=== PATIENT | female | born 1990 | race Caucasian/White ===

== ENCOUNTER → 2020-01-08 10:19 | Outpatient (CLI) | payer BC, SELFPAY ==
[2020-01-08 12:24] LABS: Free T3 3.3 pg/mL (2.18-3.98); Thyroid Stim Hormone (TSH) 2.21 uIU/mL (0.358-3.74)
[2020-01-10 16:08] LABS: Age Gdln ACOG Testing 30-65 (.)
[2020-01-11 00:24] LABS: HPV APTIMA, High Risk Negative (Negative)
[2020-01-11 00:25] LABS: HPV Reflexed? YES, CHARGE PATIENT
== END ==
PROVIDERS: Visit Provider Obstetrics & Gynecology
DX: Z12.4 Encounter for screening for malignant neoplasm of cervix (principal); Z83.49 Family history of other endocrine, nutritional and metabolic diseases; N92.6 Irregular menstruation, unspecified
CPT/HCPCS: 36415; 84439; 84443; 84481; 87624; 88175; G0145

== ENCOUNTER → 2020-02-20 | Outpatient (CLI) | payer SELFPAY ==
[2020-02-20 08:22] LABS: hCG Titer Quant., Serum 55 mIU/mL (1-3)
== END | disposition home or self-care (01) ==
PROVIDERS: PCP Internal Medicine; Referring Provider Obstetrics & Gynecology; Visit Provider Obstetrics & Gynecology
DX: O20.0 Threatened abortion (principal)
CPT/HCPCS: 36415; 84702

== ENCOUNTER → 2020-02-22 | Outpatient (CLI) | payer SELFPAY ==
[2020-02-22 08:17] LABS: hCG Titer Quant., Serum 6 mIU/mL (1-3)
== END | disposition home or self-care (01) ==
LOC: LAB 07:24
PROVIDERS: PCP Internal Medicine; Referring Provider Obstetrics & Gynecology; Visit Provider Obstetrics & Gynecology
DX: O20.0 Threatened abortion (principal)
CPT/HCPCS: 36415; 84702

== ENCOUNTER → 2020-07-28 | Outpatient (CLI) | payer BC, SELFPAY ==
[2020-07-31 03:07] LABS: Chlamydia By Nucleic Acid AMP Negative (Negative)
[2020-07-31 08:27] LABS: Gonococcus By Nucleic Acid AMP Negative (Negative)
== END | disposition home or self-care (01) ==
PROVIDERS: PCP Internal Medicine; Visit Provider Obstetrics & Gynecology
DX: Z11.3 Encounter for screening for infections with a predominantly sexual mode of transmission (principal)
CPT/HCPCS: 87491; 87591

== ENCOUNTER → 2020-08-11 | Outpatient (CLI) | payer BC, SELFPAY ==
[2020-08-11 16:52] LABS: Absolute Lymphocyte Count 1.79 X10^3/uL (0.83-4.51); Absolute Neutrophil Count 9.2 X10^3/uL (2.0-7.7); Basophil# 0.04 X10^3/uL; Basophil% 0.3 % (0-1); Eosinophil# 0.08 X10^3/uL; Eosinophils% 0.7 % (0-5); Hematocrit 40.8 % (37-47); Hemoglobin 13.4 g/dL (12.0-15.0); Lymphocyte # 1.79 X10^3/ul (4.0); Lymphocyte % 15.1 % (19-41); Mean Corp Hgb Conc 32.8 g/dL (32-36); Mean Corpuscular Hgb 28.4 pg (27.0-32.0); Mean Corpuscular Volume 86.4 fL (81-99); Mean Platelet Vol. 10.4 fl (6.2-12.0); Monocyte# 0.65 X10^3/uL; Monocyte% 5.5 % (0-10); NRBC Flagged by Analyzer 0 % (0-5); Neutrophil # 9.22 X10^3/uL (2.7-7.7); Neutrophil % 77.6 % (47-70); Platelet Count 263 K/mm3 (150-450); RBC Distribution Width CV 12.6 % (11.6-14.6); RBC Distribution Width SD 39.8 fl (35.1-43.9); Red Blood Count 4.72 M/mm3 (4.2-5.4); White Blood Count 11.9 K/mm3 (4.4-11.0)
[2020-08-11 17:02] LABS: Color, Urine Yellow (Yellow); Glucose, Dipstick Normal (Normal); Ketone-Dipstick 50 mg/dl (Negative); Leukocyte Esterase-Dipstick 25 /ul (Negative); Nitrite-Dipstick Negative (Negative); Occult Blood-Urine 25 /ul (Negative); Protein-Dipstick 30 mg/dl (Negative); Urine Bilirubin Dipstick Negative (Negative); Urine Clarity Clear (Clear); Urine Urobilinogen Normal (Normal)
[2020-08-12 10:20] LABS: HIV - WCH Non-Reactive (Nonreactive); Hepatitis B Surface Antigen Non-Reactive (Nonreactive); Hepatitis C Antibody Non-Reactive (Nonreactive)
[2020-08-14 02:04] LABS: Prenatal RPR NONREACTIVE (NONREACTIVE)
== END | disposition home or self-care (01) ==
LOC: WOBLAB 14:37
PROVIDERS: PCP Internal Medicine; Visit Provider Obstetrics & Gynecology
DX: Z34.81 Encounter for supervision of other normal pregnancy, first trimester (principal)
CPT/HCPCS: 36415; 81002; 85025; 86703; 86762; 86803; 87340

== ENCOUNTER → 2020-08-25 | Outpatient (CLI) | payer BC, SELFPAY ==
[2020-08-25 17:14] LABS: Bacteria 0 SEEN /hpf (None Seen); Mucous, Urine 0 SEEN /hpf (<or=2+); Red Blood Cells-Urine 0 SEEN /hpf (0-5)
[2020-08-25 18:18] LABS: Color, Urine Yellow (Yellow); Glucose, Dipstick Normal (Normal); Ketone-Dipstick Negative (Negative); Leukocyte Esterase-Dipstick 25 /ul (Negative); Nitrite-Dipstick Negative (Negative); Occult Blood-Urine 50 /ul (Negative); Protein-Dipstick Negative (Negative); Urine Bilirubin Dipstick Negative (Negative); Urine Clarity Clear (Clear); Urine Urobilinogen Normal (Normal)
[2020-08-25 19:02] LABS: Calcium Oxalate Crystals Ur 1+ /hpf (<or=2+); Squamous Epithelial Cells - UA 0-5 SEEN /hpf (5-10); White Blood Cells 0-5 SEEN /hpf (0-5)
== END | disposition home or self-care (01) ==
LOC: LABSPEC 17:10
PROVIDERS: PCP Internal Medicine; Visit Provider Obstetrics & Gynecology
DX: Z34.81 Encounter for supervision of other normal pregnancy, first trimester (principal)
CPT/HCPCS: 81001; 87086

== ENCOUNTER → 2020-10-17 10:05 | Outpatient (CLI) | payer BC, SELFPAY ==
[2020-10-24 16:08] LABS: AFP MoM Value 1.29 (.); AFP Value-EIA 37.1 ng/mL (.); Comment Report (.); DIA MoM Value 0.88 (.); DIA Value-EIA 109.18 pg/mL (.); DSR (By Age) 436 (.); DSR (Second Trimester) 10000 (.); Gestat. Age Based On As provided (.); Insulin Dep Diabetes No (.); Maternal Age At EDD 33.1 yr (.); hCG MoM 0.46 (.); hCG Value 11254 mIU/mL (.)
[2020-10-25 12:50] LABS: CF, Screen Comment: (.)
== END ==
PROVIDERS: PCP Internal Medicine; Visit Provider Obstetrics & Gynecology
DX: Z34.82 Encounter for supervision of other normal pregnancy, second trimester (principal)
CPT/HCPCS: 36415; 81220; 82105; 82677; 84702

== ENCOUNTER → 2020-12-08 08:58 | Outpatient (CLI) | payer BC, SELFPAY ==
[2020-12-08 11:02] LABS: Hematocrit 37.2 % (37-47); Hemoglobin 12.2 g/dL (12.0-15.0); Mean Corp Hgb Conc 32.8 g/dL (32-36); Mean Corpuscular Hgb 27.1 pg (27.0-32.0); Mean Corpuscular Volume 82.7 fL (81-99); Mean Platelet Vol. 10.1 fl (6.2-12.0); Platelet Count 254 K/mm3 (150-450); RBC Distribution Width CV 13.2 % (11.6-14.6); RBC Distribution Width SD 39.8 fl (35.1-43.9); White Blood Count 11.1 K/mm3 (4.4-11.0)
[2020-12-08 11:08] LABS: Glucose Challenge Gest 1H 50g 139 mg/dL (70-140)
== END ==
PROVIDERS: PCP Internal Medicine; Visit Provider Obstetrics & Gynecology
DX: Z34.82 Encounter for supervision of other normal pregnancy, second trimester (principal)
CPT/HCPCS: 36415; 82950; 85027

== ENCOUNTER → 2021-03-02 | Outpatient (CLI) | payer BC, SELFPAY | END | disposition home or self-care (01) | LOC: LABSPEC 11:08 | PROVIDERS: PCP Internal Medicine; Visit Provider Obstetrics & Gynecology | DX: Z36.85 Encounter for antenatal screening for Streptococcus B (principal) | CPT/HCPCS: 87081 ==

== ENCOUNTER → 2021-03-19 15:03 | Outpatient (CLI) | payer BC, SELFPAY ==
[2021-03-19 15:07] LABS: Mucous, Urine 0 SEEN /hpf (<or=2+); Red Blood Cells-Urine 0 SEEN /hpf (0-5)
[2021-03-19 15:51] LABS: Color, Urine Yellow (Yellow); Glucose, Dipstick Normal (Normal); Ketone-Dipstick Negative (Negative); Leukocyte Esterase-Dipstick 25 /ul (Negative); Nitrite-Dipstick Negative (Negative); Occult Blood-Urine Negative /ul (Negative); Protein-Dipstick Negative (Negative); Urine Bilirubin Dipstick Negative (Negative); Urine Clarity Cloudy (Clear); Urine Urobilinogen Normal (Normal); Urine pH 6.5 (5.0 - 8.0)
[2021-03-19 15:51] LABS: Hematocrit 39.2 % (37-47); Hemoglobin 12.8 g/dL (12.0-15.0); Mean Corp Hgb Conc 32.7 g/dL (32-36); Mean Corpuscular Hgb 26.4 pg (27.0-32.0); Mean Corpuscular Volume 80.8 fL (81-99); Mean Platelet Vol. 9.8 fl (6.2-12.0); Platelet Count 275 K/mm3 (150-450); RBC Distribution Width CV 14.6 % (11.6-14.6); RBC Distribution Width SD 42.5 fl (35.1-43.9); Red Blood Count 4.85 M/mm3 (4.2-5.4); White Blood Count 14.6 K/mm3 (4.4-11.0)
[2021-03-19 16:07] LABS: Bacteria RARE /hpf (None Seen); White Blood Cells 0-5 SEEN /hpf (0-5)
[2021-03-19 16:08] LABS: Squamous Epithelial Cells - UA 5-10 SEEN /hpf (5-10)
[2021-03-19 16:11] LABS: ALB/GLOB Ratio 0.8 RATIO (0.9-2.4); AST(SGOT) 13 U/L (15-37); Alanine Aminotransfer ALT/SGPT 16 U/L (13-56); Alkaline Phosphatase 153 U/L (45-117); Anion Gap 7 (5-15); BUN 5 mg/dL (7-18); BUN/Creat Ratio 8.9 RATIO (10-20); Chloride 105 mmol/L (98-107); Creatinine, Serum 0.56 mg/dL (0.55-1.02); EST Glomerular Filtration Rate 132 mL/min (>60); Est Glom Filt Rate - Afr Amer 160 mL/min (>60); Globulin 3.8 g/dL (2.2-4.2); Glucose 89 mg/dL (74-106); LDH 145 U/L (84-246); Potassium 4.1 mmol/L (3.5-5.1); Protein, Total 6.8 g/dL (6.4-8.2); Sodium Level 137 mmol/L (136-145)
[2021-03-19 16:13] LABS: Protein, Urine (Random) < 6.0 mg/dL (<11.9); Protein:Creat Ratio 157 mg/g CRE (0-200)
== END ==
PROVIDERS: PCP Nurse Practitioner Family; Visit Provider Obstetrics & Gynecology
DX: O13.9 Gestational [pregnancy-induced] hypertension without significant proteinuria, unspecified trimester (principal); Z3A.00 Weeks of gestation of pregnancy not specified
CPT/HCPCS: 36415; 80053; 81001; 82570; 83615; 84156; 85027

== ENCOUNTER 2021-03-19 19:50 | Inpatient (IN) | payer BC, SELFPAY ==
[2021-03-19 20:14] VITALS: TEMP 36.3
[2021-03-19 20:16] VITALS: BP 128/86; PULSE 95
[2021-03-19 20:21] VITALS: BMI 47.6
[2021-03-19] MEDS: Lactated Ringers 1,000 ML 50 ML IV (20:30)
[2021-03-19 21:22] LABS: Absolute Lymphocyte Count 2.51 X10^3/uL (0.83-4.51); Absolute Neutrophil Count 11.5 X10^3/uL (2.0-7.7); Basophil# 0.04 X10^3/uL; Basophil% 0.3 % (0-1); Eosinophil# 0.09 X10^3/uL; Eosinophils% 0.6 % (0-5); Hematocrit 39.2 % (37-47); Hemoglobin 12.9 g/dL (12.0-15.0); Lymphocyte # 2.51 X10^3/ul (0.83-4.51); Lymphocyte % 16.6 % (19-41); Mean Corp Hgb Conc 32.9 g/dL (32-36); Mean Corpuscular Hgb 26.6 pg (27.0-32.0); Mean Corpuscular Volume 80.8 fL (81-99); Mean Platelet Vol. 9.9 fl (6.2-12.0); Monocyte# 0.82 X10^3/uL; Monocyte% 5.4 % (0-10); NRBC Flagged by Analyzer 0 % (0-5); Neutrophil # 11.48 X10^3/uL (2.7-7.7); Neutrophil % 76.2 % (47-70); Platelet Count 264 K/mm3 (150-450); RBC Distribution Width CV 14.6 % (11.6-14.6); RBC Distribution Width SD 42.7 fl (35.1-43.9); Red Blood Count 4.85 M/mm3 (4.2-5.4); White Blood Count 15.1 K/mm3 (4.4-11.0)
[2021-03-19] MEDS: miSOPROStol 25 MCG TABLET VAGINAL (22:02)
[2021-03-19 23:24] VITALS: TEMP 36.1
[2021-03-19 23:25] VITALS: BP 146/87; PULSE 82
[2021-03-20] VITALS (55 sets, daily range): BP systolic 95–189; BP diastolic 53–116; PULSE 78–114; TEMP 36.3–37; O2SAT 95–100
[2021-03-20] MEDS: miSOPROStol 25 MCG TABLET VAGINAL (02:59)
--- NOTE | 2021-03-20 07:17 | PCM.HP.BLA ---
History and Physical Date of Admission: 03/19/21 Chief complaint: Induction of labor for gestational hypertension History of present illness: 31-year-old G2, P0 at 39 weeks 0 days with WILLIAM: 03/26/2020 1 x 7-week ultrasound arrives for induction of labor for gestational hypertension. Denies headache, visual changes, chest pain, shortness of breath, nausea vomiting, right upper quadrant pain. Patient states good movement. Obstetric history: G1: SAB 1 biochemical G2: Current Past medical history: Anxiety, HSV Medications: vitamin, Valtrex, Prozac Past surgical history: [place] teeth extraction, eye, tonsils adenoids, Lasix Allergies: Oxycodone Social history: Denies a history of smoking, alcohol, drug use Family history: Denies history DVT or PE Review of systems: Besides the above pertinent positives a full review of systems was performed and found to be negative. Physical exam: Vitals: BP 146/87 pulse 89 SpO2 100% temperature 97.5 General: Normal-appearing no acute distress HEENT: Normocephalic atraumatic no cervical lymphadenopathy Cardiac: Nonlabored breathing, no use of accessory muscles Abdomen: Soft, nontender, gravid Pelvic: Cervical exam /-3 grossly ruptured Extremities: No peripheral edema normal peripheral pulses Psych: Normal affect normal demeanor nonpressured speech Labs: White blood cell count 15.1, hemoglobin 12.9, hematocrit 39.2, platelets 264. Assessment and plan: 31-year-old G2, P0 at 39 weeks and 0 days for induction of labor for gestational hypertension -Admit labor and delivery -CEFM -GBS negative -Cytotec induction: After single dose, upon initial examination SROM for clear fluid. Will start Pitocin -Gestational hypertension: HELLP labs within normal limits, pt remains asymptomatic. Upon evaluation after SROM patient with severe range blood pressure, after 15-minute repeat blood pressure now nonsevere range. Patient considering epidural. We will continue to monitor and treat blood pressures if needed. Educated the patient on blood pressure medication and magnesium. -HSV: Patient on Valtrex suppression therapy. Sterile speculum exam was performed day of induction with no lesions noted, patient asymptomatic. -Anesthesia see
[2021-03-20] MEDS: Oxytocin 30 units/NS 500 ml 30 UNITS/500 ML IV.SOLN IV (07:19)
[2021-03-20] MEDS: Lactated Ringers 500 ML 999 ML IV ×2 (08:00→11:14)
[2021-03-20] MEDS: fentaNYL-bupivacaine (epidural) 100 ML BAG EPIDURAL ×3 (09:12→21:57)
[2021-03-20] MEDS: Lactated Ringers 1,000 ML 200 ML IV ×4 (09:37→23:40)
[2021-03-20] MEDS: Ondansetron 4 MG/2 ML Vial IV ×2 (15:20→19:30)
--- NOTE | 2021-03-20 17:34 | PN.OBGYN_ITS ---
Subjective Subjective: Patient comfortable with epidural. Objective Data Objective Data Vital Signs: Vital Signs Temp Pulse BP Pulse Ox 98.4 F 105 H 104/62 98 03/20/21 17:33 03/20/21 17:33 03/20/21 17:33 03/20/21 15:26 Weight: 252 lb 4 oz Body Mass Index (BMI) 47.6 Intake & Output: Intake and Output for Last 24 Hours 03/18/21 03/19/21 03/20/21 23:59 23:59 23:59 Intake Total 2576.49 / 2576.49 Balance 2576.49 / 2576.49 Lab / Micro Data Result Diagrams: 03/19/21 20:30 Labs: Laboratory Results - last 24 hr 03/19/21 03/19/21 20:30 20:30 WBC 15.1 H RBC 4.85 Hgb 12.9 Hct 39.2 MCV 80.8 L MCH 26.6 L MCHC 32.9 RDW Std Deviation 42.7 RDW Coeff of Jose Alberto 14.6 Plt Count 264 MPV 9.9 Immature Gran % (Auto) 0.900 Neut % (Auto) 76.2 H Lymph % (Auto) 16.6 L [place] % (Auto) 5.4 Eos % (Auto) 0.6 Baso % (Auto) 0.3 Absolute Neuts (auto) 11.5 H Absolute Lymphs (auto) 2.51 Nucleated RBC % 0 Blood Type A POSITIVE Antibody Screen NEGATIVE Micro: Microbiology 03/19/21 21:35 Mucosa - Nose SARS-CoV-2 Antigen (Rapid) - Final Physical Exam Const alert, oriented x3 and no apparent distress HEENT normocephalic Resp normal respiratory effort, no retractions and no use of accessory muscles Skin no rashes or lesions noted Psych mental status grossly normal, affect normal, speech normal and activity/motor behavior normal Assessment & Plan (1) : PLAN: Patient now comfortable with epidural. Blood pressures well controlled. Patient remains asymptomatic. Per nursing 7 cm, SROM this morning. Progressing well. Overall category 1 heart rate tracing. Continue to titrate Pitocin.
[2021-03-20] MEDS: 0.9% Saline Lock 10 ML Syringe IV (19:30)
[2021-03-20] MEDS: Acetaminophen 325 MG Tablet PO (19:47)
[2021-03-21] VITALS (27 sets, daily range): BP systolic 114–165; BP diastolic 61–85; PULSE 90–155; RESP 18; TEMP 35.8–36.9; O2SAT 96–100
--- NOTE | 2021-03-21 00:53 | PCM.PN.OB ---
Subjective Subjective: Patient comfortable with epidural. Currently pushing. Objective Data Objective Data Vital Signs: Vital Signs Temp Pulse BP Pulse Ox 98.2 F 96 134/76 H 96 03/21/21 00:11 03/21/21 00:11 03/21/21 00:11 03/21/21 00:11 Weight: 252 lb 4 oz Body Mass Index (BMI) 47.6 Intake & Output: Intake and Output for Last 24 Hours 03/19/21 03/20/21 03/21/21 23:59 23:59 23:59 Intake Total 4617.36 / 4617.36 Output Total 650 / 650 Balance 3967.36 / 3967.36 Lab / Micro Data Result Diagrams: 03/19/21 20:30 Micro: Microbiology 03/19/21 21:35 Mucosa - Nose SARS-CoV-2 Antigen (Rapid) - Final Physical Exam Const alert, oriented x3 and no apparent distress HEENT normocephalic Head and Scalp: atraumatic Neck full ROM Resp normal respiratory effort and no retractions Narrative: No HSV lesions noted, normal labia for second stage of labor and pushing. Extremity normal to inspection and full ROM Skin no rashes or lesions noted Psych mental status grossly normal, affect normal, speech normal and activity/motor behavior normal Assessment & Plan (1) : PLAN: Patient seen and examined. Called by nursing for possible HSV lesion. Upon examination no HSV lesions noted. Directed by nursing to show a lesion of concern, what was noted was a superficial tear likely from multiple cervical exams/internal monitoring/patient pushing for 2 hours. Overall exam appears normal for second stage of labor and multiple hours of pushing, with some swelling. Patient has not had a lesion this , has been on suppression therapy in the third trimester, and sterile speculum exam day of induction but prior to induction with no signs of lesion. All reassuring, will continue with labor Examination of labor progress: Cervical exam 10/100/+2. VIC position. Patient making progress with each push. Doing well with tug-of-war. We will continue current management with pushing.
[2021-03-21] MEDS: Oxytocin 30 units/NS 500 ml 30 UNITS/500 ML IV.SOLN 334 UNITS IV (03:11)
[2021-03-21] MEDS: Carboprost Tromethamine 250 MCG/ML Ampul IM (03:15)
[2021-03-21] MEDS: Lactated Ringers 500 ML 999 ML IV (04:07)
--- NOTE | 2021-03-21 04:09 | EX.PCM.OBRPT ---
Vaginal Delivery Operative Information Date of Procedure: 03/21/21 Pre-Operative Diagnosis: Term, gestational hypertension, maternal exhaustion Post-Operative Diagnosis: Term, gestational hypertension, maternal exhaustion Findings Description of Procedure: Procedure: Forceps assisted vaginal delivery Surgeon: Reji Adler MD Anesthesia: Epidural EBL: 400 cc Complications: None Specimen: None Findings: Male infant in vertex position, LOT +2 station. Apgars 7/8. Right sulcus laceration, second-degree midline perineal laceration, right labial laceration. All found to be hemostatic post repair. Hemabate 0.25 mg IM. Consent: Patient at term with gestational hypertension arrived for induction of labor. Found to be 10 cm and pushed for greater than 4 hours. Patient noted to have maternal exhaustion. head was palpated to be in LOT position +2 station. Pelvis was felt to be adequate and appropriate for vaginal delivery. Epidural anesthesia was adequate for pain relief. Patient was educated on vacuum-assisted vaginal delivery versus forceps assisted vaginal delivery versus . All processes were explained to the patient, risk benefits and alternatives. Patient elected for forceps assisted vaginal delivery. Patient stated understanding of the risks that include but are not limited to head injury and maternal tissue injury. The patient desired to proceed. All questions were answered. [place] Encaser was informed and present for delivery. Procedure: [place] catheter was present. [place] forceps were opened and each blade was lubricated. Vaginal exam reconfirmed LOT +2 station. Phantom application forceps with was applied in front of the perineum. The handle of the left branch was held in the left hand and the tip of the blade was gently introduced into the left side of the vagina with the right hand. In a similar fashion, the right blade was placed into the right side of the vagina. Biparietal application was confirmed, and the 2 branches were locked with ease. Gentle traction in the axis of the pelvis was applied in coordination with uterine contractions maternal pushing effort. And was the forceps were gradually elevated when the occiput is delivered under the pubic symphysis. Forceps were then disarticulated and removed. Head and shoulders were delivered with ease. Cord was cut clamped. Baby handed off to nursing. Placenta was delivered via cord traction and fundal massage. IV oxytocin was initiated in order to facilitate uterine contractions. Hemabate IM was given prophylactically. The cervix and vaginal wall were thoroughly examined. Right sulcus was noted and repaired in continuous running locked fashion. Second-degree midline perineal laceration noted and repaired in typical fashion. Right labial laceration repaired with interrupted sutures. Good hemostasis was noted. All counts correct x2. Infant was examined after delivery no visible lacerations were noted.
--- NOTE | 2021-03-21 08:12 | NURSING ---
0740-pt not out of bed for this shift yet, however states when she was up it felt weird d/t the swelling to her feet.
[2021-03-21] MEDS: Ibuprofen 600 MG Tablet PO ×2 (08:23→20:52)
[2021-03-21] MEDS: 0.9% Saline Lock 10 ML Syringe IV (08:25)
--- NOTE | 2021-03-21 09:39 | PCM.PN.OB ---
Subjective Subjective: Patient tearful. Just overwhelmed with taking care of new baby. Has questions about and swaddling. Overall pain well controlled, minimal bleeding. Objective Data Objective Data Vital Signs: Vital Signs Temp Pulse Resp BP Pulse Ox 97.9 F 100 18 118/71 100 03/21/21 07:40 03/21/21 07:40 03/21/21 07:40 03/21/21 07:40 03/21/21 05:54 Weight: 252 lb 4 oz Body Mass Index (BMI) 47.6 Intake & Output: Intake and Output for Last 24 Hours 03/19/21 03/20/21 03/21/21 23:59 23:59 23:59 Intake Total 4617.36 / 4617.36 1820.23 / 1820.23 Output Total 650 / 650 Balance 3967.36 / 3967.36 1820.23 / 1820.23 Lab / Micro Data Result Diagrams: 03/19/21 20:30 Micro: Microbiology 03/19/21 21:35 Mucosa - Nose SARS-CoV-2 Antigen (Rapid) - Final Physical Exam Const alert, oriented x3 and average body habitus HEENT normocephalic Head and Scalp: atraumatic Neck full ROM Resp normal respiratory effort, no retractions and no use of accessory muscles Extremity normal to inspection, full ROM and no clubbing, cyanosis or edema Psych mental status grossly normal, affect normal and speech normal Assessment & Plan (1) : PLAN: Status post forceps assisted vaginal delivery for maternal exhaustion. Pain well controlled. Breast-feeding, to see today. Emotional, overall overwhelmed. But not depressive just needs help. Will see business unit director for instruction for pediatric care. Gestational hypertension well-controlled, asymptomatic.
[2021-03-21] MEDS: FLUoxetine 20 MG Capsule PO (09:54)
[2021-03-21] MEDS: Acyclovir 200 MG Capsule 400 MG PO ×2 (09:54→22:03)
--- NOTE | 2021-03-21 16:40 | CASEMGMT ---
? Social Work Assessment Labor and Delivery Unit ? Date of Referral: 03/21/21 Time of Referral:? 7:28 Referred By: Dr. Reji Adler Date of Intervention: ??03/21/21 Time of Intervention:? 2:30pm ? Reason for Referral:? History of Anxiety and Depression ? History obtained from: Chart review, patient and patient?s /father of baby. Patient gave this documentation writer verbal consent to speak in the room in the presence of her /father of the baby, Dewayne. ? Household composition: Patient and her /father of baby reside in a home in [facility]. Patient reports that they have custody of patient?s /father of baby two older children (Blayne age 8) and (Ricky age 16) who reside in the home. Patient reports that her mother is currently caring for the 16-year-old in their home while patient and her /father of baby are in the hospital. Patient reports that the 8-year-old is on weekend visitation with his mother, which was planned. ? Patient's parent/guardian status:? ?Patient reports that her /father of baby has custody of his 2 older children, and they reside in their home (Children are Blayne, age 8 and Ricky age 16). While patient and patient?s /father of baby are in the hospital Blayne is with his mother and Ricky is at the home with patient?s mother. ? Patient and patient?s /father of the baby have been together for 4 years and for 2 years. ? Medical History: [place] was born on 03/21/21. ?s of 7,8. Weight is 3475grams. Patient received care from [place] [facility] ADMINISTRATOR. Patient is G2 Now P1. Patient is undecided about control. She indicated she wants to? research? different methods of control. Patient is currently breast feeding the . Patient was asked how breast feeding is going and she said ?ok .. so far?. Patient said that newborns last feed, which was 2 hours ago, went ?better?. ? Educational Status Patient has obtained her bachelor?s degree from [employer] in Criminal Justice. No learning issues noted. ? Financial Status: Patient is employed at [employer]. She indicated she is planning to take 12 weeks off work. Patient said that she will only get ?paid for 8 weeks but we have a cushion?. Patient said that she is happy that she gets 12 weeks of time off. Patient has been at her current job for 1 year and 4 months. ? 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 Patient?s /father of baby voiced that he would take a month off work to help with the . Patient?s said ?I will do everything to help her. except ? and indicated that he plans to help to ensure that patient can sleep. ? ? ? Infant Supplies:?? Patient and patient?s /father of the baby indicate that they have all supplies. They indicated that the nursery has the airplane theme as patient?s father, who is , was an photogrammetry airplane pilot. ? ? Childcare/Caregiver(s):? Patient reports that a family friend, who has 4 children in school, will be their childcare provider. Patient said that the family friend used to be a home health aide but now is working on her real estate license, so she is able to care for the . Patient and patient?s /father of baby appear to be comfortable with childcare provider. No concerns were reported. ? Transportation:?? Patient reports that when she her driving privileges are resumption, in regard to her recent delivery, she is able to drive. Patient?s /father of the baby will be home for 1 month and he can provide transportation. ? Programs/Agencies Involved: ???Patient said that she reviewed [facility] information and are over income guidelines for [facility]. Patient asked about [facility] program. Patient appeared open to learning about [facility]. SW offered to make a referral to [facility] but patient declined stating she knew how to make a referral to the program. Patient said that it would be helpful to have [facility] involved if there were any child delays to access services. ? Children Services/Legal Issues:??? No Children?s Services or legal issues reported. ? Behavioral Health Issues: Patient reports that 2018 was a difficult year for her. She reports that in May 2020 she began therapy at [facility] in [place]. She had been seeing her therapist every 2 weeks until ?it got closer to my due date?. Patient said that she plans to contact her therapist about resumption of counseling. Patient reports previous therapy when she lived in [place]. ? Patient also is on Prozac and reports it ?works well?. Patient reports she previously was taking Lexapro but then switched to Prozac due to the . Patient reports that she plans to continue to take the Prozac. ? Patient reports she has concern about Post- depression due to a history of anxiety and depression. SW educated patient on Post- depression and noted that patient is already linked with therapy and on medication which is very proactive. Patient was provided with handouts on Post- Depression for her reference. ? ? Father of the baby reports no mental health, AOD or domestic violence issues. ? Family/Social Stressors:? No stressors were reported. ? Patient and patient?s said that both of patient?s /father of the baby children are asking questions about the and how the is doing. ? Support Systems: Patient reports that her support will be her mom, who lives in [place]. Patient said that they have not yet decided the amount of time her mother will spend with her and the , but her mother is currently at patient?s house and anxious to see the . ? Patient said her /father of the baby, Dewayne, is also a support. As previously patient?s /father of the baby stated he gets 1 month off work for paternity leave at his job, [employer]. ? Depression and Anxiety/Shaken Baby/Safe Sleeping: Patient was provided handouts on Post- Depression, Shaken Baby Syndrome and Safe Sleeping. SW verbally reviewed with patient and patient?s information about Post- Depression, Shaken Baby and Safe Sleeping. ? ASSESSMENT:? ? Patient has been educated on depression due to history of depression and anxiety. She is currently on medication for anxiety and depression, Prozac, which she indicates is helpful. Patient reports that she plans to resume counseling with her therapist at [facility]. Patient was noted to be frequently looking at baby, in the bassinet, and commenting on the and the characteristics. ?Patient?s /father of the baby was noted to be holding the during part of the interview. Patient?s /father of the baby will be home for one month to assist with . Patient?s mother is also a support. ? ? PLAN: Discharge home. Patient declined referral to [facility] indicating she is aware of how to access [facility] Services. ?? No other services requested or indicated. ? Lorena GARZA
[2021-03-22 04:27] VITALS: BP 119/71; PULSE 113; RESP 14; TEMP 36.5
[2021-03-22 08:33] VITALS: BP 133/84; PULSE 108; RESP 16; TEMP 36.6
[2021-03-22] MEDS: Ibuprofen 600 MG Tablet PO (08:49)
[2021-03-22 09:32] LABS: Hematocrit 25.5 % (37-47); Hemoglobin 8.3 g/dL (12.0-15.0); Mean Corp Hgb Conc 32.5 g/dL (32-36); Mean Corpuscular Volume 83.1 fL (81-99); Platelet Count 265 K/mm3 (150-450); RBC Distribution Width CV 15.3 % (11.6-14.6); RBC Distribution Width SD 45.5 fl (35.1-43.9); Red Blood Count 3.07 M/mm3 (4.2-5.4)
[2021-03-22] MEDS: FLUoxetine 20 MG Capsule PO (09:34)
[2021-03-22] MEDS: Acyclovir 200 MG Capsule 400 MG PO (09:34)
--- NOTE | 2021-03-22 10:18 | PCM.PN.OB ---
Subjective Subjective: No overnight complaints. Pain well controlled. Denies headache, chest pain, shortness of breath, nausea vomiting, visual changes, right upper quadrant pain. Objective Data Objective Data Vital Signs: Vital Signs Temp Pulse Resp BP Pulse Ox 97.8 F 108 H 16 133/84 H 100 03/22/21 08:33 03/22/21 08:33 03/22/21 08:33 03/22/21 08:33 03/21/21 05:54 Oxygen Delivery Method Room Air Weight: 252 lb 4 oz Body Mass Index (BMI) 47.6 Intake & Output: Intake and Output for Last 24 Hours 03/20/21 03/21/21 03/22/21 23:59 23:59 23:59 Intake Total 4617.36 / 4617.36 1820.23 / 1820.23 Output Total 650 / 650 500 / 500 Balance 3967.36 / 3967.36 1320.23 / 1320.23 Lab / Micro Data Result Diagrams: 03/22/21 09:25 Labs: Laboratory Results - last 24 hr 03/22/21 09:25 WBC 19.0 H RBC 3.07 L Hgb 8.3 L Hct 25.5 L MCV 83.1 MCH 27.0 MCHC 32.5 RDW Std Deviation 45.5 H RDW Coeff of Jose Alberto 15.3 H Plt Count 265 MPV 10.0 Micro: Microbiology 03/19/21 21:35 Mucosa - Nose SARS-CoV-2 Antigen (Rapid) - Final Physical Exam Const alert, oriented x3 and no apparent distress HEENT normocephalic Head and Scalp: atraumatic Resp normal respiratory effort, no retractions and no use of accessory muscles Narrative: Uterus firm and below umbilicus, nontender Extremity normal to inspection and full ROM Skin no rashes or lesions noted Psych mental status grossly normal, affect normal and speech normal Assessment & Plan (1) : PLAN: day 1 status post forcep assisted vaginal delivery for maternal exhaustion. Pain well controlled. Breast-feeding, status post oracle endeca consultant. Feels much more emotionally improved today. Educated on depression. Gestational hypertension, elevated but not severe range pressures and asymptomatic. To follow-up within a week for blood pressure check, discussed preeclamptic signs and symptoms. Patient with anemia secondary to acute blood loss for iron daily. Pulse tachycardic, but patient asymptomatic white blood cell count elevated secondary to delivery, uterus nontender. All reassuring. Okay to discharge home today
--- NOTE | 2021-03-22 10:22 | PCM.DC ---
Discharge Instructions Diet Discharge Diet: No restrictions Activity Discharge Activity: Return to Normal Activity, May Drive, May Shower and - (no tub baths for two weeks) May resume sexual activity in: 4-6 weeks Weight Bearing Status: Weight bearing as tolerated Dressing / Incision Call your doctor if your incision/area has: Continuous Slow Oozing, Sudden Increased Bleeding and Foul Smelling Discharge Call your doctor if you observe: Fever of 101 or Higher, Shortness of breath and Chest pain Follow Up Care Please Follow Up With: Reji Adler MD When: 1 week blood pressure check, 3 week telehealth, 6 week Test Results: Test results from this visit will be discussed in further detail at your follow-up appointment, if applicable. Discharge Plan Admission Admit Date/Time: 03/19/21 19:50 Attending Provider: Reji Adler Primary Care Provider: Katiuska Ramirez OUTDOOR RECREATION SPECIALIST Discharge Orders/Prescriptions Prescriptions: No Action fluoxetine [Prozac] 20 mg capsule 20 mg PO DAILY RF: 0 valacyclovir [Valtrex] 1 gram tablet 1,000 mg PO DAILY PRN (Reason: HSV 2) RF: 0 400 mcg Tablet,Chewable 1 tab PO DAILY RF: 0 Disposition Discharge Orders: Discharge Patient (Routine); Ordered 03/22/21 Ordered By: Dr. Reji Adler
[2021-03-22 13:40] VITALS: BP 119/70; PULSE 109; RESP 16; TEMP 36.2
== END 2021-03-22 13:53 | disposition home or self-care (01) | DRG 807 ==
PROVIDERS: Admitting Provider Obstetrics & Gynecology; PCP Nurse Practitioner Family; Visit Provider Obstetrics & Gynecology
DX: O13.4 Gestational [pregnancy-induced] hypertension without significant proteinuria, complicating childbirth (principal); Z37.0 Single live birth; O70.1 Second degree perineal laceration during delivery; Z3A.39 39 weeks gestation of pregnancy
CPT/HCPCS: 59025; 59050; 85025; 85027; 86850; 86900; 86901; 87426; 99218; J7120; A4216; G0378; J2405

== ENCOUNTER → 2021-04-01 12:00 | Outpatient (CLI) | payer BC, SELFPAY ==
[2021-03-19 20:21] VITALS: BMI 47.6
== END ==
PROVIDERS: PCP Nurse Practitioner Family; Referring Provider Obstetrics & Gynecology; Visit Provider Obstetrics & Gynecology
DX: Z39.1 Encounter for care and examination of lactating mother (principal)
CPT/HCPCS: 96158; 96159

== ENCOUNTER → 2023-05-27 | Outpatient (CLI) | payer OTHER, SELFPAY ==
[2023-05-27 11:32] LABS: Hematocrit 40.8 % (37-47); Hemoglobin 13.5 g/dL (12.0-15.0); Mean Corp Hgb Conc 33.1 g/dL (32-36); Mean Corpuscular Hgb 27.7 pg (27.0-32.0); Mean Corpuscular Volume 83.6 fL (81-99); Mean Platelet Vol. 10.1 fl (6.2-12.0); Platelet Count 238 K/mm3 (150-450); RBC Distribution Width SD 39.2 fl (35.1-43.9); Red Blood Count 4.88 M/mm3 (4.2-5.4); White Blood Count 7.9 K/mm3 (4.4-11.0)
[2023-05-27 12:12] LABS: Estradiol 33.2 pg/mL; Luteinizing Hormone 4.4 mIU/mL; T4 Free Direct 0.87 ng/dL (0.76-1.46); Thyroid Stim Hormone (TSH) 1.62 uIU/mL (0.358-3.74)
[2023-05-27 12:13] LABS: Hemoglobin A1c 5.2 % (3.8-5.6)
[2023-06-01 21:07] LABS: HPV APTIMA, High Risk Negative (Negative)
[2023-06-03 11:09] LABS: Testosterone, % Free 2.24 % (0.50-2.80); Testosterone, Free 0.74 ng/dL (0.10-0.85); Testosterone, Total 33 ng/dL (8-60)
== END | disposition home or self-care (01) ==
PROVIDERS: PCP Nurse Practitioner Family; Referring Provider Obstetrics & Gynecology; Visit Provider Obstetrics & Gynecology
DX: Z12.4 Encounter for screening for malignant neoplasm of cervix (principal); N93.9 Abnormal uterine and vaginal bleeding, unspecified
CPT/HCPCS: 36415; 82670; 83001; 83002; 83036; 84402; 84403; 84439; 84443; 85027; 87624; 88175; G0145

== ENCOUNTER → 2024-01-13 | Outpatient (CLI) | payer OTHER, SELFPAY ==
[2024-01-16 22:07] LABS: Chlamydia By Nucleic Acid AMP Negative (Negative); Gonococcus By Nucleic Acid AMP Negative (Negative)
== END | disposition home or self-care (01) ==
LOC: LABSPEC 12:14
PROVIDERS: PCP Nurse Practitioner Family; Referring Provider Advanced Practice Midwife; Visit Provider Advanced Practice Midwife
DX: Z34.90 Encounter for supervision of normal pregnancy, unspecified, unspecified trimester (principal); Z3A.00 Weeks of gestation of pregnancy not specified
CPT/HCPCS: 87086; 87491; 87591

== ENCOUNTER → 2024-01-26 | Outpatient (CLI) | payer OTHER, SELFPAY ==
[2024-01-26 10:53] LABS: Absolute Lymphocyte Count 1.64 X10^3/uL (0.83-4.51); Absolute Neutrophil Count 5.2 X10^3/uL (2.0-7.7); Basophil# 0.01 X10^3/uL; Basophil% 0.1 % (0-1); Eosinophil# 0.09 X10^3/uL; Eosinophils% 1.2 % (0-5); Hematocrit 37.9 % (37-47); Hemoglobin 12.8 g/dL (12.0-15.0); Lymphocyte # 1.64 X10^3/ul (0.83-4.51); Mean Corp Hgb Conc 33.8 g/dL (32-36); Mean Corpuscular Hgb 27.9 pg (27.0-32.0); Mean Corpuscular Volume 82.8 fL (81-99); Mean Platelet Vol. 9.6 fl (6.2-12.0); Monocyte# 0.43 X10^3/uL; Monocyte% 5.8 % (0-10); NRBC Flagged by Analyzer 0 % (0-5); Neutrophil # 5.23 X10^3/uL (2.7-7.7); Neutrophil % 70.4 % (47-70); Platelet Count 210 K/mm3 (150-450); RBC Distribution Width CV 12.8 % (11.6-14.6); RBC Distribution Width SD 38.4 fl (35.1-43.9); Red Blood Count 4.58 M/mm3 (4.2-5.4); White Blood Count 7.4 K/mm3 (4.4-11.0)
[2024-01-26 11:44] LABS: HIV - WCH Non-Reactive (Nonreactive); Hepatitis B Surface Antigen Non-Reactive (Nonreactive); Hepatitis C Antibody Non-Reactive (Nonreactive); Rubella IgG Reactive (Nonreactive); Syphilis Antibodies Non-reactive
[2024-01-26 14:12] LABS: Hemoglobin A1c 4.8 % (3.8-5.6)
--- OUTSIDE RECORDS SUMMARY | 2024-01-26 18:25 | XMS RPT_ITS | CCD ---
Author Name Unknown Address [address] [place] [address] Organization [facility] Care Team Providers Care Warp Tension Tester Name Role Phone Katiuska Ramirez Unavailable [phone] Unavailable Unavailable Destini Aguilar Unavailable Katiuska Ramirez Unavailable Hardeep Kilpatrick Unavailable Unavailable Ms. Hardeep Kilpatrick Attending Lupis Ramirez, Ms. Harp Nazanin Primary [facility] Unava ilMs. Hardeep Vegas Attending Lupis Ramirez, Ms. Harp Nazanin Primary [facility] Yarelisva Ms. Katiuska King Nazanin [facility] Yarelisva isiah Kilpatrick, Ms. Hardeep Mcdaniel Attending Lupis mendoza Allergies Allergy Classification Reported Allergen(s) Allergy Type Date of Onset Reaction(s) Facility Acetaminophen / oxyCODONE (1 source) Acetaminophen / oxyCODONE; Translations: [Percocet TABS] Drug Allergy Itching [facility] and Work Phone: Opioid Agonists (2 sources) oxyCODONE; Translations: [oxyCODONE HCl TABS] Drug Allergy Itching [facility] and Work Phone: (5 sources) Acetaminophen / oxyCODONE; Translations: [Percocet TABS] Drug Allergy Itching [facility] and Work Phone: (7 sources) HYDROcodone; Translations: [hydrocodone] Drug Allergy Itching [facility] and Work Phone: (5 sources) oxyCODONE; Translations: [oxyCODONE HCl TABS] Drug Allergy [facility] and Work Phone: Medications Current Medications Medication Drug Class(es) Dates Sig (Normalized) Sig (Original) cephalexin 500 mg oral tablet (1 source) Cephalosporin Antibacterial Start: 09-08-2022 End: 09-17-2022 take 1 tablet by mouth three times daily cephalexin 500 mg oral tablet ; 1 tab(s) orally 3 times a day x 10 days Quantity: 30 Refills: 0 Ordered: 08-Sep-2022 Hardeep Kilpatrick Start: 08-Sep-2022 End: 17-Sep-2022 Generic Substitution Allowed Comments: Finish all this medication unless otherwise directed by prescriber. Completed/Discontinued Medications Medication Drug Class(es) Dates Sig (Normalized) Sig (Original) amoxicillin 875 mg oral tablet (1 source) Penicillin-class Antibacterial Start: 09-26-2020 End: 10-05-2020 take 1 tablet by mouth twice daily amoxicillin 875 mg oral tablet ; 1 tab(s) orally 2 times a day Quantity: 20 Refills: 0 Ordered: 26-Sep-2020 Jamin Almanza Start: 26-Sep-2020 End: 05-Oct-2020 Status: Other Generic Substitution Allowed Comments: Finish all this medication unless otherwise directed by prescriber. Problems Active Problems Problem Classification Problem Date Documented Da te Episodic/Chronic Adjustment disorders (6 sources) Adjustment disorder with anxious mood; Translations: [Adjustment disorder with anxiety] Chronic Allergic reactions (4 sources) Skin irritation 09-08-2022 Episodic Past or Other Problems Problem Classification Problem Date Documented Da te Episodic/Chronic Other skin disorders (1 source) Rash and other nonspecific skin eruption; Translations: [Rash and other nonspecific skin eruption] Onset: 09-08-2022 Episodic Results Test Name Value Interpretation Reference Range Facil ity Vital Signs Date Time Vital Sign Value Performing Clinician Facility 09-08-2022 19:18-0400 Body height 155 cm Destini Aguilar Other Phone: [facility] 09-08-2022 19:18-0400 Body temperature 97.88 [degF] Destini Aguilar Other Phone: [facility] 09-08-2022 19:18-0400 Diastolic blood pressure 98 mm[Hg] Destini Aguilar Other Phone: [facility] 09-08-2022 19:18-0400 Heart rate 71 /min Destini Aguilar Other Phone: [facility] 09-08-2022 19:18-0400 Respiratory rate 14 /min Destini Aguilar Other Phone: [facility] 09-08-2022 19:18-0400 SaO2% (BldA) [Mass fraction] 98 % Destini Aguilar Other Phone: [facility] 09-08-2022 19:18-0400 Systolic blood pressure 149 mm[Hg] Destini Aguilar Other Phone: [facility] 04-20-2021 14:11-0400 Body height 154.94 cm Katiuska Salazar [place] Work Phone: [facility] Work Phone: 04-20-2021 14:11-0400 Body mass index (BMI) [Ratio] 42.68 kg/m2 Katiuska J [place] Work Phone: [facility] Work Phone: 04-20-2021 14:11-0400 Body surface area Derived from formula 1.99 m2 Katiuska Salazar [place] Work Phone: [facility] Work Phone: 04-20-2021 14:11-0400 Body temperature 97.1 [degF] Katiuska Salazar [place] Work Phone: [facility] Work Phone: 04-20-2021 14:11-0400 Body weight 102.47 kg Katiuska Ramirez Work Phone: [facility] Work Phone: 04-20-2021 14:11-0400 Diastolic blood pressure 76 mm[Hg] Katiuska Ramirez Work Phone: [facility] Work Phone: 04-20-2021 14:11-0400 Heart rate 94 /min Katiuska Ramirez Work Phone: [facility] Work Phone: 04-20-2021 14:11-0400 Systolic blood pressure 118 mm[Hg] Katiuska Ramirez Work Phone: [facility] Work Phone: Encounters Encounter Date Encounter Type Care Provider Facility Start: 2023 ambulatory Ms. Katiuska Amador angelito [place] Facility:[id number] Start: 2023 End: 2023 Emergency department patient visit [facility] Start: 09-08-2022 End: 09-08-2022 Emergency department patient visit [facility] Start: 12-30-2021 Office outpatient vi sit 15 minutes Katiuska Martin James Work Phone: [facility] 205 DO Work Phone: Start: 12-09-2021 Patient encounter procedure Katiuska Ramirez Work Phone: [facility] 205 DO Work Phone: Start: 12-08-2021 Office outpatient vi sit 15 minutes [place]iuska Martin [place] Work Phone: [facility] 205 DO Work Phone: Start: 07-30-2021 Chart Update Katiuska J Nicolaschristina connelly Work Phone: [facility] Work Phone: Start: 04-20-2021 Periodic preventive med est patient 18-39 yrs Katiuska J [place] Work Phone: [facility] Work Phone: Start: 06-19-2020 Office outpatient vi sit 15 minutes Katiuska J [place] Work Phone: [facility] Work Phone: Procedures Date Procedure Procedure Detail Performing Clinician Laser assisted in si tu keratomileusis Katiuska J [place] Work Phone: Strabismus surgery Katiuska J [place] Work Phone: Tonsillectomy Katiuska J Nicolaschristina connelly Work Phone: Vaccine refused by patient COVID -19 vaccination declined Katiuska J [place] Work Phone: Plan of Treatment Date Care Activity Detail Author Start: 09-08-2022 End: 09-09-2023 cefTRIAXone Injectable 1000 mg IntraMuscular Once ; (ROCEPHIN)DOSE = 1,000 mg IntraMuscular OnceClinician Notes: Reconstitute with 3.6 mL of Dextrose 5%, NaCL 0.9%, or Sterile Water for Injection Start: 08-Sep-2022 End: 08-Sep-2023 Ordered: 08-Sep-2022 Hardeep Kilpatrick Intent Comments: Reconstitute with 3.6 mL of Dextrose 5%, NaCL 0.9%, or Sterile Water for Injection [facility] Payers Date Payer Category Payer Unknown [id number] 1988 Unknown [id number] 1988 Unknown [id number] Private Health Insurance [id number] Unknown Social History Date Type Detail Facility Occasional alcohol use Occasional alcohol use [facility] Work Phone: Tobacco smoking consumption unknown [facility] History of Present illness Narrative 01-25-2022 Note Date & Type Note Facility 01-25-2022 History of Presen t illness Narrative She is here for follow up of anxiety. She has been feeling a little better with the fluoxetine. Less frequent anxiety attacks. She is having trouble staying asleep. She was taking it in the morning but it made her feel like she had a buzz. She has had a decreased appetite.she went to urgent care for a rash on her finger. It has happened in the past. she gets blisters on her finger and then red streaks up her arm. She started valtrex when it first started and then they put her on augmentin. [facility] Work Phone: History of Present illness Narrative 12-27-2021 Note Date & Type Note Facility 12-27-2021 History of Present illness Narrative Patient presents today via virtual visit with chief complaint of sinus pressure. States that this episode started 2-3 days ago with associated maxillary dental pain, nasal congestion, rhinorrhea, scratchy throat, bl ear fullness. Denies CP, SOB, FANG, LH, dizziness, abd pain, n/v/d, cough, fever, chills. Denies sick contacts. Has tried Nyquil, Dayquil, Sudafed, Mucinex with no improvement in symptoms. Did have covid-19 a few weeks ago and returned to baseline prior to onset of current symptoms. [facility] 205 DO Work Phone: Chief complaint Narrative - Reported 12-08-2021 Note Date & Type Note Facility 12-08-2021 Chief complaint Narrative - Reported An interactive audio and video telecommunication system which permits real time communications between the patient (at the originating site) and provider (at the distant site) was utilized to provide this telehealth service.Verbal consent was requested and obtained from KATIE STOKES on this date, 12/08/2021 01:00 PM , for a telehealth visit.body aches, chills started Tuesday. Fever, dizziness, nausea, throat scratchy throat, fatigued. Step son had covid just out of quarantine. [facility] 205 DO Work Phone: History of Present illness Narrative 12-06-2021 Note Date & Type Note Facility 12-06-2021 History of Present illness Narrative This is a 31yo female without significant pmhx who presents today via virtual visit with chief complaint of myalgias. States that this episodes started 2 days ago with associated chills, tmax (100.8F), dizziness, FANG, nasal congestion, rhinorrhea, nausea, PND, cough (which she attributes to PND), minimal SOB. Denies CP, abd pain, v/d, decreased taste/smell, sinus pressure, ear pain. Tried taking ibuprofen, which helped with her fever. Has been afebrile x24hrs. Is also taking otc vitamin C supplement. Patient's joey (who lives with her) was diagnosed with covid 2 weeks ago. He tried to stay in his room but came out of his room while patient was at work, so she does have possible exposure. Has not been to work yet this week. [facility] DO Work Phone: Chief complaint Narrative - Reported Note Date & Type Note Facility Chief complaint Narrative - Reported An interactive audio and video telecommunication system which permits real time communications between the patient (at the originating site) and provider (at the distant site) was utilized to provide this telehealth service.Virtual visit Possible sinus infection, head congestion, face hurts jaw and teeth hurt scratchy throat, ears plugged Had Covid in [place] [facility] 205 DO Work Phone: History of Present illness Narrative Note Date & Type Note Facility History of Present illness Narrative there are no concerns today. The patient's health since the last visit is described as good. There are no interval changes in the patient's PMH, PSH, and current medications. There are no interval changes in the patient's social and family history. She has regular dental visits. She denies vision problems. She denies hearing loss. Immunizations status: not up to date . TDaP.Lifestyle: She consumes a diverse and healthy diet. She does not have any weight concerns. She exercises regularly. She does not use tobacco. She denies alcohol use. History: 1 . 5/8/21 Vaginal delivery-pumping and formula.Metabolic screening: lipid profile performed within the past five years.Additional History:. Triglycerides were elevated on work labs. Discussed dietary recommendations.She has been having some right-sided nasopharynx discomfort since she delivered. She denies any allergy symptoms or acid reflux. [facility] Work Phone: Summary Purpose Family History No Family History Records FoundUnknown Family Member Name Dates Details Family history of depression : Mother(V17.0, Z81.8) Status:Active Family history of colonic di verticulitis: Mother(V18.59, Z83.79) Status:Active Family history of hyperthyro idism: Mother(V18.19, Z83.49) Status:Active Family history of cardiac di sorder: Father(V17.49, Z82.49) Status:Active Family history of gestationa l diabetes mellitus (GDM): Sister(V18.0, Z83.3) Status:Active Family history of hypertensi on: Sister(V17.49, Z82.49) Status:Active Unknown Family Member Name Dates Details Family history of depression : Mother(V17.0, Z81.8) Status:Active Family history of colonic di verticulitis: Mother(V18.59, Z83.79) Status:Active Family history of hyperthyro idism: Mother(V18.19, Z83.49) Status:Active Family history of cardiac di sorder: Father(V17.49, Z82.49) Status:Active Family history of gestationa l diabetes mellitus (GDM): Sister(V18.0, Z83.3) Status:Active Family history of hypertensi on: Sister(V17.49, Z82.49) Status:Active Unknown Family Member Name Dates Details Family history of depression : Mother(V17.0, Z81.8) Status:Active Family history of colonic di verticulitis: Mother(V18.59, Z83.79) Status:Active Family history of hyperthyro idism: Mother(V18.19, Z83.49) Status:Active Family history of cardiac di sorder: Father(V17.49, Z82.49) Status:Active Family history of gestationa l diabetes mellitus (GDM): Sister(V18.0, Z83.3) Status:Active Family history of hypertensi on: Sister(V17.49, Z82.49) Status:Active Unknown Family Member Name Dates Details Family history of hypertensi on: Sister(V17.49, Z82.49) Status:Active Family history of gestationa l diabetes mellitus (GDM): Sister(V18.0, Z83.3) Status:Active Family history of cardiac di sorder: Father(V17.49, Z82.49) Status:Active Family history of hyperthyro idism: Mother(V18.19, Z83.49) Status:Active Family history of colonic di verticulitis: Mother(V18.59, Z83.79) Status:Active Family history of depression : Mother(V17.0, Z81.8) Status:Active Unknown Family Member Name Dates Details Family history of depression : Mother(V17.0, Z81.8) Status:Active Family history of colonic di verticulitis: Mother(V18.59, Z83.79) Status:Active Family history of hyperthyro idism: Mother(V18.19, Z83.49) Status:Active Family history of cardiac di sorder: Father(V17.49, Z82.49) Status:Active Family history of gestationa l diabetes mellitus (GDM): Sister(V18.0, Z83.3) Status:Active Family history of hypertensi on: Sister(V17.49, Z82.49) Status:Active Unknown Family Member Name Dates Details Family history of depression : Mother(V17.0, Z81.8) Status:Active Family history of colonic di verticulitis: Mother(V18.59, Z83.79) Status:Active Family history of hyperthyro idism: Mother(V18.19, Z83.49) Status:Active Family history of cardiac di sorder: Father(V17.49, Z82.49) Status:Active Family history of gestationa l diabetes mellitus (GDM): Sister(V18.0, Z83.3) Status:Active Family history of hypertensi on: Sister(V17.49, Z82.49) Status:Active Advance Directives No Advanced Directives Records FoundNo Advanced Directives Records FoundNo Advanced Directives Records FoundNo Advanced Directives Records Found 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 Pt presents to this office for physicalPt presents for medication f/u; Fluoxetine; c/o more complicated sleeping issues since starting medication; loss of appetite. Additional Source Comments INFORMATION SOURCE (unrecogn ized section and content) DATE CREATED AUTHOR AUTHOR'S ORGANIZ ATION 12/31/2021 [employer] DATE CREATED AUTHOR AUTHOR'S ORGANIZ ATION 01/28/2023 [facility] DATE CREATED AUTHOR AUTHOR'S ORGANIZ ATION 03/05/2023 [facility] <item><item> Privacy Markings (unrecogniz ed section and content) Section Author: Danitza Bey PROHIBITION ON REDISCLOSURE OF CONFIDENTIAL INFORMATION This notice accompanies a disclosure of information concerning a client made to you with the consent of such client. Section Author: Danitza Bey PROHIBITION ON REDISCLOSURE OF CONFIDENTIAL INFORMATION This notice accompanies a disclosure of information concerning a client made to you with the consent of such client. FOR RECORDS PERTAINING TO PATIENTS WHO ARE OR HAVE BEEN ENROLLED IN A CHEMICAL DEPENDENCY/SUBSTANCEABUSE PROGRAM, SOME INFORMATION MAY BE OMITTED. This clinical summary was aggregated from multiple sources. Caution should be exercised in using it in the provision of clinical care. This summary normalizes information from multiple sources, and as a consequence, information in this document may materially change the coding, format and clinical context of patient data. In addition, data may be omitted in some cases. CLINICAL DECISIONS SHOULD BE BASED ON THE PRIMARY CLINICAL RECORDS. [employer] [facility]. provides no warranty or guarantee of the accuracy or completeness of information in this document.
== END | disposition home or self-care (01) ==
LOC: PAVLAB 10:33
PROVIDERS: PCP Nurse Practitioner Family; Referring Provider Advanced Practice Midwife; Visit Provider Advanced Practice Midwife
DX: Z34.90 Encounter for supervision of normal pregnancy, unspecified, unspecified trimester (principal)
CPT/HCPCS: 36415; 83036; 85025; 86703; 86762; 86780; 86803; 86850; 86900; 86901; 87340

== ENCOUNTER → 2024-05-18 | Outpatient (CLI) | payer OTHER, SELFPAY ==
[2024-05-18 09:36] LABS: Absolute Lymphocyte Count 1.58 X10^3/uL (0.83-4.51); Absolute Neutrophil Count 6.3 X10^3/uL (2.0-7.7); Basophil# 0.02 X10^3/uL; Basophil% 0.2 % (0-1); Eosinophil# 0.08 X10^3/uL; Hematocrit 37.3 % (37-47); Hemoglobin 12.4 g/dL (12.0-15.0); Lymphocyte # 1.58 X10^3/ul (0.83-4.51); Lymphocyte % 18.8 % (19-41); Mean Corp Hgb Conc 33.2 g/dL (32-36); Mean Corpuscular Hgb 27.2 pg (27.0-32.0); Mean Corpuscular Volume 81.8 fL (81-99); Mean Platelet Vol. 9.6 fl (6.2-12.0); Monocyte# 0.32 X10^3/uL; Monocyte% 3.8 % (0-10); NRBC Flagged by Analyzer 0 % (0-5); Neutrophil # 6.34 X10^3/uL (2.7-7.7); Neutrophil % 75.5 % (47-70); Platelet Count 205 K/mm3 (150-450); RBC Distribution Width CV 13.7 % (11.6-14.6); RBC Distribution Width SD 40.9 fl (35.1-43.9); Red Blood Count 4.56 M/mm3 (4.2-5.4); White Blood Count 8.4 K/mm3 (4.4-11.0)
[2024-05-18 09:56] LABS: Glucose Challenge Gest 1H 50g 149 mg/dL (70-140)
[2024-05-18 10:34] LABS: HIV - WCH Non-Reactive (Nonreactive); Syphilis Antibodies Non-reactive
== END | disposition home or self-care (01) ==
LOC: LAB 08:51
PROVIDERS: Referring Provider Nurse Practitioner Women's Health; Visit Provider Nurse Practitioner Women's Health
DX: Z13.1 Encounter for screening for diabetes mellitus (principal); Z3A.25 25 weeks gestation of pregnancy
CPT/HCPCS: 36415; 82950; 85025; 86703; 86780

== ENCOUNTER → 2024-05-23 | Outpatient (CLI) | payer OTHER, SELFPAY ==
[2024-05-23 12:48] LABS: Glucose GTT-Gestational 1 Hr 151 mg/dL (<190)
[2024-05-23 13:34] LABS: Glucose GTT-Gestation. Fasting 90 mg/dL (<105)
[2024-05-23 14:01] LABS: Glucose GTT-Gestational 2 Hr 146 mg/dL (<165)
[2024-05-23 14:08] LABS: Glucose GTT-Gestational 3 Hr 122 L (<145)
== END | disposition home or self-care (01) ==
LOC: LAB 09:53
PROVIDERS: Referring Provider Obstetrics & Gynecology; Visit Provider Obstetrics & Gynecology
DX: O99.810 Abnormal glucose complicating pregnancy (principal); Z3A.00 Weeks of gestation of pregnancy not specified
CPT/HCPCS: 82951; 82952

== ENCOUNTER → 2024-06-07 | Outpatient (CLI) | payer OTHER, SELFPAY ==
--- NOTE | 2024-06-07 12:28 | US_ITS ---
STUDY: SECOND AND THIRD TRIMESTER OBSTETRICAL ULTRASOUND - LIMITED REASON FOR EXAM: Female, 34 years old growth LMP: 11/13/2023 PRIOR ULTRASOUND: None. TECHNIQUE: Transabdominal TECHNICAL QUALITY: Adequate. FINDINGS: There is a single intrauterine fetus. The fetus is in a breech presentation. There is demonstrated cardiac activity with a heart rate of 144 bpm. There is a normal amniotic fluid volume. The largest amniotic fluid pocket measures 5.0 cm. The amniotic fluid index (LAKE) is 17.3 cm. The placenta is anterior in location and is not low lying. There are Grade 1 placental changes. The cervix measures 3.9 cm in length. BIOMETRY: BPD: 7.3 cm: 29 weeks, 2 days HC: 27.0 cm: 29 weeks, 3 days AC: 26.9 cm: 31 weeks, 0 days FL: 5.5 cm: 29 weeks, 1 days Age by LMP: 29 weeks, 4 days. WILLIAM by LMP: 08/19/2024. age by prior US: weeks, days. WILLIAM by prior US: . age by current US: 29 weeks, 4 days. WILLIAM by current US: 08/19/2024. Estimated weight: 1535 grams, +/- 2:30 grams, 60 percentile. Gender: US/OB Limited With Biometrics IMPRESSION: Living intrauterine of 29 weeks 4 days as described above. Electronically Signed: Wally Carrington MD at 13:30 EDT ,
== END | disposition home or self-care (01) ==
PROVIDERS: Referring Provider Obstetrics & Gynecology; Visit Provider Obstetrics & Gynecology
DX: O26.10 Low weight gain in pregnancy, unspecified trimester (principal); Z3A.00 Weeks of gestation of pregnancy not specified
CPT/HCPCS: 76816

== ENCOUNTER → 2024-07-10 | Outpatient (CLI) | payer OTHER, SELFPAY ==
--- NOTE | 2024-07-10 13:24 | US_ITS ---
STUDY: SECOND AND THIRD TRIMESTER OBSTETRICAL ULTRASOUND REASON FOR EXAM: Female, 34 years old obesity affecting LMP: November 13, 2023. TECHNIQUE: Transabdominal TECHNICAL QUALITY: Adequate. PRIOR ULTRASOUND: Comparison is made with prior study dated June 07, 2024. FINDINGS: There is a single intrauterine fetus. The fetus is in a cephalic presentation. There is demonstrated cardiac activity with a heart rate of 140 bpm. There is a normal amniotic fluid volume. The largest amniotic fluid pocket measures 5.4 cm. The amniotic fluid index (LAKE) is 17.1 cm. The placenta is anterior in location and is not low lying. There are Grade 1 placental changes. The adnexal regions are not visualized. BIOMETRY: BPD: 8.17 cm: 32 weeks, 6 days HC: 31.38 cm: 35 weeks, 1 days AC: 32.04 cm: 36 weeks, 0 days FL: 5.93 cm: 30 weeks, 6 days CI: 73% FL/BPD: 73% FL/HC: 19% FL/AC: 19% HC/AC: 0.98 age by current US: 34 weeks, 3 days. WILLIAM by current US: August 18, 2024. Estimated weight: 2364 grams, +/- 355 grams, 41 %. age by prior US: 34 weeks, 2 days. WILLIAM by prior US: August 19, 2024. Age by LMP: 34 weeks, 2 days. WILLIAM by LMP: August 19, 2024. IMPRESSION: Single live uterine gestation with a mean gestational age of 34 weeks and 2 days. Electronically Signed: Raf Hernandes MD at 14:37 EDT , STUDY: OBSTETRICAL ULTRASOUND - BIOPHYSICAL PROFILE REASON FOR EXAM: Female, 34 years old obesity affecting LMP: November 13, 2023. PRIOR ULTRASOUND: None. TECHNIQUE: Transabdominal TECHNICAL QUALITY: Adequate. FINDINGS: There is a single intrauterine fetus. The fetus is in a cephalic presentation. There is demonstrated cardiac activity with a heart rate of 140 bpm. There is a normal amniotic fluid volume. The largest amniotic fluid pocket measures 5.37 cm. The amniotic fluid index (LAKE) is 17.1 cm. The placenta is anterior in location and is not low lying. There are Grade 1 placental changes. Age by LMP: 34 weeks, 2 days. WILLIAM by LMP: August 19, 2024. BIOPHYSICAL PROFILE: Breathing Movements (FBM): 2 Gross Body Movements (GBM): 2 Tone (FT): 2 Amniotic Fluid Volume (AFV): 2 TOTAL SCORE: US/OB Limited With Biometrics IMPRESSION: Normal biophysical profile of 06/21. Electronically Signed: Raf Hernandes MD at 14:38 EDT ,
== END | disposition home or self-care (01) ==
PROVIDERS: Referring Provider Obstetrics & Gynecology; Visit Provider Obstetrics & Gynecology
DX: O99.212 Obesity complicating pregnancy, second trimester (principal); Z3A.00 Weeks of gestation of pregnancy not specified
CPT/HCPCS: 76816; 76819

== ENCOUNTER → 2024-07-17 | Outpatient (CLI) | payer OTHER, SELFPAY ==
--- NOTE | 2024-07-17 08:57 | US_ITS ---
STUDY: OBSTETRICAL ULTRASOUND - BIOPHYSICAL PROFILE REASON FOR EXAM: Female, 34 years old obesity affecting LMP: November 13, 2023. PRIOR ULTRASOUND: Comparison is made with prior study July 10, 2024. TECHNIQUE: Transabdominal TECHNICAL QUALITY: Adequate. FINDINGS: There is a single intrauterine fetus. The fetus is in a cephalic presentation. There is demonstrated cardiac activity with a heart rate of 150 bpm. There is a normal amniotic fluid volume. The largest amniotic fluid pocket measures 4.8 cm x 6.2 cm. The amniotic fluid index (LAKE) is 14.5 cm. The placenta is anterior in location and is not low lying. There are Grade 1 placental changes. Age by LMP: 35 weeks, 2 days. WILLIAM by LMP: August 19, 2024. age by prior US: 35 weeks, 3 days. WILLIAM by prior US: August 18, 2024. BIOPHYSICAL PROFILE: Breathing Movements (FBM): 2 Gross Body Movements (GBM): 2 Tone (FT): 2 Amniotic Fluid Volume (AFV): 2 TOTAL SCORE: 8 / 8 US/Biophysical Prof W/O Non Stres IMPRESSION: Normal biophysical profile of 8/8. Electronically Signed: Raf Hernandes MD at 14:39 EDT ,
[2024-07-17 11:16] LABS: Absolute Lymphocyte Count 1.66 X10^3/uL (0.83-4.51); Absolute Neutrophil Count 8.8 X10^3/uL (2.0-7.7); Basophil# 0.04 X10^3/uL; Basophil% 0.4 % (0-1); Eosinophil# 0.07 X10^3/uL; Eosinophils% 0.6 % (0-5); Hematocrit 37.1 % (37-47); Hemoglobin 12.1 g/dL (12.0-15.0); Lymphocyte # 1.66 X10^3/ul (0.83-4.51); Lymphocyte % 14.6 % (19-41); Mean Corp Hgb Conc 32.6 g/dL (32-36); Mean Corpuscular Hgb 26.5 pg (27.0-32.0); Mean Corpuscular Volume 81.4 fL (81-99); Mean Platelet Vol. 9.4 fl (6.2-12.0); Monocyte% 6.2 % (0-10); NRBC Flagged by Analyzer 0 % (0-5); Neutrophil # 8.75 X10^3/uL (2.7-7.7); Neutrophil % 77.1 % (47-70); Platelet Count 215 K/mm3 (150-450); RBC Distribution Width CV 14.7 % (11.6-14.6); RBC Distribution Width SD 43.3 fl (35.1-43.9); Red Blood Count 4.56 M/mm3 (4.2-5.4); White Blood Count 11.4 K/mm3 (4.4-11.0)
[2024-07-17 11:41] LABS: Protein, Urine (Random) < 6.0 mg/dL (<11.9)
[2024-07-17 11:50] LABS: ALB/GLOB Ratio 0.7 RATIO (0.9-2.4); AST(SGOT) 9 U/L (15-37); Alanine Aminotransfer ALT/SGPT 13 U/L (13-56); Albumin, Serum 2.8 g/dL (3.2-5.0); Alkaline Phosphatase 89 U/L (45-117); Anion Gap 8 (5-15); BUN 6 mg/dL (7-18); BUN/Creat Ratio 10.9 RATIO (10-20); Calcium,Total 8.7 mg/dL (8.5-10.1); Chloride 108 mmol/L (98-107); Creatinine, Serum 0.55 mg/dL (0.55-1.02); EST Glomerular Filtration Rate 133 mL/min (>60); Est Glom Filt Rate - Afr Amer 161 mL/min (>60); Globulin 3.8 g/dL (2.2-4.2); Glucose 106 mg/dL (74-106); Potassium 3.8 mmol/L (3.5-5.1); Protein, Total 6.6 g/dL (6.4-8.2); Sodium Level 137 mmol/L (136-145)
== END | disposition home or self-care (01) ==
PROVIDERS: Obstetrics & Gynecology; Referring Provider Obstetrics & Gynecology; Visit Provider Obstetrics & Gynecology
DX: R10.2 Pelvic and perineal pain (principal)
CPT/HCPCS: 36415; 76819; 80053; 82570; 84156; 85025; 87086; 87088

== ENCOUNTER → 2024-07-26 | Outpatient (CLI) | payer OTHER, SELFPAY ==
--- NOTE | 2024-07-26 08:57 | US_ITS ---
STUDY: OBSTETRICAL ULTRASOUND - BIOPHYSICAL PROFILE REASON FOR EXAM: Female, 34 years old , evaluate well-being. LMP: 11/13/2023 PRIOR ULTRASOUND: Prior biophysical profile examination of 07/17/2024. TECHNIQUE: Transabdominal TECHNICAL QUALITY: Adequate. FINDINGS: There is a single intrauterine fetus. The fetus is in a cephalic presentation. There is demonstrated cardiac activity with a heart rate of 152 bpm. There is a normal amniotic fluid volume. The largest amniotic fluid pocket measures 5 cm. The amniotic fluid index (LAKE) is 11.5 cm. The placenta is anterior in location and is not low lying. There are Grade 2 placental changes. Age by LMP: 36 weeks, 2 days. WILLIAM by LMP: 08/19/2024. BIOPHYSICAL PROFILE: Breathing Movements (FBM): 2 Gross Body Movements (GBM): 2 Tone (FT): 2 Amniotic Fluid Volume (AFV): 2 TOTAL SCORE: / US/Biophysical Prof W/O Non Stres IMPRESSION: Normal biophysical profile of 06/21. Electronically Signed: Joe Avila MD at 11:45 EDT ,
== END | disposition home or self-care (01) ==
PROVIDERS: Referring Provider Obstetrics & Gynecology; Visit Provider Obstetrics & Gynecology
DX: O09.92 Supervision of high risk pregnancy, unspecified, second trimester (principal); Z3A.00 Weeks of gestation of pregnancy not specified
CPT/HCPCS: 76819; 87081

== ENCOUNTER → 2024-08-01 | Outpatient (CLI) | payer OTHER, SELFPAY ==
--- NOTE | 2024-08-01 09:00 | US_ITS ---
INDICATION: obesity affecting EXAMINATION: Ultrasound US Biophysical Profile W/O Nonst TECHNIQUE: Transabdominal pelvic ultrasound was performed. COMPARISON: Prior study dated: 07/26/24 LMP: Unknown. Beta-hCG: Unknown. Provided EGA: 37 weeks 3 days FINDINGS: INTRAUTERINE GESTATION(s): Single. HEART MOTION is 135 bpm. AMNIOTIC FLUID INDEX (LAKE): 17.2 cm BIOPHYSICAL PROFILE (BPP): 06/21 -- Breathin/2. -- Movement: 2/2. -- Tone: 2/2. --LAKE: 2/2. PRESENTATION: Cephalic PLACENTA: Anterior. There is no placenta previa or abruption. CERVIX: The cervix is not visualized. FREE FLUID: None. US/Biophysical Prof W/O Non Stres IMPRESSION: Single live intrauterine with biophysical profile 06/21. No acute abnormality. Electronically Signed: Nik Gama MD at 22:06 EDT ,
== END | disposition home or self-care (01) ==
PROVIDERS: Referring Provider Obstetrics & Gynecology; Visit Provider Obstetrics & Gynecology
DX: O99.212 Obesity complicating pregnancy, second trimester (principal); Z3A.00 Weeks of gestation of pregnancy not specified
CPT/HCPCS: 76819

== ENCOUNTER → 2024-08-09 | Outpatient (CLI) | payer OTHER, SELFPAY ==
--- NOTE | 2024-08-09 12:28 | US_ITS ---
STUDY: OBSTETRICAL ULTRASOUND - BIOPHYSICAL PROFILE REASON FOR EXAM: Female, 34 years old obesity affecting , growth and BPP LMP: November 13, 2025. PRIOR ULTRASOUND: Comparison is made with prior study August 01, 2024. TECHNIQUE: Transabdominal TECHNICAL QUALITY: Adequate. FINDINGS: There is a single intrauterine fetus. The fetus is in a cephalic presentation. There is demonstrated cardiac activity with a heart rate of 137 bpm. There is a normal amniotic fluid volume. The largest amniotic fluid pocket measures 5.3 cm. The amniotic fluid index (LAKE) is 16.1 cm. The placenta is anterior in location and is not low lying. There are Grade 2 placental changes. Age by LMP: 38 weeks, 4 days. WILLIAM by LMP: August 19, 2024. BIOPHYSICAL PROFILE: Breathing Movements (FBM): 2 Gross Body Movements (GBM): 2 Tone (FT): 2 Amniotic Fluid Volume (AFV): 2 TOTAL SCORE: 8 / 8 IMPRESSION: Normal biophysical profile of 8/8. Electronically Signed: Raf Hernandes MD at 14:38 EDT , STUDY: SECOND AND THIRD TRIMESTER OBSTETRICAL ULTRASOUND - LIMITED REASON FOR EXAM: Female, 34 years old obesity affecting , growth and BPP LMP: November 13, 2025. PRIOR ULTRASOUND: Comparison is made with prior study dated August 01, 2024. TECHNIQUE: TECHNICAL QUALITY: Adequate. FINDINGS: There is a single intrauterine fetus. The fetus is in a cephalic presentation. There is demonstrated cardiac activity with a heart rate of 137 bpm. There is a normal amniotic fluid volume. The largest amniotic fluid pocket measures 5.3 cm. The amniotic fluid index (LAKE) is 16.1 cm. The placenta is anterior in location and is not low lying. There are Grade 2 placental changes. BIOMETRY: BPD: 8.81 cm: 35 weeks, 4 days. 8% HC: 34.58 cm: 40 weeks, 0 days. 70% AC: 36.04 cm: 40 weeks, 0 days. 94% FL: 7.2 cm: 36 weeks, 6 days. 16% Age by LMP: 38 weeks, 4 days. WILLIAM by LMP: August 19, 2024. age by current US: 38 weeks, 2 days. WILLIAM by current US: August 21, 2024. Estimated weight: 3523 grams, +/- 528 grams, 65 percentile. US/Biophysical Prof W/O Non Stres IMPRESSION: Single live intrauterine gestation with a mean gestational age of 38 weeks and 2 days. Electronically Signed: Raf Hernandes MD at 14:40 EDT ,
== END | disposition home or self-care (01) ==
PROVIDERS: Referring Provider Obstetrics & Gynecology; Visit Provider Obstetrics & Gynecology
DX: O99.212 Obesity complicating pregnancy, second trimester (principal); Z3A.00 Weeks of gestation of pregnancy not specified
CPT/HCPCS: 76816; 76819

== ENCOUNTER 2024-08-13 07:18 | Inpatient (IN) | payer OTHER, SELFPAY ==
[2024-08-13] VITALS (56 sets, daily range): BP systolic 110–176; BP diastolic 56–99; PULSE 80–141; RESP 15–20; TEMP 36.3–36.7; O2SAT 88–100; BMI 45.1
--- NOTE | 2024-08-13 07:55 | HP.PCM.OB_ITS ---
HPI - General General Date of Admission: 08/13/24 Date of Service: 08/13/24 HPI Narrative KATIE STOKES, is a 34 F 39.1 weeks gestation who presents to unit for induction of labor for BMI, AMA and hx GHTN Maternal Data Information WILLIAM Calculator Estimated Delivery Date Method Current WG Current Estimate 08/19/24 LMP (Certain) 39w 1d Other Estimates 08/15/24 Ultrasound #1 39w 5d Final WILLIAM: 08/19/24 Final WILLIAM Source: US >20 weeks Gestational age: 39.1 weeks PFSH PFSH Medical History HPV (human papilloma virus) infection Depression Anxiety Headache Gestational HTN Home Medications ?Medication ?Instructions ?Recorded ?Last Taken ?Type multivitamin no.47-iron fum 27 cap PO 01/06/24 Unknown History mg-folate no.1 1 mg-dha 300 mg capsule (PNV-DHA) valacyclovir 500 mg tablet 1,000 mg (2 x 500 mg) PO DAILY #30 01/13/24 Unknown Rx (Valtrex) tabs aspirin 81 mg tablet,delayed 81 mg PO DAILY 02/20/24 Unknown History release magnesium oxide 400 mg PO QDAY 08/01/24 Unknown History Allergy/AdvReac Type Severity Reaction Status Date / Time oxycodone (From Roxicodone) Allergy Intermediate Other Verified 08/09/24 10:51 Family History Grandmother Cancer, Onset Age: 60 Paternal- Uterine Father Myocardial infarction Mother Kidney disease Stg IV kidney disease Thyroid disorder hyperthyroid Sister Thyroid disorder hyperthyroid Aunt Thyroid disorder hyperthyroid Surgical History History of colposcopy History of surgery Social History adopted: No household members: spouse and children number of children: 1 current occupational status: unemployed current occupation: [employer] current occupational exposures/hazards: No pets and animals: Yes pets and animals: dog(s) history of recent travel: No sexually active: Yes Smoking Status: Never smoker alcohol intake: current alcohol intake frequency: holidays/special occasions only details: not while substance use type: does not use well-balanced diet: daily or most days caffeine: Yes Type: coffee Number of servings: 1 eating out: 1-3 times/week during the past year weight has: remained stable what type of physical activity do you participate in: walking frequency: 1-2 times per week duration: 15-30 minutes/day stormy/yazidi: None seatbelt use: always do you feel safe at home: Yes additional social history: 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 Date Name GA/Weeks Outcome Route Bth Weight Gen Labor Lgth Anesthesia Del Locatn Provider FOB 03/21/21 Shay 39 live - full term forceps 7#11oz Male 21 HRs epidural WC Reji Buchanan Delivery Date: 03/21/21 Last Updated by: Yanira Baig IOL swelling & BP elevated Visit Details Expected Delivery Route/Plan Labor Preferences- CB/BF classes: no labor support person: Dewayne labor intervention preferences: [] pain management options preferred: epidural cut cord/dad catch: cord : yes PP control planned: discussed discussed possible routes of delivery and associated risks: [] special requests: [] Plans Covid status: [] Flu vaccine: [] Tdap vaccine: decline Rhogam: Na LARC form signed: yes movement and labor precautions reviewed. Problem list reviewed and updated with the most current plan of care details and appropriate orders placed. Relevant counseling for the gestational age provided. Continue routine care and follow up unless otherwise noted in visit notes/problem list details OB Flowsheet Initial Weight: Not Recorded Date -?-?-?-?-?-?-?-?-?-?-?-?- EGA Weight BP Urine Prot -?-?-?-?-?-?-?-?-?-?-?-?- Glucose FHR FuHt Pres Dilation -?-?-?-?-?-?-?-?-?-?-?-?- Effaced St Visit Note 01/13/24 -?-?-?-?-?-?-?-?-?-?-?-?- 8w 5d 241 lb 6 oz 130/85 -?-?-?-?-?-?-?-?-?-?-?-?- 165 -?-?-?-?-?-?-?-?-?-?-?-?- KW- CRL cons wit h dates. requesting NIPT. BMI 45 02/09/24 -?-?-?-?-?-?-?-?-?-?-?-?- 12w 4d 237 lb 4 oz 131/78 Nega tive -?--?-?-?-?-?-?-?-?-?-?-?- Negative 140 -?-?-?-?-?-?-?-?-?-?-?-?- Sm- no vb crampi ng 02/20/24 -?-?-?-?-?-?-?-?-?-?-?-?- 14w 1d 234 lb 2 oz 143/86 Nega tive -?-?-?-?-?-?-?-?-?-?-?-?- Negative 150 -?-?-?-?-?-?-?-?-?-?-?-?- JV- pt is here f or spotting that increased more today from last night. no cramping. there is a small subchorionic hem on us today less than a cm deep and 2 cm wide. there is mucous and old blood in the vagina. recommend pelvic rest until anatomy scan. hold baby asa for 2 weeks .start back up at 16 weeks. 03/05/24 -?-?-?-?-?-?-?-?-?-?-?-?- 16w 1d 240 lb 4 oz 126/82 Nega tive -?-?-?-?-?-?-?-?-?-?-?-?- Negative 140 -?-?-?-?-?-?-?-?-?-?-?-?- LC- no CONSUELO on us . will restart ASA. no vb/cramping. 04/06/24 -?-?-?-?-?-?-?-?-?-?-?-?- 20w 5d 238 lb 132/83 -?-?-?-?-?-?-?--?-?-?-?-?- 140 20 -?-?-?-?-?-?-?-?-?-?-?-?- KW- no vb/crampi ng. good fm. nl anatomy scan KW- no vb/cramping. good fm. nl anatomy scan. going [place] month. 05/07/24 -?-?-?-?-?-?-?-?-?-?-?-?- 25w 1d 240 lb 8 oz 124/76 Nega tive -?-?-?-?-?-?-?-?-?-?-?-?- Negative 158 26 -?-?-?-?-?-?-?--?-?-?-?-?- MH-No VB, LOF. G ood FM. Lar. 05/28/24 -?-?-?-?-?-?-?-?-?-?-?-?- 28w 1d 240 lb 6 oz 137/79 Nega tive -?-?-?-?-?-?-?-?-?-?-?-?- Negative 136 30 -?-?-?-?-?-?-?-?-?-?-?-?- JV- passed 3 hr gtt. has not gained weight this . will order growth scans now and at 36 weeks 06/13/24 -?-?-?-?-?-?-?-?-?-?-?-?- 30w 3d 240 lb 6 oz 126/85 Nega tive -?-?-?-?-?-?-?-?-?-?-?-?- Negative 141 34 -?-?-?-?-?-?-?-?-?-?-?-?- JV- feeling a li ttle dizzy today. no other complaitns. no lof, vaginal bleeding ,or dec fm. 06/28/24 -?-?-?-?-?-?-?-?-?-?-?-?- 32w 4d 240 lb 119/87 -?-?-?-?-?-?-?-?-?-?-?-?- 145 34 -?-?-?-?-?-?-?-?-?-?-?-?- SM- no vb lof go od fm no reuglar ctx 07/11/24 -?-?-?-?-?-?-?-?-?-?-?-?- 34w 3d 241 lb 2 oz 120/79 Nega tive -?-?-?-?-?-?-?-?-?-?-?-?- Negative 150 35 -?-?-?-?-?-?-?-?-?-?-?-?- JV- no lof, vagi nal bleeding, or dec fm. ultrasound reviewed and normal (LAKE 17, growth 41st%) 07/17/24 -?-?-?-?-?-?-?-?-?-?-?-?- 35w 2d 241 lb 8 oz 137/87 Nega tive -?-?-?-?-?-?-?-?-?-?-?-?- Negative 150 35 Cephalic 0 .5 -?-?-?-?-?-?-?-?-?-?-?-?- JV- pt has press ure and thought had uti. dip is negative. has more swelling and higher bp than usual. sending for pih labs . 07/26/24 -?-?-?-?-?--?-?-?-?-?-?-?- 36w 4d 240 lb 134/85 Negative -?-?-?-?-?-?-?-?-?-?-?-?- Negative 165 37 Cephalic 1 -?-?-?-?-?-?-?-?-?-?-?-?- 30 -3 JV- starte d valtrex. bpp was 06/21 today. gbs collected. JV- started valtrex. bpp was 06/21 today. gbs collected. Plan 39 week IOL for ama, elevatd bmi , and h/o hypertension. 08/01/24 -?-?-?-?-?--?-?-?-?-?-?-?- 37w 3d 241 lb 135/87 Negative -?-?-?-?-?-?-?-?-?-?-?-?- Negative 150 39 Cephalic 1 -?-?-?-?-?-?-?-?-?-?-?-?- SM- no vb lof go od fm no regular ctx 08/09/24 -?-?-?-?-?-?-?-?-?-?-?-?- 38w 4d 242 lb 140/91 128/85 Negative -?-?-?-?-?-?-?-?-?-?-?-?- Negative 145 40 Cephalic 3 -?-?-?-?-?-?-?-?-?-?-?-?- 30 -3 KW- no vb/ lof/ctx. good fm. IOL set up KW- no vb/lof/ctx. good fm. IOL set up. has growth scan today NST FHR Rate Baby A Baseline: 135 Variability:: Moderate Accelerations:: 15 x 15 Decelerations:: None NST Reactive:: Yes FHR Category:: Category I Uterine Activity:: irregular ROS Constitutional Constitutional: Denies change in weight, fatigue, fever(s), headache(s), poor appetite or weakness Eyes Eyes: Denies blurry vision, change in vision, floaters, seeing flashes or spots in vision ENT HEENT: Denies dizziness, headache(s), loss taste/smell or sore throat Cardiovascular Cardiovascular: Denies chest pain, dizziness, dyspnea, irregular heart rhythm, lightheadedness, palpitations or rapid heart rate Respiratory/Chest Respiratory/Chest: Denies change in mental status, chest tightness, cough, dyspnea or breast pain Gastrointestinal Gastrointestinal: Denies anorexia, chewing difficulty, constipation, diarrhea or weight changes Genitourinary Genitourinary: Denies difficulty urinating, dysuria, flank pain, genital pain, urinary frequency or urinary urgency Musculoskeletal Musculoskeletal: Denies back pain, difficulty walking, extremity pain, joint pain, muscle cramps or muscle weakness Integumentary Integumentary: Denies lesions or unusual bruising Neurologic Neurologic: Denies abnormal movements, abnormal speech, dizziness, numbness, seizure-like activity, syncope or weakness Psychiatric Psychiatric: Denies behavioral changes, change in appetite, confusion, depression, homicidal ideation, suicidal ideation or suicidal thoughts Endocrine Endocrinology: Denies excessive sweating, polydipsia or polyuria Hematologic/Lymphatic Hematologic/Lymphatic: Denies anemia Allergic/Immunologic Allergic/Immunologic: Denies itchy eyes, lip swelling, throat swelling, tongue swelling or wheezing Vital Signs Vital Signs Vital Signs: 08/13/24 07:39 08/13/24 07:39 08/13/24 07:39 Temperature Temperature Source Pulse Rate 109 H Respiratory Rate Blood Pressure 138/93 H BP Systolic 138 BP Diastolic 93 Pulse Ox 98 08/13/24 07:39 08/13/24 07:39 08/13/24 07:39 Temperature 97.6 F L Temperature Source Temporal Pulse Rate Respiratory Rate 16 Blood Pressure BP Systolic BP Diastolic Pulse Ox 08/13/24 07:40 Temperature 97.5 F L Temperature Source Pulse Rate Respiratory Rate Blood Pressure BP Systolic BP Diastolic Pulse Ox Weight Weight: 239 lb Body Mass Index (BMI) 45.1 Physical Exam Const alert, oriented x3 and no apparent distress General Appearance: cooperative Orientation / Consciousness: awake HEENT normocephalic Neck full ROM Lymph Lymphatic: no lymphadenopathy noted Chest inspection of chest normal Resp normal respiratory effort and normal air movement Effort and Inspection: able to speak in complete sentences and symmetric chest movement GI soft to palpation and non-tender Inspection: gravid Palpation: soft; Negative for tender external exam normal Manual OB Exam: dilated 3, effaced 70 and station -3 Back/Spine normal to inspection Extremity normal to inspection and full ROM Skin no rashes or lesions noted Psych mental status grossly normal Appearance: grossly normal Speech: normal speech Labs Labs Labs: Blood Type A POSITIVE Antibody Screen NEGATIVE Hct 37.1 % (37-47) Hgb 12.1 g/dL (12.0-15.0) Obstetrics Ultrasound Syphilis Total Ab Non-reactive Rubella IgG Antibody Reactive (Nonreactive) Hep Bs Antigen Non-Reactive (Nonreactive) Hepatitis C Antibody Non-Reactive (Nonreactive) Chlamydia DNA (SUJATHA) Negative (Negative) N.gonorrhoeae DNA (SUJATHA) Negative (Negative) HIV 1&2 Antibody Non-Reactive (Nonreactive) Glucose 1 Hr 50 gm 149 mg/dL (70-140) H Gest Glucose Tolerance MG/DL Rhogam given: No Miscellaneous Test Assessment & Plan (1) Encounter for induction of labor: COMMENT: AMA, BMI, ghtn PLAN: Patient presents IOL, plan management for with pitocin/AROM. Pain management: plans epidural. GBS negative. Management of any complications: none I have reviewed the [facility] and made any clinically relevant updates. Dr Medina aware of assessment, plan and agrees with admission (2) AMA (advanced maternal age) multigravida 35+: COMMENT: growth US 36 weeks deliver 39 (3) Obesity affecting : QUALIFIERS: Trimester: second trimester Obesity type affecting : unspecified obesity Qualified Code(s): O99.212 - Obesity complicating , second trimester COMMENT: BMI 45, weekly bpp 34 weeks on, growth US q 4 weeks. 34 wk EFW 40%, AC 91% (4) Abnormal glucose affecting : COMMENT: 3 HR GTT Normal (5) Hx of depression, currently : COMMENT: stable (6) History of gestational hypertension: COMMENT: end of BP elevated. 81 mg aspirin recommended. (7) Supervision of high-risk : QUALIFIERS: Trimester: second trimester Qualified Code(s): O09.92 - Supervision of high risk , unspecified, second trimester COMMENT: PRR, , WILLIAM 08/19/24, girl Maryana Menezes GRETEL Shay, Dewayne (8) : QUALIFIERS: Weeks of gestation: 38 weeks Qualified Code(s): Z3A.38 - 38 weeks gestation of COMMENT: gbs neg, nl anatomy, NIPT low risk & declined carrier testing and afp testing. (9) Herpes genitalis: QUALIFIERS: Herpes simplex infection site: vulvovaginitis Qualified Code(s): A60.04 - Herpesviral vulvovaginitis COMMENT: treat at 36 weeks Charges/Coding Multi Select Codes Urinary/Genital Urinary/Genital CPT Codes: No Charge
[2024-08-13] MEDS: Lactated Ringers 1,000 ML 50 ML IV (08:20)
[2024-08-13] MEDS: Oxytocin 15 Units/NS 250ml 15 UNITS/250 ML IV.SOLN 2 UNITS IV (08:27)
[2024-08-13 08:48] LABS: Absolute Lymphocyte Count 2.03 X10^3/uL (0.83-4.51); Absolute Neutrophil Count 7.9 X10^3/uL (2.0-7.7); Basophil# 0.04 X10^3/uL; Basophil% 0.4 % (0-1); Eosinophil# 0.09 X10^3/uL; Eosinophils% 0.8 % (0-5); Hematocrit 39.6 % (37-47); Hemoglobin 12.9 g/dL (12.0-15.0); Lymphocyte # 2.03 X10^3/ul (0.83-4.51); Lymphocyte % 18.8 % (19-41); Mean Corp Hgb Conc 32.6 g/dL (32-36); Mean Corpuscular Hgb 26.6 pg (27.0-32.0); Mean Corpuscular Volume 81.6 fL (81-99); Mean Platelet Vol. 9.5 fl (6.2-12.0); Monocyte# 0.63 X10^3/uL; Monocyte% 5.8 % (0-10); NRBC Flagged by Analyzer 0 % (0-5); Neutrophil # 7.91 X10^3/uL (2.7-7.7); Neutrophil % 73.2 % (47-70); Platelet Count 208 K/mm3 (150-450); RBC Distribution Width CV 14.7 % (11.6-14.6); RBC Distribution Width SD 43.3 fl (35.1-43.9); Red Blood Count 4.85 M/mm3 (4.2-5.4); White Blood Count 10.8 K/mm3 (4.4-11.0)
[2024-08-13 09:16] LABS: AST(SGOT) 10 U/L (15-37); Alanine Aminotransfer ALT/SGPT 12 U/L (13-56); Creatinine, Serum 0.71 mg/dL (0.55-1.02); EST Glomerular Filtration Rate 99 mL/min (>60); Est Glom Filt Rate - Afr Amer 120 mL/min (>60); Estimated Creatinine Clearance 124.58 ml/min; Uric Acid 6.5 mg/dL (2.6-6.0)
[2024-08-13 09:17] LABS: Protein, Urine (Random) 34.3 mg/dL (<11.9); Protein:Creat Ratio 136 mg/g CRE (0-200)
[2024-08-13 10:00] LABS: Syphilis Antibodies Non-reactive
[2024-08-13] MEDS: Lactated Ringers 1,000 ML 999 ML IV (13:53)
--- NOTE | 2024-08-13 14:17 | PN_ITS ---
Progress Note Coping well with contractions current tracing: FHT: 125 Moderate variability reactive no decelerations category I tracing [place]: 3-4 minutes Contractions 8mu of pitocin Membranes:ruptured clear at 1250 SVE:4/70/-1 A/P: Continue with position changes Titrate pitocin per protocol Epidural per anesthesia GBS neg Anticipate Dr Medina aware of above assessment and agrees with plan of care Assessment & Plan Assessment/Plan (1) Encounter for induction of labor: (2) AMA (advanced maternal age) multigravida 35+: (3) Abnormal glucose affecting : (4) Obesity affecting : QUALIFIERS: Trimester: second trimester Obesity type affecting : unspecified obesity Qualified Code(s): O99.212 - Obesity complicating , second trimester (5) Hx of depression, currently : (6) History of gestational hypertension: (7) Supervision of high-risk : QUALIFIERS: Trimester: second trimester Qualified Code(s): O09.92 - Supervision of high risk , unspecified, second trimester (8) : QUALIFIERS: Weeks of gestation: 38 weeks Qualified Code(s): Z3A.38 - 38 weeks gestation of (9) Herpes genitalis: QUALIFIERS: Herpes simplex infection site: vulvovaginitis Qualified Code(s): A60.04 - Herpesviral vulvovaginitis Multi Select Codes Urinary/Genital Urinary/Genital CPT Codes: No Charge
[2024-08-13] MEDS: fentaNYL-bupivacaine (epidural) 100 ML BAG EPIDURAL ×2 (14:35→19:56)
--- NOTE | 2024-08-13 15:59 | PCM.PN.BLA ---
Progress Note comfortable with epidural current tracing: FHT: 125 Moderate variability reactive no decelerations category I tracing [place]: 2-5 minute Contractions Membranes: ruptured. remains clear. IUPC and FSE inserted SVE:4/80/-2 A/P: Continue with position changes Titrate pitocin per protocol Epidural per anesthesia GBS neg Anticipate Dr Medina aware of above assessment and agrees with plan of care Assessment & Plan Assessment/Plan (1) Encounter for induction of labor: (2) AMA (advanced maternal age) multigravida 35+: (3) Abnormal glucose affecting : (4) Obesity affecting : QUALIFIERS: Trimester: second trimester Obesity type affecting : unspecified obesity Qualified Code(s): O99.212 - Obesity complicating , second trimester (5) Hx of depression, currently : (6) History of gestational hypertension: (7) Supervision of high-risk : QUALIFIERS: Trimester: second trimester Qualified Code(s): O09.92 - Supervision of high risk , unspecified, second trimester (8) : QUALIFIERS: Weeks of gestation: 38 weeks Qualified Code(s): Z3A.38 - 38 weeks gestation of (9) Herpes genitalis: QUALIFIERS: Herpes simplex infection site: vulvovaginitis Qualified Code(s): A60.04 - Herpesviral vulvovaginitis Multi Select Codes Urinary/Genital Urinary/Genital CPT Codes: No Charge
[2024-08-13] MEDS: Amnioinfusion- 0.9% NS 1,000 ML IV.SOLN. 1000 ML INTRA-UTER (18:54)
[2024-08-13] MEDS: Lactated Ringers 1,000 ML 200 ML IV (19:56)
--- NOTE | 2024-08-13 20:20 | PCM.PN.BLA ---
Progress Note comfortable with epidural current tracing: FHT: 130 Moderate variability reactive variable decelerations category II tracing [place]: 2-3 minute Contractions Membranes:ruptured remains clear SVE:10/100/0 reviewed tracing abnormalities since last note: collaboration with Dr Medina for Cat II FHT tracing while she was on unit. Agrees with amnioinfusion and replacing of epidural. will continue to monitor A/P: Continue with position changes Titrate pitocin per protocol Epidural per anesthesia GBS neg Anticipate Dr Medina aware of above assessment and agrees with plan of care Assessment & Plan Assessment/Plan (1) Encounter for induction of labor: (2) AMA (advanced maternal age) multigravida 35+: (3) Abnormal glucose affecting : (4) Obesity affecting : QUALIFIERS: Trimester: second trimester Obesity type affecting : unspecified obesity Qualified Code(s): O99.212 - Obesity complicating , second trimester (5) Hx of depression, currently : (6) History of gestational hypertension: (7) Supervision of high-risk : QUALIFIERS: Trimester: second trimester Qualified Code(s): O09.92 - Supervision of high risk , unspecified, second trimester (8) : QUALIFIERS: Weeks of gestation: 38 weeks Qualified Code(s): Z3A.38 - 38 weeks gestation of (9) Herpes genitalis: QUALIFIERS: Herpes simplex infection site: vulvovaginitis Qualified Code(s): A60.04 - Herpesviral vulvovaginitis Multi Select Codes Urinary/Genital Urinary/Genital CPT Codes: No Charge
--- NOTE | 2024-08-13 21:15 | OP.PCM_ITS ---
Assessment & Plan (1) Vaginal delivery: COMMENT: KW IOL AMA, ghtn, BMI girl (2) Encounter for induction of labor: COMMENT: AMA, BMI, ghtn (3) AMA (advanced maternal age) multigravida 35+: COMMENT: growth US 36 weeks deliver 39 (4) Abnormal glucose affecting : COMMENT: 3 HR GTT Normal (5) Obesity affecting : QUALIFIERS: Trimester: second trimester Obesity type affecting : unspecified obesity Qualified Code(s): O99.212 - Obesity complicating , second trimester COMMENT: BMI 45, weekly bpp 34 weeks on, growth US q 4 weeks. 34 wk EFW 40%, AC 91% (6) Hx of depression, currently : COMMENT: stable (7) History of gestational hypertension: COMMENT: end of BP elevated. 81 mg aspirin recommended. (8) Supervision of high-risk : QUALIFIERS: Trimester: second trimester Qualified Code(s): O09.92 - Supervision of high risk , unspecified, second trimester COMMENT: PRR, , WILLIAM 08/19/24, girl Maryana Riri MAJANO Shay, Dewayne (9) : QUALIFIERS: Weeks of gestation: 38 weeks Qualified Code(s): Z3A.38 - 38 weeks gestation of COMMENT: gbs neg, nl anatomy, NIPT low risk & declined carrier testing and afp testing. (10) Herpes genitalis: QUALIFIERS: Herpes simplex infection site: vulvovaginitis Qualified Code(s): A60.04 - Herpesviral vulvovaginitis COMMENT: treat at 36 weeks Maternal Data Information WILLIAM Calculator Estimated Delivery Date Method Current WG Current Estimate 08/19/24 LMP (Certain) 39w 1d Other Estimates 08/15/24 Ultrasound #1 39w 5d Final WILLIAM: 08/19/24 Final WILLIAM Source: US >20 weeks Gestational age: 39.1 Vaginal Delivery Maternal Presentation Maternal Presentation: Medically Indicated Induction (AMA, BMI, ghtn) Maternal Presentation: Progressed well to 10cm dilated and made steady progress with effective maternal pushing. Delivered the head in SUSANA presentation. The head was delivered atraumatically and a loose nuchal cord was identified and was easily reduced over the 's head. The anterior and posterior shoulders delivered without complication followed by the rest of the infant and the was placed on the maternal abdomen. Delayed cord clamping was employed for approximately 3 minutes. Cord was clamped and cut and gentle traction was applied to the cord and the placenta delivered spontaneously. Immediately following, it was noted to be intact with a 3 vessel cord. IV Pitocin started and vaginal bleeding stable. The perineum and vagina were inspected and noted to have a first degree laceration which was repaired with 3-0 Vicryl in the usual fashion. EBL was 200cc. Apgars 8/9. Patient and infant tolerated delivery well. Bonding skin to skin during recovery. Dr Medina notified of vaginal delivery and orders reviewed. Physician agrees with current plan of care. Type of Induction: Pitocin Medical Reason for Induction: Gestational Hypertension and Maternal Medical Condition: list: (AMA, BMI) Operative Information Date of Procedure: 08/13/24 Pre-Operative Diagnosis: See AP comments Post-Operative Diagnosis: Same Surgery / Procedure Performed: Spontaneous Vaginal Delivery financial reporting consultant #1: Layne Boles Type of Anesthesia: Epidural Time of Delivery: 20:55 Findings Presentation: Vertex Amniotic Membrane Rupture Type: Artificial Amniotic Fluid Description: Clear Placental Delivery Description: Spontaneous Placenta Disposition: [facility] Cord Entanglement: Around neck x 1, loose A Gender: Female (1 minute): 8 (5 minute): 9 Delayed Cord Clamping: Yes Post Vaginal Delivery Medications Given After Delivery: IV Pitocin Episiotomy Description: None Laceration: 1st degree Complication Complications: None Multi Select Codes Urinary/Genital Urinary/Genital CPT Codes: 93818 Vaginal Delivery [facility]
--- NOTE | 2024-08-13 21:19 | DCINST_ITS ---
Discharge Instructions Diet Discharge Diet: No restrictions Activity Discharge Activity: Return to Normal Activity May resume sexual activity in: 6-8 weeks Dressing / Incision Call your doctor if you observe: Fever of 101 or Higher, Coldness, Increased Pain, Numbness or Tingling, Change in Color, Inability to urinate, Inability to have a bowel movement, Using more than 1 pad per hour, Shortness of breath, Dizziness, Fainting spells, Swelling in the ankles, Chest pain, Increased palpitations (irregular heartbeat), Calf discomfort and Uncontrolled pain Follow Up Care Please Follow Up With: Layne Boles CNM When: Please call the office to schedule your follow up appointment in 6 weeks. If you had high blood pressure please call to schedule an appointment in 2 weeks. Test Results: Test results from this visit will be discussed in further detail at your follow- up appointment, if applicable. Discharge Plan Admission Admit Date/Time: 08/13/24 07:18 Attending Provider: Layne Boles Primary Care Provider: Care Physician,Odette Primary Discharge Orders/Prescriptions Prescriptions: No Action PNV-DHA 27 mg iron-1 mg -300 mg capsule PO valacyclovir [Valtrex] 500 mg tablet 1,000 mg PO DAILY Qty: 30 1RF aspirin 81 mg tablet,delayed release (DR/EC) 81 mg PO DAILY magnesium oxide 400 mg magnesium tablet 400 mg PO QDAY Referrals / Follow Up: Care Physician,No Primary [Primary Care Provider] -
[2024-08-13] MEDS: Oxytocin 15 Units/NS 250ml 15 UNITS/250 ML IV.SOLN 83 UNITS IV (21:31)
[2024-08-14] VITALS (17 sets, daily range): BP systolic 132–139; BP diastolic 69–92; PULSE 85–101; RESP 15–18; TEMP 36.2–36.7; O2SAT 94–98
[2024-08-14] MEDS: Acetaminophen 500 MG Tablet 1000 MG PO ×2 (06:13→22:46)
--- NOTE | 2024-08-14 07:58 | PN.OBGYN_ITS ---
Subjective Subjective Patient doing well without complaints. Tolerating PO. Ambulating and voiding without difficulty. Feeding well. Denies chest pain, shortness of breath, calf pain/swelling, fevers, chills, lightheadedness. Objective Data Objective Data Vital Signs: Vital Signs Temp Pulse Resp BP Pulse Ox 98.0 F 101 H 16 132/73 H 97 08/14/24 03:48 08/14/24 03:48 08/14/24 03:48 08/14/24 03:48 08/13/24 19:05 Weight: 239 lb Body Mass Index (BMI) 45.1 Intake & Output: Intake and Output for Last 24 Hours 08/12/24 08/13/24 08/14/24 23:59 23:59 23:59 Intake Total 3565.73 / 3565.73 250 / 250 Output Total 1900 / 1900 500 / 500 Balance 1665.73 / 1665.73 -250 / -250 Lab / Micro Data 08/13/24 08:25 08/13/24 08:25 Labs: Laboratory Results - last 24 hr 08/13/24 08:25: WBC 10.8, RBC 4.85, Hgb 12.9, Hct 39.6, MCV 81.6, MCH 26.6 L, MCHC 32.6, RDW Std Deviation 43.3, RDW Coeff of Jose Alberto 14.7 H, Plt Count 208, MPV 9.5, Immature Gran % (Auto) 1.000 H, Neut % (Auto) 73.2 H, Lymph % (Auto) 18.8 L , [place] % (Auto) 5.8, Eos % (Auto) 0.8, Baso % (Auto) 0.4, Absolute Neuts (auto) 7.9 H, Absolute Lymphs (auto) 2.03, Nucleated RBC % 0, Creatinine 0.71, Estim Creat Clear Calc 124.58, Est GFR (MDRD) Af Amer 120, Est GFR (MDRD) Non-Af 99, U shaggy Acid 6.5 H, AST 10 L, ALT 12 L, U Random Total Protein 34.3 H, Urine Creatinine 253.00, Protein/Creatinin Ratio 136, Syphilis Total Ab Non-reactive, Blood Type A POSITIVE, Antibody Screen NEGATIVE Physical Exam Const alert and oriented x3 HEENT normocephalic Eyes PERRL Neck full ROM Resp normal respiratory effort GI soft to palpation GI Narrative: FF below U Assessment & Plan (1) Vaginal delivery: COMMENT: KW IOL AMA, ghtn, BMI girl Gracelynn PLAN: Plan s/p VAVD PPD # 1 1. routine post delivery care 2. breast feeding- support given 3. rh positive 4. rubella immune
[2024-08-14] MEDS: Ibuprofen 600 MG Tablet PO (17:41)
[2024-08-15 04:05] VITALS: BP 132/76; PULSE 87; PULSE 90; O2SAT 98
[2024-08-15 04:22] VITALS: BP 132/76; PULSE 95; RESP 16; TEMP 36.4; O2SAT 98
--- NOTE | 2024-08-15 04:26 | NURSING ---
Patient given book on formula preparation and usage. Patient denies questions.
--- NOTE | 2024-08-15 08:07 | PCM.PN.OB ---
Subjective Subjective Patient doing well without complaints. Tolerating PO. Ambulating and voiding without difficulty. Feeding well. Denies chest pain, shortness of breath, calf pain/swelling, fevers, chills, lightheadedness. Objective Data Objective Data Vital Signs: Vital Signs Temp Pulse Resp BP Pulse Ox O2 Del Method FiO2 97.5 F L 95 16 132/76 H 98 Room Air 98 08/15/24 04:22 08/15/24 04:22 08/15/24 04:22 08/15/24 04:22 08/15/24 04:22 08/15/24 04:22 08/14/24 07:58 Oxygen Delivery Method Room Air Weight: 239 lb Body Mass Index (BMI) 45.1 Intake & Output: Intake and Output for Last 24 Hours 08/13/24 08/14/24 08/15/24 23:59 23:59 23:59 Intake Total 3565.73 / 3565.73 250 / 250 Output Total 1900 / 1900 500 / 500 Balance 1665.73 / 1665.73 -250 / -250 Lab / Micro Data 08/13/24 08:25 08/13/24 08:25 Physical Exam Const alert and oriented x3 HEENT normocephalic Eyes PERRL Neck full ROM Resp normal respiratory effort GI soft to palpation GI Narrative: FF below U Assessment & Plan (1) Vaginal delivery: COMMENT: KW IOL AMA, ghtn, BMI girl Gracelynn (2) Hx of depression, currently : COMMENT: stable PLAN: Plan s/p PPD # 2 1. routine post delivery care 2. breast feeding- support given 3. rh positive 4. rubella immune 5. home today
[2024-08-15 09:15] VITALS: BP 117/63; PULSE 92; RESP 16; TEMP 36.3
[2024-08-15 09:16] VITALS: BP 117/63; PULSE 92
--- NOTE | 2024-08-16 14:24 | CASEMGMT ---
Social Work Assessment Labor and Delivery Unit Patient Address:[id number] Phone number: Date of Referral: Time of Referral:? Referred By: Date of Intervention: ?? Time of Intervention:? Reason for Referral:? History obtained from: medical records and mother of baby (MOB)??? Household composition: Patient's parent/guardian status:? ? Medical History: ? Educational Status:? Financial Status: Infant Supplies: Childcare/Caregiver(s):? Transportation:?? Programs/Agencies Involved: ??? Children Services/Legal Issues:??? Behavioral Health Issues: ??Mental Health History:??? Substance Use History:?? Family History:? Drug Screens: Family/Social Stressors:? Support Systems: Depression/Shaken Baby/Safe Sleeping: ASSESSMENT:? Safe Plan of Care for related to substance use:? PLAN:?? No other services requested or indicated. MOB and baby to be discharged when medically ready. Parents were provided literature regarding: signs and symptoms of baby blues and mood and anxiety disorders, Help Me Grow, shaken baby prevention, ABCs of safe sleep and a list of county resources that are available for them should any needs present themselves. Bala Pena, WET ROLLER, ANIMAL HANDLER
--- NOTE | 2024-08-16 14:28 | CASEMGMT ---
Social Work Assessment Labor and Delivery Unit Patient Address:[address] [place] [address] [place] [address] Phone number: [phone] Date of Referral: 08/14/24 Time of Referral:? 040 Referred By: Layne Boles Date of Intervention: ??08/15/24 Time of Intervention:?1200 Reason for Referral:? anxiety, depression and post depression Sw completed chart review and acknowledges social work consult. Sw presented to bedside and introduced self to mother of baby (NATALEE- Jaylyn) and father of baby (FOEdel- Dewayne). Sw explained reason for sw involvement and completed psychosocial assessment. History obtained from: medical records, MOB and FOB ? Household composition: Currently residing in the family home is NATALEE, JONO, their 3 year old son- Shay, and JONO's 12 year old son. Parents deny any issues or concerns with their current housing. - NATALEE states that her mother is currently residing with them temporarily. Patient's parent/guardian status:? ?NATALEE states that she and JONO met online dating sight and have been together for 8 years. baby is second baby for parents together. JONO has two older children from a previous relationship. No concerns reported of domestic violence and intimate partner violence. Medical History: NATALEE is 34 year old female who is 2, para 1- now 2 following labor and delivery of . NATALEE received routine care during with [place]. NATALEE presented to hospital for an induction of labor at 39 weeks gestation. Baby was born on 08/13/24 via vaginal delivery. Baby girl, named Ho, was born weighing 7lb 12oz with apgars of 8 and 9 at one and five minutes of life, respectfully. NATALEE is doing a combination of formula and breast feeding. MOB states that baby will be followed by ?Dr. Butler for pediatrics. Educational Status:? Both parents graduated from high school. FOEdel went to a trade school and NATALEE obtained her Bachelors degree in criminal justice. 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 NATALEE is a stay at home mom. Supplies: Parents report they have obtained all necessary baby supplies, including: car seat, safe sleep space, clothes, diapers and wipes. Childcare/Caregiver(s):? MOB will be the primary caregiver to baby along with FOB and maternal grandma. Transportation:?? Both parents have their drivers license and reliable means of transportation. No barriers at this time. Programs/Agencies Involved: ???Parents are not connected to any community resources that help them financially. Children Services/Legal Issues:??? No history of children services involvement. NO issues or concerns warranting referral to be made at this time. Behavioral Health Issues: ??Mental Health History:??FOB denies mental health history. MOB states that she has been diagnosed with anxiety and depression and did experience depression after her son was born. MOB denies medications to help manage her mental health symptoms at this time. ? Substance Use History:?Parents deny substance use prior to and during . ? Family History:??Parents deny family history of addiction and significant mental health diagnoses. ??? Drug Screens: No drug screens observed in chart review. Family/Social Stressors:?Parents deny any issues, concerns or stressors at this time. Both parents were engaging throughout completion of psychosocial assessment. Both parents observed to provide hands on loving and appropriate care to . Support Systems: MOB states that FOB and her mom are her biggest supports at this time. Depression/Shaken Baby/Safe Sleeping: Jim educated parents at length regarding signs and symptoms of baby blues and mood and anxiety disorders to be on the lookout for. FOB states that he hopes that MOB would be able to talk to him about what she may be struggling with, and he is not sure that he knows specifically what MOB will need, but he would do everything he can to help her in those moments. Sw educated parents on shaken baby prevention and ABCs of safe sleep. Parents express understanding. ASSESSMENT:? MOB and baby admitted following labor and delivery of . MOB talkative and understanding of need for sw to complete assessment due to her mental health history. Parents observed to have good relationship and FOB observed to be strong support person to MOB. Parents have obtained all necessary baby supplies and have natural supports in place. MOB receptive to staying connected to a prior counselor she saw to help manage her mental health symptoms during this period. MOB states that she was previously on medication but does not want to get back on it if she does not need to. PLAN:?? No other services requested or indicated. MOB and baby to be discharged when medically ready. Parents were provided literature regarding: signs and symptoms of baby blues and mood and anxiety disorders, Help Me Grow, shaken baby prevention, ABCs of safe sleep and a list of county resources that are available for them should any needs present themselves. Bala Pena, ICING MAKER, EMERGENCY VEHICLE DRIVER
== END 2024-08-15 12:35 | disposition home or self-care (01) | DRG 806 ==
PROVIDERS: Admitting Provider Advanced Practice Midwife; Visit Provider Advanced Practice Midwife
DX: O99.214 Obesity complicating childbirth (principal); Z37.0 Single live birth; O98.32 Other infections with a predominantly sexual mode of transmission complicating childbirth; A60.04 Herpesviral vulvovaginitis; Z79.82 Long term (current) use of aspirin; Z79.899 Other long term (current) drug therapy; Z3A.39 39 weeks gestation of pregnancy; O70.0 First degree perineal laceration during delivery; O69.81X0 Labor and delivery complicated by cord around neck, without compression, not applicable or unspecified; O76 Abnormality in fetal heart rate and rhythm complicating labor and delivery
CPT/HCPCS: 59025; 59050; 76815; 82565; 82570; 84156; 84450; 84460; 84550; 85025; 86780; 86850; 86900; 86901; 99221; J7030; J7120; G0378

== ENCOUNTER 2024-08-21 18:26 | Inpatient (IN) | payer OTHER, SELFPAY ==
[2024-08-21] VITALS (46 sets, daily range): BP systolic 123–171; BP diastolic 69–98; PULSE 71–108; RESP 15–16; TEMP 36.3–36.8; O2SAT 83–100; BMI 42.5
--- NOTE | 2024-08-21 15:34 | NURSING ---
phone call placed to dr. ulloa office. phone answered by nurse, notified of BP 167/91, H/A since Tuesday, visual changed since Tuesday, and upper abdominal pain only when bending over, brisk reflexes and 2 beats of clonus on the left.
--- NOTE | 2024-08-21 15:47 | CT_ITS ---
STUDY: CT BRAIN WITH AND WITHOUT CONTRAST REASON FOR EXAM: Female, 34 years old. pre-eclapsia RADIATION DOSAGE (If Supplied By Facility): CTDIvol = ( 47.06 ) mGy, DLP = ( 1745.36 ) mGycm TECHNIQUE: Transaxial CT imaging of the brain was performed pre and post contrast administration. The examination was performed with intravenous administration of IV 50mL Isovue-370. Individualized dose optimization techniques were used for this CT. COMPARISON: None. FINDINGS: Normal soft tissue structures. Normal calvarium. Normal size ventricles and extra-axial spaces for the patient''s age. Normal white matter tracts of the cerebral hemispheres. Normal basal ganglia and thalami. Normal brainstem. Normal cerebellum. There is very mild prominence of the pituitary and base of the proximal infundibulum without well-defined mass.. MRI of the sella turcica would be helpful for more definitive evaluation if clinically warranted There are no findings of an acute ischemic infarction. Normal visualized paranasal sinuses. CT/Brain/Head W/WO Contrast IMPRESSION: Mild prominence of the pituitary and base of the infundibulum of indeterminate clinical significance. MRI would be useful for more definitive evaluation Electronically Signed: George Jones MD at 17:39 EDT ,
[2024-08-21] MEDS: Acetaminophen 500 MG Tablet 1000 MG PO (16:02)
[2024-08-21] MEDS: NIFEdipine 10 MG Capsule PO (16:02)
[2024-08-21] MEDS: LACTATED RINGERS 500 ML 15 ML IV (16:09)
[2024-08-21] MEDS: Magnesium Sulfate 4gm/100mL 4 GM/100 ML IV.SOLN. IV (16:09)
[2024-08-21 16:22] LABS: Hematocrit 37.8 % (37-47); Hemoglobin 12.4 g/dL (12.0-15.0); Mean Corp Hgb Conc 32.8 g/dL (32-36); Mean Corpuscular Hgb 26.7 pg (27.0-32.0); Mean Corpuscular Volume 81.5 fL (81-99); Platelet Count 311 K/mm3 (150-450); RBC Distribution Width CV 14.2 % (11.6-14.6); RBC Distribution Width SD 41.8 fl (35.1-43.9); Red Blood Count 4.64 M/mm3 (4.2-5.4)
[2024-08-21] MEDS: Magnesium Sulfate 20 GM/500 ML BAG IV (16:31)
[2024-08-21 16:43] LABS: Protein:Creat Ratio 825 mg/g CRE (0-200)
[2024-08-21] MEDS: NIFEdipine 30 MG Tablet PO (16:47)
[2024-08-21 17:06] LABS: ALB/GLOB Ratio 0.9 RATIO (0.9-2.4); AST(SGOT) 15 U/L (15-37); Alanine Aminotransfer ALT/SGPT 27 U/L (13-56); Albumin, Serum 3.2 g/dL (3.2-5.0); Alkaline Phosphatase 89 U/L (45-117); Anion Gap 8 (5-15); BUN 13 mg/dL (7-18); BUN/Creat Ratio 16.5 RATIO (10-20); Calcium,Total 9.1 mg/dL (8.5-10.1); Chloride 110 mmol/L (98-107); Creatinine, Serum 0.79 mg/dL (0.55-1.02); Creatinine, Serum 0.86 mg/dL (0.55-1.02); EST Glomerular Filtration Rate 80 mL/min (>60); EST Glomerular Filtration Rate 88 mL/min (>60); Est Glom Filt Rate - Afr Amer 106 mL/min (>60); Est Glom Filt Rate - Afr Amer 96 mL/min (>60); Estimated Creatinine Clearance 108.02 ml/min; Estimated Creatinine Clearance 99.23 ml/min; Globulin 3.6 g/dL (2.2-4.2); Glucose 83 mg/dL (74-106); Potassium 4.2 mmol/L (3.5-5.1); Protein, Total 6.8 g/dL (6.4-8.2); Sodium Level 142 mmol/L (136-145); Uric Acid 9.2 mg/dL (2.6-6.0)
--- NOTE | 2024-08-21 18:02 | NURSING ---
pt taken to CT at [address] at 1730
--- NOTE | 2024-08-21 18:08 | NURSING ---
dr. Medina in to see pt. Pt states H/A still hurts but is getting better
--- NOTE | 2024-08-21 18:14 | OB.TRI.HP_ITS ---
HPI - General HPI Narrative KATIE STOKES, is a 34 F who presents with headache and elevated blood pressure preeclampsia . She initially had clonus present on 1 side and persistent headache increasing over the last day. She had elevated blood pressures around the end of . She has been unable to take her blood pressures at home. She denies any visual changes right now. Headache did not go away with Tylenol at home earlier. [facility] Medical History (Updated 08/21/24 @ 18:[address] Janette Medina MD) Supervision of high-risk Obesity affecting Abnormal glucose affecting AMA (advanced maternal age) multigravida 35+ Encounter for induction of labor Genital herpes affecting depression Advanced maternal age (AMA) in Obesity HPV (human papilloma virus) infection Depression Anxiety Headache Gestational HTN Home Medications ?Medication ?Instructions ?Recorded ?Last Taken ?Type magnesium oxide 400 mg PO QDAY 08/01/24 08/21/24 08:00 History Allergy/AdvReac Type Severity Reaction Status Date / Time oxycodone (From Roxicodone) Allergy Intermediate Other Verified 08/21/24 15:26 Family History Grandmother Cancer, Onset Age: 60 Paternal- Uterine Father Myocardial infarction Mother Kidney disease Stg IV kidney disease Thyroid disorder hyperthyroid Sister Thyroid disorder hyperthyroid Aunt Thyroid disorder hyperthyroid Surgical History (Updated 08/13/24 @ 08:42 by Paolo Saeed) S/P LASIK surgery of both eyes Hx of eye surgery History of colposcopy History of surgery Social History adopted: No household members: spouse and children number of children: 1 current occupational status: unemployed current occupation: [employer] current occupational exposures/hazards: No pets and animals: Yes pets and animals: dog(s) history of recent travel: No sexually active: Yes Smoking Status: Never smoker alcohol intake: current alcohol intake frequency: holidays/special occasions only details: not while substance use type: does not use well-balanced diet: daily or most days caffeine: Yes Type: coffee Number of servings: 1 eating out: 1-3 times/week during the past year weight has: remained stable what type of physical activity do you participate in: walking frequency: 1-2 times per week duration: 15-30 minutes/day stormy/gnosticism: None seatbelt use: always do you feel safe at home: Yes additional social history: 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 Date Name GA/Weeks Outcome Route Bth Weight Infant Gen Labor Lgth Anesthesia Del Locatn Provider FOB 03/21/21 [place] 39 live - full term forceps 7#11oz Male 21 HRs epidural [facility] Rjei Buchanan 08/13/24 [place] 39 live - full term Female ep idural [facility] TAVON Buchanan Delivery Date: 03/21/21 Last Updated by: Yanira Baig IOL swelling & BP elevated Delivery Date: 08/13/24 Last Updated by: Melissa Prince, RN See problem list for complications, and KW IOL AMA BMI ghtn ROS Constitutional Constitutional: Reports systems reviewed and no addt'l complaints, except as documented; Denies as per HPI, change in weight, fatigue, fever(s), malaise, weakness or other Eyes Eyes: Reports systems reviewed and no addt'l complaints, except as documented; Denies as per HPI, change in vision or other ENT HEENT: Reports systems reviewed and no addt'l complaints, except as documented Respiratory/Chest Respiratory/Chest: Reports systems reviewed and no addt'l complaints, except as documented Gastrointestinal Gastrointestinal: Reports systems reviewed and no addt'l complaints, except as documented and as per HPI Genitourinary Genitourinary: Reports as per HPI Musculoskeletal Musculoskeletal: Reports systems reviewed and no addt'l complaints, except as documented Neurologic Neurologic: Reports systems reviewed and no addt'l complaints, except as documented Psychiatric Psychiatric: Reports systems reviewed and no addt'l complaints, except as documented Endocrine Endocrinology: Reports systems reviewed and no addt'l complaints, except as documented Hematologic/Lymphatic Hematologic/Lymphatic: Reports systems reviewed and no addt'l complaints, except as documented Physical Exam Const alert, oriented x3 and no apparent distress HEENT normocephalic Head and Scalp: atraumatic Eyes EOMs intact bilaterally and conjunctivae normal Neck full ROM, no lymphadenopathy, supple and thyroid normal General: trachea midline Lymph Lymphatic: no lymphadenopathy noted Resp normal respiratory effort Cardio regular rhythm GI soft to palpation, non-distended and no masses Extremity normal to inspection Extremity Narrative: initially 2-3 beats clonus one karen,e now 1 beat after magnesium Skin no rashes or lesions noted Neuro moves all extremities and deep tendon reflexes 2+ bilaterally Psych mental status grossly normal Assessment & Plan (1) Severe pre-eclampsia, : PLAN: Plan readmit , started o nprocardia. labs drawn, head ct done. magnesium started, will turn off in 12 hours if stable. fioricet for FANG. Charges/Coding Multi Select Codes Visit Charges Visit Charges: 68654 Init Hosp L3
[2024-08-21] MEDS: HYDROcodone Bitartrate/Apap 5/325 Tablet PO (20:47)
[2024-08-22] VITALS (15 sets, daily range): BP systolic 116–140; BP diastolic 60–88; PULSE 73–98; RESP 16–17; TEMP 36.3–37.2; O2SAT 97–98
--- NOTE | 2024-08-22 02:26 | NURSING ---
This RN called Dr. Medina to ask if it is okay to d/c Magnesium at 0300 instead of 0400 d/t bag running out at 04
--- NOTE | 2024-08-22 02:27 | NURSING ---
This RN called Dr. Medina to ask for order to d/c magnesium at 0300 instead of 0400 in an effort to conserve fluid (d/t fluid shortage) since her bag will run out at 0300. Dr. Medina states to d/c magnesium at 0300. Provider orders Phenergan 25mg PO for headache. This RN verbalized understanding.
[2024-08-22] MEDS: proMETHazine 25 MG Tablet PO (02:51)
[2024-08-22 06:20] LABS: Hematocrit 40.6 % (37-47); Hemoglobin 13.1 g/dL (12.0-15.0); Mean Corp Hgb Conc 32.3 g/dL (32-36); Mean Corpuscular Hgb 26.3 pg (27.0-32.0); Mean Corpuscular Volume 81.5 fL (81-99); Mean Platelet Vol. 8.7 fl (6.2-12.0); Platelet Count 323 K/mm3 (150-450); RBC Distribution Width SD 41.1 fl (35.1-43.9); Red Blood Count 4.98 M/mm3 (4.2-5.4); White Blood Count 10.7 K/mm3 (4.4-11.0)
[2024-08-22 06:47] LABS: ALB/GLOB Ratio 0.9 RATIO (0.9-2.4); AST(SGOT) 9 U/L (15-37); Alanine Aminotransfer ALT/SGPT 24 U/L (13-56); Albumin, Serum 3.4 g/dL (3.2-5.0); Alkaline Phosphatase 89 U/L (45-117); Anion Gap 7 (5-15); BUN 14 mg/dL (7-18); BUN/Creat Ratio 19.6 RATIO (10-20); Calcium,Total 7.9 mg/dL (8.5-10.1); Chloride 105 mmol/L (98-107); Creatinine, Serum 0.71 mg/dL (0.55-1.02); EST Glomerular Filtration Rate 98 mL/min (>60); Est Glom Filt Rate - Afr Amer 119 mL/min (>60); Estimated Creatinine Clearance 120.19 ml/min; Globulin 3.7 g/dL (2.2-4.2); Glucose 109 mg/dL (74-106); Potassium 3.9 mmol/L (3.5-5.1); Protein, Total 7.1 g/dL (6.4-8.2); Sodium Level 136 mmol/L (136-145)
--- NOTE | 2024-08-22 08:47 | PCM.PN.BLA ---
Progress Note patient is laying on her side and states that medications that usually help her migraines are not helping. Her magnesium is now turned off and bp is normal this am. She sits up and states that when she sits up the headache is much worse. She states that during her labor she was given 2 different epidurals that were difficult to place. She states that 2 different providers helped with this and she has 3 pokes in her back. Physical Exam Const alert, oriented x3 and no apparent distress General Appearance: cooperative and comfortable Resp normal respiratory effort Cardio regular rate GI normal to inspection, nondistended, normoactive bowel sounds GI Narrative: uterus is firm below umbilicus Palpation: soft Back/Spine no CVA tenderness and thoraco-lumbar ROM normal Extremity normal to inspection, no clubbing, cyanosis or edema, no calf tenderness and no pedal edema Psych mental status grossly normal, thought process normal, cooperative, affect normal, speech normal, activity/motor behavior normal, denies homicidal ideation and denies suicidal ideation Assessment & Plan Assessment/Plan (1) Severe pre-eclampsia, : PLAN: Plan plan is to first consult anesthesia and inquire about possible spinal headache/treatment She has failed most of her treatments. will try caffeine now.
[2024-08-22] MEDS: NIFEdipine 30 MG Tablet PO (09:32)
--- NOTE | 2024-08-22 10:57 | MRI_ITS ---
STUDY: MRI BRAIN WITH AND WITHOUT CONTRAST (ATTENTION PITUITARY GLAND) REASON FOR EXAM: Female, 34 years old. see results from Head CT 08/21/2024 PROMINENCE OF PITUITARY AND BASE OF PROX INFUNDIBULUM, PRE-ECLAMPSIA, POST 10 DAYS, FANG''S X3DAYS TECHNIQUE: Standardized multiplanar fat and water weighted pulse sequences were obtained. 20CC CLARISCAN was administered for the contrast portion of the examination. COMPARISON: Head CT dated August 21, 2024. FINDINGS: Normal variant configuration of the pituitary gland with horizontal orientation of the posterior lobe of the pituitary gland. No nodule or cyst or adenoma is present. No enhancing abnormality is present. No demonstrated apoplexy or infarction of the pituitary gland. Normal size of the pituitary gland for the patient?s age and gender. Normal enhancement of the pituitary gland, without a demonstrated intrapituitary lesion. Normal infundibular stalk and suprasellar cistern. Normal optic chiasm and hypothalamus. Normal size of the ventricles and extra-axial spaces for the patient''s age. Normal white matter tracts of the supratentorial brain. There is no evidence for recent intracranial ischemia or other cause of cytotoxic edema on diffusion weighted imaging (DWI). Normal T2* images of the brain without demonstrated susceptibility artifact. There is no demonstrated hemosiderin stain. There are no demyelinating plagues of the supratentorial brain, brainstem or cerebellum. There are no findings suspicious for multiple sclerosis (MS). No hydrocephalus is present. No visualized abnormal signal in the periventricular white matter to indicate pseudotumor cerebri or similar entity. Normal bilateral basal ganglia. Normal thalami. Normal flow voids within the major intracranial circulation suggesting patency by spin echo criteria. Normal venous enhancement. There is no enhancing intra-axial or extra-axial abnormality. There is no extra-axial fluid accumulation. Normal tectal plate and pineal gland. Normal midbrain, polo and medulla. Normal cerebellum. Normal basal cisterns. Normal bilateral temporal bones. Normal bilateral internal auditory canals. No demonstrated orbital abnormality, within the constraints of a routine brain study. Normal visualized paranasal sinuses. Normal calvarium and skull base. Normal visualized upper cervical spine. Normal visualized soft tissue structures. MRI/Brain W/WO Contrast IMPRESSION: 1. Normal variant configuration of the pituitary gland with horizontal orientation of the posterior lobe of the pituitary gland. No nodule or cyst or adenoma is present. No enhancing abnormality is present. No demonstrated apoplexy or infarction of the pituitary gland. Electronically Signed: Conrado Croft MD at 15:50 EDT ,
[2024-08-22] MEDS: Labetalol 200 MG Tablet PO (11:34)
[2024-08-22] MEDS: Ketorolac 30 MG/ML Syringe IM (13:18)
== END 2024-08-22 17:31 | disposition home or self-care (01) | DRG 776 ==
LOC: WPOUT 08-22 01:45 → WP 08-22 08:00
PROVIDERS: Admitting Provider Obstetrics & Gynecology; Referring Provider Obstetrics & Gynecology; Visit Provider Obstetrics & Gynecology
DX: O14.15 Severe pre-eclampsia, complicating the puerperium (principal); O89.4 Spinal and epidural anesthesia-induced headache during the puerperium
CPT/HCPCS: 36415; 70470; 70553; 80053; 82565; 82570; 84156; 84550; 85027; 96372; 99221; A9575; J7120; Q9967; A4216; G0378

== ENCOUNTER → 2024-08-31 | Outpatient (CLI) | payer OTHER, SELFPAY ==
[2024-08-31 11:31] LABS: Absolute Lymphocyte Count 1.99 X10^3/uL (0.83-4.51); Absolute Neutrophil Count 4.5 X10^3/uL (2.0-7.7); Basophil# 0.05 X10^3/uL; Basophil% 0.7 % (0-1); Eosinophil# 0.23 X10^3/uL; Eosinophils% 3.2 % (0-5); Hematocrit 42.6 % (37-47); Hemoglobin 13.8 g/dL (12.0-15.0); Lymphocyte # 1.99 X10^3/ul (0.83-4.51); Lymphocyte % 27.6 % (19-41); Mean Corp Hgb Conc 32.4 g/dL (32-36); Mean Corpuscular Hgb 26.6 pg (27.0-32.0); Mean Corpuscular Volume 82.2 fL (81-99); Mean Platelet Vol. 9.2 fl (6.2-12.0); Monocyte# 0.41 X10^3/uL; Monocyte% 5.7 % (0-10); NRBC Flagged by Analyzer 0 % (0-5); Neutrophil # 4.48 X10^3/uL (2.7-7.7); Neutrophil % 62.1 % (47-70); Platelet Count 275 K/mm3 (150-450); RBC Distribution Width CV 13.4 % (11.6-14.6); RBC Distribution Width SD 40.3 fl (35.1-43.9); Red Blood Count 5.18 M/mm3 (4.2-5.4); White Blood Count 7.2 K/mm3 (4.4-11.0)
[2024-08-31 11:48] LABS: Protein, Urine (Random) 7.3 mg/dL (<11.9); Protein:Creat Ratio 146 mg/g CRE (0-200)
[2024-08-31 11:56] LABS: AST(SGOT) 11 U/L (15-37); Alanine Aminotransfer ALT/SGPT 25 U/L (13-56); Albumin, Serum 3.8 g/dL (3.2-5.0); Alkaline Phosphatase 115 U/L (45-117); Anion Gap 7 (5-15); BUN 14 mg/dL (7-18); BUN/Creat Ratio 16.3 RATIO (10-20); Calcium,Total 9.4 mg/dL (8.5-10.1); Chloride 112 mmol/L (98-107); Creatinine, Serum 0.86 mg/dL (0.55-1.02); EST Glomerular Filtration Rate 79 mL/min (>60); Est Glom Filt Rate - Afr Amer 96 mL/min (>60); Globulin 3.7 g/dL (2.2-4.2); Glucose 74 mg/dL (74-106); Potassium 3.6 mmol/L (3.5-5.1); Protein, Total 7.5 g/dL (6.4-8.2); Sodium Level 144 mmol/L (136-145)
== END | disposition home or self-care (01) ==
LOC: WOBLAB 11:11
PROVIDERS: Referring Provider Obstetrics & Gynecology; Visit Provider Obstetrics & Gynecology
DX: O14.15 Severe pre-eclampsia, complicating the puerperium (principal); Z3A.00 Weeks of gestation of pregnancy not specified
CPT/HCPCS: 36415; 80053; 82570; 84156; 85025

== ENCOUNTER → 2024-09-24 | Outpatient (CLI) | payer OTHER, SELFPAY ==
[2024-09-24 12:19] LABS: Absolute Lymphocyte Count 2.39 X10^3/uL (0.83-4.51); Absolute Neutrophil Count 4.9 X10^3/uL (2.0-7.7); Basophil# 0.03 X10^3/uL; Basophil% 0.4 % (0-1); Eosinophil# 0.16 X10^3/uL; Hematocrit 37.3 % (37-47); Hemoglobin 12.6 g/dL (12.0-15.0); Lymphocyte # 2.39 X10^3/ul (0.83-4.51); Lymphocyte % 29.9 % (19-41); Mean Corp Hgb Conc 33.8 g/dL (32-36); Mean Corpuscular Hgb 27.2 pg (27.0-32.0); Mean Corpuscular Volume 80.4 fL (81-99); Mean Platelet Vol. 9.7 fl (6.2-12.0); Monocyte# 0.47 X10^3/uL; Monocyte% 5.9 % (0-10); NRBC Flagged by Analyzer 0 % (0-5); Neutrophil # 4.89 X10^3/uL (2.7-7.7); Neutrophil % 61.3 % (47-70); Platelet Count 261 K/mm3 (150-450); RBC Distribution Width CV 13.8 % (11.6-14.6); Red Blood Count 4.64 M/mm3 (4.2-5.4)
[2024-09-24 12:48] LABS: ALB/GLOB Ratio 1.3 RATIO (0.9-2.4); AST(SGOT) 12 U/L (15-37); Alanine Aminotransfer ALT/SGPT 29 U/L (13-56); Albumin, Serum 4.1 g/dL (3.2-5.0); Alkaline Phosphatase 88 U/L (45-117); Anion Gap 10 (5-15); BUN 14 mg/dL (7-18); BUN/Creat Ratio 18.6 RATIO (10-20); Calcium,Total 9.2 mg/dL (8.5-10.1); Chloride 109 mmol/L (98-107); Creatinine, Serum 0.75 mg/dL (0.55-1.02); EST Glomerular Filtration Rate 92 mL/min (>60); Est Glom Filt Rate - Afr Amer 111 mL/min (>60); Globulin 3.2 g/dL (2.2-4.2); Glucose 87 mg/dL (74-106); Protein, Total 7.3 g/dL (6.4-8.2); Sodium Level 140 mmol/L (136-145)
== END | disposition home or self-care (01) ==
LOC: BWCLAB 11:40
PROVIDERS: Referring Provider Advanced Practice Midwife; Visit Provider Advanced Practice Midwife
DX: O14.15 Severe pre-eclampsia, complicating the puerperium (principal); Z3A.00 Weeks of gestation of pregnancy not specified
CPT/HCPCS: 36415; 80053; 85025

== ENCOUNTER → 2025-05-02 | Outpatient (CLI) | payer OTHER, SELFPAY | END | disposition home or self-care (01) | PROVIDERS: Referring Provider Nurse Practitioner Family; Visit Provider Nurse Practitioner Family | DX: R30.0 Dysuria (principal) | CPT/HCPCS: 87086; 87088 ==

== ENCOUNTER → 2025-05-07 | Outpatient (CLI) | payer OTHER, SELFPAY ==
--- NOTE | 2025-05-07 16:17 | US_ITS ---
PROCEDURE: PELVIC W/ TRANSVAGINAL 05/07/2025 REASON FOR EXAM: PELVIC PAIN TECHNIQUE: PELVIC W/ TRANSVAGINAL COMPARISON: None. FINDINGS: Measurements: Uterus: 10.6 x 6.0 x 7.3 cm for volume of 241.3 mL Endometrial Thickness: 1.0 cm Right Ovary: 3.5 x 1.8 x 2.4 cm for a volume of 7.8 mL. Left Ovary: 4.7 x 2.7 x 2.8 cm for volume of 18.7 mL . Uterus: Anteverted. There is a heterogeneous hypoechoic lesion in the right anterior aspect of the uterus measuring 1.8 x 1.6 x 1.6 cm.. Nabothian cysts at the cervix. Endometrium: Normal echotexture. Right ovary: Normal size and echotexture. Left ovary: There are least 10 follicles in the left ovary on a single image. Other adnexal findings: None. Cul-de-sac: No free intraperitoneal fluid identified. Color Doppler: Normal color flow doppler signal at both ovaries. US/Pelvic w/ Transvaginal IMPRESSION: 1. Polycystic morphology of the ovaries, correlate for clinical evidence of PC OS. 2. Uterine leiomyoma measuring 1.8 cm. Reading Location: [facility]
== END | disposition home or self-care (01) ==
LOC: US 16:15
PROVIDERS: Referring Provider Nurse Practitioner Family; Visit Provider Nurse Practitioner Family
DX: R10.2 Pelvic and perineal pain (principal)
CPT/HCPCS: 76830; 76856

== ENCOUNTER → 2025-05-27 | Outpatient (CLI) | payer OTHER, SELFPAY ==
[2025-05-27 18:50] LABS: Hematocrit 41.0 % (37-47); Hemoglobin 13.8 g/dL (12.0-15.0); Immature Granulocytes Count 0.050 X10^3/uL (0.0-0.0); Mean Corp Hgb Conc 33.7 g/dL (32-36); Mean Corpuscular Volume 80.7 fL (81-99); Mean Platelet Vol. 10.7 fl (6.2-12.0); NRBC Flagged by Analyzer 0 % (0-5); Platelet Count 284 K/mm3 (150-450); RBC Distribution Width CV 13.1 % (11.6-14.6); RBC Distribution Width SD 37.9 fl (35.1-43.9); Red Blood Count 5.08 M/mm3 (4.2-5.4); White Blood Count 9.4 K/mm3 (4.4-11.0)
[2025-05-27 19:35] LABS: AST(SGOT) 22 U/L (<=31); Alanine Aminotransfer ALT/SGPT 34 U/L (<=34); Albumin, Serum 4.4 g/dL (3.5-5.0); Alkaline Phosphatase 90 U/L (35-104); Anion Gap 16 (5-15); BUN 13 mg/dL (4-19); BUN/Creat Ratio 18.0 RATIO (10-20); Calcium,Total 9.4 mg/dL (7.6-11.0); Carbon Dioxide 18.9 mmol/L (21.0-32.0); Chloride 104 mmol/L (98-108); Globulin 2.9 g/dL (2.2-4.2); Glucose 90 mg/dL (70-99); Hepatitis B Surface Antigen Nonreactive (Nonreactive); Hepatitis C Antibody Nonreactive (Nonreactive); Potassium 4.1 mmol/L (3.3-5.1); Vitamin D,25 Hydroxy 24.8 ng/mL (30-100)
--- OUTSIDE RECORDS SUMMARY | 2025-05-27 22:42 | XMS RPT_ITS | CCD ---
Author Organization [facility] Care Team Providers Care Hall Coordinator Name Role Phone Kimberlyn Ramirez Unavailable [phone] Unavailable Unavailable Destini Aguilar Unavailable Kimberlyn Ramirez Unavailable Hardeep Haddad Unavailable Unavailable Shonna, Viola Mcdaniel Attending Lupis Ramirez, Ms. Harp Nazanin Primary Care Unava ilmadan Haddad, Hardeep Mcdaniel Attending Lupis Ramirez, Ms. Harp Nazanin Primary Care Unava ilmadan Ramirez, Ms. Harp Nazanin Primary Care Unava ilmadan Haddad, Ms. Meier Violeta Attending Lupis Ramirez PROCESS STRIPPER, PROCESS STRIPPER-C Kimberlyn Primary Care Provider James PROCESS STRIPPER, PROCESS STRIPPER-Delon Harp Referring Provider [phone] ORAL Boles Attending Provider [phone] Kimberlyn Huizar Primary Care Provid er RONDA CHANEY Primary Care Unavailable ADE BARRIENTOS Referring Unavailab ADE Mason Attending Unavailab le Unavailable Primary Care Provider Unavailjose e Abril Jansen Primary Care Provider Abril Mosley CNP Primary Care Provider SYSTEM, PROVIDER NOT IN Referring Unavaila ble SYSTEM, PROVIDER NOT IN Attending Unavaila ble Abril Jansen Primary Care Provider ABRIL MOSLEY Attending Unavailable KIMBERLYN RAMIREZ Primary Care Unavailable DIMITRI, ABRIL B Attending Unavailable DIMITRI, ABRIL B Primary Care Unavailable DIMITRI, ABRIL B Attending Unavailable DIMITRI, ABRIL B Primary Care Unavailable SERJIO CARTER Attending Unavailable DIMITRI, ABRIL B Primary Care Unavailable Dimitri [employer] WARDEN-AUTOMOTIVE ACCESSORY INSTALLER, Abril B Primary Care Provider Care Physician, No Primary Primary Care Provider Unavailable Care Physician, No Primary Referring Provider Un available Osbaldo PROCESS STRIPPER-Leslie Jernigan Attending Provider DIMITRI, ABRIL B Referring Unavailable SANTI, ANVITA Attending Unavailable DIMITRI, ABRIL B Primary Care Unavailable SANTI, ANVITA Attending Unavailable SANTI, ANVITA Referring Unavailable DIMITRI, ABRIL B Primary Care Unavailable DORIS BECERRA Attending Unavailable DIMITRI, ABRIL B Primary Care Unavailable DIMITRI, ABRIL B Referring Unavailable SANTI, ANVITA Attending Unavailable DIMITRI, ABRIL B Primary Care Unavailable SANTI, ANVITA Attending Unavailable DIMITRI, ABRIL B Primary Care Unavailable BRIANA PARTIDA Attending Unavailable Dimitri PROCESS STRIPPER-C, Abril Primary Care Provider Osbaldo PROCESS STRIPPERLeslie Jacobs Referring Provider DIMITRI, ABRIL B Primary Care Unavailable DHEERAJ FERRER Attending Unavailable DHEERAJ FERRER Referring Unavailable DIMITRI, ABRIL B Primary Care Unavailable DIMITRI, ABRIL B Referring Unavailable DIMITRI, ABRIL B Primary Care Unavailable DIMITRI, ABRIL B Referring Unavailable DIMITRI, ABRIL B Primary Care Unavailable DIMITRI, ABRIL B Referring Unavailable DIMITRI, ABRIL B Primary Care Unavailable DIMITRI, ABRIL B Referring Unavailable DIMITRI, ABRIL B Primary Care Unavailable DIMITRI, ABRIL B Referring Unavailable KIMBERLYN RAMIREZ Primary Care Unavailable DIMITRI, ABRIL B Referring Unavailable DIMITRI, ABRIL B Primary Care Unavailable SERJIO CARTER Referring Unavailable DIMITRI, ABRIL B Primary Care Unavailable SERJIO CARTER Referring Unavailable DIMITRI, ABRIL B Primary Care Unavailable DIMITRI, ABRIL B Referring Unavailable DIMITRI, ABRIL B Primary Care Unavailable DIMITRI, ABRIL B Referring Unavailable DIMITRI, ABRIL B Primary Care Unavailable DIMITRI, ABRIL B Referring Unavailable DIMITRI, ABRIL B Primary Care Unavailable DIMITRI, ABRIL B Referring Unavailable DIMITRI, ABRIL B Primary Care Unavailable Care Physician, No Primary Primary Care Unava ilable Ade Chairez Attending Unavailabl e Vande Velayaka, Ade Referring Unavailabl e CastorLacie Referring Unavailable Castor, Lacie Attending Unavailable Care Physician, No Primary Primary Care Unava ilable Marcanthony, Janette Attending Unavailable Marcanthony, Janette Referring Unavailable Care Physician, No Primary Primary Care Unava ilable Care Physician, No Primary Referring Unava ilable Leslie Roblero Attending Unavailable Care Physician, No Primary Primary Care Unava ilable Dimitri, Abril Primary Care Unavailable Leslie Roblero Attending Unavailable Leslie Roblero Referring Unavailable Marcanthony, Janette Attending Unavailable Marcanthony, Janette Referring Unavailable Care Physician, No Primary Primary Care Unava ilable Marcanthony, Janette Referring Unavailable Marcanthony, Janette Attending Unavailable Care Physician, No Primary Primary Care Unava ilable Marcanthony, Janette Attending Unavailable Marcanthony, Janette Referring Unavailable Marcanthony, Janette Admitting Unavailable Care Physician, No Primary Primary Care Unava ilable Leslie Roblero Attending Unavailable Osbaldo, Leslie Referring Unavailable Abril Mosley Primary Care Unavailable Layne Boles Attending Unavailable Care Physician, No Primary Referring Unava ilable Care Physician, No Primary Primary Care Unava ilable Marcanthbecky, Janette Attending Unavailable Care Physician, No Primary Referring Unava ilable Care Physician, No Primary Primary Care Unava ilable [place] PROCESS STRIPPER, Kimberlyn Referring Unavailable Vande Velayaka, Ade Attending Unavailabl e Care Physician, No Primary Primary Care Unava ilable Care Physician, No Primary Primary Care Unava ilable [place] PROCESS STRIPPER, Kimberlyn Referring Unavailable Vande Zaida, Ade Attending Unavailabl e Marcanthony, Janette Attending Unavailable Marcanthony, Janette Referring Unavailable Care Physician, No Primary Primary Care Unava ilable Vande Velde, Ade Consulting Unavailabl e Marcanthony, Janette Attending Unavailable Care Physician, No Primary Primary Care Unava ilable Marcanthony, Janette Referring Unavailable Vande Velde, Ade Consulting Unavailabl e Marcanthony, Janette Attending Unavailable Care Physician, No Primary Primary Care Unava ilable Marcanthony, Janette Referring Unavailable Marcanthony, Janette Attending Unavailable Marcanthony, Janette Referring Unavailable Care Physician, No Primary Primary Care Unava ilable Layne Boles Referring Unavailable Layne Boles Attending Unavailable Care Physician, No Primary Primary Care Unava ilable Ade Chairez Attending Unavailabl e Care Physician, No Primary Referring Unava ilable Care Physician, No Primary Primary Care Unava ilable Janette Medina Attending Unavailable James PROCESS STRIPPER, Kimberlyn Referring Unavailable Care Physician, No Primary Primary Care Unava ilable Layne Boles Attending Unavailable Care Physician, No Primary Primary Care Unava ilable Care Physician, No Primary Referring Unava ilable Layne Boles Attending Unavailable Layne Boles Admitting Unavailable Care Physician, No Primary Primary Care Unava ilable Marcanthony, Janette Attending Unavailable Care Physician, No Primary Primary Care Unava ilable Care Physician, No Primary Referring Unava ilable Janette Medina Attending Unavailable Marcanthony, Janette Referring Unavailable Care Physician, No Primary Primary Care Unava ilable Jakee VelAde marley Attending Unavailabl e Care Physician, No Primary Referring Unava ilable Care Physician, No Primary Primary Care Unava ilable Jakee Ade Cerda Attending Unavailabl e Care Physician, No Primary Referring Unava ilable Care Physician, No Primary Primary Care Unava ilable Janette Medina Attending Unavailable MarcanthJanette pena Consulting Unavailable MarcJanette mullen Referring Unavailable Care Physician, No Primary Primary Care Unava ilable Layne Boles Admitting Unavailable Layne Boles Consulting Unavailable Lacie Martinez Attending Unavailable Care Physician, No Primary Primary Care Unava ilable Ade Chairez Attending Unavailabl e Care Physician, No Primary Primary Care Unava ilable Layne Boles Attending Unavailable Layne Boles Consulting Unavailable Layne Boles Admitting Unavailable Care Physician, No Primary Primary Care Unava ilable Ade Chairez Attending Unavailabl e MarcanthonyJanette Consulting Unavailable Marcanthony, Janette Referring Unavailable MarcanthJanette pena Admitting Unavailable Care Physician, No Primary Primary Care Unava ilable Leslie Roblero Attending Unavailable Care Physician, No Primary Referring Unava ilable Care Physician, No Primary Primary Care Unava ilable ABRIL MOSLEY Primary Care Unavailable SANTI, ANVITA Attending Unavailable ABRIL MOSLEY Primary Care Unavailable SANTI, ANVITA Referring Unavailable SANTI, ANVITA Attending Unavailable ABRIL MOSLEY Primary Care Unavailable RUBEN HANCOCK Referring Unavailable RUBEN HANCOCK Attending Unavailable Allergies Allergy Classification Reported Allergen(s) Allergy Type Date of Onset Reaction(s) Facility Acetaminophen / oxyCODONE (1 source) Acetaminophen / oxyCODONE; Translations: [Percocet TABS] Drug Allergy Itching [facility] Work Phone: Opioid Agonists (2 sources) oxyCODONE; Translations: [oxyCODONE HCl TABS] Drug Allergy Itching [facility] Work Phone: (16 sources) Acetaminophen / oxyCODONE; Translations: [Percocet TABS] Drug Allergy 4 [facility] (20 sources) HYDROcodone; Translations: [hydrocodone] [facility] Work Phone: (19 sources) oxyCODONE; Translations: [oxyCODONE HCl TABS] Drug Allergy 6 Other (See Comments) [facility] Comment on above: itching and psycholo gical changes (4 sources) oxyCODONE; Translations: [OXYCODONE] Drug Allergy 6 [facility] Repository (5 sources) Labetalol; Translations: [LABETALOL] Drug Allergy 5 [facility] (2 sources) Acetaminophen / oxyCODONE; Translations: [OXYCODONE-ACETAM INOPHEN] Drug Allergy 4 [facility] 3 Repository Medications Current Medications Medication Drug Class(es) Dates Sig (Normalized) Sig (Original) amitriptyline hydrochloride 50 mg oral tablet (6 sources) Tricyclic Antidepressant Start: 12-24-2024 End: 12-24-2025 take 1 tablet by mouth once daily amitriptyline (ELAVIL) 50 MG tablet Take 1 (one) tablet (50 mg total) by mouth nightly . 30 tablet 11 12/24/2024 12/24/2025 Active Start: 11-23-2024 End: 11-23-2025 take 1 tablet by mouth once daily at bedtime amitriptyline (Elavil) 25 mg tablet Indications: Intractable chronic migraine with aura and without status migrainosus Take 1 tablet (25 mg) by mouth once daily at bedtime. 30 tablet 11 11/23/2024 01/08/2025 Discontinued (Therapy completed) End: 12-24-2024 take 2 tablets by mouth once daily amitriptyline (ELAVIL) 25 MG tablet Take 2 (two) tablets (50 mg total) by mouth nightly . 12/24/2024 Discontinued clindamycin 300 mg oral capsule (1 source) Lincosamide Antibacterial Start: 2023 End: 02-02-2023 take 1 capsule by mouth three times daily Cleocin HCl 300 mg oral capsule ; 1 cap(s) orally 3 times a day Quantity: 30 Refills: 0 Ordered: 24-Jan-2023 Hardeep Haddad Start: 24-Jan-2023 End: 02-Feb-2023 Generic Substitution Allowed Comments: Finish all this medication unless otherwise directed by prescriber.Medication should be taken with plenty of water. Comment on above: Finish all this medi cation unless otherwise directed by prescriber.Medication should be taken with plenty of water. cyclobenzaprine hydrochloride 10 mg oral tablet (5 sources) Muscle Relaxant Start: 04-05-2025 End: 06-04-2025 take 1 tablet by mouth three times daily Cyclobenzaprine 10 mg tablet Active 10 mg PO THREE TIMES A DAY May 02, 2025 12:00am diclofenac sodium 75 mg delayed release oral tablet (7 sources) Nonsteroidal Anti-inflammatory Drug Start: 04-10-2025 End: 05-10-2025 take 1 tablet by mouth twice daily Diclofenac Sodium 75 mg tablet,delayed release (DR/EC) Active 75 mg PO TWICE A DAY May 02, 2025 12:00am dilTIAZem hydrochloride 120 mg oral tablet (12 sources) Calcium Channel Florentin Start: 05-02-2025 take 1 tablet by mouth three times daily Diltiazem Hcl (Cardizem) 120 mg tablet Active 120 mg PO THREE TIMES A DAY May 02, 2025 12:00am Start: 04-02-2025 End: 04-02-2026 take 1 capsule by mouth once daily diltiazem (CARDIZEM CD) 120 MG 24 hr capsule Take 1 (one) capsule (120 mg total) by mouth daily . 04/02/2025 04/02/2026 Active Start: 04-01-2025 End: 04-01-2026 take 1 tablet by mouth four times daily dilTIAZem (Cardizem) 90 mg immediate release tablet Indications: Palpitations Take 1 tablet (90 mg) by mouth 4 times a day. 120 tablet 11 04/01/2025 04/01/2026 Active 1.5 ml fremanezumab-vfrm 150 mg/ml auto-injector (15 sources) Start: 05-02-2025 Fremanezumab-V frm (Ajovy Autoinjector) 225 mg/1.5 mL auto-injector Active 225 mg SC EVERY MONTH May 02, 2025 12:00am Start: 03-27-2025 fremanezumab-v frm (Ajovy Autoinjector) 225 mg/1.5 mL AtIn Inject 1.5 mL (225 mg total) under the skin every 28 days . 4.5 mL 5 03/27/2025 Active Start: 03-27-2025 fremanezumab ( Ajovy Autoinjector) 225 mg/1.5 mL auto-injector Inject 1 Pen (225 mg) under the skin every 28 (twenty-eight) days. 03/27/2025 Active Start: 02-25-2025 inject 1.5 mL by sub cutaneous injection every 30 days fremanezumab-vfrm 225 mg/1.5 mL Syrg Inject 1.5 mL (225 mg total) under the skin every 30 (thirty) days . 1.5 mL 3 02/25/2025 Active gabapentin 300 mg oral capsule (7 sources) Anti-epileptic Agent Start: 05-02-2025 take 1 capsule by mouth twice daily Gabapentin 300 mg capsule Active 300 mg PO TWICE A DAY May 02, 2025 12:00am Start: 04-10-2025 End: 05-10-2025 gabapentin (NEURONTIN) 300 M G capsule Indications: Acute midline low back pain without sciatica Take 1 (one) capsule (300 mg total) by mouth every 8 (eight) hours Start with 1 tab at night x 3 days, then increase to 1 bid x 3 days, then 1 tab tid (if tolerating side effects), x 30 days, 2 refills . 90 capsule 2 04/10/2025 05/10/2025 Active meloxicam (1 source) Nonsteroidal Anti-inflammatory Drug meloxicam Quantity: 0 Refills: 0 Ordered: 12-May-2020 Jaiden Amanda Status: Other Generic Substitution Allowed mupirocin 0.02 mg/mg topical ointment (1 source) RNA Synthetase Inhibitor Antibacterial Start: 2024 End: 2024 mupirocin (Bactroban) 2 % ointment Indications: Rash Apply topically 3 times a day for 10 days. apply to affected area 22 g 01/10/2025 01/20/2025 Active VITAMIN (1 source) VITAMIN ; orally once a day Quantity: 0 Refills: 0 Ordered: 26-Sep-2020 Bowrosie Melanjovi Status: Other Generic Substitution Allowed rimegepant 75 mg disintegrating oral tablet (16 sources) Start: 2024 apply 1 tablet topically once daily as needed Rimegepant (NURTEC) 75 mg ODT Dissolve 1 (one) tablet (75 mg total) on top of tongue daily as needed . 15 tablet 1 12/24/2024 Active sertraline 50 mg oral tablet (20 sources) Serotonin Reuptake Inhibitor Start: 2023 End: 2024 take 1 tablet by mouth once daily Sertraline (Zoloft) 50 mg tablet Active 50 mg PO daily 30 2 May 02, 2025 10:44am Anxiety Anxiety disorder, unspecified sulfamethoxazole 800 mg / trimethoprim 160 mg oral tablet (1 source) Dihydrofolate Reductase Inhibitor Antibacterial, Sulfonamide Antimicrobial Start: 2021 End: 2021 take 1 tablet by mouth twice daily Bactrim DS 800 mg-160 mg oral tablet ; 1 tab(s) orally 2 times a day Quantity: 20 Refills: 0 Ordered: 08-Sep-2022 Hardeep Haddad Start: 08-Sep-2022 End: 17-Sep-2022 Generic Substitution Allowed Comments: Avoid prolonged or excessive exposure to direct and/or artificial sunlight while taking this medication.Finish all this medication unless otherwise directed by prescriber.Medicat ion should be taken with plenty of water. Comment on above: Avoid prolonged or e xcessive exposure to direct and/or artificial sunlight while taking this medication.Finish all this medication unless otherwise directed by prescriber.Medication should be taken with plenty of water. valACYclovir 500 mg oral tablet (20 sources) Herpesvirus Nucleoside Analog DNA Polymerase Inhibitor, Herpes Simplex Virus Nucleoside Analog DNA Polymerase Inhibitor, Herpes Zoster Virus Nucleoside Analog DNA Polymerase Inhibitor Start: 2023 valACYclovir (VALTREX) 500 MG tablet As needed . 01/13/2024 Active Start: 01-13-2024 End: 08-21-2024 take 2 tablets by mouth once daily Valacyclovir (Valtrex) 500 mg tablet Discontinued 1000 mg PO DAILY 13 12January 13, 2024 1:00am August 21, 2024 3:26pm History of herpes genitalis Personal history of other infectious and parasitic diseases HSV Start: 03-19-2021 End: 02-20-2024 take 2 tablets by mouth once daily as needed Valacyclovir (Valtrex) 1 gram tablet Discontinued 1000 mg PO DAILY as needed for HSV 2 March 19, 2021 12:00am February 20, 2024 3:40pm Start: 03-19-2021 Valacyclovir ( Valtrex) 1 gram tablet Active 1000 MG PO DAILY March 19, 2021 12:00am Start: 06-19-2020 End: 12-08-2021 take 1 tablet by mouth once daily valACYclovir HCl - 1 GM Oral Tablet TAKE 1 TABLET EVERY 12 HOURS DAILY. Quantity: 14 Refills: 1 Ordered: 19-Jun-2020 Kimberlyn Huizar Start : 19-Jun-2020 End : 08-Dec-2021 Complete take 1 tablet by nikki twice daily Valtrex 1 g oral tablet ; 1 tab(s) orally 2 times a day Quantity: 0 Refills: 0 Ordered: 08-Sep-2022 Amanda Hwang Generic Substitution Allowed Completed/Discontinued Medications Medication Drug Class(es) Dates Sig [...] this medication unless otherwise directed by prescriber. Comment on above: Finish all this medi cation unless otherwise directed by prescriber. amoxicillin 875 mg / clavulanate 125 mg oral tablet (3 sources) Penicillin-class Antibacterial Start: 12-30-2021 take 1 tablet by mouth once daily Amoxicillin-Pot Clavulanate 875-125 MG Oral Tablet TAKE 1 TABLET EVERY 12 HOURS DAILY. Quantity: 20 Refills: 0 Ordered: 30-Dec-2021 Migdalia Medrano DO Start : 30-Dec-2021 Active Start: 05-12-2020 End: 05-21-2020 take 1 tablet by mouth twice daily at mealtime amoxicillin-clavulanate 875 mg-125 mg oral tablet ; 875 milligram(s) orally 2 times a day Quantity: 20 Refills: 0 Ordered: 12-May-2020 BamRamos lacyn Start: 12-May-2020 End: 21-May-2020 Status: Other Generic Substitution Allowed Comments: Finish all this medication unless otherwise directed by prescriber.Take with food or milk. Comment on above: Finish all this medi cation unless otherwise directed by prescriber.Take with food or milk. aspirin 81 mg delayed release oral tablet (6 sources) Platelet Aggregation Inhibitor, Nonsteroidal Anti-inflammatory Drug Start: 02-20-20 End: 11-23-19 take 1 tablet by mouth once daily Aspirin 81 mg tablet,delayed release (DR/EC) Discontinued 81 mg PO DAILY February 20, 2024 12:00am August 21, 2024 3:26pm cephalexin 500 mg oral capsule (3 sources) Cephalosporin Antibacterial Start: 03-23-20 End: 03-23-20 take 1000 mg by mouth once 1,000 mg, oral, Once, On Tue03/23/24 at 2034, For 1 dose, Suspected Indication (Select all that apply): Cellulitis, Skin and Soft Tissue Start: 03-23-2024 End: 04-02-2024 take 1 capsule by mouth four times daily cephalexin (Keflex) 500 mg capsule Indications: Acute lymphangitis of left upper extremity Take 1 capsule (500 mg) by mouth 4 times a day for 10 days. 40 capsule 03/23/2024 04/02/2024 Active Start: 09-08-2022 End: 09-17-2022 take 1 tablet by mouth three times daily cephalexin 500 mg oral tablet ; 1 tab(s) orally 3 times a day x 10 days Quantity: 30 Refills: 0 Ordered: 08-Sep-2022 Nixoncarri Hardeep Start: 08-Sep-2022 End: 17-Sep-2022 Generic Substitution Allowed Comments: Finish all this medication unless otherwise directed by prescriber. Comment on above: Finish all this medi cation unless otherwise directed by prescriber. diphenhydrAMINE hydrochloride 50 mg oral tablet (1 source) Histamine-1 Receptor Antagonist Start: End: diphenhydrAMINE (Benadryl Allergy) 50 mg tablet Take 1 tablet (50 mg) by mouth early in the morning. for 2 doses. Take 1 tablet the night before the exam (1 hour before you take metoprolol) Take 1 tablet the morning of the exam (`1 hour before you take metoprolol) 2 tablet 04/01/2025 04/01/2025 Discontinued (Entered in Error) docosahexaenoic acid 200 mg oral capsule (3 sources) Start: End: Docosahexaenoic Acid ( Dha) 200 mg capsule Discontinued mg PO August 31, 2024 12:00am November 05, 2024 12:40pm FLUoxetine 20 mg oral capsule (9 sources) Serotonin Reuptake Inhibitor Start: End: take 1 capsule by mouth once daily Fluoxetine (Prozac) 20 mg capsule Discontinued 20 mg PO DAILY March 19, 2021 12:00am January 06, 2024 2:42pm Check with primary doctor FLUoxetine Quant ity: 0 Refills: 0 Ordered: 12-May-2020 Amanda Hwang Status: Other Generic Substitution Allowed take 1 capsule by mouth once sly ly FLUoxetine HCl - 40 MG Oral Capsule take 1 capsule by mouth once daily Quantity: 90 Refills: 1 Ordered: 28-Jul-2021 DO Active PROzac 20 MG Ora l Capsule Quantity: 0 Refills: 0 Ordered: 20-Apr-2021 DO Active fluticasone propionate 0.05 mg/actuat metered dose nasal spray (7 sources) Corticosteroid Start: 12-08-2021 take 1 spray(s) nasal route twice daily Fluticasone Propionate 50 MCG/ACT Nasal Suspension USE 1 SPRAY IN EACH NOSTRIL TWICE DAILY. Quantity: 1 Refills: 1 Ordered: 30-Dec-2021 Migdalia Medrano DO Start : 30-Dec-2021 Active Start: 04-20-2021 take 1 spray(s) nasa l route twice daily Flonase Sensimist 27.5 MCG/SPRAY Nasal Suspension USE 1 SPRAY IN EACH NOSTRIL TWICE DAILY. Quantity: 1 Refills: 1 Ordered: 20-Apr-2021 Kimberlyn Huizar Start : 20-Apr-2021 Active ketorolac tromethamine 10 mg oral tablet (3 sources) Nonsteroidal Anti-inflammatory Drug, Cyclooxygenase Inhibitor Start: 08-22-2024 End: 08-31-2024 take 1 tablet by mouth every eight hours as needed for pain Ketorolac 10 mg tablet Discontinued 10 mg PO Q8H as needed for pain 10 3 0 August 22, 2024 12:00am August 31, 2024 11:03am labetalol hydrochloride 100 mg oral tablet (18 sources) beta-Adrenergic Florentin Start: 10-24-2024 End: 04-01-2025 take 1 tablet by mouth every twelve hours labetalol (Normodyne) 100 mg tablet Indications: History of pre-eclampsia Take 1 tablet (100 mg) by mouth every 12 hours. 30 tablet 3 11/23/2024 04/01/2025 Discontinued (Med List Cleanup) Start: 08-22-2024 End: 12-19-2024 take 1 tablet by mouth twice daily Labetalol 100 mg tablet Discontinued 100 mg PO TWICE A DAY 60 0 October 24, 2024 2:14pm December 19, 2024 2:07pm magnesium oxide 400 mg oral tablet (10 sources) Start: 08-01-2024 End: 11-05-2024 take 1 tablet by mouth once daily Magnesium Oxide 400 mg magnesium tablet Discontinued 400 mg PO daily August 01, 2024 12:00am November 05, 2024 12:40pm metoprolol tartrate 100 mg oral tablet (1 source) beta-Adrenergic Florentin Start: 04-01-2025 End: 04-01-2025 take 1 tablet by mouth once daily metoprolol tartrate (Lopressor) 100 mg tablet Indications: Chest pain, unspecified type Take 1 tablet by mouth once daily for 2 doses. Take 1 tablet the night before the exam Take 1 tablet the morning of the exam 2 tablet 04/01/2025 04/01/2025 Discontinued (Entered in Error) Multivit 95-Nsdw-Ehgbfk 1-Dha (Pnv-Dha) 27 mg iron-1 mg -300 mg capsule (4 sources) Start: 01-06-2024 End: 08-21-2024 Multivit 57-Hwbc-Abqtkj 1-Dha (Pnv-Dha) 27 mg iron-1 mg -300 mg capsule Discontinued NMA PO January 06, 2024 1:00am August 21, 2024 3:26pm Start: 01-06-2024 End: 08-21-2024 Multivit 66-Hygr-Yrvnik 1-Dh a (Pnv-Dha) 27 mg iron-1 mg -300 mg capsule Discontinued NMA PO January 06, 2024 1:00am August 21, 2024 3:26pm Start: 01-06-2024 Multivit 47-Ir on-Folate 1-Dha (Pnv-Dha) 27 mg iron-1 mg -300 mg capsule Active CAP PO January 06, 2024 1:00am 24 hr NIFEdipine 30 mg extended release oral tablet (20 sources) Dihydropyridine Calcium Channel Florentin Start: 11-23-2024 End: 04-01-2025 take 1 tablet by mouth once daily NIFEdipine CC 30 mg 24 hr tablet Indications: History of pre-eclampsia TAKE 1 TABLET BY MOUTH ONCE DAILY. 90 tablet 2 01/15/2025 04/01/2025 Discontinued (Med List Cleanup) Start: 08-22-2024 End: 05-02-2025 take 1 tablet by mouth once daily Nifedipine 30 mg tablet extended release 24hr Discontinued 30 mg PO DAILY 30 30 0 October 24, 2024 2:14pm May 02, 2025 10:09am Norlyda 0.35 MG Oral Tablet (5 sources) Norlyda 0.35 MG Oral Tablet Quantity: 0 Refills: 0 Ordered: 28-Jul-2021 DO Active perflutren lipid microsphere s (Definity) injection 5 mL of dilution (1 source) Start: 04-30-2025 End: 04-30-2025 5 mL of dilution, intravenou s, Once in imaging, Starting on Tue04/30/25 at 0940, For 1 dose, Contrast - for use by imaging provider only. Prior to administration, Definity product must be activated. First, bring vial to room temperature. Then, shake vial for 45 seconds. Do not use if the 45 second activation cycle has not been completed. Following activation, the product will appear as a milky white suspension and may be used immediately. If not used within 5 minutes of activation, re-suspend by inverting and shaking the vial for 10 seconds. Discard unused product. Administration: Dilute 1.3 mL of activated DEFINITY with 8.7 mL of normal saline in a 10 mL syringe. Inject 0.5 mL of diluted DEFINITY when notified the images/film are unclear to enhance view of Left Ventricular borders. Repeat 0.5 mL of DEFINITY until clear images are obtained, not to exceed 10 mLs. Once images are obtained or limit of medication is reached, flush line with 10 mL of Normal Saline. predniSONE 50 mg oral tablet (4 sources) Start: 04-01-2025 End: 04-01-2025 predniSONE (Deltasone) 50 mg tablet Take 1st tab 13 hours before procedure (or CT scan). Take 2nd tab 7 hours before procedure (or CT scan). Take 3rd tab 1 hour before procedure (or CT scan). 3 tablet 04/01/2025 04/01/2025 Discontinued (Entered in Error) Start: 03-27-2025 End: 04-01-2025 take 2 tablets by mouth once daily predniSONE (Deltasone) 20 mg tablet Indications: Chest pain, unspecified type Take 2 tablets (40 mg) by mouth once daily for 5 days. 10 tablet 03/27/2025 04/01/2025 Discontinued (Med List Cleanup) No.144-Folic Acid () 400 mcg Tablet,Chewable (5 sources) Start: 03-19-2021 End: 01-06-2024 No.144-Folic Acid () 400 mcg Tablet,Chewable Discontinued 1 {tbl} PO DAILY March 19, 2021 12:00am January 06, 2024 2:42pm Check with primary doctor Start: 03-19-2021 End: 01-06-2024 No.144-Folic Acid ( ) 400 mcg Tablet,Chewable Discontinued 1 {tbl} PO DAILY March 19, 2021 12:00am January 06, 2024 2:42pm Start: 03-19-2021 End: 01-06-2024 take 1 tablet by mouth once daily No.144-Folic Acid () 400 mcg Tablet,Chewable Discontinued 1 TABLET PO DAILY March 19, 2021 12:00am January 06, 2024 2:42pm Start: 03-19-2021 take 1 tablet by nikki th once daily No.144-Folic Acid () 400 mcg Tablet,Chewable Active 1 TABLET PO DAILY March 19, 2021 12:00am rizatriptan 10 mg oral tablet (12 sources) Serotonin-1b and Serotonin-1d Receptor Agonist Start: 11-23-2024 End: 04-18-2025 take 1 tablet by mouth every twenty-four hours as needed rizatriptan (MAXALT) 10 MG tablet Take 1 (one) tablet (10 mg total) by mouth once as needed . 11/23/2024 04/18/2025 Discontinued SM Vitamins TABS (1 source) SM Vitamins TABS Quantity: 0 Refills: 0 Ordered: 28-Apr-2020 DO Active 1000 ml sodium chloride 9 mg/ml injection (1 source) Start: 03-23-2024 End: 03-23-2024 500 mL, intravenous, at 500 mL/hr, Administer over 1 Hours, Once, On Tue03/23/24 at 1900, For 1 dose topiramate 25 mg oral tablet (10 sources) Start: 01-03-2025 End: 04-18-2025 take 2 tablets by mouth once daily, then take 3 tablets by mouth once daily, then take 4 tablets by mouth once daily topiramate (Topamax) 25 MG tablet Start 1 tab by mouth each day week #1; two tablets daily in second week, three tablets daily in third week, and four tablets daily from fourth week onwards. . 120 tablet 6 01/03/2025 04/18/2025 Discontinued End: 03-27-2025 take 1 tablet by mouth once daily topiramate (Topamax) 25 mg tablet Indications: migraine prevention Take 1 tablet (25 mg) by mouth once daily. 03/27/2025 Discontinued (Entered in Error) Problems Active Problems Problem Classification Problem Date Documented Date Episodic/Chronic Abdominal pain (5 sources) Pain in pelvis; Translations: [Pelvic and perineal pain] Onset: 05-13-2025 05-02-2025 Episodic Adjustment disorders (19 sources) Adjustment disorder with anxious mood; Translations: [Adjustment disorder with anxiety] Onset: 11-23-2024 11-23-2024 Chronic Allergic reactions (6 sources) Skin irritation ; Translations: [Radiographic dye allergy status] Onset: 04-01-2025 09-08-2022 Episodic Comment on above: SKIN IRRITATION Anxiety disorders (6 sources) Anxiety; Translations: [Anxiety disorder, unspecified] Onset: 05-02-2025 09-24-2024 Chronic Cardiac dysrhythmias (11 sources) Palpitations; Translations: [Palpitations] Onset: 04-01-2025 04-01-2025 Episodic Coronary atherosclerosis and other heart disease (2 sources) Other forms of angina pectoris; Translations: [Other forms of angina pectoris] Onset: 04-01-2025 Chronic Disorders of lipid metabolism (16 sources) Hypertriglyceridemia; Translations: [Pure hyperglyceridemia] Onset: 11-23-2024 11-23-2024 Chronic Essential hypertension (7 sources) Hypertensive disorder; Translations: [Essential (primary) hypertension] Onset: 04-01-2025 04-01-2025 Chronic Genitourinary symptoms and ill-defined conditions (5 sources) Dysuria; Translations: [Dysuria] Onset: 05-10-2025 05-02-2025 Episodic Headache; including migraine (4 sources) Transformed migraine; Translations: [Intractable chronic migraine with aura and without status migrainosus] 11-23-2024 Chronic Headache; including migraine (4 sources) Headache; including migraine; Translations: [Headache, unspecified] Onset: 12-24-2024 Hypertension complicating ; childbirth and the puerperium (1 source) Unspecified maternal hypertension, third trimester; Translations: [Unspecified maternal hypertension, third trimester] Onset: 07-17-2024 Chronic Immunizations and screening for infectious disease (2 sources) Suspected disease caused by 2019-nCoV; Translations: [Contact with or exposure to other viral diseases] Episodic Menstrual disorders (16 sources) Amenorrhea; Translations: [Absence of menstruation] Onset: 11-23-2024 11-23-2024 Chronic Mood disorders (10 sources) Acute depression; Translations: [Major depressive affective disorder, single episode, unspecified] 05-02-2025 Chronic Comment on above: PHQ 9 17 Nonspecific chest pain (13 sources) Chest pain; Translations: [Chest pain, unspecified] Onset: 03-27-2025 03-27-2025 Episodic Other circulatory disease (1 source) History of pre-eclampsia; Translations: [Personal history of other diseases of the circulatory system] 11-23-2024 Episodic Other complications of ; puerperium affecting management of mother (11 sources) Complications of anesthesia during labor and delivery ; Translations: [Other complications of spinal and epidural anesthesia during labor and delivery] Onset: 04-03-2025 11-23-2024 Episodic Other complications of ; puerperium affecting management of mother (1 source) Other complications of spinal and epidural anesthesia during labor and delivery; Translations: [Other complications of spinal and epidural anesthesia during labor and delivery ([facility])] Onset: 04-03-2025 Episodic Other complications of (3 sources) Maternal obesity complicating , childbirth and the puerperium, antepartum; Translations: [Obesity complicating , unspecified trimester] 08-14-2024 Chronic Comment on above: BMI 45, weekly bpp 3 4 weeks on, growth US q 4 weeks. 34 wk EFW 40%, AC 91% Other complications of (2 sources) Obesity complicating , second trimester; Translations: [Obesity complicating , second trimester] Onset: 09-06-2024 Chronic Other complications of (4 sources) High risk ; Translations: [Supervision of high risk , unspecified, unspecified trimester] 01-26-2024 Episodic Comment on above: PRR, , WILLIAM 08/19, girl Maryana MAJANO Shay, Sebas Other complications of (4 sources) H/O: depression; Translations: [History of depression, currently ] 01-06-2024 Episodic Comment on above: stable Other complications of (2 sources) headache; Translations: [Other complications of the puerperium, not elsewhere classified] 12-24-2024 Episodic Other complications of (3 sources) Other mental disorders complicating , unspecified trimester; Translations: [Anxiety during ] 09-24-2024 Episodic Other complications of (3 sources) Multigravida of advanced maternal age; Translations: [Supervision of elderly multigravida, unspecified trimester] 08-14-2024 Episodic Comment on above: growth US 36 weeks d eliver 39 Other connective tissue disease (3 sources) Pain in left finger(s); Translations: [Pain in left finger(s)] Onset: 2023 Episodic Other connective tissue disease (1 source) Radicular pain; Translations: [Neuralgia and neuritis, unspecified] 04-18-2025 Episodic Other connective tissue disease (4 sources) Neuralgia and neuritis, unspecified; Translations: [Neuralgia and neuritis, unspecified] Onset: 04-18-2025 Episodic Other endocrine disorders (16 sources) Hypoglycemia; Translations: [Hypoglycemia, unspecified] Onset: 11-23-2024 11-23-2024 Chronic Other lower respiratory disease (6 sources) Dyspnea on exertion; Translations: [Other forms of dyspnea] Onset: 04-01-2025 04-01-2025 Episodic Other lower respiratory disease (4 sources) Other forms of dyspnea; Translations: [Other forms of dyspnea] Onset: 04-01-2025 Episodic Other nervous system disorders (6 sources) Other chronic pain; Translations: [Other chronic pain] Onset: 04-03-2025 Chronic Other nervous system disorders (3 sources) Paresthesia of lower extremity; Translations: [Anesthesia of skin] 12-24-2024 Episodic Other nervous system disorders (2 sources) Paresthesia of left upper limb; Translations: [Paresthesia of skin] 03-27-2025 Episodic Other nervous system disorders (2 sources) Reduced mobility; Translations: [Other abnormalities of gait and mobility] Onset: 04-03-2025 04-03-2025 Episodic Other nervous system disorders (1 source) Paresthesia; Translations: [Paresthesia of skin] 05-07-2025 Episodic Other nervous system disorders (2 sources) Other abnormalities of gait and mobility; Translations: [Other abnormalities of gait and mobility] Onset: 04-03-2025 Episodic Other skin disorders (1 source) Vesicle of skin; Translations: [Other specified disorders of skin] 2023 Episodic Other skin disorders (1 source) Other skin changes; Translations: [Other skin changes] Onset: 2023 Episodic Other skin disorders (1 source) Disorder of the skin and subcutaneous tissue, unspecified; Translations: [Disorder of the skin and subcutaneous tissue, unspecified] Onset: 2023 Episodic Other skin disorders (1 source) Scar conditions and fibrosis of skin; Translations: [Scar conditions and fibrosis of skin] Onset: 2023 Episodic Other skin disorders (2 sources) Eruption; Translations: [Rash and other nonspecific skin eruption] 01-08-2025 Episodic Other upper respiratory infections (13 sources) Acute irritant rhinitis; Translations: [Acute nasopharyngitis [common cold]] Episodic Residual codes; unclassified (6 sources) History of past delivery; Translations: [Personal history of other genital system and obstetric disorders] Episodic Residual codes; unclassified (4 sources) Immunization not carried out because of patient refusal; Translations: [COVID-19 vaccination declined] Episodic Residual codes; unclassified (4 sources) History of gestational hypertension; Translations: [Personal history of other complications of , childbirth and the puerperium] 01-06-2024 Episodic Comment on above: end of BP elevated. 81 mg aspirin recommended. Residual codes; unclassified (1 source) Flushing; Translations: [Flushing] 01-08-2025 Episodic Skin and subcutaneous tissue infections (4 sources) Cellulitis of finger; Translations: [Cellulitis and abscess of finger, unspecified] Onset: 09-08-2022 2023 Episodic Spondylosis; intervertebral disc disorders; other back problems (20 sources) Chronic low back pain; Translations: [Chronic midline low back pain without sciatica] Onset: 04-03-2025 03-26-2025 Episodic Unclassified (1 source) Vesicular lesion 2023 Unclassified (1 source) Cellulitis of finger, unspecified laterality 2023 Unclassified (1 source) Chronic migraine with aura, not intractable, without status migrainosus; Translations: [Chronic migraine with aura, not intractable, without status migrainosus] Onset: 01-08-2025 Unclassified (2 sources) Chronic migraine with aura, intractable, without status migrainosus; Translations: [Chronic migraine with aura, intractable, without status migrainosus] Onset: 11-23-2024 Unclassified (1 source) Low back pain, unspecified; Translations: [Low back pain, unspecified] Onset: 04-03-2025 Unclassified (2 sources) Other specified diseases and conditions complicating ; Translations: [Other specified diseases and conditions complicating ] Onset: 08-09-2024 Varicose veins of lower extremity (4 sources) Varicose veins of lower extremity; Translations: [Asymptomatic varicose veins of unspecified lower extremity] 01-06-2024 Episodic Comment on above: below right knee Viral infection (20 sources) Herpes simplex of female genitalia; Translations: [Genital herpes, unspecified] Onset: 08-09-2024 Resolved: 11-23-2024 01-13-2024 Chronic Comment on above: treat at 36 weeks Viral infection (1 source) Herpesviral infection, unspecified; Translations: [Herpesviral infection, unspecified] Onset: 2023 Episodic Past or Other Problems Problem Classification Problem Date Documented Date Episodic/Chronic Diabetes or abnormal glucose tolerance complicating ; childbirth; or the puerperium (5 sources) Abnormal glucose level; Translations: [Abnormal glucose complicating ] Onset: 08-09-2024 08-14-2024 Episodic Comment on above: 3 HR GTT Normal Hypertension complicating ; childbirth and the puerperium (6 sources) Severe pre-eclampsia; Translations: [Severe pre-eclampsia, complicating the puerperium] Onset: 09-13-2024 08-21-2024 Episodic Mood disorders (4 sources) Mood disorders Onset: 04-18-2025 04-18-2025 Other circulatory disease (2 sources) Personal history of other diseases of the circulatory system; Translations: [Personal history of other diseases of the circulatory system] Onset: 11-23-2024 Episodic Other complications of ; puerperium affecting management of mother (4 sources) Other complications of the puerperium, not elsewhere classified; Translations: [Other complications of the puerperium, not elsewhere classified] Onset: 12-24-2024 Episodic Other complications of (1 source) Supervision of elderly multigravida, third trimester; Translations: [Supervision of elderly multigravida, third trimester] Onset: 09-07-2024 Episodic Other complications of (2 sources) Supervision of elderly multigravida, unspecified trimester; Translations: [Supervision of elderly multigravida, unspecified trimester] Onset: 08-09-2024 Episodic Other complications of (2 sources) Supervision of high risk , unspecified, second trimester; Translations: [Supervision of high risk , unspecified, second trimester] Onset: 08-15-2024 Episodic Other complications of (1 source) Low weight gain in , unspecified trimester; Translations: [Low weight gain in , unspecified trimester] Onset: 06-29-2024 Episodic Other nervous system disorders (4 sources) Anesthesia of skin; Translations: [Anesthesia of skin] Onset: 12-24-2024 Episodic Other nervous system disorders (6 sources) Paresthesia of skin; Translations: [Paresthesia of skin] Onset: 12-24-2024 Episodic Other and delivery including normal (18 sources) ; Translations: [Encounter for supervision of normal , unspecified, unspecified trimester] Onset: 08-24-2024 03-20-2021 Episodic Comment on above: KW IOL AMA, ghtn, BM I girl Maryanan AMA, BMI, ghtn gbs neg, nl anatomy, NIPT low risk & declined carrier testing and afp testing. Other screening for suspected conditions (not mental disorders or infectious disease) (1 source) Encounter for screening for diabetes mellitus; Translations: [Encounter for screening for diabetes mellitus] Onset: 05-29-2024 Episodic Other skin disorders (3 sources) Rash and other nonspecific skin eruption; Translations: [Rash and other nonspecific skin eruption] Onset: 09-08-2022 Episodic Residual codes; unclassified (2 sources) Flushing; Translations: [Flushing] Onset: 01-08-2025 Episodic Residual codes; unclassified (4 sources) Personal history of other complications of , childbirth and the puerperium; Translations: [Personal history of other complications of , childbirth and the puerperium] Onset: 08-09-2024 Episodic Residual codes; unclassified (2 sources) 38 weeks gestation of ; Translations: [38 weeks gestation of ] Onset: 08-09-2024 Episodic Residual codes; unclassified (1 source) 34 weeks gestation of ; Translations: [34 weeks gestation of ] Onset: 07-11-2024 Episodic Residual codes; unclassified (1 source) 32 weeks gestation of ; Translations: [32 weeks gestation of ] Onset: 06-28-2024 Episodic Residual codes; unclassified (1 source) 30 weeks gestation of ; Translations: [30 weeks gestation of ] Onset: 06-13-2024 Episodic Residual codes; unclassified (1 source) 25 weeks gestation of ; Translations: [25 weeks gestation of ] Onset: 05-28-2024 Episodic Screening and history of mental health and substance abuse codes (2 sources) Personal history of other mental and behavioral disorders; Translations: [Personal history of other mental and behavioral disorders] Onset: 08-09-2024 Episodic Unclassified (10 sources) Onset: 11-23-2024 Resolved: 04-03-2025 11-23-2024 Unclassified (1 source) Chronic migraine with aura, not intractable, without status migrainosus; Translations: [Chronic migraine with aura, not intractable, without status migrainosus] Onset: 01-08-2025 Unclassified (2 sources) Chronic migraine with aura, intractable, without status migrainosus; Translations: [Chronic migraine with aura, intractable, without status migrainosus] Onset: 11-23-2024 Unclassified (1 source) Low back pain, unspecified; Translations: [Low back pain, unspecified] Onset: 04-03-2025 NEGATED: Highlighted row has been ruled out!Unclassified (2 sources) No known active problems 03-23-2024 Results Test Name Value Interpretation Reference Range Facility MR CERVICAL SPINE WITHOUT CO NTRASTon 05-15-2025 MR CERVICAL SPINE WITHOUT CONTRAST EXAMINATION: MR CERVICAL SPINE WITHOUT CONTRAST HISTORY: ORDERING SYSTEM PROVIDED HISTORY: Neck pain, chronic; Neck pain and left radicular pain., TECHNOLOGIST PROVIDED HISTORY: Illness/Other Reason for exam: Neck pain with numbness pain into arms x 2.5 months NKI Encounter Type: Initial Additional signs and symptoms: na ORDERING SYSTEM PROVIDED DIAGNOSIS CODES: M54.2 Chronic neck pain G89.29 Chronic neck pain M79.2 Radicular pain in left arm COMPARISON: None TECHNIQUE: Standard noncontrast cervical spine protocol MR performed. CONTRAST: None FINDINGS: Spinal Cord: Normal in caliber and signal. Epidural Hematoma: None. Alignment: Normal craniocervical junction. Straightening of the physiologic cervical lordosis could relate at least in part to patient positioning. Marrow Signal: Normal. Vertebral Body Heights: Normal. Paraspinal Soft Tissues: No acute abnormality. Neck Soft Tissues: No acute abnormality. Spondylotic Changes: Trace osteophytic ridging at a few cervical levels. C2-C3: No disc bulge or herniation. No high-grade spinal canal or foraminal narrowing. C3-C4: No disc bulge or herniation. No high-grade spinal canal or foraminal narrowing. C4-C5: No disc bulge or herniation. No high-grade spinal canal narrowing. Mild bilateral foraminal narrowing is contributed to by slight facet hypertrophy. C5-C6: No disc bulge or herniation. No high-grade spinal canal or foraminal narrowing. C6-C7: No disc bulge or herniation. No high-grade spinal canal or foraminal narrowing. C7-T1: No disc bulge or herniation. No high-grade spinal canal or foraminal narrowing. IMPRESSION: 1. No high-grade spinal canal or foraminal narrowing at any cervical level. No disc bulge or herniation. 2. Mild bilateral foraminal narrowing at C4-C5. Workstation ID: [id number] Dictated by: LIZZETH HUDSON on TueMay 17, 2025 12:18:11 PM EDT Transcribed by: LIZZETH HUDSON on TueMay 17, 2025 12:18:11 PM EDT Finalized by: LIZZETH HUDSON on TueMay 17, 2025 12:18:11 PM EDT [facility] Comment on above: Order Comment: Injur y/Trauma or Illness?:Illness/Other How long have you had these symptoms (acute/chronic)?:Acute Reason for exam?:Neck pain with numbness pain into arms x 2.5 months NKI Type of Exam?:Initial Additional signs and symptoms?:na na Pelvic w/ Transvaginalon Pelvic w/ Transvaginal [facility] Imaging Services [facility] [place], [place] [id number] Pelvic w/ Transvaginal MR#: [id number] Acct: [id number] Name: JAYLYN STOKES Rep #: [id number] : 1990 F 35 From: Arnoldo Rubio MD PCP: EMILEE Garnica Status: REG CLI Study: Pelvic w/ Transvaginal Date of Exam: 05/07/25 Exam# [id number] Ordering Dr: Leslie Roblero PROCEDURE: PELVIC W/ TRANSVAGINAL 05/07/2025 REASON FOR EXAM: PELVIC PAIN TECHNIQUE: PELVIC W/ TRANSVAGINAL COMPARISON: None. FINDINGS: Measurements: Uterus: 10.6 x 6.0 x 7.3 cm for volume of 241.3 mL Endometrial Thickness: 1.0 cm Right Ovary: 3.5 x 1.8 x 2.4 cm for a volume of 7.8 mL. Left Ovary: 4.7 x 2.7 x 2.8 cm for volume of 18.7 mL . Uterus: Anteverted. There is a heterogeneous hypoechoic lesion in the right anterior aspect of the uterus measuring 1.8 x 1.6 x 1.6 cm.. Nabothian cysts at the cervix. Endometrium: Normal echotexture. Right ovary: Normal size and echotexture. Left ovary: There are least 10 follicles in the left ovary on a single image. Other adnexal findings: None. Cul-de-sac: No free intraperitoneal fluid identified. Color Doppler: Normal color flow doppler signal at both ovaries. US/Pelvic w/ Transvaginal IMPRESSION: 1. Polycystic morphology of the ovaries, correlate for clinical evidence of PCOS. 2. Uterine leiomyoma measuring 1.8 cm. Reading Location: [id number] CC: EMILEE Roblero; EMILEE Mosley Lead Military Analyst: Signed Normal [facility] Urine Cultureon 05-04-2025 URC Below infection leve l. Mixed Gram Pos Gram Neg Org Cabins Count 1000-10,000 MIXC Mixed contaminants. Submit a new specimen if indicated. Normal [facility] Comment on above: Performed By: #### L 100.0100, L500.4050 #### [facility] [address] [place], [address] Laboratory - Chemistry and C hemistry - challengeOrdered By: Leslie Roblero on 05-02-2025 Bilirubin Ql (U) Negative [facility] Glucose Ql (U) Negative [facility] Ketones Ql (U) Negative [facility] pH (U) 6 [pH] [facility] Specific gravity (U) [Rel density] 1.015 [facility] Urobilinogen (U) [Mass/Vol] Negative [facility] - Hematology and Cell countsOrdered By: Leslie Roblero on 05-02-2025 Hemoglobin Ql (U) Negative [facility] - Specimen inform ationOrdered By: Leslie Roblero on 05-02-2025 Clarity (U) Clear [facility] Color (U) Yellow [facility] - UrinalysisOrder ed By: Leslie Roblero on 05-02-2025 Nitrite Ql (U) Negative [facility] Protein Ql (U) Negative [facility] No Panel InformationOrdered By: Leslie Roblero on 05-02-2025 Urine Leukocytes Positive [facility] Urine Non-Hemolyzed Blood Non-Hemolyzed [facility] Mold Inspector Office Visit Reporton 05-02-2025 Mold Inspector Office Visit Report [facility] [address], [address] [place] [address] OFFICE VISIT Date of Service: 05/02/25 MR#: [id number] Acct: [id number] Name: JAYLYN STOKES Rep #: [id number] : 1990 Provider: EMILEE Restrepo Age/Sex: 35/F Location[place] [facility] [place] Status: Signed Intake Vital Signs 11/05/24 11:41 05/02/25 10:04 Height 5 ft 1 in 5 ft 1 in Weight: 246 lb BMI 46.5 BP 144/83 H Intake Visit Reasons: 6 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 Is patient in pain?: No Allergies oxycodone (From Roxicodone) Allergy (Intermediate, Verified 05/02/25 10:02) Other Medications ???Medication ???Instructions ???Recorded ???Confirmed ???Type cyclobenzaprine 10 mg tablet 10 mg PO TID 05/02/25 05/02/25 His tory diclofenac sodium 75 mg 75 mg PO BID 05/02/25 05/02/25 His tory tablet,delayed release diltiazem HCl 120 mg tablet 120 mg PO TID 05/02/25 05/02/25 Hi story (Cardizem) fremanezumab-vfrm 225 mg/1.5 mL 225 mg subcut QMONTH 05/02/2504/14 History subcutaneous auto-injector (Ajovy) gabapentin 300 mg capsule 300 mg PO BID 05/02/25 05/02/25 Hi story sertraline 50 mg tablet (Zoloft) 50 mg PO QDAY #30 tabs 05/02/25 Rx Is last menstrual period known: Yes Last Menstrual Period: 04/10/25 Post menopausal: No Patient : No PFSH Medical History (Updated 05/02/25 @ 11:36 by EMILEE Johns) Supervision of high-risk Obesity affecting Abnormal glucose affecting AMA (advanced maternal age) multigravida 35+ Encounter for induction of labor Genital herpes affecting depression Advanced maternal age (AMA) in Obesity HPV (human papilloma virus) infection Depression Anxiety Headache Gestational HTN Surgical History S/P LASIK surgery of both eyes Hx of eye surgery History of colposcopy History of surgery Family History Grandmother Cancer, Onset Age: 60 Paternal- Uterine Father Myocardial infarction Mother Kidney disease Stg IV kidney disease Thyroid disorder hyperthyroid Sister Thyroid disorder hyperthyroid Aunt Thyroid disorder hyperthyroid Social History adopted: No household members: spouse and children number of children: 1 current occupational status: unemployed current occupation: [employer] current occupational exposures/hazards: No pets and animals: Yes pets and animals: dog(s) history of recent travel: No sexually active: Yes Smoking Status: Never smoker alcohol intake: current alcohol intake frequency: holidays/special occasions only details: not while substance use type: does not use well-balanced diet: daily or most days caffeine: Yes Type: coffee Number of servings: 1 eating out: 1-3 times/week during the past year weight has: remained stable what type of physical activity do you participate in: walking frequency: 1-2 times per week duration: 15-30 minutes/day stormy/synagogue: None seatbelt use: always do you feel safe at home: Yes additional social history: [employer] @ [employer] Patient has 2 step children HPI 6 M MED CHECK Details: JAYLYN STOKES is a 35 year old who presents for med check for zoloft. She reports she stopped taking this in January due to have a rash; later found her rash to be related to a BP medication. She reports she was doing okay but then in the middle of February she started with feeling more depressive feelings. She reports feeling down, rage. Denies thoughts are SI or harming self. No plan in place. She also has had issues with pain in her neck, migraines, pain shooting down arms. Has had MRI's that have come back clean (head and lumbar spine). She reports she has a pending cervical spine MRI through neurology. Currently has heart monitor on. She reports she notices a shooting pain in her right pelvis when she urinates. This comes and goes and is only when voiding. Has not had a work up completed on this yet. Has been going on for over a month. Hx PCOS. Does not notice it with intercourse. Denies any other symptoms associated. Female Reproductive History Last Menstrual Period: 04/10/25 Questions: sexually active: Yes History 2 Elective abortions Hx Para 1 Spontaneous abortions Hx # Term Pregnancies Ectopic pregnancies Hx # Pregnancies Multiple births # of living children 2 Past Pregnancies Del. Date Name GA/Weeks Outcome Route Bth Weight Gen Labor Lgth Anesthesia Del Locatn Provider FOB 03/21/21 Shay 39 live - full term forceps 7#11oz Male 21 HRs epidural [facility]ce (more content not included)... Normal [facility] Urine cultureOrdered By: Martínez Roblero on 05-02-2025 Bacteria identified Cx Nom (U) Mixed Gram Pos & Gram Neg Org Abnormal [facility] ECHOCARDIOGRAM STRESS TESTon 04-30-2025 [place]OCARDIO[place] [address] [phone], Exercise Stress Echo Patient Name: JAYLYN STOKES Ordering Provider: [id number] SERJIO CARTER Study Date: 04/30/2025 Reading Physician: [id number] Ricardo Rahman MD MRN/PID: [id number] Supervising Physician: [id number] Jarrett Blake MD Fellow: Date of /Age: 3 1990 / 35 years Fellow: Gender: F Nurse: Jade Sandoval CNP Admit Date: 04/30/2025 Cook Manager: Admission 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 Study Details: Correct procedure and correct patient verified verbally and with ID Band checked. Patient History: Hypertension, hyperlipidemia, dyspnea, chest pain, palpitations, and family history of coronary artery disease. Allergies: Labetalol, oxycodone, hydrocodone. Smoker: Never. Diabetes: No. BMI: Obese >30. Medications: Diltiazem. Patient Performance: The patient exercised to stage III on a Jamin protocol for 6 minutes and 50 seconds, achieving 8.20 METS. The peak heart rate achieved was 190 bpm, which was 104 % of the age predicted target heart rate of 183 bpm. The resting blood pressure was 125/90 mmHg with a heart rate of 86 bpm. The patient's functional capacity was below average. The patient developed shortness of breath and dizziness during the stress exam. The symptoms resolved with rest 6 minutes into recovery. The blood pressure response was normal. The test was terminated due to: dyspnea and achieved age predicted maximum heart rate. Baseline ECG: Resting ECG showed normal sinus rhythm with normal tracing. Stress ECG: No ST changes. Stress Stage Data: + +---+-- ----+-------+ HR Sys BP Quiñonez BP + +---+-- ----+-------+ Baseline Resting 86 125 90 + +---+-- ----+-------+ Stage I 148 144 76 + +---+-- ----+-------+ Stage II 181 160 85 + +---+-- ----+-------+ Stage III 190 + +---+-- ----+-------+ Recovery ECG: The heart rate recovery was normal. + +---+------+ -------+ HR Sys BP Quiñonez BP + +---+------+ -------+ Recovery I 146 + +---+------+ -------+ Recovery II 139 178 62 + +---+------+ -------+ Recovery IV 122 160 64 + +---+------+ -------+ Recovery 116 145 55 + +---+------+ -------+ Baseline Echo: The resting baseline ejection fraction was estimated at 55 to 60%. There are no regional wall motion abnormalities at baseline. Stress Echo: There are no stress induced regional wall motion abnormalities. The ejection fraction is approximately 60 to 65% at peak stress. The left ventricular internal cavity size at peak stress is decreased. At peak stress, the global LV systolic function is hyperdynamic. Summary: 1. The resting ejection fraction was estimated at 55 to 60% with a peak exercise ejection fraction estimated at 60 to 65%. 2. Negative stress EKG for ischemia. 3. Below average functional capacity for age. 4. Exercise associated dizziness was noted. 5. Hypertensive blood pressure response with exercise. 6. Normal resting and post-rest echocardiographic imaging was seen. 7. [place]. [id number] Ricardo Rahman MD Electronically signed on 05/01/2025 at 9:30:22 AM Final Normal [facility] ECG 12 lead (Clinic Performe d)on 04-01-2025 [facility] Work Phone: ECG 12 LeadOrdered By: Moriah Canchola on 03-28-2025 Atrial Rate 84 BPM [facility] Work Phone: P [place] 75 degrees [facility] Work Phone: P Offset 184 ms [facility] Work Phone: P Onset 135 ms [facility] Work Phone: NV Interval 164 ms [facility] Work Phone: Q Onset 217 ms [facility] Work Phone: QRS Count 13 beats [facility] Work Phone: QRS Duration 78 ms [facility] Work Phone: QT Interval 346 ms [facility] Work Phone: QTC Calculation(Bazett) 408 ms [facility] Work Phone: QTC Fredericia 386 ms [facility] Work Phone: R [place] 72 degrees [facility] Work Phone: T [place] 44 degrees [facility] Work Phone: T Offset 390 ms [facility] Work Phone: Ventricular Rate 84 BPM [facility] Work Phone: [facility] Work Phone: ECG 12 Leadon 03-28-2025 Normal sinus rhythm Normal ECG No previous ECGs available See ED provider note for full interpretation and clinical correlation Confirmed by Ronda Canchola ([id number]) on 03/28/2025 12:29:44 PM MUSE Jaki Cacnhola, [employer]-AUTOMOTIVE ACCESSORY INSTALLER - 03/28/2025 Normal sinus rhythm Normal ECG No previous ECGs available See ED provider note for full interpretation and clinical correlation Confirmed by Ronda Canchola ([id number]) on 03/28/2025 12:29:44 PM [facility] Work Phone: CBC W Auto Differential pane l (Bld)on 03-27-2025 Basophils (Bld) [#/Vol] 0.03 10*3/uL [facility] Basophils/100 WBC (Bld) 0.3 % 0.0 - 2.0 % [facility] Eosinophils (Bld) [#/Vol] 0.12 10*3/uL [facility] Eosinophils/100 WBC (Bld) 1.2 % 0.0 - 6.0 % [facility] Erythrocyte distribution width (RBC) [Ratio] 13.3 % 11.5 - 14.5 % [facility] Hematocrit (Bld) [Volume fraction] 41.1 % 36.0 - 46.0 % [facility] Hemoglobin (Bld) [Mass/Vol] 13.5 g/dL 12.0 - 16.0 g/dL [facility] Immature granulocytes (Bld) [#/Vol] 0.06 10*3/uL [facility] Immature granulocytes/100 WBC (Bld) 0.6 % 0.0 - 0.9 % [facility] Comment on above: Immature Granulocyte Count (IG) includes promyelocytes, myelocytes and metamyelocytes but does not include bands. Percent differential counts (%) should be interpreted in the context of the absolute cell counts (cells/UL). Lymphocytes (Bld) [#/Vol] 2.32 10*3/uL [facility] Lymphocytes/100 WBC (Bld) 23 % 13.0 - 44.0 % [facility] MCH (RBC) [Entitic mass] 26.8 pg 26.0 - 34.0 pg [facility] MCHC (RBC) [Mass/Vol] 32.8 g/dL 32.0 - 36.0 g/dL [facility] MCV (RBC) [Entitic vol] 82 fL 80 - 100 fL [facility] Monocytes (Bld) [#/Vol] 0.68 10*3/uL [facility] Monocytes/100 WBC (Bld) 6.7 % 2.0 - 10.0 % [facility] Neutrophils (Bld) [#/Vol] 6.89 10*3/uL [facility] Comment on above: Percent differential counts (%) should be interpreted in the context of the absolute cell counts (cells/uL). Neutrophils/100 WBC (Bld) 68.2 % 40.0 - 80.0 % [facility] Nucleated RBC/100 WBC (Bld) [Ratio] 0 % [facility] Platelets (Bld) [#/Vol] 235 10*3/uL [facility] RBC (Bld) [#/Vol] 5.04 10*6/uL [facility] WBC (Bld) [#/Vol] 10.1 10*3/uL [facility] Basophils (Bld) [#/Vol] 0.03 x10*3/uL Normal 0.00-0.10 [facility] Comment on above: Performed By: #### 5 7021-8 #### RO DAMON ([id number]) [facility] ([facility]) [address] [place] [address] 73718 Basophils/100 WBC (Bld) 0.3 % Normal 0.0-2.0 [facility] Comment on above: Performed By: #### 5 7021-8 #### RO DAMON ([id number]) [facility] ([facility]) [address] [place] [address] 03096 Eosinophils (Bld) [#/Vol] 0.12 x10*3/uL Normal 0.00-0.70 [facility] Comment on above: Performed By: #### 5 7021-8 #### RO DAMON ([id number]) [facility] ([facility]) [address] [place] [address] 23883 Eosinophils/100 WBC (Bld) 1.2 % Normal 0.0-6.0 [facility] Comment on above: Performed By: #### 5 7021-8 #### RO DAMON (05327) [facility] ([facility]) [address] [place] [address] 20264 Erythrocyte distribution width (RBC) [Ratio] 13.3 % Normal 11.5-14.5 [facility] Comment on above: Performed By: #### 5 7021-8 #### RO DAMON ([id number]) [facility] ([facility]) [address] [place] [address] 78681 Hematocrit (Bld) [Volume fraction] 41.1 % Normal 36.0-46.0 [facility] Comment on above: Performed By: #### 5 7021-8 #### RO DAMON (22602) [facility] ([facility]) [address] [place] [address] 75621 Hemoglobin (Bld) [Mass/Vol] 13.5 g/dL Normal 12.0-16.0 [facility] Comment on above: Performed By: #### 5 7021-8 #### RO DAMON ([id number]) [facility] ([facility]) [address] [place] [address] 56630 Immature granulocytes (Bld) [#/Vol] 0.06 x10*3/uL Normal 0.00-0.70 [facility] Comment on above: Performed By: #### 5 7021-8 #### RO DAMON (43084) [facility] ([facility]) [address] [place] [address] 96440 Immature granulocytes/100 WBC (Bld) 0.6 % Normal 0.0-0.9 [facility] Comment on above: Result Comment: Shannen ture Granulocyte Count (IG) includes promyelocytes, myelocytes and metamyelocytes but does not include bands. Percent differential counts (%) should be interpreted in the context of the absolute cell counts (cells/UL). Performed By: #### 5 7021-8 #### RO DAMON ([id number]) [facility] ([facility]) [address] [place] [address] 11131 Lymphocytes (Bld) [#/Vol] 2.32 x10*3/uL Normal 1.20-4.80 [facility] Comment on above: Performed By: #### 5 7021-8 #### RO DAMON ([id number]) [facility] ([facility]) [address] [place] [address] 26573 Lymphocytes/100 WBC (Bld) 23.0 % Normal 13.0-44.0 [facility] Comment on above: Performed By: #### 5 7021-8 #### RO DAMON ([id number]) [facility] ([facility]) [address] [place] [address] 46508 MCH (RBC) [Entitic mass] 26.8 pg Normal 26.0-34.0 [facility] Comment on above: Performed By: #### 5 7021-8 #### RO DAMON ([id number]) [facility] ([facility]) [address] [place] [address] 76623 MCHC (RBC) [Mass/Vol] 32.8 g/dL Normal 32.0-36.0 [facility] Comment on above: Performed By: #### 5 7021-8 #### RO DAMON ([id number]) [facility] ([facility]) [address] [place] [address] 43255 MCV (RBC) [Entitic vol] 82 fL Normal 80-100 [facility] Comment on above: Performed By: #### 5 7021-8 #### RO DAMON ([id number]) [facility] ([facility]) [address] [place] [address] 46645 Monocytes (Bld) [#/Vol] 0.68 x10*3/uL Normal 0.10-1.00 [facility] Comment on above: Performed By: #### 5 7021-8 #### RO DAMON ([id number]) [facility] ([facility]) [address] [place] [address] 94268 Monocytes/100 WBC (Bld) 6.7 % Normal 2.0-10.0 [facility] Comment on above: Performed By: #### 5 7021-8 #### RO DAMON ([id number]) [facility] ([facility]) [address] [place] [address] 06971 Neutrophils (Bld) [#/Vol] 6.89 x10*3/uL Normal 1.20-7.70 [facility] Comment on above: Result Comment: Perc ent differential counts (%) should be interpreted in the context of the absolute cell counts (cells/uL). Performed By: #### 5 7021-8 #### RO DAMON (75305) [facility] ([facility]) [address] [place] [address] 85775 Neutrophils/100 WBC (Bld) 68.2 % Normal 40.0-80.0 [facility] Comment on above: Performed By: #### 5 7021-8 #### RO DAMON (64508) [facility] ([facility]) [address] [place] [address] 64851 Nucleated RBC/100 WBC (Bld) [Ratio] 0.0 /100 WBCs Normal 0.0-0.0 [facility] Comment on above: Performed By: #### 5 7021-8 #### RO DAMON ([id number]) [facility] ([facility]) [address] [place] [address] 68935 Platelets (Bld) [#/Vol] 235 x10*3/uL Normal 150-450 [facility] Comment on above: Performed By: #### 5 7021-8 #### RO DAMON ([id number]) [facility] ([facility]) [address] [place] [address] 36300 RBC (Bld) [#/Vol] 5.04 x10*6/uL Normal 4.00-5.20 [facility] Comment on above: Performed By: #### 5 7021-8 #### RO DAMON ([id number]) [facility] ([facility]) [address] [place] [address] 48580 WBC (Bld) [#/Vol] 10.1 x10*3/uL Normal 4.4-11.3 [facility] Comment on above: Performed By: #### 5 7021-8 #### STARR NELSON ([id number]) [facility] ([facility]) [address] [place] [address] Comprehensive metabolic 2000 panelon 03-27-2025 Albumin BCP dye [Mass/Vol] 4.5 g/dL 3.4 - 5.0 g/dL [facility] ALP [Catalytic activity/Vol] 70 U/L 33 - 110 U/L [facility] ALT With P-5'-P [Catalytic activity/Vol] 22 U/L 7 - 45 U/L [facility] Comment on above: Patients treated wit h Sulfasalazine may generate falsely decreased results for ALT. Anion gap [Moles/Vol] 12 mmol/L 10 - 2 0 mmol/L [facility] AST With P-5'-P [Catalytic activity/Vol] 13 U/L 9 - 39 U/L [facility] Bilirubin [Mass/Vol] 0.3 mg/dL 0.0 - 1 .2 mg/dL [facility] Calcium [Mass/Vol] 9.6 mg/dL 8.6 - 10. 3 mg/dL [facility] Chloride [Moles/Vol] 106 mmol/L 98 - 10 7 mmol/L [facility] CO2 [Moles/Vol] 24 mmol/L 21 - 32 mmol/L [facility] Creatinine [Mass/Vol] 0.58 mg/dL 0.50 - 1.05 mg/dL [facility] eGFR - PINF [facility] Comment on above: Calculations of bruno mated GFR are performed using the 2020 CKD-EPI Study Refit equation without the race variable for the IDMS-Traceable creatinine methods. https://jasn.asnjournals.org/content/early//ASN.40153 65455 Glucose [Mass/Vol] 80 mg/dL 74 - 99 mg/dL [facility] Interpretation and review of laboratory results Normal [facility] Potassium [Moles/Vol] 4.1 mmol/L 3.5 - 5.3 mmol/L [facility] Protein [Mass/Vol] 7.1 g/dL 6.4 - 8.2 g/dL [facility] Sodium [Moles/Vol] 138 mmol/L 136 - 145 mmol/L [facility] Urea nitrogen [Mass/Vol] 11 mg/dL 6 - 23 mg/dL [facility] Albumin BCP dye [Mass/Vol] 4.5 g/dL Normal 3.4-5.0 [facility] Comment on above: Performed By: #### 2 4323-8 #### RO DAMON ([id number]) [facility] ([facility]) [address] [place] [address] 40118 ALP [Catalytic activity/Vol] 70 U/L Normal 33-110 [facility] Comment on above: Performed By: #### 2 4323-8 #### RO DAMON ([id number]) [facility] ([facility]) [address] [place] [address] 02863 ALT With P-5'-P [Catalytic activity/Vol] 22 U/L Normal 7-45 [facility] Comment on above: Result Comment: Juliet ents treated with Sulfasalazine may generate falsely decreased results for ALT. Performed By: #### 2 4323-8 #### RO DAMON ([id number]) [facility] ([facility]) [facility] [place] [address] Anion gap [Moles/Vol] 12 mmol/L Normal 10-20 [facility] Comment on above: Performed By: #### 2 4323-8 #### RO DAMON (39846) [facility] ([facility]) [facility] [place] [address] AST With P-5'-P [Catalytic activity/Vol] 13 U/L Normal 9-39 [facility] Comment on above: Performed By: #### 2 4323-8 #### RO DAMON ([id number]) [facility] ([facility]) [facility] [place] [address] Bilirubin [Mass/Vol] 0.3 mg/dL Normal 0.0-1.2 [facility] Comment on above: Performed By: #### 2 4323-8 #### RO DAMON (06813) [facility] ([facility]) [address] [place] [address] 75735 Calcium [Mass/Vol] 9.6 mg/dL Normal 8.6-10.3 [facility] Comment on above: Performed By: #### 2 4323-8 #### RO DAMON ([id number]) [facility] ([facility]) [address] [place] [address] 84907 Chloride [Moles/Vol] 106 mmol/L Normal 98-107 [facility] Comment on above: Performed By: #### 2 4323-8 #### RO DAMON (09876) [facility] ([facility]) [address] [place] [address] 13053 CO2 [Moles/Vol] 24 mmol/L Normal 21-32 [facility] Comment on above: Performed By: #### 2 4323-8 #### RO DAMON (90935) [facility] ([facility]) [facility] [place] [address] Creatinine [Mass/Vol] 0.58 mg/dL Normal 0.50-1.05 [facility] Comment on above: Performed By: #### 2 4323-8 #### RO DAMON ([id number]) [facility] ([facility]) [address] [place] [address] 55538 GFR/1.73 sq M.predicted MDRD (S/P/Bld) [Vol rate/Area] mL/min/{1.73_m2} Normal >60 [facility] Comment on above: Result Comment: Calc ulations of estimated GFR are performed using the 2020 CKD-EPI Study Refit equation without the race variable for the IDMS-Traceable creatinine methods. https://jasn.asnjournals.org/content//ASN.38902 45173 Performed By: #### 2 4323-8 #### RO DAMON ([id number]) [facility] ([facility]) [address] [place] [address] Glucose [Mass/Vol] 80 mg/dL Normal 74-99 [facility] Comment on above: Performed By: #### 2 4323-8 #### RO DAMON (15164) [facility] ([facility]) [address] [place] [address] 30084 Potassium [Moles/Vol] 4.1 mmol/L Normal 3.5-5.3 [facility] Comment on above: Performed By: #### 2 4323-8 #### RO DAMON (66511) [facility] ([facility]) [address] [place] [address] 44248 Protein [Mass/Vol] 7.1 g/dL Normal 6.4-8.2 [facility] Comment on above: Performed By: #### 2 4323-8 #### RO DAMON (70298) [facility] ([facility]) [address] [place] [address] 38642 Sodium [Moles/Vol] 138 mmol/L Normal 136-145 [facility] Comment on above: Performed By: #### 2 4323-8 #### RO DAMON (94338) [facility] ([facility]) [address] [place] [address] 94348 Urea nitrogen [Mass/Vol] 11 mg/dL Normal 6-23 [facility] Comment on above: Performed By: #### 2 4323-8 #### RO DAMON ([id number]) [facility] ([facility]) [address] [place] [address] 10823 D-Dimer, VTE ExclusionOrdere d By: Mai Salinas on 03-27-2025 Fibrin D-dimer FEU (PPP) [Mass/Vol] [facility] ECG 12-LEADon 03-27-2025 ECG 12-LEAD Ventricular Rate 84 Atrial Rate 84 P-R Interval 164 QRS Duration 78 Q-T Interval 346 QTC Calculation(Bazett) 408 P [place] 75 R [place] 72 T [place] 44 QRS Count 13 Q Onset 217 P Onset 135 P Offset 184 T Offset 390 QTC Fredericia 386 Diagnosis Normal sinus rhythm Normal ECG No previous ECGs available See ED provider note for full interpretation and clinical correlation Confirmed by Ronda Canchola ([id number]) on 03/28/2025 12:29:44 PM Normal [facility] Fibrin D-dimer FEUon 025 Fibrin D-dimer FEU (PPP) [Mass/Vol] <215 Normal <=500 [facility] Comment on above: Order Comment: The V TE Exclusion D-Dimer assay is reported in ng/mL Fibrinogen Equivalent Units (FEU). Per cook pie's instructions for use, a value of less than 500 ng/mL (FEU) may help to exclude DVT or PE in outpatients when the assay is used with a clinical pretest probability assessment.([facility] must utilize and document eCalc 'Wells Score Deep Vein Thrombosis Risk' for DVT exclusion only. Emergency Department should utilize Guidelines for Emergency Department Use of the VTE Exclusion D-Dimer and Clinical Pretest probability assessment model for DVT or PE exclusion.) Performed By: #### 4 8065-7 #### STARR NELSON ([id number]) [facility] ([facility]) [address] [place] [address] Fibrin D-dimer FEU (PPP) [Ma ss/Vol]Ordered By: Mai Salinas on 03-27-2025 Interpretation and review of laboratory results Normal [facility] The VTE Exclusion D-Dimer assay is reported in ng/mL Fibrinogen Equivalent Units (FEU). Per cook pie's instructions for use, a value of less than 500 ng/mL (FEU) may help to exclude DVT or PE in outpatients when the assay is used with a clinical pretest probability assessment.([facility] must utilize and document eCalc 'Wells Score Deep Vein Thrombosis Risk' for DVT exclusion only. Emergency Department should utilize Guidelines for Emergency Department Use of the VTE Exclusion D-Dimer and Clinical Pretest probability assessment model for DVT or PE exclusion.) [facility] Natriuretic peptide B [Mass/ Vol]on 03-27-2025 Interpretation and review of laboratory results Normal [facility] Natriuretic peptide B (Bld) [Mass/Vol] 13 pg/mL 0 - 99 pg/mL [facility] <100 pg/mL - Heart failure unlikely 100-299 pg/mL - Intermediate probability of acute heart failure exacerbation. Correlate with clinical context and patient history. >=300 pg/mL - Heart Failure likely. Correlate with clinical context and patient history. BNP testing is performed using different testing methodology at [facility] than [facility]. Direct result comparisons should only be made within the same method. [facility] Natriuretic peptide B (Bld) [Mass/Vol] 13 pg/mL Normal 0-99 [facility] Comment on above: Order Comment: <100 pg/mL - Heart failure unlikely 100-299 pg/mL - Intermediate probability of acute heart failure exacerbation. Correlate with clinical context and patient history. >=300 pg/mL - Heart Failure likely. Correlate with clinical context and patient history. BNP testing is performed using different testing methodology at [facility] than [facility]. Direct result comparisons should only be made within the same method. Performed By: #### 3 0934-4 #### STARR NELSON ([id number]) [facility] ([facility]) [address] [place] [address] Tropinin I.cardiac panel Hig h sensitivity methodon 03-27-2025 Interpretation and review of laboratory results Normal [facility] Less than 99th percentile of normal range cutoff- Female and children under 18 years old <14 ng/L; Male <21 ng/L: Negative Repeat testing should be performed if clinically indicated. Female and children under 18 years old 14-50 ng/L; Male 21-50 ng/L: Consistent with possible cardiac damage and possible increased clinical risk. Serial measurements may help to assess extent of myocardial damage. >50 ng/L: Consistent with cardiac damage, increased clinical risk and myocardial infarction. Serial measurements may help assess extent of myocardial damage. NOTE: Children less than 1 year old may have higher baseline troponin levels and results should be interpreted in conjunction with the overall clinical context. NOTE: Troponin I testing is performed using a different testing methodology at [facility] than [facility]. Direct result comparisons should only be made within the same method. [facility] Interpretation and review of laboratory results Normal [facility] Less than 99th percentile of normal range cutoff- Female and children under 18 years old <14 ng/L; Male <21 ng/L: Negative Repeat testing should be performed if clinically indicated. Female and children under 18 years old 14-50 ng/L; Male 21-50 ng/L: Consistent with possible cardiac damage and possible increased clinical risk. Serial measurements may help to assess extent of myocardial damage. >50 ng/L: Consistent with cardiac damage, increased clinical risk and myocardial infarction. Serial measurements may help assess extent of myocardial damage. NOTE: Children less than 1 year old may have higher baseline troponin levels and results should be interpreted in conjunction with the overall clinical context. NOTE: Troponin I testing is performed using a different testing methodology at [facility] than at other [facility]. Direct result comparisons should only be made within the same method. [facility] Troponin I, High Sensitivity , Initialon 03-27-2025 Tropinin I.cardiac panel High sensitivity method 3 ng/L 0 - 13 ng/L [facility] Troponin I.cardiac panelon 0 03-27-2025 Tropinin I.cardiac panel High sensitivity method 3 ng/L Normal 0-13 [facility] Comment on above: Order Comment: Less than 99th percentile of normal range cutoff- Female and children under 18 years old <14 ng/L; Male <21 ng/L: Negative Repeat testing should be performed if clinically indicated. Female and children under 18 years old 14-50 ng/L; Male 21-50 ng/L: Consistent with possible cardiac damage and possible increased clinical risk. Serial measurements may help to assess extent of myocardial damage. >50 ng/L: Consistent with cardiac damage, increased clinical risk and myocardial infarction. Serial measurements may help assess extent of myocardial damage. NOTE: Children less than 1 year old may have higher baseline troponin levels and results should be interpreted in conjunction with the overall clinical context. NOTE: Troponin I testing is performed using a different testing methodology at [facility] than at other [facility]. Direct result comparisons should only be made within the same method. Performed By: #### 8 9577-1 #### STARR NELSON ([id number]) [facility] ([facility]) [address] [place] [address] Tropinin I.cardiac panel High sensitivity method 3 ng/L Normal 0-13 [facility] Comment on above: Order Comment: Less than 99th percentile of normal range cutoff- Female and children under 18 years old <14 ng/L; Male <21 ng/L: Negative Repeat testing should be performed if clinically indicated. Female and children under 18 years old 14-50 ng/L; Male 21-50 ng/L: Consistent with possible cardiac damage and possible increased clinical risk. Serial measurements may help to assess extent of myocardial damage. >50 ng/L: Consistent with cardiac damage, increased clinical risk and myocardial infarction. Serial measurements may help assess extent of myocardial damage. NOTE: Children less than 1 year old may have higher baseline troponin levels and results should be interpreted in conjunction with the overall clinical context. NOTE: Troponin I testing is performed using a different testing methodology at [facility] than at other [facility]. Direct result comparisons should only be made within the same method. Performed By: #### 8 9577-1 #### STARR NELSON ([id number]) [facility] ([facility]) [address] [place] [address] Troponin, High Sensitivity, 1 Houron 03-27-2025 Tropinin I.cardiac panel High sensitivity method 3 ng/L 0 - 13 ng/L [facility] XR CHEST 1 VIEWon 03-27-2025 XR CHEST 1 VIEW Interpreted By: Lito Melvin, STUDY: XR CHEST 1 VIEW; 03/27/2025 5:25 pm INDICATION: Signs/Symptoms:Chest Pain. COMPARISON: None. ACCESSION NUMBER(S): [id number] ORDERING CLINICIAN: DHEERAJ FERRER FINDINGS: CARDIOMEDIASTINAL SILHOUETTE: Cardiomediastinal silhouette is normal in size and configuration. LUNGS: Lungs are clear. ABDOMEN: No remarkable upper abdominal findings. BONES: No acute osseous changes. IMPRESSION: 1. No evidence of acute cardiopulmonary process. MACRO: None Signed by: Lito Marie 03/27/2025 5:50 PM Dictation workstation: [id number] [facility] XR Chest Single viewon 03-27 1. No evidence of ac lauren cardiopulmonary process. MACRO: None Signed by: Lito Marie 03/27/2025 5:50 PM Dictation workstation: [id number] [facility] Interpreted By: Ltio Melvin, STUDY: XR CHEST 1 VIEW; 03/27/2025 5:25 pm INDICATION: Signs/Symptoms:Chest Pain. COMPARISON: None. ACCESSION NUMBER(S): [id number] ORDERING CLINICIAN: DHEERAJ FERRER FINDINGS: CARDIOMEDIASTINAL SILHOUETTE: Cardiomediastinal silhouette is normal in size and configuration. LUNGS: Lungs are clear. ABDOMEN: No remarkable upper abdominal findings. BONES: No acute osseous changes. [facility] Lito Marie MD - 03/27/2025 Interpreted By: Lito Marie, STUDY: XR CHEST 1 VIEW; 03/27/2025 5:25 pm INDICATION: Signs/Symptoms:Chest Pain. COMPARISON: None. ACCESSION NUMBER(S): [id number] ORDERING CLINICIAN: DHEERAJ FERRER FINDINGS: CARDIOMEDIASTINAL SILHOUETTE: Cardiomediastinal silhouette is normal in size and configuration. LUNGS: Lungs are clear. ABDOMEN: No remarkable upper abdominal findings. BONES: No acute osseous changes. IMPRESSION: 1. No evidence of acute cardiopulmonary process. MACRO: None Signed by: Lito Marie 03/27/2025 5:50 PM Dictation workstation: [id number] [facility] Work Phone: Radiology Study observation (narrative) [facility] Work Phone: XR Chest Single viewOrdered By: Lito Marie on 03-27-2025 [facility] Work Phone: C-REACTIVE PROTEINon 01-23- 025 CRP [Mass/Vol] 5.1 mg/L Normal <8.0 [facility] Comment on above: Performed By: #### 7 45, 3232, 7299, 7137, 809, 4420 #### [facility] [address] [facility], [address] [place] [address] Storage Wharfage Clerk: Elvin Guzman MD #### [id number] #### [facility]/[place] [address] [place] [address] Storage Wharfage Clerk: Sudarshan Pop M.D.,PhD #### 439 #### [facility], [address] [place] [address] Storage Wharfage Clerk: Arelis Tapia MD,PhD,ERIS CBC (INCLUDES DIFF/PLT)on Basophils (Bld) [#/Vol] 0.029 10*3/uL Normal 0-200 [facility] Comment on above: Performed By: #### 7 45, 4418, 6399, 7137, 809, 4420 #### [facility] [place] [address] Storage Wharfage Clerk: Elvin Guzman MD #### [id number] #### [facility]/[address] [place], [place] Storage Wharfage Clerk: Sudarshan Pop M.D.,PhD #### 439 #### [facility]/[place] [address] Storage Wharfage Clerk: Arelis Tapia MD,PhD,ERIS Basophils/100 WBC (Bld) 0.3 % Normal [facility] Comment on above: Performed By: #### 7 45, 4418, 6399, 7137, 809, 4420 #### [facility] [address] Storage Wharfage Clerk: Elvin Guzman MD #### [id number] #### [facility]/[address] [place], [place] Storage Wharfage Clerk: Sudarshan Pop M.D.,PhD #### 439 #### [facility], [address] [address] Storage Wharfage Clerk: Arelis Tapia MD,PhD,ERIS Eosinophils (Bld) [#/Vol] 0.167 10*3/uL Normal 15-500 [facility] Comment on above: Performed By: #### 7 45, 4418, 6399, 7137, 809, 4420 #### [facility] [address] [place] [address] Storage Wharfage Clerk: Elvin Guzman MD #### [id number] #### [facility]/[address] [place], [place] Storage Wharfage Clerk: Sudarshan Pop M.D.,PhD #### 439 #### [facility], [address] [place] [address] Storage Wharfage Clerk: Arelis Tapia MD,PhD,ERIS Eosinophils/100 WBC (Bld) 1.7 % Normal [facility] Comment on above: Performed By: #### 7 45, 7008, 6399, 7137, 809, 4420 #### [facility] of [place] [address] [place] , [address] [place] [address] Storage Wharfage Clerk: Elvin Guzman MD #### [id number] #### [facility]/[address] [place], [place] Storage Wharfage Clerk: Sudarshan Pop M.D.,PhD #### 439 #### [facility], [address] [place], [place] Storage Wharfage Clerk: Arelis Tapia MD,PhD,ERIS Erythrocyte distribution width (RBC) [Ratio] 13.0 % Normal 11.0-15.0 [facility] Comment on above: Performed By: #### 7 45, 9288, 6399, 7137, 809, 4420 #### [facility] of [place] [address] [place] , [address] [place] [address] Storage Wharfage Clerk: Elvin Guzman MD #### [id number] #### [facility]/[address] [place], [place] Storage Wharfage Clerk: Sudarshan Pop M.D.,PhD #### 439 #### [facility]/[place] [facility], [address] [place] [phone] Storage Wharfage Clerk: Arelis Tapia MD,PhD,ERIS Hematocrit (Bld) [Volume fraction] 44.1 % Normal 35.0-45.0 [facility] Comment on above: Performed By: #### 7 45, 4418, 6399, 7137, 809, 4420 #### [facility] [address], [address] [place] [address] Storage Wharfage Clerk: Elvin Guzman MD #### [id number] #### [facility]/[address] [place], [place] Storage Wharfage Clerk: Sudarshan Pop M.D.,PhD #### 439 #### [facility], [address] [place], [place] [address] Storage Wharfage Clerk: Arelis Tapia MD,PhD,ERIS Hemoglobin (Bld) [Mass/Vol] 14.2 g/dL Normal 11.7-15.5 [facility] Comment on above: Performed By: #### 7 45, 4418, 6399, 7137, 809, 4420 #### [facility] [place] [id number] Storage Wharfage Clerk: Elvin Guzman MD #### [id number] #### [facility]/[address] [place], [place] Storage Wharfage Clerk: Sudarshan Pop M.D.,PhD #### 439 #### [facility], [address] [place] [phone] Storage Wharfage Clerk: Arelis Tapia MD,PhD,ERIS Lymphocytes (Bld) [#/Vol] 2.509 10*3/uL Normal 850-3900 [facility] Comment on above: Performed By: #### 7 45, 4418, 6399, 7137, 809, 4420 #### [facility] of [place] [address], [address] [place] [address] Storage Wharfage Clerk: Elvin Guzman MD #### [id number] #### [facility]/[address] [place], [place] Storage Wharfage Clerk: Sudarshan Pop M.D.,PhD #### 439 #### [facility], [address] [place] [address] Storage Wharfage Clerk: Arelis Tapia MD,PhD,ERIS Lymphocytes/100 WBC (Bld) 25.6 % Normal [facility] Comment on above: Performed By: #### 7 45, 3988, 6399, 7137, 809, 4420 #### [facility] [place] [address] [place] , [address] [place], [place] [address] Storage Wharfage Clerk: Elvin Guzman MD #### [id number] #### [facility]/[address] [place], [place] Storage Wharfage Clerk: Sudarshan Pop M.D.,PhD #### 439 #### [facility], [address] [place] [address] Storage Wharfage Clerk: Arelis Tapia MD,PhD,ERIS MCH (RBC) [Entitic mass] 27.2 pg Normal 27.0-33.0 [facility] Comment on above: Performed By: #### 7 45, 8758, 6399, 7137, 809, 4420 #### [facility] of [place] [address], [address] [place], [place] [address] Storage Wharfage Clerk: Elvin Guzman MD #### [id number] #### [facility]/[address] [place], [place] Storage Wharfage Clerk: Sudarshan Pop M.D.,PhD #### 439 #### [facility], [address] [place] [place], [place] Storage Wharfage Clerk: Arelis Tapia MD,PhD,ERIS MCHC (RBC) [Mass/Vol] 32.2 g/dL Normal 32.0-36.[address] [facility] Comment on above: Result Comment: For adults, a slight decrease in the calculated MCHC value (in the range of 30 to 32 g/dL) is most likely not clinically significant; however, it should be interpreted with caution in correlation with other red cell parameters and the patient's clinical condition. Performed By: #### 7 45, 4418, 6399, 7137, 809, 4420 #### [facility] [place] [phone] Storage Wharfage Clerk: Elvin Guzman MD #### [id number] #### [facility]/[address] [place], [place] Storage Wharfage Clerk: Sudarshan Pop M.D.,PhD #### 439 #### [facility], [address] [place] [address] Storage Wharfage Clerk: Arelis Tapia MD,PhD,ERIS MCV (RBC) [Entitic vol] 84.5 fL Normal 80.0-100.0 [facility] Comment on above: Performed By: #### 7 45, 4418, 6399, 7137, 809, 4420 #### [facility] [address], [address] [place], [place] [address] Storage Wharfage Clerk: Elvin Guzman MD #### 17020 #### [facility]/[place] [place], [place] Storage Wharfage Clerk: Sudarshan Pop M.D.,PhD #### 439 #### [facility] [place] [facility], [address] [place], [place] Storage Wharfage Clerk: Arelis Tapia MD,PhD,ERIS Monocytes (Bld) [#/Vol] 0.588 10*3/uL Normal 200-950 [facility] Comment on above: Performed By: #### 7 45, 4418, 6399, 7137, 809, 4420 #### [facility] of [facility] [address], [address] [place] [address] Storage Wharfage Clerk: Elvin Guzman MD #### [id number] #### [facility]/[address] [place], [place] Storage Wharfage Clerk: Sudarshan Pop M.D.,PhD #### 439 #### [facility], [address] [place] [address] Storage Wharfage Clerk: Arelis Tapia MD,PhD,ERIS Monocytes/100 WBC (Bld) 6.0 % Normal [facility] Comment on above: Performed By: #### 7 45, 4418, 6399, 7137, 809, 4420 #### [facility] of [facility] [address] [place] , [address] [place] [address] Storage Wharfage Clerk: Elvin Guzman MD #### 99260 #### [facility]/[address] [place], [place] Storage Wharfage Clerk: Sudarshan Pop M.D.,PhD #### 439 #### [facility], [address] [place] [address] Storage Wharfage Clerk: Arelis Tapia MD,PhD,ERIS Neutrophils (Bld) [#/Vol] 6.507 10*3/uL Normal 3932-4791 [facility] Comment on above: Performed By: #### 7 45, 4418, 6399, 7137, 809, 4420 #### [facility] of [facility] [address], [address] [place], [place] [address] Storage Wharfage Clerk: Elvin Guzman MD #### 50505 #### [facility]/[address] [place], [place] Storage Wharfage Clerk: Sudarshan Pop M.D.,PhD #### 439 #### [facility]/[place] [facility] [place], [address] [address], [place] Storage Wharfage Clerk: Arelis Tapia MD,PhD,ERIS Neutrophils/100 WBC (Bld) 66.4 % Normal [facility] Comment on above: Performed By: #### 7 45, 4418, 6399, 7137, 809, 4420 #### [facility] [address], [address] [place], [place] [address] Storage Wharfage Clerk: Elvin Guzman MD #### 17007 #### [facility] [address] [place], [place] Storage Wharfage Clerk: Sudarshan Pop M.D.,PhD #### 439 #### [facility], [address] [place], [place] Storage Wharfage Clerk: Arelis Tapia MD,PhD,ERIS Platelet mean volume (Bld) [Entitic vol] 10.1 fL Normal 7.5-12.5 [facility] Comment on above: Performed By: #### 7 45, 4418, 6399, 7137, 809, 4420 #### [facility] [address], [address] [place], [place] [address] Storage Wharfage Clerk: Elvin Guzman MD #### [id number] #### [facility]/[address] [place], [place] Storage Wharfage Clerk: Sudarshan Pop M.D.,PhD #### 439 #### [facility], [address] [place], [place] Storage Wharfage Clerk: Arelis Tapia MD,PhD,ERIS Platelets (Bld) [#/Vol] 274 10*3/uL Normal 140-400 [facility] Comment on above: Performed By: #### 7 45, 4418, 6399, 7137, 809, 4420 #### [facility] of [facility] [address], [address] [place] [address] Storage Wharfage Clerk: Elvin Guzman MD #### 77932 #### [facility]/[address] [place], [place] Storage Wharfage Clerk: Sudarshan Pop M.D.,PhD #### 439 #### [facility], [address] [place] [address] Storage Wharfage Clerk: Arelis Tapia MD,PhD,ERIS RBC (Bld) [#/Vol] 5.22 10*6/uL High 3.80-5.10 [facility] Comment on above: Performed By: #### 7 45, 4418, 6399, 7137, 809, 4420 #### [facility] of [facility] [address], [address] [place] [address] Storage Wharfage Clerk: Elvin Guzman MD #### [id number] #### [facility]/[address] Storage Wharfage Clerk: Sudarshan Pop M.D.,PhD #### 439 #### [facility], [address] [place] [address] Storage Wharfage Clerk: Arelis Tapia MD,PhD,ERIS WBC (Bld) [#/Vol] 9.8 10*3/uL Normal 3.8-10.8 [facility] Comment on above: Performed By: #### 7 45, 4418, 6399, 7137, 809, 4420 #### [facility] of [facility] [address], [address] [place] [address] Storage Wharfage Clerk: Elvin Guzman MD #### 95944 #### [facility]/[address] [place], [place] Storage Wharfage Clerk: Sudarshan Pop M.D.,PhD #### 439 #### [facility], [address] [place] [address] Storage Wharfage Clerk: Arelis Tapia MD,PhD,ERIS ESTROGENS, TOTAL, IAon 01-23 ESTROGENS, TOTAL, IA 211 pg/mL Normal [facility] Comment on above: Result Comment: Reference Ranges for Total Estrogen: Follicular Phase: 51-601 Luteal Phase: 87-1194 Postmenopausal: < or = 214 Performed By: #### 7 45, 4418, 6399, 7137, 809, 4420 #### [facility] [address], [address] [place], [place] [address] Storage Wharfage Clerk: Elvin Guzman MD #### [id number] #### [facility]/[address] [place], [place] Storage Wharfage Clerk: Sudarshan Pop M.D.,PhD #### 439 #### [facility], [address] [place] [phone] Storage Wharfage Clerk: Arelis Tapia MD,PhD,ERIS FSH AND LHon 01-23-2025 FSH 5.7 mIU/mL Normal [facility] Comment on above: Order Comment: FASTI NG:NO FASTING: NO Result Comment: Refe rence Range Follicular Phase 2.5-10.2 Mid-cycle Peak 3.1-17.7 Luteal Phase 1.5- 9.1 Postmenopausal 23.0-116.3 Performed By: #### 7 45, 4418, 6399, 7137, 809, 4420 #### [facility] [place] [address] [facility], [address] [place] [address] Storage Wharfage Clerk: Elvin Guzman MD #### 84640 #### [facility]/[place] [place], [place] Storage Wharfage Clerk: Sudarshan Pop M.D.,PhD #### 439 #### [facility]/[address] [address] Storage Wharfage Clerk: Arelis Tapia MD,PhD,ERIS LH 4.9 mIU/mL Normal [facility] Comment on above: Order Comment: FASTI NG:NO FASTING: NO Result Comment: Refe rence Range Follicular Phase 1.9-12.5 Mid-Cycle Peak 8.7-76.3 Luteal Phase 0.5-16.9 Postmenopausal 10.0-54.7 Performed By: #### 7 45, 4418, 6399, 7137, 809, 4420 #### [facility] [address], [address] [place] [address] Storage Wharfage Clerk: Elvin Guzman MD #### [id number] #### [facility]/[address] [place], [place] Storage Wharfage Clerk: Sudarshan Pop M.D.,PhD #### 439 #### [facility]/[address] [address] Storage Wharfage Clerk: Arelis Tapia MD,PhD,ERIS PROGESTERONEon 01-23-2025 PROGESTERONE 8.6 ng/mL Normal [facility] Comment on above: Result Comment: Refe rence Ranges Female Follicular Phase < 1.0 Luteal Phase 2.6-21.5 Post menopausal < 0.5 1st Trimester 4.1-34.0 2nd Trimester 24.0-76.0 3rd Trimester 52.0-302.0 Performed By: #### 2 49, 496, 1850, 77807 #### [facility] [address], [address] [place] [address] Storage Wharfage Clerk: Elvin Guzman MD RHEUMATOID FACTORon 03-12-20 25 RHEUMATOID FACTOR <10 Normal <14 [facility] Comment on above: Performed By: #### 7 45, 4418, 6399, 7137, 809, 4420 #### [facility] of [facility] [facility] [address], [address] [place] [address] Storage Wharfage Clerk: Elvin Guzman MD #### [id number] #### [facility]/[address] [place], [place] Storage Wharfage Clerk: Sudarshan Pop M.D.,PhD #### [id number] #### [facility], [address] [id number] Storage Wharfage Clerk: Arelis Tapia MD,PhD,ERIS SED RATE BY MODIFIED WESTERG RENon 01-23-2025 SED RATE BY MODIFIED WESTERGREN 9 mm/h Normal < OR = 20 [facility] Comment on above: Performed By: #### 7 45, 4418, 6399, 7137, 809, 4420 #### [facility] of [place] [address], [address] [place] [address] Storage Wharfage Clerk: Elvin Guzman MD #### [id number] #### [facility]/[address] [place], [place] Storage Wharfage Clerk: Sudarshan Pop M.D.,PhD #### [phone] #### [facility], [address] [place], [place] Storage Wharfage Clerk: Arelis Tapia MD,PhD,ERIS TESTOSTERONE, FREE (DIALYSIS ) AND TOTAL,MSon 01-23-2025 TESTOSTERONE, TOTAL, MS Normal [facility] Comment on above: Result Comment: UNAB LE TO REPORT Initial testing necessitated a repeat, but there was insufficient sample to perform. Performed By: #### 2 49, 496, 7065, 92130 #### [facility] of [facility] [address], [address] [place], [place] [id number] Storage Wharfage Clerk: Elvin Guzman MD MR BRAIN WITH AND WITHOUT CO Mary 01-17-2025 MR BRAIN WITH AND WITHOUT CONTRAST EXAMINATION: MR BRAIN WITH AND WITHOUT CONTRAST HISTORY: Headache, new or worsening, neuro deficit (Age 18-49y); Headache post and epidural anesthesia Injury/Trauma or Illness?:Illness/Other How long have you had these symptoms (acute/chronic)?:Acute Reason for exam?:Headache post and epidural anesthesia, headache x August 2024, blurry vision, dizziness, tingling in arms and legs Type of Exam?:Initial Additional signs and symptoms?:. O90.89 headache COMPARISON: None available. TECHNIQUE: MR images of the brain were acquired without and with intravenous contrast. FINDINGS: Ventricles and sulci appear normal. No mass effect or midline shift. A few foci of left frontal lobe white matter T2/FLAIR hyperintensity are nonspecific. No diffusion restriction. No extra-axial fluid collection. Basal cisterns are patent. No intracranial hemorrhage. No abnormal focus of susceptibility. No hemosiderin staining identified. Sellar contents are within normal limits. No cerebellar tonsil inferior ectopia is identified. Normal appearance of the brainstem. Major intracranial flow voids are maintained. No abnormal intracranial enhancement is identified. Intracranial vascular enhancement is within normal limits. Thin T2 weighted sequences through the basal cisterns was performed. This sequence demonstrates normal course and morphology of the bilateral 7th and 8th cranial nerve cisternal and canalicular segments. There is normal CSF signal intensity within the bilateral labyrinthine structures. No cerebellopontine angle mass is identified. Normal imaging appearance of the orbits. Air-fluid levels are noted at the left maxillary and right sphenoid sinuses. No obstructive paranasal sinus mucosal thickening is identified. Mastoid air cells are clear. No destructive calvarial lesion. Visualized soft tissues of the face and scalp are within normal limits. IMPRESSION: 1. No acute intracranial abnormality. 2. Incidental air-fluid levels noted at the left maxillary and right sphenoid sinuses. Findings could reflect underlying acute sinusitis in the appropriate clinical setting. 3. Nonspecific foci of left frontal lobe white matter T2/FLAIR hyperintensity. Differential considerations may include sequelae of migraine headache, early chronic white matter microvascular ischemic changes, and remote inflammation/infection. Workstation ID: [id number] Dictated by: BRIANNA FONTANA on [facility] Jan 17, 2025 5:16:47 PM EST Transcribed by: BRIANNA FONTANA on TueJan 17, 2025 5:16:47 PM EST Finalized by: BRIANNA FONTANA on TueJan 17, 2025 5:16:47 PM EST [facility] Comment on above: Order Comment: Injur y/Trauma or Illness?:Illness/Other How long have you had these symptoms (acute/chronic)?:Acute Reason for exam?:Headache post and epidural anesthesia, headache x August 2024, blurry vision, dizziness, tingling in arms and legs Type of Exam?:Initial Additional signs and symptoms?:. Surgical pathology studyon 0 01-10-2025 Surgical pathology study Pathology report.total SEE COMMENT Surgical Pathology Case: [id number] Authorizing Provider: BEATRIZ Hines Collected: 01/10/2025 101 Ordering Location: [facility] Received: 01/10/2025 1014 Pathologist: Carmen Winston MD Specimen: SKIN PUNCH BIOPSY, RIGHT ARM Path report.final diagnosis SEE COMMENT A. Skin, right arm, punch biopsy: --Sparse perivascular chronic inflammation and focal extravasated erythrocytes, see comment Comment: Sections demonstrate an essentially unremarkable epidermis. Within the dermis, there is sparse superficial perivascular chronic inflammation admixed with extravasated erythrocytes. No vascular injury, neutrophilic margination or eosinophils are seen. A PAS stain with adequate controls is negative for fungal hyphae. An iron stain is negative for hemosiderin. The histologic findings are subtle and not specific. Correlated with the clinical history, considerations could include an early or resolved inflammatory process, such as urticaria or a drug reaction. Clinicopathologic correlation is necessary and should this rash persist or recur, additional sampling may be helpful. Women'S Studies Lecturer: Dr. Consuelo Torres Laboratory comment By the signature on this report, the individual or group listed as making the Final Interpretation/Diagnosis certifies that they have reviewed this case. Path report.relevant Hx Rash Path report.gross observation SEE COMMENT A: Received in formalin, labeled with the patient's name and hospital number, is a portion of skin with subcutaneous tissue measuring 0.5 x 0.4 x 0.4 cm. On the skin surface is unremarkable. The resection margin is inked blue. The specimen is bisected. The specimen is entirely submitted in one cassette. [facility] AP ASR DISCLAIMER One or more of the reagents used to perform assays on this specimen MAY have contained components considered to be analyte specific reagents (ASR's). ASR's have not been cleared or approved by the U.S. Food and Drug Administration. These assays were developed and their performance characteristics determined by the Department of Pathology at [facility]. The FDA does not require this test to go through premarket FDA review. This test is used for clinical purposes. It should not be regarded as investigational or for research. This laboratory is certified under the Clinical Laboratory Improvement Amendments (CLIA) as qualified to perform high complexity clinical laboratory testing. The assays were performed with appropriate positive and negative controls which stained appropriately. Normal [facility] ALISHA SCREEN, IFA, W/REFL TITE R AND PATTERNon 12-28-2024 ALISHA SCREEN, IFA Negative Normal NEGATIVE [facility] Comment on above: Order Comment: FASTI NG:YES FASTING: YES Result Comment: ALISHA IFA is a first line screen for detecting the presence of up to approximately 150 autoantibodies in various autoimmune diseases. A negative ALISHA IFA result suggests an ALISHA-associated autoimmune disease is not present at this time, but is not definitive. If there is high clinical suspicion for Sjogren's syndrome, testing for anti-SS-A/Ro antibody should be considered. Anti-Nicolle-1 antibody should be considered for clinically suspected inflammatory myopathies. AC-0: Negative International Consensus on ALISHA Patterns (https://doi.org/10.1515/haah-6430-0148) For additional information, please refer to http://education.Chartbeat.KidBook/faq/FDX864 (This link is being provided for informational/ educational purposes only.) Performed By: #### 2 54, 459, 5823, 14943 #### [facility] [address], [address] [place] [address] Storage Wharfage Clerk: Elvin Guzman MD HEMOGLOBIN A1con 12-28-2024 HEMOGLOBIN A1c 5.0 % of total Hgb Normal <5.7 [facility] Comment on above: Result Comment: For the purpose of screening for the presence of diabetes: <5.7% Consistent with the absence of diabetes 5.7-6.4% Consistent with increased risk for diabetes (prediabetes) > or =6.5% Consistent with diabetes This assay result is consistent with a decreased risk of diabetes. Currently, no consensus exists regarding use of hemoglobin A1c for diagnosis of diabetes in children. According to [place] Diabetes Association (ADA) guidelines, hemoglobin A1c <7.0% represents optimal control in non- diabetic patients. Different metrics may apply to specific patient populations. Standards of Medical Care in Diabetes(ADA). Performed By: #### 2 49, 496, 7042, 98709 #### [facility] [address], [address] [place] [address] Storage Wharfage Clerk: Elvin Guzman MD TSH W/REFLEX TO FT4on 2024 TSH W/REFLEX TO FT4 1.87 mIU/L Normal [facility] Comment on above: Result Comment: Refe rence Range > or = 20 Years 0.40-4.50 Ranges First trimester 0.26-2.66 Second trimester 0.55-2.73 Third trimester 0.43-2.91 Performed By: #### 2 49, 49, 5825, 03416 #### [facility] [place] [address] Storage Wharfage Clerk: Elvin Guzman MD VITAMIN B12/FOLATE, SERUM [facility] 12-28-2024 Cobalamin (Vitamin B12) [Mass/Vol] 512 pg/mL Normal 200-1100 [facility] Comment on above: Performed By: #### 2 Zeenat, 49, 4262, 22067 #### [facility] [address], [address] [place] [address] Storage Wharfage Clerk: Elvin Guzman MD Folate [Mass/Vol] 11.8 ng/mL Normal [facility] Comment on above: Result Comment: Refe rence Range Low: <3.4 Borderline: 3.4-5.4 Normal: >5.4 Performed By: #### 2 49, 49, 6005, 94363 #### [facility] [address], [address] [place] [address] Storage Wharfage Clerk: Elvin Guzman MD IMMUNOFIXATION, SERUMon 12-15 IMMUNOFIXATION, SERUM Normal Normal Normal [facility] Comment on above: Performed By: #### 4 6015 #### [facility] [address] [place] [address] Reuben Littlejohn M.D. [id number] SIFIX INTERPRETATION No paraproteins detected. A negative serum immunofixation and/or serum protein electrophoresis is insufficient to rule out a monoclonal protein. Recommend serum free light chains if clinically indicated. Reviewed by Pathologist: Jie Littlejohn MD. [facility] Comment on above: Performed By: #### 4 6015 #### [facility] [address] [place] [address] Reuben Littlejohn M.D. [id number] MR LUMBAR SPINE WO IV CONTRA STon 12-03-2024 MR LUMBAR SPINE WO IV CONTRAST Interpreted By: Carmen Darby, STUDY: MRI of the lumbar spine without IV contrast; 12/03/2024 11:34 am INDICATION: Signs/Symptoms:epidural complications with migraines, and numbness. ,G43.E19 Chronic migraine with aura, intractable, without status migrainosus,O74.6 Other complications of spinal and epidural anesthesia during labor and delivery ([facility]) COMPARISON: None. ACCESSION NUMBER(S): [id number] ORDERING CLINICIAN: ABRIL MOSLEY TECHNIQUE: Sagittal and axial STIR and T1-weighted MRI images of the lumbar spine were acquired using a spondylolysis protocol. No contrast was administered. FINDINGS: For counting purposes the last lumbarized vertebral body is labeled L5. There is trace retrolisthesis of L5 on S1. Alignment, vertebral body heights and marrow signal pattern are within normal limits. Intervertebral disc spaces are maintained. The conus terminates at L1-L2 and is unremarkable. Prevertebral soft tissues are not thickened. Evaluation by level: T12-L1: No spinal canal or neural foraminal stenosis L1-L2: No spinal canal or neural foraminal stenosis. L2-L3: Mild disc bulge and facet arthrosis. No spinal canal stenosis. Mild neural foraminal stenosis L3-L4: Disc bulge and facet arthrosis. No spinal canal stenosis. Mild neural foraminal narrowing. L4-L5: Disc bulge and facet arthrosis. No spinal canal stenosis. Mild bilateral neural foraminal stenosis. L5-S1: Facet arthrosis. No spinal canal stenosis. No neural foraminal stenosis. IMPRESSION: Mild degenerative changes of the lumbar spine without spinal canal stenosis. Mild neural foraminal narrowing at L2-L3 through L4-L5. I personally reviewed the images/study and I agree with the findings as stated. This study was interpreted at [place], [place]. MACRO: None Signed by: Carmen Darby 12/03/2024 11:50 AM Dictation workstation: [id number] Normal [facility] MR Lumbar spine WO contrasto n 12-03-2024 Mild degenerative changes of the lumbar spine without spinal canal stenosis. Mild neural foraminal narrowing at L2-L3 through L4-L5. I personally reviewed the images/study and I agree with the findings as stated. This study was interpreted at [place], [place]. MACRO: None Signed by: Carmen Darby 12/03/2024 11:50 AM Dictation workstation: [id number] [facility] Interpreted By: Carmen Jewell, STUDY: MRI of the lumbar spine without IV contrast; 12/03/2024 11:34 am INDICATION: Signs/Symptoms:epidural complications with migraines, and numbness. ,G43.E19 Chronic migraine with aura, intractable, without status migrainosus,O74.6 Other complications of spinal and epidural anesthesia during labor and delivery ([facility]) COMPARISON: None. ACCESSION NUMBER(S): [id number] ORDERING CLINICIAN: ABRIL MOSLEY TECHNIQUE: Sagittal and axial STIR and T1-weighted MRI images of the lumbar spine were acquired using a spondylolysis protocol. No contrast was administered. FINDINGS: For counting purposes the last lumbarized vertebral body is labeled L5. There is trace retrolisthesis of L5 on S1. Alignment, vertebral body heights and marrow signal pattern are within normal limits. Intervertebral disc spaces are maintained. The conus terminates at L1-L2 and is unremarkable. Prevertebral soft tissues are not thickened. Evaluation by level: T12-L1: No spinal canal or neural foraminal stenosis L1-L2: No spinal canal or neural foraminal stenosis. L2-L3: Mild disc bulge and facet arthrosis. No spinal canal stenosis. Mild neural foraminal stenosis L3-L4: Disc bulge and facet arthrosis. No spinal canal stenosis. Mild neural foraminal narrowing. L4-L5: Disc bulge and facet arthrosis. No spinal canal stenosis. Mild bilateral neural foraminal stenosis. L5-S1: Facet arthrosis. No spinal canal stenosis. No neural foraminal stenosis. [facility] Carmen Darby MD - 12/03/2024 Interpreted By: Carmen Darby, STUDY: MRI of the lumbar spine without IV contrast; 12/03/2024 11:34 am INDICATION: Signs/Symptoms:epidural complications with migraines, and numbness. ,G43.E19 Chronic migraine with aura, intractable, without status migrainosus,O74.6 Other complications of spinal and epidural anesthesia during labor and delivery ([facility]) COMPARISON: None. ACCESSION NUMBER(S): [id number] ORDERING CLINICIAN: ABRIL MOSLEY TECHNIQUE: Sagittal and axial STIR and T1-weighted MRI images of the lumbar spine were acquired using a spondylolysis protocol. No contrast was administered. FINDINGS: For counting purposes the last lumbarized vertebral body is labeled L5. There is trace retrolisthesis of L5 on S1. Alignment, vertebral body heights and marrow signal pattern are within normal limits. Intervertebral disc spaces are maintained. The conus terminates at L1-L2 and is unremarkable. Prevertebral soft tissues are not thickened. Evaluation by level: T12-L1: No spinal canal or neural foraminal stenosis L1-L2: No spinal canal or neural foraminal stenosis. L2-L3: Mild disc bulge and facet arthrosis. No spinal canal stenosis. Mild neural foraminal stenosis L3-L4: Disc bulge and facet arthrosis. No spinal canal stenosis. Mild neural foraminal narrowing. L4-L5: Disc bulge and facet arthrosis. No spinal canal stenosis. Mild bilateral neural foraminal stenosis. L5-S1: Facet arthrosis. No spinal canal stenosis. No neural foraminal stenosis. IMPRESSION: Mild degenerative changes of the lumbar spine without spinal canal stenosis. Mild neural foraminal narrowing at L2-L3 through L4-L5. I personally reviewed the images/study and I agree with the findings as stated. This study was interpreted at [place], [place]. MACRO: None Signed by: Carmen Darby 12/03/2024 11:50 AM Dictation workstation: [id number] [facility] Work Phone: Radiology Study observation (narrative) [facility] Work Phone: MR Lumbar spine WO contrastO rdered By: Carmen Darby on 12-03-2024 [facility] Work Phone: XR LUMBAR SPINE 2-3 VIEWSon 11-23-2024 XR LUMBAR SPINE 2-3 VIEWS Interpreted By: Ralf Jeter, STUDY: XR LUMBAR SPINE 2-3 VIEWS INDICATION: Signs/Symptoms:epidural complications with n/t. COMPARISON: November 23, 2024 ACCESSION NUMBER(S): [id number] ORDERING CLINICIAN: ABRIL MOSLEY FINDINGS: Minimal degenerative changes lumbar spine with a mild scoliosis. Alignment otherwise normal without fracture. IMPRESSION: Minimal degenerative changes lumbar spine with a mild scoliosis. Signed by: Ralf Jeter 11/25/2024 10:54 AM Dictation workstation: [id number] [facility] Mold Inspector Office Visit Reporton 11-05-2024 Mold Inspector Office Visit Report [facility]'s [address], [address] [place] [address] OFFICE VISIT Date of Service: 11/05/24 MR#: [id number] Acct: [id number] Name: JAYLYN STOKES Rep #: [id number] : 1990 Provider: EMILEE Restrepo Age/Sex: 34/F Location[place] [facility] Status: Signed Intake Vital Signs 09/24/24 11:14 11/05/24 11:36 11/05/24 11:41 Height 5 ft 1 in 5 ft 1 in 5 ft 1 in Weight: 232 lb BMI 43.8 BP 116/76 Intake Visit Reasons: 6 WK BP CK 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: 6 wk fu 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 Is patient in pain?: No Allergies oxycodone (From Roxicodone) Allergy (Intermediate, Verified 11/05/24 11:35) Other Medications ???Medication ???Instructions ???Recorded ???Confirmed ???Type sertraline 50 mg tablet (Zoloft) 50 mg PO QDAY #60 tabs 09/24/24 11/05/24 Rx labetalol 100 mg tablet 100 mg PO BID #60 tabs 10/24/24 11/05/24 Rx nifedipine 30 mg tablet,extended 30 mg PO DAILY 30 days #30 tabs 10/24/24 11/05/24 Rx release 24 hr Is last menstrual period known: Yes Last Menstrual Period: 10/24/24 Post menopausal: No Patient : No : No Control Method: none PFSH Medical History Supervision of high-risk Obesity affecting Abnormal glucose affecting AMA (advanced maternal age) multigravida 35+ Encounter for induction of labor Genital herpes affecting depression Advanced maternal age (AMA) in Obesity HPV (human papilloma virus) infection Depression Anxiety Headache Gestational HTN Surgical History S/P LASIK surgery of both eyes Hx of eye surgery History of colposcopy History of surgery Family History Grandmother Cancer, Onset Age: 60 Paternal- Uterine Father Myocardial infarction Mother Kidney disease Stg IV kidney disease Thyroid disorder hyperthyroid Sister Thyroid disorder hyperthyroid Aunt Thyroid disorder hyperthyroid Social History adopted: No household members: spouse and children number of children: 1 current occupational status: unemployed current occupation: [employer] current occupational exposures/hazards: No pets and animals: Yes pets and animals: dog(s) history of recent travel: No sexually active: Yes Smoking Status: Never smoker alcohol intake: current alcohol intake frequency: holidays/special occasions only details: not while substance use type: does not use well-balanced diet: daily or most days caffeine: Yes Type: coffee Number of servings: 1 eating out: 1-3 times/week during the past year weight has: remained stable what type of physical activity do you participate in: walking frequency: 1-2 times per week duration: 15-30 minutes/day stormy/synagogue: None seatbelt use: always do you feel safe at home: Yes additional social history: [employer] @ [employer] plant Patient has 2 step children HPI 6 WK BP CK Details: JAYLYN STOKES is a 34 year old who presents for 6 week BP check after being diagnosed with post pre-eclampsia. She is outside of 12 week post period. She is currently taking Labetolol and nifedipine ER. She has been taking her BPs every once in a while and is typically 120's/70's, has had a few where she is in 140's over 80's. Feels her headaches have improved; no swelling in her ankles. No vision changes. She did take her medications this morning. She is taking the zoloft; doing well with this. No side effects noted. Feels this has been helpful and would like to continue. When first starting she noticed lightheadedness; she switched to nighttime dosing and this has since gone away. Female Reproductive History Last Menstrual Period: 10/24/24 History 2 Elective abortions Hx Para 1 Spontaneous abortions Hx # Term Pregnancies Ectopic pregnancies Hx # Pregnancies Multiple births # of living children 2 Past Pregnancies Del. Date Name GA/Weeks Outcome Route Bth Weight Infant Gen Labor Lgth Anesthesia Del Locatn Provider FOB 03/21/21 Shay 39 live - full term forceps 7#11oz Male 21 HRs epidural [facility] Reji Mullen 08/13/24 Maryana 39 live - full term Female epidural [facility] Carri W Sebas Delivery Date: 03/21/21 Last Updated by: Yanira Baig IOL swelling BP elevated Delivery Date: 08/13/24 Last Updated by: Melissa Prince, RN See problem list for complications, and KW IOL AMA BMI ghtn ROS Const Constitutional: Reports fatigue; Denies chills, difficulty sleeping (improving), fever(s) or malaise (more content not included)... Normal [facility] CBC W/Diff, Automatedon 09-14 Absolute Lymph 2.39 X10 3/uL Normal 0.83-4.51 [facility] Comment on above: Performed By: #### L 100.0100, L500.4050 ####[facility] [address] [place], [address] Absolute Neut 4.9 X10 3/uL Normal 2.0-7.7 [facility] Comment on above: Performed By: #### L 100.0100, L500.4050 ####[facility] [address] [place], [address] Basophils/100 WBC (Bld) 0.4 % Normal 0-1 [facility] Comment on above: Performed By: #### L 100.0100, L500.4050 ####[facility] [address] [place], [address] Eosinophils/100 WBC (Bld) 2.0 % Normal 0-5 [facility] Comment on above: Performed By: #### L 100.0100, L500.4050 ####[facility] [address] [place], [address] Erythrocyte distribution width (RBC) [Ratio] 13.8 % Normal 11.6-14.6 [facility] Comment on above: Performed By: #### L 100.0100, L500.4050 ####[facility] [address] [place], [address] Hematocrit (Bld) [Volume fraction] 37.3 % Normal 37-47 [facility] Comment on above: Performed By: #### L 100.0100, L500.4050 ####[facility] [address] [place], [address] Hemoglobin (Bld) [Mass/Vol] 12.6 g/dL Normal 12.0-15.0 [facility] Comment on above: Performed By: #### L 100.0100, L500.4050 ####[facility] [address] [place], [address] IG% 0.500 Normal 0.0-0.9 [facility] Comment on above: Result Comment: IG% - Immature Granulocytes (promyelocytes, myelocytes and metamyelocytes) > 1% indicates that a LEFT SHIFT is Present. Performed By: #### L 100.0100, L500.4050 ####[facility] [address] [place], [address] Lymphocytes/100 WBC (Bld) 29.9 % Normal 19-41 [facility] Comment on above: Performed By: #### L 100.0100, L500.4050 ####[facility] [address] [place], [address] MCH (RBC) [Entitic mass] 27.2 pg Normal 27.0-32.0 [facility] Comment on above: Performed By: #### L 100.0100, L500.4050 ####[facility] [facility] [address] [place], [address] MCHC (RBC) [Mass/Vol] 33.8 g/dL Normal 32-36 [facility] Comment on above: Performed By: #### L 100.0100, L500.4050 ####[facility] [address] [place], [address] MCV (RBC) [Entitic vol] 80.4 fL Low 81-99 [facility] Comment on above: Performed By: #### L 100.0100, L500.4050 ####[facility] [address] [place], [address] Monocytes/100 WBC (Bld) 5.9 % Normal 0-10 [facility] Comment on above: Performed By: #### L 100.0100, L500.4050 ####[facility] [address] [place], [address] Neutrophils/100 WBC (Bld) 61.3 % Normal 47-70 [facility] Comment on above: Performed By: #### L 100.0100, L500.4050 ####[facility] [address] [place], [address] Nucleated RBC (Bld) [#/Vol] 0 10*3/uL Normal 0-5 [facility] Comment on above: Performed By: #### L 100.0100, L500.4050 ####[facility] [address] [place], [address] Platelet mean volume (Bld) [Entitic vol] 9.7 fL Normal 6.2-12.0 [facility] Comment on above: Performed By: #### L 100.0100, L500.4050 ####[facility] [address] [place], [address] Platelets (Bld) [#/Vol] 261 10*3/uL Normal 150-450 [facility] Comment on above: Performed By: #### L 100.0100, L500.4050 ####[facility] [address] [place], [address] RBC (Bld) [#/Vol] 4.64 10*6/uL Normal 4.2-5.[address] [facility] Comment on above: Performed By: #### L 100.0100, L500.4050 ####[facility] [address] [place], [address] RDW SD 40.0 fl Normal 35.1-43.9 [facility] Comment on above: Performed By: #### L 100.0100, L500.4050 ####[facility] [address] [place], [address] WBC (Bld) [#/Vol] 8.0 10*3/uL Normal 4.4-11.0 [facility] Comment on above: Performed By: #### L 100.0100, L500.4050 ####[facility] [address] [place], [address] Comprehensive Metabolic Prof aldaniel 09-24-2024 Albumin [Mass/Vol] 4.1 g/dL Normal 3.2-5.0 [facility] Comment on above: Performed By: #### L 100.0100, L500.4050 ####[facility] [address] [place], [address] Albumin/Globulin [Mass ratio] 1.3 {ratio} Normal 0.9-2.4 [facility] Comment on above: Performed By: #### L 100.0100, L500.4050 ####[facility] [address] [place], [address] ALK P 88 U/L Normal 45-117 [facility] Comment on above: Performed By: #### L 100.0100, L500.4050 ####[facility] [address] [place], [address] ALT [Catalytic activity/Vol] 29 U/L Normal 13-56 [facility] Comment on above: Performed By: #### L 100.0100, L500.4050 ####[facility] [address] [place], [address] AST [Catalytic activity/Vol] 12 U/L Low 15-37 [facility] Comment on above: Performed By: #### L 100.0100, L500.4050 ####[facility] [address] [place], [address] Bilirubin [Mass/Vol] 0.40 mg/dL Normal 0.20-1.00 [facility] Comment on above: Result Comment: For patients on eltrombopag therapy, use of Dimension [place] TBIL is not recommended. Performed By: #### L 100.0100, L500.4050 ####[facility] [address] [place], [address] BUN/CRE 18.6 RATIO Normal 10-20 [facility] Comment on above: Performed By: #### L 100.0100, L500.4050 ####[facility] [address] [place], [address] CA,Total 9.2 mg/dL Normal 8.5-10.1 [facility] Comment on above: Performed By: #### L 100.0100, L500.4050 ####[facility] [address] [place], [address] Chloride [Moles/Vol] 109 mmol/L High 98-107 [facility] Comment on above: Performed By: #### L 100.0100, L500.4050 ####[facility] [address] [place], [address] CO2 [Moles/Vol] 21.0 mmol/L Normal 21.0-32.0 [facility] Comment on above: Performed By: #### L 100.0100, L500.4050 ####[facility] [address] [place], [address] Creatinine [Mass/Vol] 0.75 mg/dL Normal 0.55-1.02 [facility] Comment on above: Result Comment: The validity of the calculated GFR GFRAA in patients over 70 years has not been determined. Clinical correlation is essential. Performed By: #### L 100.0100, L500.4050 ####[facility] [address] [place], [address] EST GFR - AA 111 mL/min Normal >60 [facility] Comment on above: Result Comment: Afri can Georgian GFR Calc Performed By: #### L 100.0100, L500.4050 ####[facility] [address] [place], [address] GAP 10 Normal 5-15 [facility] Comment on above: Performed By: #### L 100.0100, L500.4050 ####[facility] [address] [place], [address] GFR/1.73 sq M.predicted among non-blacks MDRD (S/P/Bld) [Vol rate/Area] 92 mL/min/{1.73_m2} Normal >60 [facility] Comment on above: Result Comment: Non- GFR Calc Performed By: #### L 100.0100, L500.4050 ####[facility] [address] [place], [address] Globulin (S) [Mass/Vol] 3.2 g/dL Normal 2.2-4.2 [facility] Comment on above: Performed By: #### L 100.0100, L500.4050 ####[facility] [address] [place], [address] Glucose [Mass/Vol] 87 mg/dL Normal 74-106 [facility] Comment on above: Performed By: #### L 100.0100, L500.4050 ####[facility] [address] [place], [address] Potassium [Moles/Vol] 4.0 mmol/L Normal 3.5-5.1 [facility] Comment on above: Performed By: #### L 100.0100, L500.4050 ####[facility] [address] [place], [address] Sodium [Moles/Vol] 140 mmol/L Normal 136-145 [facility] Comment on above: Performed By: #### L 100.0100, L500.4050 ####[facility] [address] [place], [address] T PROT 7.3 g/dL Normal 6.4-8.2 [facility] Comment on above: Performed By: #### L 100.0100, L500.4050 ####[facility] [address] [place], [address] Urea nitrogen [Mass/Vol] 14 mg/dL Normal 7-18 [facility] Comment on above: Performed By: #### L 100.0100, L500.4050 ####[facility] [address] [place], [address] Mold Inspector Office Visit Reporton 09-24-2024 Mold Inspector Office Visit Report [facility] [address], [address] [place] [address] OFFICE VISIT Date of Service: 09/24/24 MR#: [id number] Acct: [id number] Name: JAYLYN STOKES Rep #: [id number] : 1990 Provider: ORAL Daniels ams Age/Sex: 34/F [place] [facility] [place] Status: Signed Intake Vital Signs 08/13/24 07:17 08/31/24 11:03 09/24/24 11:06 09/24/24 11:14 Height 5 ft 1 in 5 ft 1 in 5 ft 1 in 5 ft 1 in Weight: 230 lb BMI 43.4 BP 143/87 H Intake Visit Reasons: visit (obstetrics) 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: ran out of BP medications 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 Is patient in pain?: No Allergies oxycodone (From Roxicodone) Allergy (Intermediate, Verified 09/24/24 11:08) Other Medications ???Medication ???Instructions ???Recorded ???Confirmed ???Type magnesium oxide 400 mg PO QDAY 08/01/24 09/24/24 History docosahexaenoic acid 200 mg mg PO 08/31/24 09/24/24 History capsule ( DHA) labetalol 100 mg tablet 100 mg PO BID #60 tabs 09/24/24 09/24/24 Rx nifedipine 30 mg tablet,extended 30 mg PO DAILY 30 days #30 tabs 09/24/24 09/24/24 Rx release 24 hr sertraline 50 mg tablet (Zoloft) 50 mg PO QDAY #60 tabs 09/24/24 09/24/24 Rx : No PFSH Medical History (Updated 09/24/24 @ 11:30 by Layne Boles CNM) Supervision of high-risk Obesity affecting Abnormal glucose affecting AMA (advanced maternal age) multigravida 35+ Encounter for induction of labor Genital herpes affecting depression Advanced maternal age (AMA) in Obesity HPV (human papilloma virus) infection Depression Anxiety Headache Gestational HTN Surgical History (Updated 08/13/24 @ 08:42 by Paolo Saeed) S/P LASIK surgery of both eyes Hx of eye surgery History of colposcopy History of surgery Family History Grandmother Cancer, Onset Age: 60 Paternal- Uterine Father Myocardial infarction Mother Kidney disease Stg IV kidney disease Thyroid disorder hyperthyroid Sister Thyroid disorder hyperthyroid Aunt Thyroid disorder hyperthyroid Social History adopted: No household members: spouse and children number of children: 1 current occupational status: unemployed 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 current occupational exposures/hazards: No pets and animals: Yes pets and animals: dog(s) history of recent travel: No sexually active: Yes Smoking Status: Never smoker alcohol intake: current alcohol intake frequency: holidays/special occasions only details: not while substance use type: does not use well-balanced diet: daily or most days caffeine: Yes Type: coffee Number of servings: 1 eating out: 1-3 times/week during the past year weight has: remained stable what type of physical activity do you participate in: walking frequency: 1-2 times per week duration: 15-30 minutes/day stormy/synagogue: None seatbelt use: always do you feel safe at home: Yes additional social history: [employer] @ [employer] plant Patient has 2 step children History 2 Elective abortions Hx Para 1 Spontaneous abortions Hx # Term Pregnancies Ectopic pregnancies Hx # Pregnancies Multiple births # of living children 2 Past Pregnancies Del. Date Name GA/Weeks Outcome Route Bth Weight Infant Gen Labor Lgth Anesthesia Del Locatn Provider FOB 03/21/21 Shay 39 live - full term forceps 7#11oz Male 21 HRs epidural [facility] Reji Mullen 08/13/24 Maryana 39 live - full term Female epidural [facility] Carri Mullen Delivery Date: 03/21/21 Last Updated by: Yanira Baig IOL swelling BP elevated Delivery Date: 08/13/24 Last Updated by: Melissa Niki, RN See problem list for complications, and KW IOL AMA BMI ghtn Depression Screen PHQ-2/9 PHQ-2 Over the last 2 weeks, how often have you been bothered by any of the following problems? 1. Little interest or pleasure in doing things: several days 2. Feeling down, depressed, or hopeless: several days Total score: 2 If score is 2 or greater, continue 3. Trouble falling or staying asleep, or sleeping too much: several days 4. Feeling tired or having little energy: nearly every day 5. Poor appetite or overeating: more than half the days 6. Feeling bad about yourself - or that you are a failure or have let yourself and your family down: several days 7. Trouble concentrating on things, such as reading the newspaper or watching television: nearly every day 8. Moving or speaking so slowly that other people could have noticed? - Or the opposite - being so fidgety or restless that you (more content not included)... Normal [facility] CBC W/Diff, Automatedon 08-14 Absolute Lymph 1.99 X10 3/uL Normal 0.83-4.51 [facility] Comment on above: Performed By: #### L 100.0100, L500.4050 #### [facility] [address] [place], [address] Absolute Neut 4.5 X10 3/uL Normal 2.0-7.7 [facility] Comment on above: Performed By: #### L 100.0100, L500.4050 #### [facility] [address] [place], [address] Basophils/100 WBC (Bld) 0.7 % Normal 0-1 [facility] Comment on above: Performed By: #### L 100.0100, L500.4050 #### [facility] [address] [place], [address] Eosinophils/100 WBC (Bld) 3.2 % Normal 0-5 [facility] Comment on above: Performed By: #### L 100.0100, L500.4050 #### [facility] [address] [place], [address] Erythrocyte distribution width (RBC) [Ratio] 13.4 % Normal 11.6-14.6 [facility] Comment on above: Performed By: #### L 100.0100, L500.4050 #### [facility] [address] [place], [address] Hematocrit (Bld) [Volume fraction] 42.6 % Normal 37-47 [facility] Comment on above: Performed By: #### L 100.0100, L500.4050 #### [facility] [address] [place], [address] Hemoglobin (Bld) [Mass/Vol] 13.8 g/dL Normal 12.0-15.0 [facility] Comment on above: Performed By: #### L 100.0100, L500.4050 #### [facility] [address] [place], [address] IG% 0.700 Normal 0.0-0.9 [facility] Comment on above: Result Comment: IG% - Immature Granulocytes (promyelocytes, myelocytes and metamyelocytes) > 1% indicates that a LEFT SHIFT is Present. Performed By: #### L 100.0100, L500.4050 #### [facility] [address] [place], [address] Lymphocytes/100 WBC (Bld) 27.6 % Normal 19-41 [facility] Comment on above: Performed By: #### L 100.0100, L500.4050 #### [facility] [address] [place], [address] MCH (RBC) [Entitic mass] 26.6 pg Low 27.0-32.0 [facility] Comment on above: Performed By: #### L 100.0100, L500.4050 #### [facility] [address] [place], [address] MCHC (RBC) [Mass/Vol] 32.4 g/dL Normal 32-36 [facility] Comment on above: Performed By: #### L 100.0100, L500.4050 #### [facility] [address] [place], [address] MCV (RBC) [Entitic vol] 82.2 fL Normal 81-99 [facility] Comment on above: Performed By: #### L 100.0100, L500.4050 #### [facility] [address] [place], [address] Monocytes/100 WBC (Bld) 5.7 % Normal 0-10 [facility] Comment on above: Performed By: #### L 100.0100, L500.4050 #### [facility] [address] [place], [address] Neutrophils/100 WBC (Bld) 62.1 % Normal 47-70 [facility] Comment on above: Performed By: #### L 100.0100, L500.4050 #### [facility] [address] [place], [address] Nucleated RBC (Bld) [#/Vol] 0 10*3/uL Normal 0-5 [facility] Comment on above: Performed By: #### L 100.0100, L500.4050 #### [facility] [address] [place], [address] Platelet mean volume (Bld) [Entitic vol] 9.2 fL Normal 6.2-12.0 [facility] Comment on above: Performed By: #### L 100.0100, L500.4050 #### [facility] [address] [place], [address] Platelets (Bld) [#/Vol] 275 10*3/uL Normal 150-450 [facility] Comment on above: Performed By: #### L 100.0100, L500.4050 #### [facility] [address] [place], [address] RBC (Bld) [#/Vol] 5.18 10*6/uL Normal 4.2-5.[address] [facility] Comment on above: Performed By: #### L 100.0100, L500.4050 #### [facility] [address] [place], [address] RDW SD 40.3 fl Normal 35.1-43.9 [facility] Comment on above: Performed By: #### L 100.0100, L500.4050 #### [facility] [address] [place], [address] WBC (Bld) [#/Vol] 7.2 10*3/uL Normal 4.4-11.0 [facility] Comment on above: Performed By: #### L 100.0100, L500.4050 #### [facility] [address] [place], [address] Comprehensive Metabolic Prof [facility] 08-31-2024 Albumin [Mass/Vol] 3.8 g/dL Normal 3.2-5.0 [facility] Comment on above: Performed By: #### L 100.0100, L500.4050 #### [facility] [address] [place], [address] Albumin/Globulin [Mass ratio] 1.0 {ratio} Normal 0.9-2.4 [facility] Comment on above: Performed By: #### L 100.0100, L500.4050 #### [facility] [address] [place], [address] ALK P 115 U/L Normal 45-117 [facility] Comment on above: Performed By: #### L 100.0100, L500.4050 #### [facility] [address] [place], [address] ALT [Catalytic activity/Vol] 25 U/L Normal 13-56 [facility] Comment on above: Performed By: #### L 100.0100, L500.4050 #### [facility] [address] [place], [address] AST [Catalytic activity/Vol] 11 U/L Low 15-37 [facility] Comment on above: Performed By: #### L 100.0100, L500.4050 #### [facility] [address] [place], [address] Bilirubin [Mass/Vol] 0.30 mg/dL Normal 0.20-1.00 [facility] Comment on above: Result Comment: For patients on eltrombopag therapy, use of Dimension [place] TBIL is not recommended. Performed By: #### L 100.0100, L500.4050 #### [facility] [address] [place], [address] BUN/CRE 16.3 RATIO Normal 10-20 [facility] Comment on above: Performed By: #### L 100.0100, L500.4050 #### [facility] [address] [place], [address] CA,Total 9.4 mg/dL Normal 8.5-10.1 [facility] Comment on above: Performed By: #### L 100.0100, L500.4050 #### [facility] [address] [place], [address] Chloride [Moles/Vol] 112 mmol/L High 98-107 [facility] Comment on above: Performed By: #### L 100.0100, L500.4050 #### [facility] [address] [place], [address] CO2 [Moles/Vol] 25.0 mmol/L Normal 21.0-32.0 [facility] Comment on above: Performed By: #### L 100.0100, L500.4050 #### [facility] [address] [place], [address] Creatinine [Mass/Vol] 0.86 mg/dL Normal 0.55-1.02 [facility] Comment on above: Result Comment: The validity of the calculated GFR GFRAA in patients over 70 years has not been determined. Clinical correlation is essential. Performed By: #### L 100.0100, L500.4050 #### [facility] [address] [place], [address] EST GFR - AA 96 mL/min Normal >60 [facility] Comment on above: Result Comment: Afri can Georgian GFR Calc Performed By: #### L 100.0100, L500.4050 #### [facility] [address] [place], [address] GAP 7 Normal 5-15 [facility] Comment on above: Performed By: #### L 100.0100, L500.4050 #### [facility] [address] [place], [address] GFR/1.73 sq M.predicted among non-blacks MDRD (S/P/Bld) [Vol rate/Area] 79 mL/min/{1.73_m2} Normal >60 [facility] Comment on above: Result Comment: Non- GFR Calc Performed By: #### L 100.0100, L500.4050 #### [facility] [address] [place], [address] Globulin (S) [Mass/Vol] 3.7 g/dL Normal 2.2-4.2 [facility] Comment on above: Performed By: #### L 100.0100, L500.4050 #### [facility] [address] [place], [address] Glucose [Mass/Vol] 74 mg/dL Normal 74-106 [facility] Comment on above: Performed By: #### L 100.0100, L500.4050 #### [facility] [address] [place], [address] Potassium [Moles/Vol] 3.6 mmol/L Normal 3.5-5.1 [facility] Comment on above: Performed By: #### L 100.0100, L500.4050 #### [facility] [address] [place], [address] Sodium [Moles/Vol] 144 mmol/L Normal 136-145 [facility] Comment on above: Performed By: #### L 100.0100, L500.4050 #### [facility] [address] [place], [address] T PROT 7.5 g/dL Normal 6.4-8.2 [facility] Comment on above: Performed By: #### L 100.0100, L500.4050 #### [facility] [address] [place], [address] Urea nitrogen [Mass/Vol] 14 mg/dL Normal 7-18 [facility] Comment on above: Performed By: #### L 100.0100, L500.4050 #### [facility] [address] [place], [address] Office Visit Reporton 2023 Office Visit Report [facility] [address] [place] [address] OFFICE VISIT Date of Service: 08/31/24 MR#: [id number] Acct: [id number] Patient: JAYLYN STOKES Rep #: [id number] : 1990 Provider: Dr. 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 She is about 2 weeks . She developed severe pre-e . She is currently taking Labetalol 100mg BID and Procardia 30mg daily. She does check her blood pressure at home and she states her blood pressure is all over the place but she has a wrist cuff. She does complain of daily headaches which she will typically take Ibuprofen. Spoke with Dr. Medina regarding above and she recommends pre-e labs including protein/creatinine urine. I advised patient to continue with medications and checking her blood pressures at home. Patient understood. Assessment and Plan Assessment and Plan (1) Severe pre-eclampsia, : Status: Acute Orders: Orders CBC W/Diff, Automated 08/31/24 O14.15 - Severe pre-eclampsia, complicating the puerperium Comprehensive Metabolic Profil 08/31/24 O14.15 - Severe pre-eclampsia, complicating the puerperium Protein+Creatinine Ratio,Urine 08/31/24 O14.15 - Severe pre-eclampsia, complicating the puerperium 09/04/24 0623 Date Janette Medina MD Cosigner Signature: Date (if applicable) CC: Normal [facility] Protein+Creatinine Ratio,Uri neon 08-31-2024 PROT:CRE RATIO 146 mg/g CRE Normal 0-200 [facility] Comment on above: Performed By: #### L 501.0900 ####[facility] [address] [place], [address] Protein (U) [Mass/Vol] 7.3 mg/dL Normal <11.9 [facility] Comment on above: Performed By: #### L 501.0900 ####[facility] [address] [place], [address] UR CREAT 50.10 mg/dL Normal NO RANGE EST. [facility] Comment on above: Performed By: #### L 501.0900 ####[facility] [address] [place], [address] Brain W/WO Contraston 2023 Brain W/WO Contrast [facility] [address] [place] [address] Brain W/WO Contrast MR#: [id number] Acct: [id number] Name: JAYLYN STOKES Rep #: [id number] : 1990 F 34 From: Conrado joy MD PCP: Care Physician,No Primary Status: ADM IN Study: Brain W/WO Contrast Date of Exam: 08/22/24 Exam# [id number] Ordering Dr: Ade Chairez DO [id number] STUDY: MRI BRAIN WITH AND WITHOUT CONTRAST (ATTENTION PITUITARY GLAND) REASON FOR EXAM: Female, 34 years old. see results from Head CT 08/21/2024 PROMINENCE OF PITUITARY AND BASE OF PROX INFUNDIBULUM, PRE-ECLAMPSIA, POST 10 DAYS, TUCKER''S X3DAYS TECHNIQUE: Standardized multiplanar fat and water weighted pulse sequences were obtained. 20CC CLARISCAN was administered for the contrast portion of the examination. COMPARISON: Head CT dated August 21, 2024. FINDINGS: Normal variant configuration of the pituitary gland with horizontal orientation of the posterior lobe of the pituitary gland. No nodule or cyst or adenoma is present. No enhancing abnormality is present. No demonstrated apoplexy or infarction of the pituitary gland. Normal size of the pituitary gland for the patient?s age and gender. Normal enhancement of the pituitary gland, without a demonstrated intrapituitary lesion. Normal infundibular stalk and suprasellar cistern. Normal optic chiasm and hypothalamus. Normal size of the ventricles and extra-axial spaces for the patient''s age. Normal white matter tracts of the supratentorial brain. There is no evidence for recent intracranial ischemia or other cause of cytotoxic edema on diffusion weighted imaging (DWI). Normal T2* images of the brain without demonstrated susceptibility artifact. There is no demonstrated hemosiderin stain. There are no demyelinating plagues of the supratentorial brain, brainstem or cerebellum. There are no findings suspicious for multiple sclerosis (MS). No hydrocephalus is present. No visualized abnormal signal in the periventricular white matter to indicate pseudotumor cerebri or similar entity. Normal bilateral basal ganglia. Normal thalami. Normal flow voids within the major intracranial circulation suggesting patency by spin echo criteria. Normal venous enhancement. There is no enhancing intra-axial or extra-axial abnormality. There is no extra-axial fluid accumulation. Normal tectal plate and pineal gland. Normal midbrain, polo and medulla. Normal cerebellum. Normal basal cisterns. Normal bilateral temporal bones. Normal bilateral internal auditory canals. No demonstrated orbital abnormality, within the constraints of a routine brain study. Normal visualized paranasal sinuses. Normal calvarium and skull base. Normal visualized upper cervical spine. Normal visualized soft tissue structures. MRI/Brain W/WO Contrast IMPRESSION: 1. Normal variant configuration of the pituitary gland with horizontal orientation of the posterior lobe of the pituitary gland. No nodule or cyst or adenoma is present. No enhancing abnormality is present. No demonstrated apoplexy or infarction of the pituitary gland. Electronically Signed: Conrado Croft MD at 15:50 EDT , CC: Dr. Ade Chairez, DO; No Primary Care Physician Lead Military Analyst: Signed Normal [facility] CBC-Complete Blood Cnt No Di ffon 08-22-2024 Erythrocyte distribution width (RBC) [Ratio] 14.0 % Normal 11.6-14.6 [facility] Comment on above: Performed By: #### L 100.0500, L500.4050 ####[facility] [address] [place], [address] Hematocrit (Bld) [Volume fraction] 40.6 % Normal 37-47 [facility] Comment on above: Performed By: #### L 100.0500, L500.4050 ####[facility] [address] [place], [address] Hemoglobin (Bld) [Mass/Vol] 13.1 g/dL Normal 12.0-15.0 [facility] Comment on above: Performed By: #### L 100.0500, L500.4050 ####[facility] [address] [place], [address] MCH (RBC) [Entitic mass] 26.3 pg Low 27.0-32.0 [facility] Comment on above: Performed By: #### L 100.0500, L500.4050 ####[facility] [address] [place], [address] MCHC (RBC) [Mass/Vol] 32.3 g/dL Normal 32-36 [facility] Comment on above: Performed By: #### L 100.0500, L500.4050 ####[facility] [address] [place], [address] MCV (RBC) [Entitic vol] 81.5 fL Normal 81-99 [facility] Comment on above: Performed By: #### L 100.0500, L500.4050 ####[facility] [address] [place], [address] Platelet mean volume (Bld) [Entitic vol] 8.7 fL Normal 6.2-12.0 [facility] Comment on above: Performed By: #### L 100.0500, L500.4050 ####[facility] [address] [place], [address] Platelets (Bld) [#/Vol] 323 10*3/uL Normal 150-450 [facility] Comment on above: Performed By: #### L 100.0500, L500.4050 ####[facility] [address] [place], [address] RBC (Bld) [#/Vol] 4.98 10*6/uL Normal 4.2-5.[address] [facility] Comment on above: Performed By: #### L 100.0500, L500.4050 ####[facility] [address] [place], [address] RDW SD 41.1 fl Normal 35.1-43.9 [facility] Comment on above: Performed By: #### L 100.0500, L500.4050 ####[facility] [address] [place], [address] WBC (Bld) [#/Vol] 10.7 10*3/uL Normal 4.4-11.[address] [facility] Comment on above: Performed By: #### L 100.0500, L500.4050 ####[facility] [address] [place], [address] Comprehensive Metabolic Prof [facility] 08-22-2024 Albumin [Mass/Vol] 3.4 g/dL Normal 3.2-5.0 [facility] Comment on above: Performed By: #### L 100.0500, L500.4050 ####[facility] [address] [place], [address] Albumin/Globulin [Mass ratio] 0.9 {ratio} Normal 0.9-2.4 [facility] Comment on above: Performed By: #### L 100.0500, L500.4050 ####[facility] [address] [place], [address] ALK P 89 U/L Normal 45-117 [facility] Comment on above: Performed By: #### L 100.0500, L500.4050 ####[facility] [address] [place], [address] ALT [Catalytic activity/Vol] 24 U/L Normal 13-56 [facility] Comment on above: Performed By: #### L 100.0500, L500.4050 ####[facility] [address] [place], [address] AST [Catalytic activity/Vol] 9 U/L Low 15-37 [facility] Comment on above: Performed By: #### L 100.0500, L500.4050 ####[facility] [address] [place], [address] Bilirubin [Mass/Vol] 0.30 mg/dL Normal 0.20-1.00 [facility] Comment on above: Result Comment: For patients on eltrombopag therapy, use of Dimension [place] TBIL is not recommended. Performed By: #### L 100.0500, L500.4050 ####[facility] [address] [place], [address] BUN/CRE 19.6 RATIO Normal 10-20 [facility] Comment on above: Performed By: #### L 100.0500, L500.4050 ####[facility] [address] [place], [address] CA,Total 7.9 mg/dL Low 8.5-10.1 [facility] Comment on above: Performed By: #### L 100.0500, L500.4050 ####[facility] [address] [place], [address] Chloride [Moles/Vol] 105 mmol/L Normal 98-107 [facility] Comment on above: Performed By: #### L 100.0500, L500.4050 ####[facility] [address] [place], [address] CO2 [Moles/Vol] 25.0 mmol/L Normal 21.0-32.0 [facility] Comment on above: Performed By: #### L 100.0500, L500.4050 ####[facility] [address] [place], [address] Creatinine [Mass/Vol] 0.71 mg/dL Normal 0.55-1.02 [facility] Comment on above: Result Comment: The validity of the calculated GFR GFRAA in patients over 70 years has not been determined. Clinical correlation is essential. Performed By: #### L 100.0500, L500.4050 ####[facility] [address] [place], [address] ECRCL 120.19 ml/min Normal [facility] Comment on above: Performed By: #### L 100.0500, L500.4050 ####[facility] [address] [place], [address] EST GFR - AA 119 mL/min Normal >60 [facility] Comment on above: Result Comment: Afri can Georgian GFR Calc Performed By: #### L 100.0500, L500.4050 ####[facility] [address] [place], [address] GAP 7 Normal 5-15 [facility] Comment on above: Performed By: #### L 100.0500, L500.4050 ####[facility] [address] [place], [address] GFR/1.73 sq M.predicted among non-blacks MDRD (S/P/Bld) [Vol rate/Area] 98 mL/min/{1.73_m2} Normal >60 [facility] Comment on above: Result Comment: Non- GFR Calc Performed By: #### L 100.0500, L500.4050 ####[facility] [address] [place], [address] Globulin (S) [Mass/Vol] 3.7 g/dL Normal 2.2-4.2 [facility] Comment on above: Performed By: #### L 100.0500, L500.4050 ####[facility] [address] [place], [address] Glucose [Mass/Vol] 109 mg/dL High 74-106 [facility] Comment on above: Result Comment: Fast ing Glucose result from 100 to 125 mg/dL suggests IMPAIRED HOMEOSTASIS per A.D.A. criteria. Performed By: #### L 100.0500, L500.4050 ####[facility] [address] [place], [address] Potassium [Moles/Vol] 3.9 mmol/L Normal 3.5-5.1 [facility] Comment on above: Performed By: #### L 100.0500, L500.4050 ####[facility] [address] [place], [address] Sodium [Moles/Vol] 136 mmol/L Normal 136-145 [facility] Comment on above: Performed By: #### L 100.0500, L500.4050 ####[facility] [address] [place], [address] T PROT 7.1 g/dL Normal 6.4-8.2 [facility] Comment on above: Performed By: #### L 100.0500, L500.4050 ####[facility] [address] [place], [address] Urea nitrogen [Mass/Vol] 14 mg/dL Normal 7-18 [facility] Comment on above: Performed By: #### L 100.0500, L500.4050 ####[facility] [address] [place], [address] Brain/Head W/WO Contraston 1 Brain/Head W/WO Contrast [facility] Imaging Services [address] [place] [address] Brain/Head W/WO Contrast MR#: [id number] Acct: [id number] Name: JAYLYN STOKES Rep #: [id number] : 1990 F 34 From: George Jones MD PCP: Care Physician,No Primary Status: REG CLI Study: Brain/Head W/WO Contrast Date of Exam: 4 Exam# [id number] Ordering Dr: Janette Medina [id number] STUDY: CT BRAIN WITH AND WITHOUT CONTRAST REASON FOR EXAM: Female, 34 years old. pre-eclapsia RADIATION DOSAGE (If Supplied By Facility): CTDIvol = ( 47.06 ) mGy, DLP = ( 1745.36 ) mGycm TECHNIQUE: Transaxial CT imaging of the brain was performed pre and post contrast administration. The examination was performed with intravenous administration of IV 50mL Isovue-370. Individualized dose optimization techniques were used for this CT. COMPARISON: None. FINDINGS: Normal soft tissue structures. Normal calvarium. Normal size ventricles and extra-axial spaces for the patient''s age. Normal white matter tracts of the cerebral hemispheres. Normal basal ganglia and thalami. Normal brainstem. Normal cerebellum. There is very mild prominence of the pituitary and base of the proximal infundibulum without well-defined mass.. MRI of the sella turcica would be helpful for more definitive evaluation if clinically warranted There are no findings of an acute ischemic infarction. Normal visualized paranasal sinuses. CT/Brain/Head W/WO Contrast IMPRESSION: Mild prominence of the pituitary and base of the infundibulum of indeterminate clinical significance. MRI would be useful for more definitive evaluation Electronically Signed: George Jones MD at 17:39 EDT Reading Location ID and State: [facility] / [place] Tel , Service support , CC: Dr. Janette Medina MD; No Primary Care Physician Lead Military Analyst: Signed Normal [facility] CBC-Complete Blood Cnt No Di ffon 08-21-2024 Erythrocyte distribution width (RBC) [Ratio] 14.2 % Normal 11.6-14.6 [facility] Comment on above: Performed By: #### L 501.0900, L501.1105, L501.1400, L100.0500 ####[facility] [address] [place], [address] Hematocrit (Bld) [Volume fraction] 37.8 % Normal 37-47 [facility] Comment on above: Performed By: #### L 501.0900, L501.1105, L501.1400, L100.0500 ####[facility] [address] [place], [address] Hemoglobin (Bld) [Mass/Vol] 12.4 g/dL Normal 12.0-15.0 [facility] Comment on above: Performed By: #### L 501.0900, L501.1105, L501.1400, L100.0500 ####[facility] [address] [place], [address] MCH (RBC) [Entitic mass] 26.7 pg Low 27.0-32.0 [facility] Comment on above: Performed By: #### L 501.0900, L501.1105, L501.1400, L100.0500 ####[facility] [address] [place], [address] MCHC (RBC) [Mass/Vol] 32.8 g/dL Normal 32-36 [facility] Comment on above: Performed By: #### L 501.0900, L501.1105, L501.1400, L100.0500 ####[facility] [address] [place], [address] MCV (RBC) [Entitic vol] 81.5 fL Normal 81-99 [facility] Comment on above: Performed By: #### L 501.0900, L501.1105, L501.1400, L100.0500 ####[facility] [address] [place], [address] Platelet mean volume (Bld) [Entitic vol] 9.0 fL Normal 6.2-12.0 [facility] Comment on above: Performed By: #### L 501.0900, L501.1105, L501.1400, L100.0500 ####[facility] [address] [place], [address] Platelets (Bld) [#/Vol] 311 10*3/uL Normal 150-450 [facility] Comment on above: Performed By: #### L 501.0900, L501.1105, L501.1400, L100.0500 ####[facility] [address] [place], [address] RBC (Bld) [#/Vol] 4.64 10*6/uL Normal 4.2-5.[address] [facility] Comment on above: Performed By: #### L 501.0900, L501.1105, L501.1400, L100.0500 ####[facility] [address] [place], [address] RDW SD 41.8 fl Normal 35.1-43.9 [facility] Comment on above: Performed By: #### L 501.0900, L501.1105, L501.1400, L100.0500 ####[facility] [address] [place], [address] WBC (Bld) [#/Vol] 9.0 10*3/uL Normal 4.4-11.0 [facility] Comment on above: Performed By: #### L 501.0900, L501.1105, L501.1400, L100.0500 ####[facility] [address] [place], [address] Comprehensive Metabolic Prof [facility] 08-21-2024 Albumin [Mass/Vol] 3.2 g/dL Normal 3.2-5.0 [facility] Comment on above: Performed By: #### L 100.0100, L500.4050 #### [facility] [address] [place], [address] Albumin/Globulin [Mass ratio] 0.9 {ratio} Normal 0.9-2.4 [facility] Comment on above: Performed By: #### L 100.0100, L500.4050 #### [facility] [address] [place], [address] ALK P 89 U/L Normal 45-117 [facility] Comment on above: Performed By: #### L 100.0100, L500.4050 #### [facility] [address] [place], [address] ALT [Catalytic activity/Vol] 27 U/L Normal 13-56 [facility] Comment on above: Performed By: #### L 100.0100, L500.4050 #### [facility] [address] [place], [address] AST [Catalytic activity/Vol] 15 U/L Normal 15-37 [facility] Comment on above: Performed By: #### L 100.0100, L500.4050 #### [facility] [address] [place], [address] Bilirubin [Mass/Vol] 0.20 mg/dL Normal 0.20-1.00 [facility] Comment on above: Result Comment: For patients on eltrombopag therapy, use of Dimension [place] TBIL is not recommended. Performed By: #### L 100.0100, L500.4050 #### [facility] [address] [place], [address] BUN/CRE 16.5 RATIO Normal 10-20 [facility] Comment on above: Performed By: #### L 100.0100, L500.4050 #### [facility] [address] [place], [address] CA,Total 9.1 mg/dL Normal 8.5-10.1 [facility] Comment on above: Performed By: #### L 100.0100, L500.4050 #### [facility] [address] [place], [address] Chloride [Moles/Vol] 110 mmol/L High 98-107 [facility] Comment on above: Performed By: #### L 100.0100, L500.4050 #### [facility] [address] [place], [address] CO2 [Moles/Vol] 24.0 mmol/L Normal 21.0-32.0 [facility] Comment on above: Performed By: #### L 100.0100, L500.4050 #### [facility] [address] [place], [address] Creatinine [Mass/Vol] 0.79 mg/dL Normal 0.55-1.02 [facility] Comment on above: Result Comment: The validity of the calculated GFR GFRAA in patients over 70 years has not been determined. Clinical correlation is essential. Performed By: #### L 100.0100, L500.4050 #### [facility] [address] [place], [address] ECRCL 108.02 ml/min Normal [facility] Comment on above: Performed By: #### L 100.0100, L500.4050 #### [facility] [address] [place], [address] EST GFR - AA 106 mL/min Normal >60 [facility] Comment on above: Result Comment: Afri can Georgian GFR Calc Performed By: #### L 100.0100, L500.4050 #### [facility] [address] [place], [address] GAP 8 Normal 5-15 [facility] Comment on above: Performed By: #### L 100.0100, L500.4050 #### [facility] [address] [place], [address] GFR/1.73 sq M.predicted among non-blacks MDRD (S/P/Bld) [Vol rate/Area] 88 mL/min/{1.73_m2} Normal >60 [facility] Comment on above: Result Comment: Non- GFR Calc Performed By: #### L 100.0100, L500.4050 #### [facility] [address] [place], [address] Globulin (S) [Mass/Vol] 3.6 g/dL Normal 2.2-4.2 [facility] Comment on above: Performed By: #### L 100.0100, L500.4050 #### [facility] [address] [place], [address] Glucose [Mass/Vol] 83 mg/dL Normal 74-106 [facility] Comment on above: Performed By: #### L 100.0100, L500.4050 #### [facility] [address] [place], [address] Potassium [Moles/Vol] 4.2 mmol/L Normal 3.5-5.1 [facility] Comment on above: Performed By: #### L 100.0100, L500.4050 #### [facility] [address] [place], [address] Sodium [Moles/Vol] 142 mmol/L Normal 136-145 [facility] Comment on above: Performed By: #### L 100.0100, L500.4050 #### [facility] [address] [place], [address] T PROT 6.8 g/dL Normal 6.4-8.2 [facility] Comment on above: Performed By: #### L 100.0100, L500.4050 #### [facility] [address] [place], [address] Urea nitrogen [Mass/Vol] 13 mg/dL Normal 7-18 [facility] Comment on above: Performed By: #### L 100.0100, L500.4050 #### [facility] [address] [place], [address] OB Triage Physician Noteon 1 OB Triage Physician Note [facility] Medical Records Department [address] [place] [address] OB Triage Physician Note 08/21/24 1814 MR#: [id number] Acct: [id number] Name: JAYLYN STOKES Rep #: [id number] : 1990 34 From: Janette Medina MD PCP: Care Physician,No Primary Status:REG CLI Y Location: [id number] HPI - General HPI Narrative JAYLYN STOKES, is a 34 F who presents with headache and elevated blood pressure preeclampsia . She initially had clonus present on 1 side and persistent headache increasing over the last day. She had elevated blood pressures around the end of . She has been unable to take her blood pressures at home. She denies any visual changes right now. Headache did not go away with Tylenol at home earlier. PFSH [facility] Medical History (Updated 08/21/24 @ 18:[address] Janette Medina MD) Supervision of high-risk Obesity affecting Abnormal glucose affecting AMA (advanced maternal age) multigravida 35+ Encounter for induction of labor Genital herpes affecting depression Advanced maternal age (AMA) in Obesity HPV (human papilloma virus) infection Depression Anxiety Headache Gestational HTN Home Medications ???Medication ???Instructions ???Recorded ???Last Taken ???Type magnesium oxide 400 mg PO QDAY 08/01/24 08/21/24 08:00 History Allergy/AdvReac Type Severity Reaction Status Date / Time oxycodone (From Roxicodone) Allergy Intermediate Other Verified 08/21/24 15:26 Family History Grandmother Cancer, Onset Age: 60 Paternal- Uterine Father Myocardial infarction Mother Kidney disease Stg IV kidney disease Thyroid disorder hyperthyroid Sister Thyroid disorder hyperthyroid Aunt Thyroid disorder hyperthyroid Surgical History (Updated 08/13/24 @ 08:42 by Paolo Saeed) S/P LASIK surgery of both eyes Hx of eye surgery History of colposcopy History of surgery Social History adopted: No household members: spouse and children number of children: 1 current occupational status: unemployed current occupation: [employer] current occupational exposures/hazards: No pets and animals: Yes pets and animals: dog(s) history of recent travel: No sexually active: Yes Smoking Status: Never smoker alcohol intake: current alcohol intake frequency: holidays/special occasions only details: not while substance use type: does not use well-balanced diet: daily or most days caffeine: Yes Type: coffee Number of servings: 1 eating out: 1-3 times/week during the past year weight has: remained stable what type of physical activity do you participate in: walking frequency: 1-2 times per week duration: 15-30 minutes/day stormy/synagogue: None seatbelt use: always do you feel safe at home: Yes additional social history: [employer] @ [employer] Patient has 2 step children History 2 Elective abortions Hx Para 1 Spontaneous abortions Hx # Term Pregnancies Ectopic pregnancies Hx # Pregnancies Multiple births # of living children 2 Past Pregnancies Del. Date Name GA/Weeks Outcome Route Bth Weight Gen Labor Lgth Anesthesia Del Locatn Provider FOB 03/21/21 Shay 39 live - full term forceps 7#11oz Male 21 HRs epidural [facility] Reji Mullen 08/13/24 Maryana 39 live - full term Female epidural [facility] Carri Mullen Delivery Date: 03/21/21 Last Updated by: Yanira Baig IOL swelling BP elevated Delivery Date: 08/13/24 Last Updated by: Melissa Prince RN See problem list for complications, and KW IOL AMA BMI ghtn ROS Constitutional Constitutional: Reports systems reviewed and no addt'l complaints, except as documented; Denies as per HPI, change in weight, fatigue, fever(s), malaise, weakness or other Eyes Eyes: Reports systems reviewed and no addt'l complaints, except as documented; Denies as per HPI, change in vision or other ENT HEENT: Reports systems reviewed and no addt'l complaints, except as documented Respiratory/Chest Respiratory/Chest: Reports systems reviewed and no addt'l complaints, except as documented Gastrointestinal Gastrointestinal: Reports systems reviewed and no addt'l complaints, except as documented and as per HPI Genitourinary Genitourinary: Reports as per HPI Musculoskeletal Musculoskeletal: Reports systems reviewed and no addt'l complaints, except as documented Neurologic Neurologic: Reports systems reviewed and no addt'l complaints, except as documented Psychiatric Psychiatric: Reports systems reviewed and no addt'l complaints, except as documented Endocrine Endocrinology: (more content not included)... Normal [facility] Protein+Creatinine Ratio,Uri neon 08-21-2024 PROT:CRE RATIO 825 mg/g CRE High 0-200 [facility] Comment on above: Performed By: #### L 501.0900, L501.1105, L501.1400, L100.0500 ####[facility] [address] [place], [address] Protein (U) [Mass/Vol] 52.0 mg/dL High <11.9 [facility] Comment on above: Performed By: #### L 501.0900, L501.1105, L501.1400, L100.0500 ####[facility] [address] [place], [address] UR CREAT 63.00 mg/dL Normal NO RANGE EST. [facility] Comment on above: Performed By: #### L 501.0900, L501.1105, L501.1400, L100.0500 ####[facility] [address] [place], [address] Serum Creatinine AND GFRon 1 0 Creatinine [Mass/Vol] 0.86 mg/dL Normal 0.55-1.02 [facility] Comment on above: Result Comment: The validity of the calculated GFR GFRAA in patients over 70 years has not been determined. Clinical correlation is essential. Performed By: #### L 501.0900, L501.1105, L501.1400, L100.0500 ####[facility] [address] [place], [address] ECRCL 99.23 ml/min Normal [facility] Comment on above: Performed By: #### L 501.0900, L501.1105, L501.1400, L100.0500 ####[facility] [address] [place], [address] EST GFR - AA 96 mL/min Normal >60 [facility] Comment on above: Result Comment: Afri can Georgian GFR Calc Performed By: #### L 501.0900, L501.1105, L501.1400, L100.0500 ####[facility] [address] [place], [address] GFR/1.73 sq M.predicted among non-blacks MDRD (S/P/Bld) [Vol rate/Area] 80 mL/min/{1.73_m2} Normal >60 [facility] Comment on above: Result Comment: Non- GFR Calc Performed By: #### L 501.0900, L501.1105, L501.1400, L100.0500 ####[facility] [address] [place], [address] Uric Acidon 08-21-2024 URIC 9.2 mg/dL High 2.6-6.0 [facility] Comment on above: Result Comment: The drugs N-Acetylcysteine and Metamizole may falsely depress this assay. Performed By: #### L 501.0900, L501.1105, L501.1400, L100.0500 ####[facility] [address] [place], [address] AST(SGOT)on 08-13-2024 AST [Catalytic activity/Vol] 10 U/L Low 15-37 [facility] Comment on above: Performed By: #### L 100.0100, L500.4050 #### [facility] [address] [place], [address] Alanine Aminotransferas (SGP T)on 08-13-2024 ALT [Catalytic activity/Vol] 12 U/L Low 13-56 [facility] Comment on above: Performed By: #### L 100.0100, BTS #### [facility] [address] [place], [address] CBC W/Diff, Automatedon 07-17 Absolute Lymph 2.03 X10 3/uL Normal 0.83-4.51 [facility] Comment on above: Performed By: #### L 100.0100, BTS #### [facility] [address] [place], [address] Absolute Neut 7.9 X10 3/uL High 2.0-7.7 [facility] Comment on above: Performed By: #### L 100.0100, BTS #### [facility] [address] [place], [address] Basophils/100 WBC (Bld) 0.4 % Normal 0-1 [facility] Comment on above: Performed By: #### L 100.0100, BTS #### [facility] [address] [place], [address] Eosinophils/100 WBC (Bld) 0.8 % Normal 0-5 [facility] Comment on above: Performed By: #### L 100.0100, BTS #### [facility] [address] [place], [address] Erythrocyte distribution width (RBC) [Ratio] 14.7 % High 11.6-14.6 [facility] Comment on above: Performed By: #### L 100.0100, BTS #### [facility] [address] [place], [address] Hematocrit (Bld) [Volume fraction] 39.6 % Normal 37-47 [facility] Comment on above: Performed By: #### L 100.0100, BTS #### [facility] [address] [place], [address] Hemoglobin (Bld) [Mass/Vol] 12.9 g/dL Normal 12.0-15.0 [facility] Comment on above: Performed By: #### L 100.0100, BTS #### [facility] [address] [place], [address] IG% 1.000 High 0.0-0.9 [facility] Comment on above: Result Comment: IG% - Immature Granulocytes (promyelocytes, myelocytes and metamyelocytes) > 1% indicates that a LEFT SHIFT is Present. Performed By: #### L 100.0100, BTS #### [facility] [address] [place], [address] Lymphocytes/100 WBC (Bld) 18.8 % Low 19-41 [facility] Comment on above: Performed By: #### L 100.0100, BTS #### [facility] [address] [place], [address] MCH (RBC) [Entitic mass] 26.6 pg Low 27.0-32.0 [facility] Comment on above: Performed By: #### L 100.0100, BTS #### [facility] [address] [place], [address] MCHC (RBC) [Mass/Vol] 32.6 g/dL Normal 32-36 [facility] Comment on above: Performed By: #### L 100.0100, BTS #### [facility] [address] [place], [address] MCV (RBC) [Entitic vol] 81.6 fL Normal 81-99 [facility] Comment on above: Performed By: #### L 100.0100, BTS #### [facility] [address] [place], [address] Monocytes/100 WBC (Bld) 5.8 % Normal 0-10 [facility] Comment on above: Performed By: #### L 100.0100, BTS #### [facility] [address] [place], [address] Neutrophils/100 WBC (Bld) 73.2 % High 47-70 [facility] Comment on above: Performed By: #### L 100.0100, BTS #### [facility] [address] [place], [address] Nucleated RBC (Bld) [#/Vol] 0 10*3/uL Normal 0-5 [facility] Comment on above: Performed By: #### L 100.0100, BTS #### [facility] [address] [place], [address] Platelet mean volume (Bld) [Entitic vol] 9.5 fL Normal 6.2-12.0 [facility] Comment on above: Performed By: #### L 100.0100, BTS #### [facility] [address] [place], [address] Platelets (Bld) [#/Vol] 208 10*3/uL Normal 150-450 [facility] Comment on above: Performed By: #### L 100.0100, BTS #### [facility] [address] [place], [address] RBC (Bld) [#/Vol] 4.85 10*6/uL Normal 4.2-5.[address] [facility] Comment on above: Performed By: #### L 100.0100, BTS #### [facility] [address] [place], [address] RDW SD 43.3 fl Normal 35.1-43.9 [facility] Comment on above: Performed By: #### L 100.0100, BTS #### [facility] [address] [place], [address] WBC (Bld) [#/Vol] 10.8 10*3/uL Normal 4.4-11.[address] [facility] Comment on above: Performed By: #### L 100.0100, BTS #### [facility] [address] [place], [address] Discharge Instructionon 07-17 Discharge Instruction [facility] Medical Records Department [address] [place] [address] Instructions for Home/Discharge Instructions 08/13/242118 MR#: [id number] Acct: [id number] Name: JAYLYN STOKES Rep #: [id number] : 1990 34 From: Layne Boles CNM PCP: Care Physician,No Primary Status:ADM IN Discharge Instructions Diet Discharge Diet: No restrictions Activity Discharge Activity: Return to Normal Activity May resume sexual activity in: 6-8 weeks Dressing / Incision Call your doctor if you observe: Fever of 101 or Higher, Coldness, Increased Pain, Numbness or Tingling, Change in Color, Inability to urinate, Inability to have a bowel movement, Using more than 1 pad per hour, Shortness of breath, Dizziness, Fainting spells, Swelling in the ankles, Chest pain, Increased palpitations (irregular heartbeat), Calf discomfort and Uncontrolled pain Follow Up Care Please Follow Up With: Layne Boles CNM When: Please call the office to schedule your follow up appointment in 6 weeks. If you had high blood pressure please call to schedule an appointment in 2 weeks. Test Results: Test results from this visit will be discussed in further detail at your follow-up appointment, if applicable. Discharge Plan Admission Admit Date/Time: 08/13/24 07:18 Attending Provider: Layne Boles Primary Care Provider: Amy Physician,No Primary Discharge Orders/Prescriptions Prescriptions: No Action PNV-DHA 27 mg iron-1 mg -300 mg capsule PO valacyclovir [Valtrex] 500 mg tablet 1,000 mg PO DAILY Qty: 30 1RF aspirin 81 mg tablet,delayed release (DR/EC) 81 mg PO DAILY magnesium oxide 400 mg magnesium tablet 400 mg PO QDAY Referrals / Follow Up: Care Physician,No Primary [Primary Care Provider] - 08/13/242118 Layne Boles CNM CC: No Primary Care Physician Signed Normal [facility] H AND P Exam - OB/GYNon 07-17 H&P Exam - 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 WORKER [facility] Medical Records Department [address] [place] [address] H P Exam - GATHERING WORKER 08/13/24 0755 MR#: [id number] Acct: [id number] Name: JAYLYN STOKES Rep #: [id number] : 1990 34 From: Layne Boles CNM PCP: Amy Physician,No Primary Status:ADM IN Location: [id number] HPI - General General Date of Admission: 08/13/24 Date of Service: 08/13/24 HPI Narrative JAYLYN STOKES, is a 34 F 39.1 weeks gestation who presents to unit for induction of labor for BMI, AMA and hx GHTN Maternal Data Information WILLIAM Calculator Estimated Delivery Date Method Current WG Current Estimate 08/19/24 LMP (Certain) 39w 1d Other Estimates 08/15/24 Ultrasound #1 39w 5d Final WILLIAM: 08/19/24 Final WILLIAM Source: US >20 weeks Gestational age: 39.1 weeks PFSH PFSH Medical History HPV (human papilloma virus) infection Depression Anxiety Headache Gestational HTN Home Medications ???Medication ???Instructions ???Recorded ???Last Taken ???Type multivitamin no.47-iron fum 27 cap PO 01/06/24 Unknown History mg-folate no.1 1 mg-dha 300 mg capsule (PNV-DHA) valacyclovir 500 mg tablet 1,000 mg (2 x 500 mg) PO DAILY #30 01/13/24 Unknown Rx (Valtrex) tabs aspirin 81 mg tablet,delayed 81 mg PO DAILY 02/20/24 Unknown History release magnesium oxide 400 mg PO QDAY 08/01/24 Unknown History Allergy/AdvReac Type Severity Reaction Status Date / Time oxycodone (From Roxicodone) Allergy Intermediate Other Verified 08/09/24 10:51 Family History Grandmother Cancer, Onset Age: 60 Paternal- Uterine Father Myocardial infarction Mother Kidney disease Stg IV kidney disease Thyroid disorder hyperthyroid Sister Thyroid disorder hyperthyroid Aunt Thyroid disorder hyperthyroid Surgical History History of colposcopy History of surgery Social History adopted: No household members: spouse and children number of children: 1 current occupational status: unemployed current occupation: [employer] current occupational exposures/hazards: No pets and animals: Yes pets and animals: dog(s) history of recent travel: No sexually active: Yes Smoking Status: Never smoker alcohol intake: current alcohol intake frequency: holidays/special occasions only details: not while substance use type: does not use well-balanced diet: daily or most days caffeine: Yes Type: coffee Number of servings: 1 eating out: 1-3 times/week during the past year weight has: remained stable what type of physical activity do you participate in: walking frequency: 1-2 times per week duration: 15-30 minutes/day stormy/synagogue: None seatbelt use: always do you feel safe at home: Yes 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 Date Name GA/Weeks Outcome Route Bth Weight Infant Gen Labor Lgth Anesthesia Del Locatn Provider FOB 03/21/21 Shay 39 live - full term forceps 7#11oz Male 21 HRs epidural [facility] Reji Adler Sebas Delivery Date: 03/21/21 Last Updated by: Yanira Baig IOL swelling BP elevated Visit Details Expected Delivery Route/Plan Labor Preferences- CB/BF classes: no labor support person: Sebas labor intervention preferences: [] pain management options preferred: epidural cut cord/dad catch: cord : yes PP control planned: discussed discussed possible routes of delivery and associated risks: [] special requests: [] Plans Covid status: [] Flu vaccine: [] Tdap vaccine: decline Rhogam: Na LARC form signed: yes movement and labor precautions reviewed. Problem list reviewed and updated with the most current plan of care details and appropriate orders placed. Relevant counseling for the gestational age provided. Continue routine care and follow up unless otherwise noted in visit notes/problem list details OB Flowsheet Initial Weight: Not Recorded Date -???-???-???-???-???-??? -???-???-???-???-???-??? - EGA Weight BP Urine Prot -???-???-???-???-???-??? -???-???-???-???-???-??? - Glucose FHR FuHt Pres Dilation -???-???-???-???-???-??? -???-???-???-???-???-??? - Effaced St Visit Note 01/13/24 -???-???-???-???-???-??? -???-???-???-???-???-??? - 8w 5d 241 lb 6 oz 130/85 -???-???-???-???-???-??? -???-???-???-???-???-??? - 165 -???-???-???-???-??? (more content not included)... Normal [facility] L509.8000on 08-13-2024 Syphilis Abs Non-Reactive Normal [facility] Comment on above: Performed By: #### L 100.0100, L500.4050 #### [facility] [address], [address] Operative Reporton Operative Report [facility] Medical Records Department [address] [place] [address] Operative Report 08/13/24 2115 MR#: [id number] Acct: [id number] Name: JAYLYN STOKES Rep #: [id number] : 1990 34 From: Layne Boles CNM PCP: Care Physician,No Primary Status:ADM IN Location: [id number] Assessment Plan (1) Vaginal delivery: COMMENT: KW IOL AMA, ghtn, BMI girl (2) Encounter for induction of labor: COMMENT: AMA, BMI, ghtn (3) AMA (advanced maternal age) multigravida 35+: COMMENT: growth US 36 weeks deliver 39 (4) Abnormal glucose affecting : COMMENT: 3 HR GTT Normal (5) Obesity affecting : QUALIFIERS: Trimester: second trimester Obesity type affecting : unspecified obesity Qualified Code(s): O99.212 - Obesity complicating , second trimester COMMENT: BMI 45, weekly bpp 34 weeks on, growth US q 4 weeks. 34 wk EFW 40%, AC 91% (6) Hx of depression, currently : COMMENT: stable (7) History of gestational hypertension: COMMENT: end of BP elevated. 81 mg aspirin recommended. (8) Supervision of high-risk : QUALIFIERS: Trimester: second trimester Qualified Code(s): O09.92 - Supervision of high risk , unspecified, second trimester COMMENT: PRR, , WILLIAM 08/19/24, girl Maryana Menezes GRETEL Shay, Sebas (9) : QUALIFIERS: Weeks of gestation: 38 weeks Qualified Code(s): Z3A.38 - 38 weeks gestation of COMMENT: gbs neg, nl anatomy, NIPT low risk declined carrier testing and afp testing. (10) Herpes genitalis: QUALIFIERS: Herpes simplex infection site: vulvovaginitis Qualified Code(s): A60.04 - Herpesviral vulvovaginitis COMMENT: treat at 36 weeks Maternal Data Information WILLIAM Calculator Estimated Delivery Date Method Current WG Current Estimate 08/19/24 LMP (Certain) 39w 1d Other Estimates 08/15/24 Ultrasound #1 39w 5d Final WILLIAM: 08/19/24 Final WILLIAM Source: US >20 weeks Gestational age: 39.1 Vaginal Delivery Maternal Presentation Maternal Presentation: Medically Indicated Induction (AMA, BMI, ghtn) Maternal Presentation: Progressed well to 10cm dilated and made steady progress with effective maternal pushing. Delivered the head in SUSANA presentation. The head was delivered atraumatically and a loose nuchal cord was identified and was easily reduced over the infant's head. The anterior and posterior shoulders delivered without complication followed by the rest of the and the was placed on the maternal abdomen. Delayed cord clamping was employed for approximately 3 minutes. Cord was clamped and cut and gentle traction was applied to the cord and the placenta delivered spontaneously. Immediately following, it was noted to be intact with a 3 vessel cord. IV Pitocin started and vaginal bleeding stable. The perineum and vagina were inspected and noted to have a first degree laceration which was repaired with 3-0 Vicryl in the usual fashion. EBL was 200cc. Apgars 8/9. Patient and tolerated delivery well. Bonding skin to skin during recovery. Dr Medina notified of vaginal delivery and orders reviewed. Physician agrees with current plan of care. Type of Induction: Pitocin Medical Reason for Induction: Gestational Hypertension and Maternal Medical Condition: list: (AMA, BMI) Operative Information Date of Procedure: 08/13/24 Pre-Operative Diagnosis: See AP comments Post-Operative Diagnosis: Same Surgery / Procedure Performed: Spontaneous Vaginal Delivery body stylist #1: Layne Boles Type of Anesthesia: Epidural Time of Delivery: 20:55 Findings Presentation: Vertex Amniotic Membrane Rupture Type: Artificial Amniotic Fluid Description: Clear Placental Delivery Description: Spontaneous Placenta Disposition: [facility] Cord Entanglement: Around neck x 1, loose Infant A Gender: Female (1 minute): 8 (5 minute): 9 Delayed Cord Clamping: Yes Post Vaginal Delivery Medications Given After Delivery: IV Pitocin Episiotomy Description: None Laceration: 1st degree Complication Complications: None Multi Select Codes Urinary/Genital Urinary/Genital CPT Codes: 03375 Vaginal Delivery [facility] 08/13/242118 Cosigner Signature (if applicable): CC: ORAL Boles; No Primary Care Physician Signed ADDENDUM by ORAL Boles on 08/13/24 at 2121 Addendum 08/13/242121 Cosigner Signature (if applicable): cc: ORAL Boles; No Primary Care Physician * Signed Normal [facility] Protein+Creatinine Ratio,Uri neon 08-13-2024 PROT:CRE RATIO 136 mg/g CRE Normal 0-200 [facility] Comment on above: Performed By: #### L 100.0100, L500.4050 #### [facility] [address] [place], [address] Protein (U) [Mass/Vol] 34.3 mg/dL High <11.9 [facility] Comment on above: Performed By: #### L 100.0100, L500.4050 #### [facility] [address] [place], [address] UR CREAT 253.00 mg/dL Normal NO RANGE EST. [facility] Comment on above: Performed By: #### L 100.0100, L500.4050 #### [facility] [address] [place], [address] Serum Creatinine AND GFRon 0 08-13-2024 Creatinine [Mass/Vol] 0.71 mg/dL Normal 0.55-1.02 [facility] Comment on above: Result Comment: The validity of the calculated GFR GFRAA in patients over 70 years has not been determined. Clinical correlation is essential. Performed By: #### L 100.0100, L500.4050 #### [facility] [address] [place], [address] ECRCL 124.58 ml/min Normal [facility] Comment on above: Performed By: #### L 100.0100, L500.4050 #### [facility] [address] [place], [address] EST GFR - AA 120 mL/min Normal >60 [facility] Comment on above: Result Comment: Afri can Georgian GFR Calc Performed By: #### L 100.0100, L500.4050 #### [facility] [address] [place], [address] GFR/1.73 sq M.predicted among non-blacks MDRD (S/P/Bld) [Vol rate/Area] 99 mL/min/{1.73_m2} Normal >60 [facility] Comment on above: Result Comment: Non- GFR Calc Performed By: #### L 100.0100, L500.4050 #### [facility] [address] [place], [address] Type AND Screenon 08-13-2024 ABO and Rh group Nom (Bld) Blood group A Rh(D) positive Normal [facility] Comment on above: Order Comment: Labor Performed By: #### L 100.0100, BTS #### [facility] [address] [place], [address] Uric Acidon 08-13-2024 URIC 6.5 mg/dL High 2.6-6.0 [facility] Comment on above: Result Comment: The drugs N-Acetylcysteine and Metamizole may falsely depress this assay. Performed By: #### L 100.0100, L500.4050 #### [facility] [address] [place], [place], [address] Biophysical Prof W/O Non Str eson 08-09-2024 Biophysical Prof W/O Non Stres [facility] Imaging Services [address] [place] [address] Biophysical Prof W/O Non Stres MR#: [id number] Acct: [id number] Name: JAYLYN STOKES Rep #: [id number] : 1990 F 34 From: Raf sol MD PCP: Care Physician,No Primary Status: REG CLI Study: Biophysical Prof W/O Non Stres Date of Exam: 0 08/09/24 Exam# [id number] Ordering Dr: Janette Medina [id number] STUDY: OBSTETRICAL ULTRASOUND - BIOPHYSICAL PROFILE REASON FOR EXAM: Female, 34 years old obesity affecting , growth and BPP LMP: November 13, 2025. PRIOR ULTRASOUND: Comparison is made with prior study August 01, 2024. TECHNIQUE: Transabdominal TECHNICAL QUALITY: Adequate. FINDINGS: There is a single intrauterine fetus. The fetus is in a cephalic presentation. There is demonstrated cardiac activity with a heart rate of 137 bpm. There is a normal amniotic fluid volume. The largest amniotic fluid pocket measures 5.3 cm. The amniotic fluid index (LAKE) is 16.1 cm. The placenta is anterior in location and is not low lying. There are Grade 2 placental changes. Age by LMP: 38 weeks, 4 days. WILLIAM by LMP: August 19, 2024. BIOPHYSICAL PROFILE: Breathing Movements (FBM): 2 Gross Body Movements (GBM): 2 Tone (FT): 2 Amniotic Fluid Volume (AFV): 2 TOTAL SCORE: 8 / 8 IMPRESSION: Normal biophysical profile of 06/21. Electronically Signed: Raf Hernandes MD at 14:38 EDT , [id number] STUDY: SECOND AND THIRD TRIMESTER OBSTETRICAL ULTRASOUND - LIMITED REASON FOR EXAM: Female, 34 years old obesity affecting , growth and BPP LMP: November 13, 2025. PRIOR ULTRASOUND: Comparison is made with prior study dated August 01, 2024. TECHNIQUE: TECHNICAL QUALITY: Adequate. FINDINGS: There is a single intrauterine fetus. The fetus is in a cephalic presentation. There is demonstrated cardiac activity with a heart rate of 137 bpm. There is a normal amniotic fluid volume. The largest amniotic fluid pocket measures 5.3 cm. The amniotic fluid index (LAKE) is 16.1 cm. The placenta is anterior in location and is not low lying. There are Grade 2 placental changes. BIOMETRY: BPD: 8.81 cm: 35 weeks, 4 days. 8% HC: 34.58 cm: 40 weeks, 0 days. 70% AC: 36.04 cm: 40 weeks, 0 days. 94% FL: 7.2 cm: 36 weeks, 6 days. 16% Age by LMP: 38 weeks, 4 days. WILLIAM by LMP: August 19, 2024. age by current US: 38 weeks, 2 days. WILLIAM by current US: August 21, 2024. Estimated weight: 3523 grams, +/- 528 grams, 65 percentile. US/Biophysical Prof W/O Non Stres IMPRESSION: Single live intrauterine gestation with a mean gestational age of 38 weeks and 2 days. Electronically Signed: Raf [place]andes MD at 14:40 EDT , CC: Dr. Janette Medina MD; No Primary Care Physician Lead Military Analyst: Signed Normal [facility] Mold Inspector Office Visit Reporton 08-09-2024 Mold Inspector Office Visit Report [facility] [address], [address] [place] [address] OFFICE VISIT Date of Service: 08/09/24 MR#: [id number] Acct: [id number] Name: JAYLYN STOKES Rep #: [id number] : 1990 Provider: ORAL Daniels ams Age/Sex: 34/F Location[place] [facility] Status: Signed Intake Vital Signs 05/28/24 13:19 08/01/24 10:36 08/09/24 10:42 08/09/24 10:49 Height 5 ft 1 in 5 ft 1 in 5 ft 1 in 5 ft 1 in Weight: 242 lb BMI 45.7 BP 140/91 H 128/85 H Intake Visit 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: 38 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 Is patient in pain?: No Allergies oxycodone (From Roxicodone) Allergy (Intermediate, Verified 08/09/24 10:51) Other Medications ???Medication ???Instructions ???Recorded ???Confirmed ???Type multivitamin no.47-iron fum 27 cap PO 01/06/24 08/09/24 History mg-folate no.1 1 mg-dha 300 mg capsule (PNV-DHA) valacyclovir 500 mg tablet 1,000 mg (2 x 500 mg) PO DAILY #30 01/13/24 08/09/24 Rx (Valtrex) tabs aspirin 81 mg tablet,delayed 81 mg PO DAILY 02/20/24 08/09/24 History release magnesium oxide 400 mg PO QDAY 08/01/24 08/09/24 History Last Menstrual Period: 11/13/23 Zika: Zika virus screening: Negative : No Have you fallen in the past year?: No PFSH PFSH Medical History HPV (human papilloma virus) infection Depression Anxiety Headache Gestational HTN Surgical History History of colposcopy History of surgery Family History Grandmother Cancer, Onset Age: 60 Paternal- Uterine Father Myocardial infarction Mother Kidney disease Stg IV kidney disease Thyroid disorder hyperthyroid Sister Thyroid disorder hyperthyroid Aunt Thyroid disorder hyperthyroid Social History adopted: No household members: spouse and children number of children: 1 current occupational status: unemployed current occupation: [employer] current occupational exposures/hazards: No pets and animals: Yes pets and animals: dog(s) history of recent travel: No sexually active: Yes Smoking Status: Never smoker alcohol intake: current alcohol intake frequency: holidays/special occasions only details: not while substance use type: does not use well-balanced diet: daily or most days caffeine: Yes Type: coffee Number of servings: 1 eating out: 1-3 times/week during the past year weight has: remained stable what type of physical activity do you participate in: walking frequency: 1-2 times per week duration: 15-30 minutes/day stormy/synagogue: None seatbelt use: always do you feel safe at home: Yes 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 Date Name GA/Weeks Outcome Route Bth Weight Gen Labor Lgth Anesthesia Del Locatn Provider FOB 03/21/21 Shay 39 live - full term forceps 7#11oz Male 21 HRs epidural [facility] Reji Adler Sebas Delivery Date: 03/21/21 Last Updated by: Yanira Baig IOL swelling BP elevated HPI 38 wk ob Details: JAYLYN STOKES is a 34 year old who presents for routine OB visit. OB Visit WILLIAM Calculator Estimated Delivery Date Method Current WG Current Estimate 08/19/24 LMP (Certain) 38w 4d Other Estimates 08/15/24 Ultrasound #1 39w 1d Expected Delivery Route/Plan Labor Preferences- CB/BF classes: no labor support person: Sebas labor intervention preferences: [] pain management options preferred: epidural cut cord/dad catch: cord : yes PP control planned: discussed discussed possible routes of delivery and associated risks: [] special requests: [] Specific Issue/Plans Covid status: [] Flu vaccine: [] Tdap vaccine: decline Rhogam: Na LARC form signed: yes movement and labor precautions reviewed. Problem list reviewed and updated with the most current plan of care details and appropriate orders placed. Relevant counseling for the gestational age provided. Continue routine care and follow up unless otherwise noted in visit notes/problem list details Initial Weight: Not Recorded Date -???-???-???-???-???-??? -???-???-???-???-???-??? - EGA Weight BP Urine Prot -???-???-???-???-???-??? -???-???-???-???-???-??? - Glucose FHR FuHt Pres Dilation -???-???-???-???-???-??? -???-???-???-???-???-??? - Effaced St Visit Note 01/13/24 -???-???- (more content not included)... Normal [facility] Biophysical Prof W/O Non Str eson 08-01-2024 Biophysical Prof W/O Non Stres [facility] Imaging Services [address] [place] [address] Biophysical Prof W/O Non Stres MR#: [id number] Acct: [id number] Name: JAYLYN STOKES Rep #: [id number] : 1990 F 34 From: Nik lopez MD PCP: Care Physician,No Primary Status: REG CLI Study: Biophysical Prof W/O Non Stres Date of Exam: 0 08/01/24 Exam# [id number] Ordering Dr: Janette Medina [id number] INDICATION: obesity affecting EXAMINATION: Ultrasound US Biophysical Profile W/O Nonst TECHNIQUE: Transabdominal pelvic ultrasound was performed. COMPARISON: Prior study dated: 07/26/24 LMP: Unknown. Beta-hCG: Unknown. Provided EGA: 37 weeks 3 days FINDINGS: INTRAUTERINE GESTATION(s): Single. HEART MOTION is 135 bpm. AMNIOTIC FLUID INDEX (LAKE): 17.2 cm BIOPHYSICAL PROFILE (BPP): 06/21 -- Breathin/2. -- Movement: 2/2. -- Tone: 2/2. --LAKE: 2/2. PRESENTATION: Cephalic PLACENTA: Anterior. There is no placenta previa or abruption. CERVIX: The cervix is not visualized. FREE FLUID: None. US/Biophysical Prof W/O Non Stres IMPRESSION: Single live intrauterine with biophysical profile 06/21. No acute abnormality. Electronically Signed: Nik Gama MD at 22:06 EDT Reading Location ID and State: [id number] [facility] Tel , Service support , CC: Dr. Janette Medina MD; No Primary Care Physician Lead Military Analyst: Signed Normal [facility] Mold Inspector Office Visit Reporton 08-01-2024 Mold Inspector Office Visit Report [facility]'s [address], [address] [place] [address] OFFICE VISIT Date of Service: 08/01/24 MR#: [id number] Acct: [id number] Name: JAYLYN STOKES Rep #: [id number] : 1990 Provider: Dr. 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 Allergies oxycodone (From Roxicodone) Allergy (Intermediate, Verified 08/01/24 10:27) Other Medications ???Medication ???Instructions ???Recorded ???Confirmed ???Type multivitamin no.47-iron fum 27 cap PO 01/06/24 08/01/24 History mg-folate no.1 1 mg-dha 300 mg capsule (PNV-DHA) valacyclovir 500 mg tablet 1,000 mg (2 x 500 mg) PO DAILY #30 01/13/24 08/01/24 Rx (Valtrex) tabs aspirin 81 mg tablet,delayed 81 mg PO DAILY 02/20/24 08/01/24 History release magnesium oxide 400 mg PO QDAY 08/01/24 08/01/24 History Last Menstrual Period: 11/13/23 PFSH PFS Medical History HPV (human papilloma virus) infection Depression Anxiety Headache Gestational HTN Surgical History History of colposcopy History of surgery Family History Grandmother Cancer, Onset Age: 60 Paternal- Uterine Father Myocardial infarction Mother Kidney disease Stg IV kidney disease Thyroid disorder hyperthyroid Sister Thyroid disorder hyperthyroid Aunt Thyroid disorder hyperthyroid Social History adopted: No household members: spouse and children number of children: 1 current occupational status: unemployed current occupation: [employer] current occupational exposures/hazards: No pets and animals: Yes pets and animals: dog(s) history of recent travel: No sexually active: Yes Smoking Status: Never smoker alcohol intake: current alcohol intake frequency: holidays/special occasions only details: not while substance use type: does not use well-balanced diet: daily or most days caffeine: Yes Type: coffee Number of servings: 1 eating out: 1-3 times/week during the past year weight has: remained stable what type of physical activity do you participate in: walking frequency: 1-2 times per week duration: 15-30 minutes/day stormy/synagogue: None seatbelt use: always do you feel safe at home: Yes 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 Date Name GA/Weeks Outcome Route Bth Weight Infant Gen Labor Lgth Anesthesia Del Locatn Provider FOB 03/21/21 Shay 39 live - full term forceps 7#11oz Male 21 HRs epidural [facility] Reji Vitor Mullen Delivery Date: 03/21/21 Last Updated by: Yanira Baig IOL swelling BP elevated HPI 37 wk ob Details: JAYLYN STOKES is a 34 year old who presents for routine OB visit. OB Visit WILLIAM Calculator Estimated Delivery Date Method Current WG Current Estimate 08/19/24 LMP (Certain) 37w 3d Other Estimates 08/15/24 Ultrasound #1 38w 0d Expected Delivery Route/Plan Labor Preferences- CB/BF classes: no labor support person: Sebas labor intervention preferences: [] pain management options preferred: epidural cut cord/dad catch: cord : yes PP control planned: discussed discussed possible routes of delivery and associated risks: [] special requests: [] Specific Issue/Plans Covid status: [] Flu vaccine: [] Tdap vaccine: decline Rhogam: Na LARC form signed: yes movement and labor precautions reviewed. Problem list reviewed and updated with the most current plan of care details and appropriate orders placed. Relevant counseling for the gestational age provided. Continue routine care and follow up unless otherwise noted in visit notes/problem list details Initial Weight: Not Recorded Date -???-???-???-???-???-??? -???-???-???-???-???-??? - EGA Weight BP Urine Prot -???-???-???-???-???-??? -???-???-???-???-???-??? - Glucose FHR FuHt Pres Dilation -???-???-???-???-???-??? -???-???-???-???-???-??? - Effaced St Visit Note 01/13/24 -???-???-???-???-???-??? -???-???-???-???-???-??? - 8w 5d 241 lb 6 oz 130/85 -???-???-???-???-???-??? -???-???-???-???-???-??? - 165 -???-???-???-???-???- (more content not included)... Normal [facility] Rule out Beta Strep (Grp. B) on 07-28-2024 JORDAN Group B Beta Streptococcus is not isolated. Normal [facility] Comment on above: Performed By: #### L 100.0100, L500.4050 #### [facility] [address] [facility]. [place], [place], [address] Biophysical Prof W/O Non Str eson 07-26-2024 Biophysical Prof W/O Non Stres [facility] Imaging Services [address] [place] [place], [place] [address] Biophysical Prof W/O Non Stres MR#: [id number] Acct: [id number] Name: JAYLYN STOKES Rep #: [id number] : 1990 F 34 From: Joe Nunes PCP: Care Physician,No Primary Status: [facility] Study: Biophysical Prof W/O Non Stres Date of Exam: 0 07/26/24 Exam# [id number] Ordering Dr: Janette Medina [id number] STUDY: OBSTETRICAL ULTRASOUND - BIOPHYSICAL PROFILE REASON FOR EXAM: Female, 34 years old , evaluate well-being. LMP: 11/13/2023 PRIOR ULTRASOUND: Prior biophysical profile examination of 07/17/2024. TECHNIQUE: Transabdominal TECHNICAL QUALITY: Adequate. FINDINGS: There is a single intrauterine fetus. The fetus is in a cephalic presentation. There is demonstrated cardiac activity with a heart rate of 152 bpm. There is a normal amniotic fluid volume. The largest amniotic fluid pocket measures 5 cm. The amniotic fluid index (LAKE) is 11.5 cm. The placenta is anterior in location and is not low lying. There are Grade 2 placental changes. Age by LMP: 36 weeks, 2 days. WILLIAM by LMP: 08/19/2024. BIOPHYSICAL PROFILE: Breathing Movements (FBM): 2 Gross Body Movements (GBM): 2 Tone (FT): 2 Amniotic Fluid Volume (AFV): 2 TOTAL SCORE: / US/Biophysical Prof W/O Non Stres IMPRESSION: Normal biophysical profile of 06/21. Electronically Signed: Joe Avila MD at 11:45 EDT , CC: Dr. Janette Medina MD; No Primary Care Physician Lead Military Analyst: Signed Normal [facility] Mold Inspector Office Visit Reporton 07-26-2024 Mold Inspector Office Visit Report [facility]'s [address], [address] [place] [address] OFFICE VISIT Date of Service: 07/26/24 MR#: [id number] Acct: [id number] Name: JAYLYN STOKES Rep #: [id number] : 1990 Provider: Dr. 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 Is patient in pain?: No Allergies oxycodone (From Roxicodone) Allergy (Intermediate, Verified 07/26/24 10:21) Other Medications ???Medication ???Instructions ???Recorded ???Confirmed ???Type multivitamin no.47-iron fum 27 cap PO 01/06/24 07/26/24 History mg-folate no.1 1 mg-dha 300 mg capsule (PNV-DHA) valacyclovir 500 mg tablet 1,000 mg (2 x 500 mg) PO DAILY #30 01/13/24 07/26/24 Rx (Valtrex) tabs aspirin 81 mg tablet,delayed 81 mg PO DAILY 02/20/24 07/26/24 History release Last Menstrual Period: 11/13/23 Zika: Zika virus screening: Negative : No PFSH PFSH Medical History HPV (human papilloma virus) infection Depression Anxiety Headache Gestational HTN Surgical History History of colposcopy History of surgery Family History Grandmother Cancer, Onset Age: 60 Paternal- Uterine Father Myocardial infarction Mother Kidney disease Stg IV kidney disease Thyroid disorder hyperthyroid Sister Thyroid disorder hyperthyroid Aunt Thyroid disorder hyperthyroid Social History adopted: No household members: spouse and children number of children: 1 current occupational status: unemployed current occupation: [employer] current occupational exposures/hazards: No pets and animals: Yes pets and animals: dog(s) history of recent travel: No sexually active: Yes Smoking Status: Never smoker alcohol intake: current alcohol intake frequency: holidays/special occasions only details: not while substance use type: does not use well-balanced diet: daily or most days caffeine: Yes Type: coffee Number of servings: 1 eating out: 1-3 times/week during the past year weight has: remained stable what type of physical activity do you participate in: walking frequency: 1-2 times per week duration: 15-30 minutes/day stormy/synagogue: None seatbelt use: always do you feel safe at home: Yes 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 Date Name GA/Weeks Outcome Route Bth Weight Gen Labor Lgth Anesthesia Del Locatn Provider FOB 03/21/21 Shay 39 live - full term forceps 7#11oz Male 21 HRs epidural [facility] Reji Mullen Delivery Date: 03/21/21 Last Updated by: Yanira Baig IOL swelling BP elevated HPI 36 wk ob Details: JAYLYN STOKES is a 34 year old who presents for routine OB visit. OB Visit WILLIAM Calculator Estimated Delivery Date Method Current WG Current Estimate 08/19/24 LMP (Certain) 36w 4d Other Estimates 08/15/24 Ultrasound #1 37w 1d Expected Delivery Route/Plan Labor Preferences- CB/BF classes: no labor support person: Sebas labor intervention preferences: [] pain management options preferred: epidural cut cord/dad catch: cord : yes PP control planned: discussed discussed possible routes of delivery and associated risks: [] special requests: [] Specific Issue/Plans Covid status: [] Flu vaccine: [] Tdap vaccine: decline Rhogam: Na LARC form signed: yes movement and labor precautions reviewed. Problem list reviewed and updated with the most current plan of care details and appropriate orders placed. Relevant counseling for the gestational age provided. Continue routine care and follow up unless otherwise noted in visit notes/problem list details Initial Weight: Not Recorded Date -???-???-???-???-???-??? -???-???-???-???-???-??? - EGA Weight BP Urine Prot -???-???-???-???-???-??? -???-???-???-???-???-??? - Glucose FHR FuHt Pres Dilation -???-???-???-???-???-??? -???-???-???-???-???-??? - Effaced St Visit Note 01/13/24 -???-???-???-???-???-??? -???-???-???-???-???-??? - 8w 5d 241 lb 6 oz 130/85 -???-???-?? (more content not included)... Normal [facility] Urine Cultureon 07-18-2024 URC Culture exhibits no growth. Normal [facility] Comment on above: Performed By: #### L 100.0100, L500.4050 #### [facility] [address] [place], [place], [address] URC Below infection leve l. Mixed Gram Positive Organisms Cabins Count 1000-10,000 MIXC Mixed contaminants. Submit a new specimen if indicated. Normal [facility] Comment on above: Performed By: #### M 100.2200 ####[facility] [address] [facility] [place], [address] Biophysical Prof W/O Non Str eson 07-17-2024 Biophysical Prof W/O Non Stres [facility] Imaging Services [address] [place], [place] [address] Biophysical Prof W/O Non Stres MR#: [id number] Acct: [id number] Name: JAYLYN STOKES Rep #: [id number] : 1990 F 34 From: Raf sol MD PCP: Care Physician,No Primary Status: REG CLI Study: Biophysical Prof W/O Non Stres Date of Exam: 0 07/17/24 Exam# [id number] Ordering Dr: Janette Medina [id number] STUDY: OBSTETRICAL ULTRASOUND - BIOPHYSICAL PROFILE REASON FOR EXAM: Female, 34 years old obesity affecting LMP: November 13, 2023. PRIOR ULTRASOUND: Comparison is made with prior study July 10, 2024. TECHNIQUE: Transabdominal TECHNICAL QUALITY: Adequate. FINDINGS: There is a single intrauterine fetus. The fetus is in a cephalic presentation. There is demonstrated cardiac activity with a heart rate of 150 bpm. There is a normal amniotic fluid volume. The largest amniotic fluid pocket measures 4.8 cm x 6.2 cm. The amniotic fluid index (LAKE) is 14.5 cm. The placenta is anterior in location and is not low lying. There are Grade 1 placental changes. Age by LMP: 35 weeks, 2 days. WILLIAM by LMP: August 19, 2024. age by prior US: 35 weeks, 3 days. WILLIAM by prior US: August 18, 2024. BIOPHYSICAL PROFILE: Breathing Movements (FBM): 2 Gross Body Movements (GBM): 2 Tone (FT): 2 Amniotic Fluid Volume (AFV): 2 TOTAL SCORE: 8 / 8 US/Biophysical Prof W/O Non Stres IMPRESSION: Normal biophysical profile of 8/8. Electronically Signed: Raf Hernandes MD at 14:39 EDT , CC: Dr. Janette Medina MD; No Primary Care Physician Lead Military Analyst: Signed Normal [facility] CBC W/Diff, Automatedon 09-0 -2023 Absolute Lymph 1.66 X10 3/uL Normal 0.83-4.51 [facility] Comment on above: Performed By: #### L 500.4050, L100.0100, L501.0900 #### [facility] [address] [place], [address] Absolute Neut 8.8 X10 3/uL High 2.0-7.7 [facility] Comment on above: Performed By: #### L 500.4050, L100.0100, L501.0900 #### [facility] [address] [place], [address] Basophils/100 WBC (Bld) 0.4 % Normal 0-1 [facility] Comment on above: Performed By: #### L 500.4050, L100.0100, L501.0900 #### [facility] [address] [place], [address] Eosinophils/100 WBC (Bld) 0.6 % Normal 0-5 [facility] Comment on above: Performed By: #### L 500.4050, L100.0100, L501.0900 #### [facility] [address] [place], [address] Erythrocyte distribution width (RBC) [Ratio] 14.7 % High 11.6-14.6 [facility] Comment on above: Performed By: #### L 500.4050, L100.0100, L501.0900 #### [facility] [address] [place], [address] Hematocrit (Bld) [Volume fraction] 37.1 % Normal 37-47 [facility] Comment on above: Performed By: #### L 500.4050, L100.0100, L501.0900 #### [facility] [address] [place], [address] Hemoglobin (Bld) [Mass/Vol] 12.1 g/dL Normal 12.0-15.0 [facility] Comment on above: Performed By: #### L 500.4050, L100.0100, L501.0900 #### [facility] [address] [place], [address] IG% 1.100 High 0.0-0.9 [facility] Comment on above: Result Comment: IG% - Immature Granulocytes (promyelocytes, myelocytes and metamyelocytes) > 1% indicates that a LEFT SHIFT is Present. Performed By: #### L 500.4050, L100.0100, L501.0900 #### [facility] [address] [place], [address] Lymphocytes/100 WBC (Bld) 14.6 % Low 19-41 [facility] Comment on above: Performed By: #### L 500.4050, L100.0100, L501.0900 #### [facility] [address] [place], [address] MCH (RBC) [Entitic mass] 26.5 pg Low 27.0-32.0 [facility] Comment on above: Performed By: #### L 500.4050, L100.0100, L501.0900 #### [facility] [address] [place], [address] MCHC (RBC) [Mass/Vol] 32.6 g/dL Normal 32-36 [facility] Comment on above: Performed By: #### L 500.4050, L100.0100, L501.0900 #### [facility] [address] [place], [address] MCV (RBC) [Entitic vol] 81.4 fL Normal 81-99 [facility] Comment on above: Performed By: #### L 500.4050, L100.0100, L501.0900 #### [facility] [address] [place], [address] Monocytes/100 WBC (Bld) 6.2 % Normal 0-10 [facility] Comment on above: Performed By: #### L 500.4050, L100.0100, L501.0900 #### [facility] [address] [place], [address] Neutrophils/100 WBC (Bld) 77.1 % High 47-70 [facility] Comment on above: Performed By: #### L 500.4050, L100.0100, L501.0900 #### [facility] [address] [place], [address] Nucleated RBC (Bld) [#/Vol] 0 10*3/uL Normal 0-5 [facility] Comment on above: Performed By: #### L 500.4050, L100.0100, L501.0900 #### [facility] [address] [place], [address] Platelet mean volume (Bld) [Entitic vol] 9.4 fL Normal 6.2-12.0 [facility] Comment on above: Performed By: #### L 500.4050, L100.0100, L501.0900 #### [facility] [address] [place], [address] Platelets (Bld) [#/Vol] 215 10*3/uL Normal 150-450 [facility] Comment on above: Performed By: #### L 500.4050, L100.0100, L501.0900 #### [facility] [address] [place], [address] RBC (Bld) [#/Vol] 4.56 10*6/uL Normal 4.2-5.[address] [facility] Comment on above: Performed By: #### L 500.4050, L100.0100, L501.0900 #### [facility] [address] [place], [address] RDW SD 43.3 fl Normal 35.1-43.9 [facility] Comment on above: Performed By: #### L 500.4050, L100.0100, L501.0900 #### [facility] [address] [place], [address] WBC (Bld) [#/Vol] 11.4 10*3/uL High 4.4-11.[address] [facility] Comment on above: Performed By: #### L 500.4050, L100.0100, L501.0900 #### [facility] [address] [place], [address] Comprehensive Metabolic Prof ilon 07-17-2024 Albumin [Mass/Vol] 2.8 g/dL Low 3.2-5.0 [facility] Comment on above: Performed By: #### L 500.4050, L100.0100, L501.0900 #### [facility] [address] [place], [address] Albumin/Globulin [Mass ratio] 0.7 {ratio} Low 0.9-2.4 [facility] Comment on above: Performed By: #### L 500.4050, L100.0100, L501.0900 #### [facility] [address] [place], [address] ALK P 89 U/L Normal 45-117 [facility] Comment on above: Performed By: #### L 500.4050, L100.0100, L501.0900 #### [facility] [address] [place], [address] ALT [Catalytic activity/Vol] 13 U/L Normal 13-56 [facility] Comment on above: Performed By: #### L 500.4050, L100.0100, L501.0900 #### [facility] [address] [place], [address] AST [Catalytic activity/Vol] 9 U/L Low 15-37 [facility] Comment on above: Performed By: #### L 500.4050, L100.0100, L501.0900 #### [facility] [address] [place], [address] Bilirubin [Mass/Vol] 0.20 mg/dL Normal 0.20-1.00 [facility] Comment on above: Result Comment: For patients on eltrombopag therapy, use of Dimension [place] TBIL is not recommended. Performed By: #### L 500.4050, L100.0100, L501.0900 #### [facility] [address] [place], [address] BUN/CRE 10.9 RATIO Normal 10-20 [facility] Comment on above: Performed By: #### L 500.4050, L100.0100, L501.0900 #### [facility] [address] [place], [address] CA,Total 8.7 mg/dL Normal 8.5-10.1 [facility] Comment on above: Performed By: #### L 500.4050, L100.0100, L501.0900 #### [facility] [address] [place], [address] Chloride [Moles/Vol] 108 mmol/L High 98-107 [facility] Comment on above: Performed By: #### L 500.4050, L100.0100, L501.0900 #### [facility] [address] [place], [address] CO2 [Moles/Vol] 21.0 mmol/L Normal 21.0-32.0 [facility] Comment on above: Performed By: #### L 500.4050, L100.0100, L501.0900 #### [facility] [address] [place], [address] Creatinine [Mass/Vol] 0.55 mg/dL Normal 0.55-1.02 [facility] Comment on above: Result Comment: The validity of the calculated GFR GFRAA in patients over 70 years has not been determined. Clinical correlation is essential. Performed By: #### L 500.4050, L100.0100, L501.0900 #### [facility] [address] [place], [address] EST GFR - AA 161 mL/min Normal >60 [facility] Comment on above: Result Comment: Afri can Georgian GFR Calc Performed By: #### L 500.4050, L100.0100, L501.0900 #### [facility] [address] [place], [address] GAP 8 Normal 5-15 [facility] Comment on above: Performed By: #### L 500.4050, L100.0100, L501.0900 #### [facility] [address] [place], [address] GFR/1.73 sq M.predicted among non-blacks MDRD (S/P/Bld) [Vol rate/Area] 133 mL/min/{1.73_m2} Normal >60 [facility] Comment on above: Result Comment: Non- GFR Calc Performed By: #### L 500.4050, L100.0100, L501.0900 #### [facility] [address] [place], [address] Globulin (S) [Mass/Vol] 3.8 g/dL Normal 2.2-4.2 [facility] Comment on above: Performed By: #### L 500.4050, L100.0100, L501.0900 #### [facility] [address] [place], [address] Glucose [Mass/Vol] 106 mg/dL Normal 74-106 [facility] Comment on above: Result Comment: Fast ing Glucose result from 100 to 125 mg/dL suggests IMPAIRED HOMEOSTASIS per A.D.A. criteria. Performed By: #### L 500.4050, L100.0100, L501.0900 #### [facility] [address] [place], [address] Potassium [Moles/Vol] 3.8 mmol/L Normal 3.5-5.1 [facility] Comment on above: Performed By: #### L 500.4050, L100.0100, L501.0900 #### [facility] [address] [place], [address] Sodium [Moles/Vol] 137 mmol/L Normal 136-145 [facility] Comment on above: Performed By: #### L 500.4050, L100.0100, L501.0900 #### [facility] [address] [place], [address] T PROT 6.6 g/dL Normal 6.4-8.2 [facility] Comment on above: Performed By: #### L 500.4050, L100.0100, L501.0900 #### [facility] [address] [place], [address] Urea nitrogen [Mass/Vol] 6 mg/dL Low 7-18 [facility] Comment on above: Performed By: #### L 500.4050, L100.0100, L501.0900 #### [facility] [address] [place], [address] Mold Inspector Office Visit Reporton 07-17-2024 Mold Inspector Office Visit Report [facility]'s [address], [address] [place] [address] OFFICE VISIT Date of Service: 07/17/24 MR#: [id number] Acct: [id number] Name: JAYLYN STOKES Rep #: [id number] : 1990 Provider: Dr. 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 Is patient in pain?: No Allergies oxycodone (From Roxicodone) Allergy (Intermediate, Verified 07/17/24 10:29) Other Medications ???Medication ???Instructions ???Recorded ???Confirmed ???Type multivitamin no.47-iron fum 27 cap PO 01/06/24 07/17/24 History mg-folate no.1 1 mg-dha 300 mg capsule (PNV-DHA) valacyclovir 500 mg tablet 1,000 mg (2 x 500 mg) PO DAILY #30 01/13/24 07/17/24 Rx (Valtrex) tabs aspirin 81 mg tablet,delayed 81 mg PO DAILY 02/20/24 07/17/24 History release Last Menstrual Period: 11/13/23 Zika: Zika virus screening: Negative : No PFSH PFSH Medical History HPV (human papilloma virus) infection Depression Anxiety Headache Gestational HTN Surgical History History of colposcopy History of surgery Family History Grandmother Cancer, Onset Age: 60 Paternal- Uterine Father Myocardial infarction Mother Kidney disease Stg IV kidney disease Thyroid disorder hyperthyroid Sister Thyroid disorder hyperthyroid Aunt Thyroid disorder hyperthyroid Social History adopted: No household members: spouse and children number of children: 1 current occupational status: unemployed current occupation: [employer] current occupational exposures/hazards: No pets and animals: Yes pets and animals: dog(s) history of recent travel: No sexually active: Yes Smoking Status: Never smoker alcohol intake: current alcohol intake frequency: holidays/special occasions only details: not while substance use type: does not use well-balanced diet: daily or most days caffeine: Yes Type: coffee Number of servings: 1 eating out: 1-3 times/week during the past year weight has: remained stable what type of physical activity do you participate in: walking frequency: 1-2 times per week duration: 15-30 minutes/day stormy/synagogue: None seatbelt use: always do you feel safe at home: Yes 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 Date Name GA/Weeks Outcome Route Bth Weight Infant Gen Labor Lgth Anesthesia Del Locatn Provider FOB 03/21/21 Shay 39 live - full term forceps 7#11oz Male 21 HRs epidural WC Reji Mullen Delivery Date: 03/21/21 Last Updated by: Yanira Baig IOL swelling BP elevated HPI 35w, possible UTI Details: JAYLYN STOKES is a 34 year old who presents for routine OB visit. OB Visit WILLIAM Calculator Estimated Delivery Date Method Current WG Current Estimate 08/19/24 LMP (Certain) 35w 2d Other Estimates 08/15/24 Ultrasound #1 35w 6d Expected Delivery Route/Plan Labor Preferences- CB/BF classes: no labor support person: Sebas labor intervention preferences: [] pain management options preferred: epidural cut cord/dad catch: cord : yes PP control planned: discussed discussed possible routes of delivery and associated risks: [] special requests: [] Specific Issue/Plans Covid status: [] Flu vaccine: [] Tdap vaccine: decline Rhogam: Na LARC form signed: yes movement and labor precautions reviewed. Problem list reviewed and updated with the most current plan of care details and appropriate orders placed. Relevant counseling for the gestational age provided. Continue routine care and follow up unless otherwise noted in visit notes/problem list details Initial Weight: Not Recorded Date -???-???-???-???-???-??? -???-???-???-???-???-??? - EGA Weight BP Urine Prot -???-???-???-???-???-??? -???-???-???-???-???-??? - Glucose FHR FuHt Pres Dilation -???-???-???-???-???-??? -???-???-???-???-???-??? - Effaced St Visit Note 01/13/24 -???-???-???-???-???-??? -???-???-???-???-???-??? - 8w 5d 241 lb 6 oz 130/85 -???-???-???-???-???-??? -? (more content not included)... Normal [facility] Protein+Creatinine Ratio,Uri neon 07-17-2024 PROT:CRE RATIO TNP Normal 0-200 [facility] Comment on above: Performed By: #### L 500.4050, L100.0100, L501.0900 #### [facility] [address] [place], [address] PROTEIN,UR.RAN. < 6.0 Normal <11.9 [facility] Comment on above: Performed By: #### L 500.4050, L100.0100, L501.0900 #### [facility] [address] [place], [address] UR CREAT 21.60 mg/dL Normal NO RANGE EST. [facility] Comment on above: Performed By: #### L 500.4050, L100.0100, L501.0900 #### [facility] [address] [place], [address] Mold Inspector Office Visit Reporton 07-11-2024 Mold Inspector Office Visit Report [facility] [address], [address] [place] [address] OFFICE VISIT Date of Service: 07/11/24 MR#: [id number] Acct: [id number] Name: JAYLYN STOKES Rep #: [id number] : 1990 Provider: Dr. 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 Is patient in pain?: No Allergies oxycodone (From Roxicodone) Allergy (Intermediate, Verified 07/11/24 13:36) Other Medications ???Medication ???Instructions ???Recorded ???Confirmed ???Type multivitamin no.47-iron fum 27 cap PO 01/06/24 07/11/24 History mg-folate no.1 1 mg-dha 300 mg capsule (PNV-DHA) valacyclovir 500 mg tablet 1,000 mg (2 x 500 mg) PO DAILY #30 01/13/24 07/11/24 Rx (Valtrex) tabs aspirin 81 mg tablet,delayed 81 mg PO DAILY 02/20/24 07/11/24 History release Last Menstrual Period: 11/13/23 Zika: Zika virus screening: Negative : No PFSH PFSH Medical History HPV (human papilloma virus) infection Depression Anxiety Headache Gestational HTN Surgical History History of colposcopy History of surgery Family History Grandmother Cancer, Onset Age: 60 Paternal- Uterine Father Myocardial infarction Mother Kidney disease Stg IV kidney disease Thyroid disorder hyperthyroid Sister Thyroid disorder hyperthyroid Aunt Thyroid disorder hyperthyroid Social History adopted: No household members: spouse and children number of children: 1 current occupational status: unemployed current occupation: [employer] current occupational exposures/hazards: No pets and animals: Yes pets and animals: dog(s) history of recent travel: No sexually active: Yes Smoking Status: Never smoker alcohol intake: current alcohol intake frequency: holidays/special occasions only details: not while substance use type: does not use well-balanced diet: daily or most days caffeine: Yes Type: coffee Number of servings: 1 eating out: 1-3 times/week during the past year weight has: remained stable what type of physical activity do you participate in: walking frequency: 1-2 times per week duration: 15-30 minutes/day stormy/synagogue: None seatbelt use: always do you feel safe at home: Yes 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 Date Name GA/Weeks Outcome Route Bth Weight Infant Gen Labor Lgth Anesthesia Del Locatn Provider FOB 03/21/21 Shay 39 live - full term forceps 7#11oz Male 21 HRs epidural [facility] Reji Adler Sebas Delivery Date: 03/21/21 Last Updated by: Yanira Baig IOL swelling BP elevated HPI 34 wk ob Details: JAYLYN STOKES is a 34 year old who presents for routine OB visit. OB Visit WILLIAM Calculator Estimated Delivery Date Method Current WG Current Estimate 08/19/24 LMP (Certain) 34w 3d Other Estimates 08/15/24 Ultrasound #1 35w 0d Expected Delivery Route/Plan Labor Preferences- CB/BF classes: no labor support person: Sebas labor intervention preferences: [] pain management options preferred: epidural cut cord/dad catch: cord : yes PP control planned: discussed discussed possible routes of delivery and associated risks: [] special requests: [] Specific Issue/Plans Covid status: [] Flu vaccine: [] Tdap vaccine: decline Rhogam: Na LARC form signed: yes movement and labor precautions reviewed. Problem list reviewed and updated with the most current plan of care details and appropriate orders placed. Relevant counseling for the gestational age provided. Continue routine care and follow up unless otherwise noted in visit notes/problem list details Initial Weight: Not Recorded Date -???-???-???-???-???-??? -???-???-???-???-???-??? - EGA Weight BP Urine Prot -???-???-???-???-???-??? -???-???-???-???-???-??? - Glucose FHR FuHt Pres Dilation -???-???-???-???-???-??? -???-???-???-???-???-??? - Effaced St Visit Note 01/13/24 -???-???-???-???-???-??? -???-???-???-???-???-??? - 8w 5d 241 lb 6 oz 130/85 -???-???-???-???-?? (more content not included)... Normal [facility] OB Limited With [facility] 07-10-2024 OB Limited With Biometrics [facility] Services [address] [place], [place] [id number] OB Limited With Biometrics MR#: [id number] Acct: [id number] Name: JAYLYN STOKES Rep #: [id number] : 1990 F 34 From: Raf sol MD PCP: Care Physician,No Primary Status: REG CLI Study: OB Limited With Biometrics Date of Exam: 07/10 Exam# [id number] Ordering Dr: Janette Medina [id number] STUDY: SECOND AND THIRD TRIMESTER OBSTETRICAL ULTRASOUND REASON FOR EXAM: Female, 34 years old obesity affecting LMP: November 13, 2023. TECHNIQUE: Transabdominal TECHNICAL QUALITY: Adequate. PRIOR ULTRASOUND: Comparison is made with prior study dated June 07, 2024. FINDINGS: There is a single intrauterine fetus. The fetus is in a cephalic presentation. There is demonstrated cardiac activity with a heart rate of 140 bpm. There is a normal amniotic fluid volume. The largest amniotic fluid pocket measures 5.4 cm. The amniotic fluid index (LAKE) is 17.1 cm. The placenta is anterior in location and is not low lying. There are Grade 1 placental changes. The adnexal regions are not visualized. BIOMETRY: BPD: 8.17 cm: 32 weeks, 6 days HC: 31.38 cm: 35 weeks, 1 days AC: 32.04 cm: 36 weeks, 0 days FL: 5.93 cm: 30 weeks, 6 days CI: 73% FL/BPD: 73% FL/HC: 19% FL/AC: 19% HC/AC: 0.98 age by current US: 34 weeks, 3 days. WILLIAM by current US: August 18, 2024. Estimated weight: 2364 grams, +/- 355 grams, 41 %. age by prior US: 34 weeks, 2 days. WILLIAM by prior US: August 19, 2024. Age by LMP: 34 weeks, 2 days. WILLIAM by LMP: August 19, 2024. IMPRESSION: Single live uterine gestation with a mean gestational age of 34 weeks and 2 days. Electronically Signed: Raf Hernandes MD at 14:37 EDT , [id number] STUDY: OBSTETRICAL ULTRASOUND - BIOPHYSICAL PROFILE REASON FOR EXAM: Female, 34 years old obesity affecting LMP: November 13, 2023. PRIOR ULTRASOUND: None. TECHNIQUE: Transabdominal TECHNICAL QUALITY: Adequate. FINDINGS: There is a single intrauterine fetus. The fetus is in a cephalic presentation. There is demonstrated cardiac activity with a heart rate of 140 bpm. There is a normal amniotic fluid volume. The largest amniotic fluid pocket measures 5.37 cm. The amniotic fluid index (LAKE) is 17.1 cm. The placenta is anterior in location and is not low lying. There are Grade 1 placental changes. Age by LMP: 34 weeks, 2 days. WILLIAM by LMP: August 19, 2024. BIOPHYSICAL PROFILE: Breathing Movements (FBM): 2 Gross Body Movements (GBM): 2 Tone (FT): 2 Amniotic Fluid Volume (AFV): 2 TOTAL SCORE: US/OB Limited With Biometrics IMPRESSION: Normal biophysical profile of 06/21. Electronically Signed: Raf Hernandes MD at 14:38 EDT , CC: Dr. Janette Medina MD; No Primary Care Physician Lead Military Analyst: Signed Normal [facility] Mold Inspector Office Visit Reporton 06-28-2024 Mold Inspector Office Visit Report [facility]'s [address], [address] [place] [address] OFFICE VISIT Date of Service: 06/28/24 MR#: [id number] Acct: [id number] Name: JAYLYN STOKES Rep #: [id number] : 1990 Provider: Dr. 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 Is patient in pain?: No Allergies oxycodone (From Roxicodone) Allergy (Intermediate, Verified 06/28/24 11:19) Other Medications ???Medication ???Instructions ???Recorded ???Confirmed ???Type multivitamin no.47-iron fum 27 cap PO 01/06/24 06/28/24 History mg-folate no.1 1 mg-dha 300 mg capsule (PNV-DHA) valacyclovir 500 mg tablet 1,000 mg (2 x 500 mg) PO DAILY #30 01/13/24 06/28/24 Rx (Valtrex) tabs aspirin 81 mg tablet,delayed 81 mg PO DAILY 02/20/24 06/28/24 History release Last Menstrual Period: 11/13/23 Zika: Zika virus screening: Negative : No Have you fallen in the past year?: No PFSH PFSH Medical History HPV (human papilloma virus) infection Depression Anxiety Headache Gestational HTN Surgical History History of colposcopy History of surgery Family History Grandmother Cancer, Onset Age: 60 Paternal- Uterine Father Myocardial infarction Mother Kidney disease Stg IV kidney disease Thyroid disorder hyperthyroid Sister Thyroid disorder hyperthyroid Aunt Thyroid disorder hyperthyroid Social History adopted: No household members: spouse and children number of children: 1 current occupational status: unemployed current occupation: [employer] current occupational exposures/hazards: No pets and animals: Yes pets and animals: dog(s) history of recent travel: No sexually active: Yes Smoking Status: Never smoker alcohol intake: current alcohol intake frequency: holidays/special occasions only details: not while substance use type: does not use well-balanced diet: daily or most days caffeine: Yes Type: coffee Number of servings: 1 eating out: 1-3 times/week during the past year weight has: remained stable what type of physical activity do you participate in: walking frequency: 1-2 times per week duration: 15-30 minutes/day stormy/synagogue: None seatbelt use: always do you feel safe at home: Yes 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 Date Name GA/Weeks Outcome Route Bth Weight Infant Gen Labor Lgth Anesthesia Del Locatn Provider FOB 03/21/21 Shay 39 live - full term forceps 7#11oz Male 21 HRs epidural [facility] Reji Vitor Mullen Delivery Date: 03/21/21 Last Updated by: Yanira Baig IOL swelling BP elevated HPI 32WK OB Details: JAYLYN STOKES is a 34 year old who presents for routine OB visit. OB Visit WILLIAM Calculator Estimated Delivery Date Method Current WG Current Estimate 08/19/24 LMP (Certain) 32w 4d Other Estimates 08/15/24 Ultrasound #1 33w 1d Expected Delivery Route/Plan Labor Preferences- CB/BF classes: no labor support person: Sebas labor intervention preferences: [] pain management options preferred: epidural cut cord/dad catch: cord : yes PP control planned: discussed discussed possible routes of delivery and associated risks: [] special requests: [] Specific Issue/Plans Covid status: [] Flu vaccine: [] Tdap vaccine: decline Rhogam: Na LARC form signed: yes movement and labor precautions reviewed. Problem list reviewed and updated with the most current plan of care details and appropriate orders placed. Relevant counseling for the gestational age provided. Continue routine care and follow up unless otherwise noted in visit notes/problem list details Initial Weight: Not Recorded Date -???-???-???-???-???-??? -???-???-???-???-???-??? - EGA Weight BP Urine Prot -???-???-???-???-???-??? -???-???-???-???-???-??? - Glucose FHR FuHt Pres Dilation -???-???-???-???-???-??? -???-???-???-???-???-??? - Effaced St Visit Note 01/13/24 -???-???-???-???-???-??? -???-???-???-???-???-??? - 8w 5d 241 lb 6 oz 130/85 -? (more content not included)... Normal [facility] Mold Inspector Office Visit Reporton 06-13-2024 Mold Inspector Office Visit Report [facility] [address] [place] [address] OFFICE VISIT Date of Service: 06/13/24 MR#: [id number] Acct: [id number] Name: JAYLYN STOKES Rep #: [id number] : 1990 Provider: Dr. 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 Is patient in pain?: No Allergies oxycodone (From Roxicodone) Allergy (Intermediate, Verified 06/13/24 13:48) Other Medications ???Medication ???Instructions ???Recorded ???Confirmed ???Type multivitamin no.47-iron fum 27 cap PO 01/06/24 06/13/24 History mg-folate no.1 1 mg-dha 300 mg capsule (PNV-DHA) valacyclovir 500 mg tablet 1,000 mg (2 x 500 mg) PO DAILY #30 01/13/24 06/13/24 Rx (Valtrex) tabs aspirin 81 mg tablet,delayed 81 mg PO DAILY 02/20/24 06/13/24 History release Last Menstrual Period: 11/13/23 Zika: Zika virus screening: Negative : No PFSH PFSH Medical History HPV (human papilloma virus) infection Depression Anxiety Headache Gestational HTN Surgical History History of colposcopy History of surgery Family History Grandmother Cancer, Onset Age: 60 Paternal- Uterine Father Myocardial infarction Mother Kidney disease Stg IV kidney disease Thyroid disorder hyperthyroid Sister Thyroid disorder hyperthyroid Aunt Thyroid disorder hyperthyroid Social History adopted: No household members: spouse and children number of children: 1 current occupational status: unemployed current occupation: [employer] current occupational exposures/hazards: No pets and animals: Yes pets and animals: dog(s) history of recent travel: No sexually active: Yes Smoking Status: Never smoker alcohol intake: current alcohol intake frequency: holidays/special occasions only details: not while substance use type: does not use well-balanced diet: daily or most days caffeine: Yes Type: coffee Number of servings: 1 eating out: 1-3 times/week during the past year weight has: remained stable what type of physical activity do you participate in: walking frequency: 1-2 times per week duration: 15-30 minutes/day stormy/synagogue: None seatbelt use: always do you feel safe at home: Yes additional social history: [employer]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 Date Name GA/Weeks Outcome Route Bth Weight Infant Gen Labor Lgth Anesthesia Del Locatn Provider FOB 03/21/21 Shay 39 live - full term forceps 7#11oz Male 21 HRs epidural [facility] Reji Mullen Delivery Date: 03/21/21 Last Updated by: Yanira Baig IOL swelling BP elevated HPI 30WK OB Details: JAYLYN STOKES is a 34 year old who presents for routine OB visit. OB Visit WILLIAM Calculator Estimated Delivery Date Method Current WG Current Estimate 08/19/24 LMP (Certain) 30w 3d Other Estimates 08/15/24 Ultrasound #1 31w 0d Expected Delivery Route/Plan Labor Preferences- CB/BF classes: no labor support person: Sebas labor intervention preferences: [] pain management options preferred: epidural cut cord/dad catch: cord : yes PP control planned: discussed discussed possible routes of delivery and associated risks: [] special requests: [] Specific Issue/Plans Covid status: [] Flu vaccine: [] Tdap vaccine: [] Rhogam: NA LARC form signed: yes Problem list reviewed and updated with the most current plan of care details and appropriate orders placed. Relevant counseling for the gestational age provided. Continue routine care and follow up unless otherwise noted in visit notes/problem list details Initial Weight: Not Recorded Date -???-???-???-???-???-??? -???-???-???-???-???-??? - EGA Weight BP Urine Prot -???-???-???-???-???-??? -???-???-???-???-???-??? - Glucose FHR FuHt Pres Dilation -???-???-???-???-???-??? -???-???-???-???-???-??? - Effaced St Visit Note 01/13/24 -???-???-???-???-???-??? -???-???-???-???-???-??? - 8w 5d 241 lb 6 oz 130/85 -???-???-???-???-???-??? -???-???-???-???-???-??? - 165 -???-???- (more content not included)... Normal [facility] OB Limited With [employer] 06-07-2024 OB Limited With Biometrics [facility] Imaging Services [address] [place] [address] OB Limited With Biometrics MR#: [id number] Acct: [id number] Name: JAYLYN STOKES Rep #: [id number] : 1990 F 34 From: Wally Carrington MD PCP: Care Physician,No Primary Status: [facility] CL Study: OB Limited With Biometrics Date of Exam: 06/07 Exam# [id number] Ordering Dr: Ade Chairez DO [id number] STUDY: SECOND AND THIRD TRIMESTER OBSTETRICAL ULTRASOUND - LIMITED REASON FOR EXAM: Female, 34 years old growth LMP: 11/13/2023 PRIOR ULTRASOUND: None. TECHNIQUE: Transabdominal TECHNICAL QUALITY: Adequate. FINDINGS: There is a single intrauterine fetus. The fetus is in a breech presentation. There is demonstrated cardiac activity with a heart rate of 144 bpm. There is a normal amniotic fluid volume. The largest amniotic fluid pocket measures 5.0 cm. The amniotic fluid index (LAKE) is 17.3 cm. The placenta is anterior in location and is not low lying. There are Grade 1 placental changes. The cervix measures 3.9 cm in length. BIOMETRY: BPD: 7.3 cm: 29 weeks, 2 days HC: 27.0 cm: 29 weeks, 3 days AC: 26.9 cm: 31 weeks, 0 days FL: 5.5 cm: 29 weeks, 1 days Age by LMP: 29 weeks, 4 days. WILLIAM by LMP: 08/19/2024. age by prior US: weeks, days. WILLIAM by prior US: . age by current US: 29 weeks, 4 days. WILLIAM by current US: 08/19/2024. Estimated weight: 1535 grams, +/- 2:30 grams, 60 percentile. Gender: US/OB Limited With Biometrics IMPRESSION: Living intrauterine of 29 weeks 4 days as described above. Electronically Signed: Wally Carrington MD at 13:30 EDT , CC: Dr. Ade Chairez DO; No Primary Care Physician Lead Military Analyst: Signed Normal [facility] Mold Inspector Office Visit Reporton 05-28-2024 Mold Inspector Office Visit Report [facility] [address] [place] [address] OFFICE VISIT Date of Service: 05/28/24 MR#: [id number] Acct: [id number] Name: JAYLYN STOKES Rep #: [id number] : 1990 Provider: Dr. 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 Is patient in pain?: No Allergies oxycodone (From Roxicodone) Allergy (Intermediate, Verified 05/28/24 13:18) Other Medications ???Medication ???Instructions ???Recorded ???Confirmed ???Type multivitamin no.47-iron fum 27 cap PO 01/06/24 05/28/24 History mg-folate no.1 1 mg-dha 300 mg capsule (PNV-DHA) valacyclovir 500 mg tablet 1,000 mg (2 x 500 mg) PO DAILY #30 01/13/24 05/28/24 Rx (Valtrex) tabs aspirin 81 mg tablet,delayed 81 mg PO DAILY 02/20/24 05/28/24 History release Last Menstrual Period: 11/13/23 Zika: Zika virus screening: Negative : No PFSH PFSH Medical History HPV (human papilloma virus) infection Depression Anxiety Headache Gestational HTN Surgical History History of colposcopy History of surgery Family History Grandmother Cancer, Onset Age: 60 Paternal- Uterine Father Myocardial infarction Mother Kidney disease Stg IV kidney disease Thyroid disorder hyperthyroid Sister Thyroid disorder hyperthyroid Aunt Thyroid disorder hyperthyroid Social History adopted: No household members: spouse and children number of children: 1 current occupational status: unemployed current occupation: [employer] current occupational exposures/hazards: No pets and animals: Yes pets and animals: dog(s) history of recent travel: No sexually active: Yes Smoking Status: Never smoker alcohol intake: current alcohol intake frequency: holidays/special occasions only details: not while substance use type: does not use well-balanced diet: daily or most days caffeine: Yes Type: coffee Number of servings: 1 eating out: 1-3 times/week during the past year weight has: remained stable what type of physical activity do you participate in: walking frequency: 1-2 times per week duration: 15-30 minutes/day stormy/synagogue: None seatbelt use: always do you feel safe at home: Yes 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 Date Name GA/Weeks Outcome Route Bth Weight Infant Gen Labor Lgth Anesthesia Del Locatn Provider FOB 03/21/21 Shay 39 live - full term forceps 7#11oz Male 21 HRs epidural [facility] Reji Adler Se[place] Delivery Date: 03/21/21 Last Updated by: Yanira Baig IOL swelling BP elevated HPI 28 OB Details: JAYLYN STOKES is a 34 year old who presents for routine OB visit. OB Visit WILLIAM Calculator Estimated Delivery Date Method Current WG Current Estimate 08/19/24 LMP (Certain) 28w 1d Other Estimates 08/15/24 Ultrasound #1 28w 5d Expected Delivery Route/Plan Labor Preferences- CB/BF classes: no labor support person: Sebas labor intervention preferences: [] pain management options preferred: epidural cut cord/dad catch: cord : yes PP control planned: discussed discussed possible routes of delivery and associated risks: [] special requests: [] Specific Issue/Plans Covid status: [] Flu vaccine: [] Tdap vaccine: [] Rhogam: NA LARC form signed: yes Problem list reviewed and updated with the most current plan of care details and appropriate orders placed. Relevant counseling for the gestational age provided. Continue routine care and follow up unless otherwise noted in visit notes/problem list details Initial Weight: Not Recorded Date -???-???-???-???-???-??? -???-???-???-???-???-??? - EGA Weight BP Urine Prot -???-???-???-???-???-??? -???-???-???-???-???-??? - Glucose FHR FuHt Pres Dilation -???-???-???-???-???-??? -???-???-???-???-???-??? - Effaced St Visit Note 01/13/24 -???-???-???-???-???-??? -???-???-???-???-???-??? - 8w 5d 241 lb 6 oz 130/85 -???-???-???-???-???-??? -???-???-???-???-???-??? - 165 -???-???-???-???-???-??? -???-???-???-??? (more content not included)... Normal [facility] Gestational GTT 3HR 100gon 0 05-23-2024 3HR GTT- GEST. Normal [facility] Comment on above: Order Comment: Y Result Comment: FAST ING 90 Col: 05/23/24 1121 FASTING GLUCOSE RESULT PERFORMED WITH GLUCOSE METER BY Karan HERNANDES 05/23/2024 GLUCOSE TOLERANCE TEST FOR Reference Interval GESTATIONAL DIABETES Fasting <105 mg/dL 1 hour <190 mg/dl 2 hour <165 mg/dl 3 hour <145 mg/dl 1 HR GLU 151 Col: 05/23/24 1121 2 HR GLU 146 Col: 05/23/24 1221 3 HR GLU 122 Col: 05/23/24 1321 Performed By: #### L 500.4710 ####[facility] [address] [place], [address] CBC W/Diff, Automatedon 07-0 5-2023 Absolute Lymph 1.58 X10 3/uL Normal 0.83-4.51 [facility] Comment on above: Performed By: #### L 100.0100, BTS #### [facility] [address] [place], [address] Absolute Neut 6.3 X10 3/uL Normal 2.0-7.7 [facility] Comment on above: Performed By: #### L 100.0100, BTS #### [facility] [address] [place], [address] Basophils/100 WBC (Bld) 0.2 % Normal 0-1 [facility] Comment on above: Performed By: #### L 100.0100, BTS #### [facility] [address] [place], [address] Eosinophils/100 WBC (Bld) 1.0 % Normal 0-5 [facility] Comment on above: Performed By: #### L 100.0100, BTS #### [facility] [address] [place], [address] Erythrocyte distribution width (RBC) [Ratio] 13.7 % Normal 11.6-14.6 [facility] Comment on above: Performed By: #### L 100.0100, BTS #### [facility] [address] [place], [address] Hematocrit (Bld) [Volume fraction] 37.3 % Normal 37-47 [facility] Comment on above: Performed By: #### L 100.0100, BTS #### [facility] [address] [place], [address] Hemoglobin (Bld) [Mass/Vol] 12.4 g/dL Normal 12.0-15.0 [facility] Comment on above: Performed By: #### L 100.0100, BTS #### [facility] [address] [place], [address] IG% 0.700 Normal 0.0-0.9 [facility] Comment on above: Result Comment: IG% - Immature Granulocytes (promyelocytes, myelocytes and metamyelocytes) > 1% indicates that a LEFT SHIFT is Present. Performed By: #### L 100.0100, BTS #### [facility] [address] [place], [address] Lymphocytes/100 WBC (Bld) 18.8 % Low 19-41 [facility] Comment on above: Performed By: #### L 100.0100, BTS #### [facility] [address] [place], [address] MCH (RBC) [Entitic mass] 27.2 pg Normal 27.0-32.0 [facility] Comment on above: Performed By: #### L 100.0100, BTS #### [facility] [address] [place], [address] MCHC (RBC) [Mass/Vol] 33.2 g/dL Normal 32-36 [facility] Comment on above: Performed By: #### L 100.0100, BTS #### [facility] [address] [place], [address] MCV (RBC) [Entitic vol] 81.8 fL Normal 81-99 [facility] Comment on above: Performed By: #### L 100.0100, BTS #### [facility] [address] [place], [address] Monocytes/100 WBC (Bld) 3.8 % Normal 0-10 [facility] Comment on above: Performed By: #### L 100.0100, BTS #### [facility] [address] [place], [address] Neutrophils/100 WBC (Bld) 75.5 % High 47-70 [facility] Comment on above: Performed By: #### L 100.0100, BTS #### [facility] [address] [place], [address] Nucleated RBC (Bld) [#/Vol] 0 10*3/uL Normal 0-5 [facility] Comment on above: Performed By: #### L 100.0100, BTS #### [facility] [address] [place], [address] Platelet mean volume (Bld) [Entitic vol] 9.6 fL Normal 6.2-12.0 [facility] Comment on above: Performed By: #### L 100.0100, BTS #### [facility] [address] [place], [address] Platelets (Bld) [#/Vol] 205 10*3/uL Normal 150-450 [facility] Comment on above: Performed By: #### L 100.0100, BTS #### [facility] [address] [place], [address] RBC (Bld) [#/Vol] 4.56 10*6/uL Normal 4.2-5.[address] [facility] Comment on above: Performed By: #### L 100.0100, BTS #### [facility] [address] [place], [address] RDW SD 40.9 fl Normal 35.1-43.9 [facility] Comment on above: Performed By: #### L 100.0100, BTS #### [facility] [address] [place], [address] WBC (Bld) [#/Vol] 8.4 10*3/uL Normal 4.4-11.0 [facility] Comment on above: Performed By: #### L 100.0100, BTS #### [facility] [address] [place], [address] Glucose Challenge Gest 1H 50 alejo 05-18-2024 GLU GEST 50g 1H 149 mg/dL High 70-140 [facility] Comment on above: Performed By: #### L 100.0100, BTS #### [facility] [address] [place], [address] HIV - WCHon 05-18-2024 HIV Non-Reactive Normal Nonreactive [facility] Comment on above: Performed By: #### L 100.0100, BTS #### [facility] [address] [place], [address] L509.8000on 05-18-2024 Syphilis Abs Non-Reactive Normal [facility] Comment on above: Performed By: #### L 100.0100, BTS #### [facility] [address] [place], [address] CBC W Auto Differential pane l (Bld)on 03-23-2024 Basophils (Bld) [#/Vol] 0.02 10*3/uL [facility] Basophils/100 WBC (Bld) 0.2 % 0.0 - 2.0 % [facility] Eosinophils (Bld) [#/Vol] 0.08 10*3/uL [facility] Eosinophils/100 WBC (Bld) 0.8 % 0.0 - 6.0 % [facility] Erythrocyte distribution width (RBC) [Ratio] 13.2 % 11.5 - 14.5 % [facility] Hematocrit (Bld) [Volume fraction] 36.9 % 36.0 - 46.0 % [facility] Hemoglobin (Bld) [Mass/Vol] 12.1 g/dL 12.0 - 16.0 g/dL [facility] Immature granulocytes (Bld) [#/Vol] 0.05 10*3/uL [facility] Immature granulocytes/100 WBC (Bld) 0.5 % 0.0 - 0.9 % [facility] Comment on above: Immature Granulocyte Count (IG) includes promyelocytes, myelocytes and metamyelocytes but does not include bands. Percent differential counts (%) should be interpreted in the context of the absolute cell counts (cells/UL). Lymphocytes (Bld) [#/Vol] 2.07 10*3/uL [facility] Lymphocytes/100 WBC (Bld) 22.0 % 13.0 - 44.0 % [facility] MCH (RBC) [Entitic mass] 27.6 pg 26.0 - 34.0 pg [facility] MCHC (RBC) [Mass/Vol] 32.8 g/dL 32.0 - 36.0 g/dL [facility] MCV (RBC) [Entitic vol] 84 fL 80 - 100 fL [facility] Monocytes (Bld) [#/Vol] 0.54 10*3/uL [facility] Monocytes/100 WBC (Bld) 5.7 % 2.0 - 10.0 % [facility] Neutrophils (Bld) [#/Vol] 6.66 10*3/uL [facility] Comment on above: Percent differential counts (%) should be interpreted in the context of the absolute cell counts (cells/uL). Neutrophils/100 WBC (Bld) 70.8 % 40.0 - 80.0 % [facility] Nucleated RBC/100 WBC (Bld) [Ratio] 0.0 % [facility] Platelets (Bld) [#/Vol] 203 10*3/uL [facility] RBC (Bld) [#/Vol] 4.39 10*6/uL [facility] WBC (Bld) [#/Vol] 9.4 10*3/uL [facility] Comprehensive metabolic 2000 panelon 03-23-2024 Albumin BCP dye [Mass/Vol] 3.9 g/dL 3.4 - 5.0 g/dL [facility] ALP [Catalytic activity/Vol] 52 U/L 33 - 110 U/L [facility] ALT With P-5'-P [Catalytic activity/Vol] 9 U/L 7 - 45 U/L [facility] Comment on above: Patients treated wit h Sulfasalazine may generate falsely decreased results for ALT. Anion gap [Moles/Vol] 13 mmol/L 10 - 2 0 mmol/L [facility] AST With P-5'-P [Catalytic activity/Vol] 9 U/L 9 - 39 U/L [facility] Bilirubin [Mass/Vol] 0.2 mg/dL 0.0 - 1 .2 mg/dL [facility] Calcium [Mass/Vol] 9.0 mg/dL 8.6 - 10. 3 mg/dL [facility] Chloride [Moles/Vol] 107 mmol/L 98 - 10 7 mmol/L [facility] CO2 [Moles/Vol] 21 mmol/L 21 - 32 mmol/L [facility] Creatinine [Mass/Vol] 0.48 mg/dL Low 0.50 - 1.05 mg/dL [facility] eGFR - PINF [facility] Comment on above: Calculations of bruno mated GFR are performed using the 2020 CKD-EPI Study Refit equation without the race variable for the IDMS-Traceable creatinine methods. https://jasn.asnjournals.org/content/early//ASN.51840 48726 Glucose [Mass/Vol] 118 mg/dL High 74 - 99 mg/dL [facility] Interpretation and review of laboratory results Abnormal [facility] Potassium [Moles/Vol] 3.6 mmol/L 3.5 - 5.3 mmol/L [facility] Protein [Mass/Vol] 6.5 g/dL 6.4 - 8.2 g/dL [facility] Sodium [Moles/Vol] 137 mmol/L 136 - 145 mmol/L [facility] Urea nitrogen [Mass/Vol] 8 mg/dL 6 - 23 mg/dL [facility] Lactateon 03-23-2024 Lactate [Moles/Vol] 1.5 mmol/L 0.4 - 2. 0 mmol/L [facility] Lactate [Moles/Vol]on 2023 Interpretation and review of laboratory results Normal [facility] Venipuncture immedia tely after or during the administration of Metamizole may lead to falsely low results. Testing should be performed immediately prior to Metamizole dosing. [facility] Absolute lymphocyte countOrd ered By: Layne Boles on 01-26-2024 Lymphocytes Auto (Unsp spec) [#/Vol] 1.64 10*3/uL 0.83-4.51 [facility] Automated lymphocyte count a s percentage of total leukocytesOrdered By: Layne Boles on 01-26-2024 Lymphocytes/100 WBC Auto (Unsp spec) 22.0 % 19-41 [facility] Basophil percentageOrdered B y: Layne Boles on 01-26-2024 Basophils/100 WBC (Bld) 0.1 % 0-1 [facility] Eosinophils/100 WBC (Bld) 1.2 % 0-5 [facility] Hemoglobin (Bld) [Mass/Vol] 12.8 g/dL 12.0-15.0 [facility] Monocytes/100 WBC (Bld) 5.8 % 0-10 [facility] Neutrophils (Bld) [#/Vol] 5.2 10*3/uL 2.0-7.7 [facility] Neutrophils/100 WBC (Bld) 70.4 % 47-70 [facility] WBC (Bld) [#/Vol] 7.4 10*3/uL 4.4-11.0 [facility] Determination of erythrocyte mean corpuscular volume (MCV)Ordered By: Layne Boles on 01-26-2024 MCV (RBC) [Entitic vol] 82.8 fL 81-99 [facility] Erythrocyte distribution wid th ratioOrdered By: Layne Boles on 01-26-2024 Erythrocyte distribution width (RBC) [Ratio] 12.8 % 11.6-14.6 [facility] Erythrocyte distribution wid th standard deviationOrdered By: Layne Boles on 01-26-2024 Erythrocyte distribution width (RBC) [Entitic vol] 38.4 fL 35.1-43.9 [facility] HIV 1 and HIV-2 antibody ass ay with HIV-1 p24 antigen detectionOrdered By: Layne Boles on 01-26-2024 HIV 1+2 Ab+HIV1 p24 Ag IA Ql Non-Reactive Nonreactive [facility] Hematocrit Auto (Bld) [Volum e fraction]Ordered By: Layne Boles on 01-26-2024 Hematocrit (Bld) [Volume fraction] 37.9 % 37-47 [facility] Immature granulocytes/100 WB C Auto (Bld)Ordered By: Layne Boles on 01-26-2024 Immature granulocytes/100 WBC (Bld) 0.500 % 0.0-0.9 [facility] Comment on above: IG% - Immature Granu locytes (promyelocytes, myelocytes and metamyelocytes) > 1% indicates that a LEFT SHIFT is Present. Laboratory - Hematology and Cell countsOrdered By: Layne Boles on 01-26-2024 MCH (RBC) [Entitic mass] 27.9 pg 27.0-32.0 [facility] MCHC (RBC) [Mass/Vol] 33.8 g/dL 32-36 [facility] Nucleated RBC/100 WBC (Bld) [Ratio] 0 % 0-5 [facility] Platelet mean volume (Bld) [Entitic vol] 9.6 fL 6.2-12.0 [facility] Platelets (Bld) [#/Vol] 210 10*3/uL 150-450 [facility] No Panel InformationOrdered By: Layne Boles on 01-26-2024 Hepatitis B Surface Antigen Non-Reactive Nonreactive [facility] Hepatitis C Antibody Non-Reactive Nonreactive [facility] Comment on above: Non Reactive: < 0.8 Equivocal: >/= 0.8 to < 1.0 Reactive: >/= 1.0The CDC requires that a reactive/equivocal HCV antibody result be sent out for confirmation. HCV Quant by PCR testing. Miscellaneous Test Comment SEE SCANNED REPORT [facility] Rubella IgG Antibody Reactive Nonreactive [facility] Comment on above: Antibody Results Int erpretation of Immune Status Non Reactive Presumed Non-Immune Equivocal Equivocal Reactive Presumed Immune RBC Auto (Bld) [#/Vol]Ordere d By: Layne Boles on 01-26-2024 RBC (Bld) [#/Vol] 4.58 10*6/uL 4.2-5.[address] [facility] Serum Treponema species anti body detectionOrdered By: Layne Boles on 01-26-2024 Treponema sp Ab Ql (S) Non-Reactive [facility] Whole blood hemoglobin A1c/t otal hemoglobin ratio (mass fraction)Ordered By: Layne Boles on 01-26-2024 HbA1c (Bld) [Mass fraction] 4.8 % 3.8-5.6 [facility] Comment on above: Normal < 5.7 % Predi abetic 5.7 - 6.4 % Diabetic >or= 6.5 % Please note range changes. Chlamydia trachomatis rRNA d etection by probe and target amplification methodOrdered By: Layne Boles on 01-13-2024 C. trachomatis rRNA SUJATHA+probe Ql (Unsp spec) Negative Negative [facility] Culture, urineOrdered By: Jovanny Boles on 01-13-2024 Bacteria identified Cx Nom (U) Culture exhibits no growth. [facility] - Microbiology an d Antimicrobial susceptibilityOrdered By: Layne Boles on 01-13-2024 N. gonorrhoeae DNA SUJATHA+probe Ql (Unsp spec) Negative Negative [facility] Comment on above: Performed at: =[address] [id number] Director: Kimberly Goff MD, Phone: [phone] Basophil percentageOrdered B y: Reji Adler on 05-27-2023 WBC (Bld) [#/Vol] 7.9 10*3/uL 4.4-11.0 [facility] Blood erythrocytes count (nu mber/volume)Ordered By: Reji Adler on 05-27-2023 RBC (Bld) [#/Vol] 4.88 10*6/uL 4.2-5.[address] [facility] Blood hemoglobin measurement (mass/volume)Ordered By: Reji Adler on 05-27-2023 Hemoglobin (Bld) [Mass/Vol] 13.5 g/dL 12.0-15.0 [facility] Blood platelet mean volumeOr dered By: Reji Adler on 05-27-2023 Platelet mean volume (Bld) [Entitic vol] 10.1 fL 6.2-12.0 [facility] Determination of erythrocyte mean corpuscular volume (MCV)Ordered By: Reji Adler on 05-27-2023 MCV (RBC) [Entitic vol] 83.6 fL 81-99 [facility] Hematocrit Auto (Bld) [Volum e fraction]Ordered By: Reji Adler on 05-27-2023 Hematocrit (Bld) [Volume fraction] 40.8 % 37-47 [facility] - Chemistry and C hemistry - challengeOrdered By: Reji Adler on 05-27-2023 Free T4 [Mass/Vol] 0.87 ng/dL 0.76-1.46 [facility] - Hematology and Cell countsOrdered By: Reji Adler on 05-27-2023 Erythrocyte distribution width (RBC) [Entitic vol] 39.2 fL 35.1-43.9 [facility] Erythrocyte distribution width (RBC) [Ratio] 13.0 % 11.6-14.6 [facility] MCH (RBC) [Entitic mass] 27.7 pg 27.0-32.0 [facility] MCHC Auto (RBC) [Mass/Vol]Or dered By: Reji Adler on 05-27-2023 MCHC (RBC) [Mass/Vol] 33.1 g/dL 32-36 [facility] No Panel InformationOrdered By: Reji Adler on 05-27-2023 Follicle Stimulating Hormone 6.0 mIU/mL [facility] Comment on above: NORMAL REFERENCE [facility] FEMALE FOLLICULAR 2.3 - 12.6 mIU/mL MID-CYCLE PEAK 5.2 - 17.5 mIU/mL LUTEAL 1.7 - 12.9 mIU/mL POST-MENOPAUSAL ON MHT 5.9 - 72.8 mIU/mL NOT ON MHT 12.7 - 132.2 mlU/mL MALE 0.7 - 10.8 mIU/mL Luteinizing Hormone 4.4 mIU/mL [facility] Comment on above: NORMAL REFERENCE [facility] FEMALE FOLLICULAR 1.9 - 26.2 mIU/mL MID-CYCLE PEAK 22.8 - 76.1 mIU/mL LUTEAL 0.6 - 16.6 mIU/mL POST-MENOPAUSAL ON MHT 1.1 - 52.4 mIU/mL NOT ON MHT 8.6 - 61.8 mIU/mL MALE 1.2 - 10.6 mIU/mL Thyroid Stimulating Hormone (TSH) 1.62 uIU/mL 0.358-3.74 [facility] Platelets bldOrdered By: Piyush Adler on 05-27-2023 Platelets (Bld) [#/Vol] 238 10*3/uL 150-450 [facility] Serum or plasma estradiol (E 2) measurement (mass/volume)Ordered By: Reji Adler on 05-27-2023 E2 [Mass/Vol] 33.2 pg/mL [facility] Comment on above: NORMAL REFERENCE RAN GES FEMALE FOLLICULAR 21.4 - 164.8 pg/mL MID-CYCLE PEAK 49.9 - 367.2 pg/mL LUTEAL 40.2 - 259.0 pg/mL POST-MENOPAUSAL ON MHT <11.0 - 462.1 pg/mL NOT ON MHT <11.0 - 58.3 pg/mL MALE <11.0 - 52.5 pg/mL NOTE:[employer] HAS CONFIRMED THE DRUG FULVETRANT (FASLODEX) MAY CAUSE FALSELY ELEVATED ESTRADIOL RESULTS WHEN USING THIS TEST METHOD. IF PATIENT IS TAKING FULVESTRANT AN ALTERNATIVE METHOD SHOULD BE USED TO DETERMINE ESTRADIOL CONCENTRATION. Whole blood hemoglobin A1c/t otal hemoglobin ratio (mass fraction)Ordered By: Reji Adler on 05-27-2023 HbA1c (Bld) [Mass fraction] 5.2 % 3.8-5.6 [facility] Comment on above: Normal < 5.7 % Predi abetic 5.7 - 6.4 % Diabetic >or= 6.5 % Please note range changes. HAND MIN 3 VIEWSon HAND MIN 3 VIEWS Patient Name: JAYLYN STOKES STUDY: HAND MIN 3 VIEWS; 2023 6:00 pm INDICATION: middle finger PIP and MCP joint swelling, puncture wound x few days . COMPARISON: None. ACCESSION NUMBER(S): [id number] ORDERING CLINICIAN: HARDEEP HADADD FINDINGS: No acute fracture is identified. No dislocation is seen. There are no lytic or blastic lesions. No radiopaque foreign bodies are noted. IMPRESSION: No radiographic evidence of an acute fracture. Electronically signed by: AZAM TAYLOR MD [facility] Provider Note - ED v3on 01-12 Provider Note - ED v3 Provider Note: Chart Review: ED NOTES ED NOTES: Patient presents for evaluation of vesicular lesion to dorsal aspect of PIP joint of middle finger of left hand that has been ongoing for the past few days. Pt has a hx of HSV 2. States she has had this lesion in the past and was treated with valtrex and it resolved. Pt states she has noticed a red streak extending up forearm. She states this has also happened in the past. She denies fever, n/v/d, fatigue, body aches, or any other associated symptoms or complaints. Did start taking old rx of valtrex but did not improve red streak. HISTORY OF PRESENTING ILLNESS JAYLYN is a 33 year old Female and was seen by me at 24-Jan-2023 17:35. Triage Information: Most recent Vital Sign Value Date PAST MEDICAL HISTORY ALLERGIES/INTOLERANCES: Allergy Allergen: hydrocodone Type: Drug Reaction: Itching HEALTH HISTORY: No documented data. 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 NEUROLOGICAL: Alert and oriented, no focal deficits, no motor or sensory deficits. SKIN: Skin normal color for race, warm, dry and intact except for vesicular slightly erythematous lesion to dorsal aspect of PIP joint of left middle finger. There is a red streak that extends from lesion up around ventral aspect of hand up forearm stopping mid forearm. No drainage from lesion. PSYCHIATRIC: Alert and oriented to person, place, time/situation. normal mood and affect. No apparent risk to self or others. CRITICAL CARE RESULTS: Recent Lab Results: I have reviewed these laboratory results: Culture, Miscellaneous, includes Gram Stain 24-Jan-2023 18:00:00 ResultValue Culture, Miscellaneous, includes Gram Stain NO GROWTH, CULTURE IN PROGRESS. HSV by PCR Qualitative Skin/Mucosa Lesion 24-Jan-2023 17:44:00 ResultValue Lab Comment: +HSV2 CALLED RB TO HARDEEP HADDAD , 01/25/2023 13:04+HSV2 CALLED RB TO HARDEEP HADDAD , 01/25/2023 13:04 HSV-1 Skin/Mucosa NOT DETECTED Reference Range: Not Detected HSV-2 Skin/Mucosa DETECTED Reference Range: Not Detected The HSV 1+2 Assay is an FDA approved in vitro diagnostic nucleic acid amplification test for the direct, qualitative detection and differentiation of Herpes Simplex Virus 1 (HSV-1) and Herpes Simplex Vi AA Fluid Source Skin VZV DNA by PCR, Qual Skin/Mucosa Lesion 24-Jan-2023 17:44:00 ResultValue VZV DNA PCR Skin/Mucosa NOT DETECTED Reference Range: Not Detected The VZV Assay is an FDA approved in vitro diagnostic nucleic acid amplification test for the direct, qualitative detection of Varicella Zoster Virus DNA in cutaneous or mucocutaneous lesion specimens Fluid Source Skin VITAL SIGNS: T PRBP SpO2O2(LPM) %FiO2 Method 24-Jan-2023 17:12:[id number] 97 MDM MDM/ED COURSE: Discussed Findings with: patient Data Reviewed: vital signs Treatment Plan: Rx Valtrex and clindamycin. Will follow culture. Advised patient to monitor for worsening symptoms and go to ER if they occur. Patient's clinical presentation is otherwise unremarkable at this time. Patient is discharged with instructions to follow-up with primary care or seek emergency medical attention for worsening symptoms or any new concerns. DISPOSITION Diagnosis/Annotation: ED Dx Name:Vesicular lesion Code:R23.8 Name:Cellulitis of finger, unspecified laterality Code:L03.019 Disposition: discharged Type: home CONSULT CRITICAL CARE TIME Is this a critically ill patient: no Electronic Signatures: Hardeep Haddad ([employer]IVE ACCESSORY INSTALLER) (Signed 25-Jan-2023 13:45) Authored: ED Notes, HPI, PMH, ROS, PE, Results/Vital Signs, MDM/ED Course, Clinical Impression, Attestation, Chart Review, Scores Last Updated: 25-Jan-2023 13:45 by Hardeep Haddad ([employer]-AUTOMOTIVE ACCESSORY INSTALLER) [facility] Provider Note - ED v3on 10-2 Provider Note - ED v3 Provider Note: Chart Review: ED NOTES ED NOTES: Patient presents for evaluation of left hand rash with surrounding erythema and edema traveling up left forearm. 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 Takes valtrex. Denies fever, n/v/d, fatigue, body aches, chest pains, abdominal pains, headache, dizziness or any other associated symptom or complaint. No otc meds used for symptoms. HISTORY OF PRESENTING ILLNESS JAYLYN is a 32 year old Female and was seen by me at 08-Sep-2022 17:39. Triage Information: Most recent Vital Sign Value Date PAST MEDICAL HISTORY ALLERGIES/INTOLERANCES: Allergy Allergen: hydrocodone Type: Drug Reaction: Itching HEALTH HISTORY: No documented data. 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 NEUROLOGICAL: Alert and oriented, no focal deficits, no motor or sensory deficits. SKIN: Skin normal color for race, warm, dry and intact except for vesicular lesion to left hand with erythema, edema extending up forearm. PSYCHIATRIC: Alert and oriented to person, place, time/situation. normal mood and affect. No apparent risk to self or others. CRITICAL CARE VITAL SIGNS: Initial Vital Signs: Temperature C: 36.6 degrees C. Temperature F: 98 degrees F. Temperature site: temporal. Blood Pressure: 149 mm/Hg / 98 mm/Hg Blood Pressure Position: Heart Rate: 71 beats per minute Respiratory Rate: 14 breath per minute Pulse Oximetry: 98 %. Patient on: room air. MDM MDM/ED COURSE: Discussed Findings with: patient Data Reviewed: vital signs Treatment Plan: 1g IM Rocephin given in office, pt tolerated well. Rx Bactrim DS and Keflex. Patient's clinical presentation is otherwise unremarkable at this time. Patient is discharged with instructions to follow-up with primary care or seek emergency medical attention for worsening symptoms or any new concerns. DISPOSITION Diagnosis/Annotation: ED Dx Name:Cellulitis of left upper extremity Code:L03.114 Disposition: discharged Type: home CONSULT CRITICAL CARE TIME Is this a critically ill patient: no Electronic Signatures: Hardeep Haddad ([employer]-AUTOMOTIVE ACCESSORY INSTALLER) (Signed 18-Sep-2022 10:19) Authored: ED Notes, HPI, PMH, ROS, PE, Results/Vital Signs, MDM/ED Course, Clinical Impression, Attestation, Chart Review, Scores Last Updated: 18-Sep-2022 10:19 by Hardeep Haddad ([employer]-AUTOMOTIVE ACCESSORY INSTALLER) [facility] Office Visit (Primary Care F orms)on 12-30-2021 Follow-up visit Diagnosis/Problems Assessed Acute sinusitis (461.9) (J01.90) History and limited PE consistent with acute sinusitis. Will tx as such with antibiotics and nasal steroid as below. COVID testing not indicated due to recent positive within the past few weeks. Patient instructed to follow up in 3-4 days if no better, sooner if worse. Return precautions reviewed. This visit was completed virtually due to the restrictions of the COVID-19 pandemic. All issues as below were discussed and addressed, but no physical exam was performed. If it was felt that the patient should be evaluated in clinic, then they were directed there. The patient verbally consented to visit. Spent 11 minutes with patient [id number] via virtual visit. Orders Acute sinusitis Start: Amoxicillin-Pot Clavulanate 875-125 MG Oral Tablet; TAKE 1 TABLET EVERY 12 HOURS DAILY Rx By: Migdalia Medrano; Dispense: 10 Days ; #:20 Tablet; Refill: 0;For: Acute sinusitis; JOESPH = N; Verified Transmission to [id number]; Last Updated By: [employer]; 12/30/2021 11:47:40 AM Start: Fluticasone Propionate 50 MCG/ACT Nasal Suspension; USE 1 SPRAY IN EACH NOSTRIL TWICE DAILY Rx By: Migdalia Medrano; Dispense: 0 Days ; #:1 X 16 GM Bottle; Refill: 1;For: Acute sinusitis; JOESPH = N; Verified Transmission to [id number]; Last Updated By: [employer]; 12/30/2021 11:47:40 AM 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s Visit For: Other An interactive audio and video telecommunication system which permits real time communications between the patient (at the originating site) and provider (at the distant site) was utilized to provide this telehealth service. Virtual visit Possible sinus infection, head congestion, face hurts jaw and teeth hurt scratchy throat, ears plugged Had Covid in [facility] History of Present IllnessPatient presents today via virtual visit with chief complaint of sinus pressure. States that this episode started 2-3 days ago with associated maxillary dental pain, nasal congestion, rhinorrhea, scratchy throat, bl ear fullness. Denies CP, SOB, TUCKER, LH, dizziness, abd pain, n/v/d, cough, fever, chills. Denies sick contacts. Has tried Nyquil, Dayquil, Sudafed, Mucinex with no improvement in symptoms. Did have covid-19 a few weeks ago and returned to baseline prior to onset of current symptoms. Review of Systems Constitutional: no fever. Cardiovascular: no chest pain. Respiratory: no cough. All other systems have been reviewed and are negative for complaint. ENT: sore throat, nose drainage, nose congestion, ear fullness, post nasal drip and sinus pressure, but as noted in HPI. Active Problems Problems Acute irritant rhinitis (460) (J00) Amenorrhea (626.0) (N91.2) Genital herpes in women (054.10) (A60.09) Hypertriglyceridemia (272.1) (E78.1) Hypoglycemia (251.2) (E16.2) Persistent adjustment disorder with anxiety (309.24) (F43.22) Viral URI with cough (465.9) (J06.9) Past Medical History Problems History of Acute depression (296.20) (F32.A) History of COVID-19 vaccination declined (V64.06) (Z28.21) History of vaginal delivery (V13.29) Surgical History Problems History of Corneal lasik History of Strabismus surgery History of Tonsillectomy Family History Mother Family history of colonic diverticulitis (V18.59) (Z83.79) Family history of depression (V17.0) (Z81.8) Family history of hyperthyroidism (V18.19) (Z83.49) Father Family history of cardiac disorder (V17.49) (Z82.49) Sister Family history of gestational diabetes mellitus (GDM) (V18.0) (Z83.3) Family history of hypertension (V17.49) (Z82.49) Social History Problems Carbonated beverages Coffee Never smoker No advance directives (V49.89) (Z78.9) No illicit drug use Occasional alcohol use Current Meds Medication NameInstruction Norlyda 0.35 MG Oral Tablet Allergies Medication hydrocodone Itching; Recorded By: Ro Solorzano; 06/19/2020 1:02:55 PM Percocet TABS Itching; Recorded By: Ro Solorzano; 04/28/2020 1:53:47 PM oxyCODONE HCl TABS Recorded By: Ro Solorzano; 04/28/2020 1:53:47 PM Physical Exam Constitutional - Well developed, well nourished, well hydrated and no acute distress. Head and Face - Normocephalic, atraumatic. Ears, Nose, Mouth, and Throat - Hearing: Normal. Pulmonary - normal respiratory effort. Psychiatric - Mood and affect: Normal. Signatures Electronically signed by : Migdalia Medrano DO; Dec 30 2021 11:54AM EST (Author) Normal [facility] INFLUENZA A/B, COVID 2018 PC R,SYMPTOMATICon 12-08-2021 Date and time of symptom onset [id number] [address] [address] DO Work Phone: INFLUENZA A/B, COVID 2018 PCR,SYMPTOMATIC Detected Abnormal See Below [facility] 205 DO Work Phone: Comment on above: Reference Range: Not Detected.This assay is designed to detect the N, ORF1ab and/or S genes of SARS-CoV-2 via nucleic acid amplification. A Negative (NOT DETECTED) result does not preclude 2019-nCoV infection since the adequacy of sample collection and/or low viral burden may result in presence of viral nucleic acids below the clinical sensitivity of this test method. Negative (NOT DETECTED) result should not be used as the sole basis for treatment or other patient management decisions. Rather negative results should be combined with clinical observations, patient history, and epidemiological information to make patient management decisions.Fact sheet for providers: https://www.fda.gov/media/729509/downloadFact sheet for patients: https://www.fda.gov/media/247177/downloadThis test has received FDA Emergency Use Authorization (EUA) and has been verified by [facility] ([facility]). This test is only authorized for the duration of time that circumstances exist to justify the authorization of the emergency use of in vitro diagnostic tests for the detection of SARS-CoV-2 virus and/or diagnosis of COVID-19 infection under section 564(b)(1) of the Act, 21 U.S.C. 360bbb-3(b)(1), unless the authorization is terminated or revoked sooner. [facility] is certified under CLIA-88 as qualified to perform high complexity testing. Testing is performed in the [facility] laboratories located at [address] [place] [address]. INFLUENZA A/B, COVID 2019 PCR,SYMPTOMATIC Not detected See Below [facility] 205 DO Work Phone: Comment on above: Reference Range: Not Detected Respiratory virus testing is performed routinely by PCR for Influenza A/B and RSV. If Influenza and RSV PCR are negative, testing for parainfluenza 1,2,3 viruses and adenovirus is routinely performed for oncology inpatients and intensive care unit patients at [facility] and is available on request on other patients by calling Laboratory Client Services at [phone] Not Detected results do not preclude Influenza A/B or RSV infections since the adequacy of sample collection or low viral burden may impact the clinical sensitivity of this test method..The TaqManTM SARS-CoV-2, Flu A, Flu B Multiplex Assay is a multiplex, real-time RT-PCR assay for the detection of RNA from the SARS-CoV-2, Influenza A, and Influenza B viruses. A negative result does not preclude the possibility of SARS-CoV-2, Influenza A, or Influenza B infections, and should not be used as the sole basis for patient management decision as a negative result may be caused by very low levels of infection, collection errors, or testing errors. .This test was developed and its performance characteristics were determined by the Microbiology Laboratory, Department of Pathology, [facility], [place], [place]. It has not been cleared or approved by the US Food and Drug Administration; however, FDA clearance or approval is not currently required for clinical use. This test should not be regarded as investigational or for research purposes. SOURCE: Nasal, Nasop haryngealReference Range: Not Detected Respiratory virus testing is performed routinely by PCR for Influenza A/B and RSV. If Influenza and RSV PCR are negative, testing for parainfluenza 1,2,3 viruses and adenovirus is routinely performed for oncology inpatients and intensive care unit patients at [facility] and is available on request on other patients by calling Laboratory Client Services at [phone]. Not Detected results do not preclude Influenza A/B or RSV infections since the adequacy of sample collection or low viral burden may impact the clinical sensitivity of this test method. Office Visit (Primary Care F orms)on 12-08-2021 Follow-up visit Diagnosis/Problems Assessed Suspected COVID-19 virus infection (V01.79) (Z20.822) 3 days of covid symptoms with possible exposure. We will obtain COVID-19/influenza swab and follow up with results. Recommend nasal steroid and Tylenol/ibuprofen for pain/fever. Medication dosing and side effects reviewed. Discussed hand hygiene, oral hydration, and quarantine. Return precautions and symptoms that should prompt urgent/emergent evaluation discussed. This visit was completed virtually due to the restrictions of the COVID-19 pandemic. All issues as below were discussed and addressed, but no physical exam was performed. If it was felt that the patient should be evaluated in clinic, then they were directed there. The patient verbally consented to visit. Spent 11 minutes with patient [id number] via virtual visit. Orders Suspected COVID-19 virus infection Start: Fluticasone Propionate 50 MCG/ACT Nasal Suspension; USE 1 SPRAY IN EACH NOSTRIL TWICE DAILY Rx By: Migdalia Medrano; Dispense: 0 Days ; #:1 X 16 GM Bottle; Refill: 0;For: Suspected COVID-19 virus infection; JOESPH = N; Sent To: [id number] INFLUENZA A/B, COVID 2018 PCR,SYMPTOMATIC; Status:Active; Requested for:08Dec2021; Perform:Lab Services - Lab To Draw (Non-Blood Test); Due:08Mar2022;Ordered; For:Suspected COVID-19 virus infection; Ordered By:Medrano, Migdalia; ? : No RESIDENT IN CONGREGATE CARE SETTING? : No ICU? : No HOSPITALIZED (OR PLANNED TO BE ADMITTED)? : No EMPLOYED IN HEALTHCARE? : No FIRST COVID NASAL SWAB TEST? : Yes Symptom 2 : Runny nose/Congestion Symptom 1 : Nausea/Vomiting DATE OF SYMPTOM ONSET? : 06Dec2021 IS THE PATIENT SYMPTOMATIC DEFINED BY THE CDC (FEVER>100, NEW WORSENING COUGH OR SHORTNESS OF BREATH, NEW LOSS OF TASTE OR SMELL, SORE THROAT, DIARRHEA, BODY ACHES/MALAISE, HEADACHE, NAUSEA/VOMITING, OR RUNNY NOSE/CONGESTION)? : Yes 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 An interactive audio and video telecommunication system which permits real time communications between the patient (at the originating site) and provider (at the distant site) was utilized to provide this telehealth service. Verbal consent was requested and obtained from JAYLYN JACEROSALBA on this date, 12/08/2021 01:00 PM , for a telehealth visit. body aches, chills started Tuesday. Fever, dizziness, nausea, throat scratchy throat, fatigued. Step son had covid just out of quarantine. History of Present IllnessThis is a 31yo female without significant pmhx who presents today via virtual visit with chief complaint of myalgias. States that this episodes started 2 days ago with associated chills, tmax (100.8F), dizziness, TUCKER, nasal congestion, rhinorrhea, nausea, PND, cough (which she attributes to PND), minimal SOB. Denies CP, abd pain, v/d, decreased taste/smell, sinus pressure, ear pain. Tried taking ibuprofen, which helped with her fever. Has been afebrile x24hrs. Is also taking otc vitamin C supplement. Patient's reeseon (who lives with her) was diagnosed with covid 2 weeks ago. He tried to stay in his room but came out of his room while patient was at work, so she does have possible exposure. Has not been to work yet this week. Review of Systems Constitutional: no fever. Cardiovascular: shortness of breath, but no chest pain. Respiratory: cough. All other systems have been reviewed and are negative for complaint. ENT: nose drainage, nose congestion and post nasal drip, but no ear pain and no sinus pressure The patient presents with complaints of sore throat (scratchy). Musculoskeletal: muscle pain. Neurological: headache and dizziness. Active Problems Problems Acute irritant rhinitis (460) (J00) Amenorrhea (626.0) (N91.2) Genital herpes in women (054.10) (A60.09) Hypertriglyceridemia (272.1) (E78.1) Hypoglycemia (251.2) (E16.2) Persistent adjustment disorder with anxiety (309.24) (F43.22) Viral URI with cough (465.9) (J06.9) Past Medical History Problems History of Acute depression (296.20) (F32.A) History of COVID-19 vaccination declined (V64.06) (Z28.21) History of vaginal delivery (V13.29) Surgical History Problems History of Corneal lasik History of Strabismus surgery History of Tonsillectomy Family History Mother Family history of colonic diverticulitis (V18.59) (Z83.79) Family history of depression (V17.0) (Z81.8) Family history of hyperthyroidism (V18.19) (Z83.49) Father Family history of cardiac disorder (V17.49) (Z82.49) Sister Family history of gestational diabetes mellitus (GDM) (V18.0) (Z83.3) Family history of hypertension (V17.49) (Z82.49) Social History Problems Carbonated beverages Coffee Never smoker No advance directives (V49.89) (Z78.9) No illicit drug use Occasional alcohol use Current Meds Medication NameInstruction Norlyda 0.35 MG Oral Tablet Allergies Medication hydrocodone Itching; Recorded By: Ro Solorzano; 06/19/2020 1:02:55 PM Percocet TABS Itching; Recorded By: Alejo (more content not included)... Normal [facility] Coronavirus 2019 RNA by PCR, Symptomaticon 07-29-2021 Date and time of symptom onset [id number] [facility] Phone: Coronavirus 2019 RNA by PCR, Symptomatic Not detected Normal See Below [facility] Phone: Comment on above: SOURCE: Nasal, Nasop haryngealReference Range: Not Detected.This assay is designed to detect the N, ORF1ab and/or S genes of SARS-CoV-2 via nucleic acid amplification. A Negative (NOT DETECTED) result does not preclude 2019-nCoV infection since the adequacy of sample collection and/or low viral burden may result in presence of viral nucleic acids below the clinical sensitivity of this test method. Negative (NOT DETECTED) result should not be used as the sole basis for treatment or other patient management decisions. Rather negative results should be combined with clinical observations, patient history, and epidemiological information to make patient management decisions.Fact sheet for providers: https://www.fda.gov/media/372616/downloadFact sheet for patients: https://www.fda.gov/media/815421/downloadThis test has received FDA Emergency Use Authorization (EUA) and has been verified by [facility] ([facility]). This test is only authorized for the duration of time that circumstances exist to justify the authorization of the emergency use of in vitro diagnostic tests for the detection of SARS-CoV-2 virus and/or diagnosis of COVID-19 infection under section 564(b)(1) of the Act, 21 U.S.C. 360bbb-3(b)(1), unless the authorization is terminated or revoked sooner. [facility] is certified under CLIA-88 as qualified to perform high complexity testing. Testing is performed in the [facility] laboratories located at [address] [place] [address]. Office Visiton 07-28-2021 Follow-up visit Diagnoses/Problems Viral URI with cough (465.9) (J06.9) Orders Viral URI with cough Coronavirus 2019 RNA by PCR, Symptomatic; Status:Active; Requested for:28Jul2021; ? : No RESIDENT IN CONGREGATE CARE SETTING? : No ICU? : No HOSPITALIZED (OR PLANNED TO BE ADMITTED)? : No EMPLOYED IN HEALTHCARE? : No FIRST COVID NASAL SWAB TEST? : Yes Symptom 2 : Headache Symptom 1 : Sore throat DATE OF SYMPTOM ONSET? : 23Jul2021 IS THE PATIENT SYMPTOMATIC DEFINED BY THE CDC (FEVER>100, NEW WORSENING COUGH OR SHORTNESS OF BREATH, NEW LOSS OF TASTE OR SMELL, SORE THROAT, DIARRHEA, BODY ACHES/MALAISE, HEADACHE, NAUSEA/VOMITING, OR RUNNY NOSE/CONGESTION)? : Yes Patient Discussion/Summary COVID test ordered. Symptomatic treatment. Follow up if any new or worsening symptoms. Quarantine for now, will give further direction after results. Recommendations for ER Evaluation reviewed with patient. 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 Pt presents with c/o scratchy throat, productive cough, nasal drainage and laryngitis starting on 07/23/21 History of Present IllnessHortensia presents today for evaluation of URI. It started 07/23/21 with sore throat and cough. Progressed over the next few days with congestion runny nose and losing her voice. She has been coughing and having a lot of phlegm. Today she has a headache. Her stepson was sick on 07/20 with some congestion but it resolved quickly. Her 4-month-old son had a fever on Tuesday without any other symptoms and he had his vaccines a day before. Review of Systems General: Negative except HPI Cardiovascular: Negative except HPI Respiratory: Negative except HPI Gastrointestinal: Negative except HPI : Negative except HPI Neurological: Negative except HPI Active Problems Acute irritant rhinitis (460) (J00) Amenorrhea (626.0) (N91.2) Genital herpes in women (054.10) (A60.09) Hypertriglyceridemia (272.1) (E78.1) Hypoglycemia (251.2) (E16.2) Persistent adjustment disorder with anxiety (309.24) (F43.22) Past Medical History History of Acute depression (296.20) (F32.9) History of COVID-19 vaccination declined (V64.06) (Z28.21) History of vaginal delivery (V13.29) Surgical History History of Corneal lasik History of Strabismus surgery History of Tonsillectomy Family History Family history of colonic diverticulitis (V18.59) (Z83.79) Family history of depression (V17.0) (Z81.8) Family history of hyperthyroidism (V18.19) (Z83.49) Family history of cardiac disorder (V17.49) (Z82.49) Family history of gestational diabetes mellitus (GDM) (V18.0) (Z83.3) Family history of hypertension (V17.49) (Z82.49) Social History Carbonated beverages Coffee Never smoker No advance directives (V49.89) (Z78.9) No illicit drug use Occasional alcohol use Allergies hydrocodone Itching; Recorded By: Ro Solorzano; 06/19/2020 1:02:55 PM Percocet TABS Itching; Recorded By: Ro Solorzano; 04/28/2020 1:53:47 PM oxyCODONE HCl TABS Recorded By: Ro Solorzano; 04/28/2020 1:53:47 PM Current Meds Medication NameInstruction Flonase Sensimist 27.5 MCG/SPRAY Nasal SuspensionUSE 1 SPRAY IN EACH NOSTRIL TWICE DAILY. FLUoxetine HCl - 40 MG Oral Capsuletake 1 capsule by mouth once daily Norlyda 0.35 MG Oral Tablet valACYclovir HCl - 1 GM Oral TabletTAKE 1 TABLET EVERY 12 HOURS DAILY. Physical Exam General: Well appearing, in no distress Respiratory: Able to speak in full sentences, nonlabored breathing, no cough Neuro: Alert and oriented x 3 Psych: Appropriate affect and mood Signatures Electronically signed by : BEATRIZ Lemon; Jul 28 2021 3:56PM EST (Author) Normal [facility] 19-49 Year[facility] 04-20-2021 19-49 Years Diagnoses/Problems Health Maintenance/Risks Encounter for preventive health examination (V70.0) (Z00.00) Assessed Hypertriglyceridemia (272.1) (E78.1) Acute irritant rhinitis (460) (J00) Orders Acute irritant rhinitis Start: Flonase Sensimist 27.5 MCG/SPRAY Nasal Suspension; USE 1 SPRAY IN EACH NOSTRIL TWICE DAILY Rx By: Kimberlyn Ramirez; Dispense: 0 Days ; #:1 X 5.9 ML Bottle; Refill: 1;For: Acute irritant rhinitis; JOESPH = N; Verified Transmission to [id number]; Last Updated By: SystemTeedot; 04/20/2021 2:49:35 PM Hypertriglyceridemia Lipid Panel; Status:Active; Requested for:[id number]; Perform:Lab Services - Lab To Draw (Blood Test); Due:18Jan2022;Ordered; For:Hypertriglyceridemia ; Ordered By:Kimberlyn Ramirez; Patient Discussion/Summary Continue current medications and treatments. Add flonase for 2 weeks. Labs ordered repeat lipids in 6 mos. Follow up in 6 mos or as needed. 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 Pt presents to this office for physical History of Present Illnessthere are no concerns today. The patient's health since the last visit is described as good. There are no interval changes in the patient's PMH, PSH, and current medications. There are no interval changes in the patient's social and family history. She has regular dental visits. She denies vision problems. She denies hearing loss. Immunizations status: not up to date . TDaP. Lifestyle: She consumes a diverse and healthy diet. She does not have any weight concerns. She exercises regularly. She does not use tobacco. She denies alcohol use. History: 1 . 5/07/04 Vaginal delivery-pumping and formula. Metabolic screening: lipid profile performed within the past five years. Additional History:. Triglycerides were elevated on work labs. Discussed dietary recommendations. She has been having some right-sided nasopharynx discomfort since she delivered. She denies any allergy symptoms or acid reflux. Review of Systems General: Negative except HPI Cardiovascular: Negative except HPI Respiratory: Negative except HPI Gastrointestinal: Negative except HPI : Negative except HPI Neurological: Negative except HPI Active Problems Problems Amenorrhea (626.0) (N91.2) Genital herpes in women (054.10) (A60.09) Hypoglycemia (251.2) (E16.2) Persistent adjustment disorder with anxiety (309.24) (F43.22) Past Medical History Problems History of Acute depression (296.20) (F32.9) History of COVID-19 vaccination declined (V64.06) (Z28.21) History of vaginal delivery (V13.29) Surgical History Problems History of Corneal lasik History of Strabismus surgery History of Tonsillectomy Family History Mother Family history of colonic diverticulitis (V18.59) (Z83.79) Family history of depression (V17.0) (Z81.8) Family history of hyperthyroidism (V18.19) (Z83.49) Father Family history of cardiac disorder (V17.49) (Z82.49) Sister Family history of gestational diabetes mellitus (GDM) (V18.0) (Z83.3) Family history of hypertension (V17.49) (Z82.49) Social History Problems Carbonated beverages Coffee Never smoker No advance directives (V49.89) (Z78.9) No illicit drug use Occasional alcohol use Allergies Medication hydrocodone Itching; Recorded By: Ro Solorzano; 06/19/2020 1:02:55 PM Percocet TABS Itching; Recorded By: Ro Solorzano; 04/28/2020 1:53:47 PM oxyCODONE HCl TABS Recorded By: Ro Solorzano; 04/28/2020 1:53:47 PM Current Meds Medication NameInstruction PROzac 20 MG Oral Capsule SM Vitamins TABS valACYclovir HCl - 1 GM Oral TabletTAKE 1 TABLET EVERY 12 HOURS DAILY. Vitals Vital Signs Recorded: 20Apr2021 02:11PM Zyjxrffkihw57.1 F Heart Rate94 Ehditdmb941 Ytathaxqx48 Height5 ft 1 in Likafb798 lb 14.4 oz BMI Nniwpdlswo68.68 kg/m2 BSA Calculated1.99 Tobacco Useb) No Fall Screeninga) No falls within the last year Physical Exam General: well nourished, in no distress Neck: No lymphadenopathy, thyromegaly or carotid bruit. Supple and normal ROM ENT: posterior pharynx without redness or edema. nasal turbinates nonedematous. Cardiovascular: RRR, no Murmur, No edema Respiratory: Clear lungs throughout, no cough Abdomen: No tenderness or masses. Normal bowel sounds Neuro: Alert and oriented x 3 Musculoskeletal: Normal gait 'Scores and Scales' Signatures Electronically signed by : BEATRIZ Lemon; Apr 20 2021 5:35PM EST (Author) Normal [facility] Tobacco Screening.on Fall risk assessment a) No falls within the last year [facility] Work Phone: Tobacco use status [facility] b) No [facility] [place] Phone: Auto Diffon 11-15-2018 Basophils (Bld) [#/Vol] 0.0 E3/mcL Normal 0.0-0.2 [facility] Comment on above: Order Comment: Order Added by Discern Expert. Performed By: #### 2 [id number] #### JANENE RemHemo [address] [place] [address] Basophils/100 WBC (Bld) 0.5 % Normal 0.0-2.0 [facility] Comment on above: Order Comment: Order Added by Discern Expert. Performed By: #### 2 [id number] #### JANENE RemHemo [address] [place] [address] Eos Absolute 0.3 E3/mcL Normal 0.0-0.7 [facility] Comment on above: Order Comment: Order Added by Discern Expert. Performed By: #### 2 [id number] #### JANENE RemHemo [address] [place] [address] Eosinophils/100 WBC (Bld) 3.7 % Normal 0.0-11.0 [facility] Comment on above: Order Comment: Order Added by Discern Expert. Performed By: #### 2 [id number] #### JANENE RemHemo [address] [place] [address] Lymphocytes (Bld) [#/Vol] 2.3 E3/mcL Normal 1.2-3.4 [facility] Comment on above: Order Comment: Order Added by Discern Expert. Performed By: #### 2 [id number] #### JANENE RemHemo [address] [place] [address] Lymphocytes/100 WBC (Bld) 30.7 % Normal 20.0-55.0 [facility] Comment on above: Order Comment: Order Added by Discern Expert. Performed By: #### 2 [id number] #### JANENE RemHemo [address] [place] [address] [place] Absolute 0.5 E3/mcL Normal 0.0-0.7 [facility] Comment on above: Order Comment: Order Added by Discern Expert. Performed By: #### 2 [id number] #### JANENE RemHemo [address] [place] [address] Monocytes/100 WBC (Bld) 7.3 % Normal 0.0-10.0 [facility] Comment on above: Order Comment: Order Added by Discern Expert. Performed By: #### 2 [id number] #### JANENE RemHemo [address] [place] [address] Neutro Absolute 4.3 E3/mcL Normal 1.4-6.5 [facility] Comment on above: Order Comment: Order Added by Discern Expert. Performed By: #### 2 [id number] #### JANENE RemHemo [address] [place] [address] Neutro Auto 57.8 % Normal 37.0-75.0 [facility] Comment on above: Order Comment: Order Added by Discern Expert. Performed By: #### 2 [id number] #### JANENE RemHemo [address] [place] [address] CBC w/ Auto Diffon Erythrocyte distribution width (RBC) [Ratio] 12.8 % Normal 11.5-14.5 [facility] Comment on above: Performed By: #### 2 [id number] #### JANENE RemHemo [address] [place] [address] Hematocrit (Bld) [Volume fraction] 41.1 % Normal 36.0-48.0 [facility] Comment on above: Performed By: #### 2 [id number] #### JANENE RemHemo [address] [place] [address] Hemoglobin (Bld) [Mass/Vol] 13.7 g/dL Normal 12.0-16.0 [facility] Comment on above: Performed By: #### 2 [id number] #### JANENE RemHemo [address] [place] [address] MCH (RBC) [Entitic mass] 28.0 pg Normal 27.0-31.0 [facility] Comment on above: Performed By: #### 2 [id number] #### JANENE RemHemo [address] [place] [address] MCHC (RBC) [Mass/Vol] 33.4 g/dL Normal 33.0-37.0 [facility] Comment on above: Performed By: #### 2 [id number] #### JANENE RemHemo [address] [place] [address] MCV (RBC) [Entitic vol] 84.0 fL Normal 78.0-100.0 [facility] Comment on above: Performed By: #### 2 [id number] #### JANENE RemHemo [address] [place] [address] Platelet mean volume (Bld) [Entitic vol] 8.1 fL Normal 7.4-11.0 [facility] Comment on above: Performed By: #### 2 [id number] #### JANENE RemHemo [address] [place] [address] Platelets (Bld) [#/Vol] 207 E3/mcL Normal 130-400 [facility] Comment on above: Performed By: #### 2 [id number] #### JANENE RemHemo [facility] [place] [address] RBC (Bld) [#/Vol] 4.89 E6/mcL Normal 3.90-5.40 [facility] Comment on above: Performed By: #### 2 [id number] #### JANENE RemHemo [facility] [place] [address] WBC (Bld) [#/Vol] 7.5 E3/mcL Normal 3.6-11.0 [facility] Comment on above: Performed By: #### 2 [id number] #### JANENE RemHemo [address] [place] [address] CMPon 11-15-2018 Albumin [Mass/Vol] 4.2 g/dL Normal 3.4-5.0 [facility] Comment on above: Performed By: #### 2 [id number] #### JANENE [employer] [address] [place] [address] Albumin/Globulin [Mass ratio] 1.5 {ratio} Normal 1.1-1.9 [facility] Comment on above: Performed By: #### 2 [id number] #### JANENE [employer] [address] [place] [address] Alk Phos 65 Int._Unit/L Normal 33-110 [facility] Comment on above: Performed By: #### 2 [id number] #### JANENE [employer] [facility] [place] [address] ALT [Catalytic activity/Vol] 23 Int._Unit/L Normal 7-45 [facility] Comment on above: Performed By: #### 2 [id number] #### JANENE [employer] [address] [place] [address] Anion gap [Moles/Vol] 10 mmol/L Normal 10-20 [facility] Comment on above: Performed By: #### 2 [id number] #### JANENE [employer] [address] [place] [address] AST [Catalytic activity/Vol] 18 Int._Unit/L Normal 9-39 [facility] Comment on above: Performed By: #### 2 [id number] #### [facility] [employer] [address] [place] [address] Bili Total 0.42 mg/dL Normal 0.00-1.20 [facility] Comment on above: Performed By: #### 2 [id number] #### [facility] [employer] [address] [place] [address] Calcium [Mass/Vol] 9.5 mg/dL Normal 8.6-10.3 [facility] Comment on above: Performed By: #### 2 [id number] #### [facility] [employer] [address] [place], [place] [id number] Chloride [Moles/Vol] 106 mmol/L Normal 98-107 [facility] Comment on above: Performed By: #### 2 [id number] #### [facility] [employer] [address] [place] [address] CO2 [Moles/Vol] 26.0 mmol/L Normal 21.0-32.0 [facility] Comment on above: Performed By: #### 2 [id number] #### [facility] [employer] [address] [place] [address] Creatinine [Mass/Vol] 0.7 mg/dL Normal 0.5-1.1 [facility] Comment on above: Performed By: #### 2 [id number] #### [facility] [employer] [address] [place] [address] Globulin (S) [Mass/Vol] 3.0 g/dL Normal 2.0-4.0 [facility] Comment on above: Performed By: #### 2 [id number] #### [facility] [employer] [address] [place] [address] Glucose [Mass/Vol] 94 mg/dL Normal 70-99 [facility] Comment on above: Performed By: #### 2 [id number] #### [facility] [employer] [address] [place] [address] Potassium [Moles/Vol] 3.9 mmol/L Normal 3.5-5.3 [facility] Comment on above: Performed By: #### 2 [id number] #### JANENE [employer] [address] [place] [address] Protein [Mass/Vol] 7.0 g/dL Normal 6.4-8.2 [facility] Comment on above: Performed By: #### 2 [id number] #### JANENE [employer] [address] [place] [address] Sodium [Moles/Vol] 138 mmol/L Normal 136-145 [facility] Comment on above: Performed By: #### 2 [id number] #### JANENE [employer] [address] [place] [address] Urea nitrogen [Mass/Vol] 17 mg/dL Normal 6-23 [facility] Comment on above: Performed By: #### 2 [id number] #### JANENE [employer] [address] [place] [address] Urea nitrogen/Creatinine [Mass ratio] 24.3 ratio Normal 5.4-30.0 [facility] Comment on above: Performed By: #### 2 [id number] #### JANENE [employer] [address] [place] [address] TSHon 11-15-2018 TSH Qn 3.65 mcIU/mL Normal 0.30-5.60 [facility] Comment on above: Performed By: #### 2 [id number] #### JANENE [employer] [address] [place] [address] eGFRon 11-15-2018 GFR/1.73 sq M predicted among non-blacks MDRD (S/P/Bld) [Vol rate/Area] mL/min/{1.73_m2} Normal [facility] Comment on above: Order Comment: Order added by Discern Expert. Performed By: #### 1 [id number] #### JANENE [employer] [address] [place] [address] Vital Signs Date Time Vital Sign Value Performing Clinician Facility 05-02-2025 10:04040 Body height 154.94 cm No Primary Care Physician [facility] 05-02-2025 10:040400 Body mass index (BMI) [Ratio] 46.5 kg/m2 No Primary Care Physician [facility] 05-02-2025 10:04-0400 Body weight 111.58 kg No Primary Care Physician [facility] 05-02-2025 10:04-0400 Diastolic blood pressure 83 mm[Hg] No Primary Care Physician [facility] 05-02-2025 10:04-0400 Systolic blood pressure 144 mm[Hg] No Primary Care Physician [facility] 04-18-2025 10:59-0400 Heart rate 88 /min Ruben Hancock MD Work Phone: [facility] 04-18-2025 10:59-0400 Respiratory rate 16 /min Ruben Hancock MD Work Phone: [facility] 04-18-2025 10:59-0400 SaO2% (BldA) [Mass fraction] 95 % Ruben Hancock MD Work Phone: [facility] 04-10-2025 13:05-0400 Body height 154.9 cm Doris Mariam DO Work Phone: [facility] 04-10-2025 13:05-0400 Body mass index (BMI) [Ratio] 44.4 kg/m2 Doris Gaudin DO Work Phone: [facility] 04-10-2025 13:05-0400 Body weight 106.59 kg Doris Mariam DO Work Phone: [facility] 04-10-2025 13:05-0400 Respiratory rate 16 /min Doris Moisésudin DO Work Phone: [facility] 04-01-2025 13:04-0400 Body height 154.9 cm Serjio HENDERSON DNP Work Phone: [facility] 04-01-2025 13:04-0400 Body mass index (BMI) [Ratio] 44.78 kg/m2 Serjio HENDERSON DNP Work Phone: [facility] 04-01-2025 13:04-0400 Body weight 107.5 kg Serjio HENDERSON DNP Work Phone: [facility] 04-01-2025 13:04-0400 Diastolic blood pressure 84 mm[Hg] Serjioadama Carter APRN-AUTOMOTIVE ACCESSORY INSTALLER, DNP Work Phone: [facility] 04-01-2025 13:04-0400 Heart rate 94 /min Serjio Rudolph LYNNN-AUTOMOTIVE ACCESSORY INSTALLER, DNP Work Phone: [facility] 04-01-2025 13:04-0400 SaO2% (BldA) [Mass fraction] 99 % Serjioadama Carter APRN-AUTOMOTIVE ACCESSORY INSTALLER, DNP Work Phone: [facility] 04-01-2025 13:04-0400 Systolic blood pressure 124 mm[Hg] Serjioadama Carter APRN-AUTOMOTIVE ACCESSORY INSTALLER, DNP Work Phone: [facility] 03-27-2025 19:31-0400 Diastolic blood pressure 92 mm[Hg] Dheeraj Ferrer DO Work Phone: [facility] 03-27-2025 19:31-0400 Heart rate 83 /min Dheeraj Ferrer DO Work Phone: [facility] 03-27-2025 19:31-0400 Respiratory rate 16 /min Dheeraj Ferrer DO Work Phone: [facility] 03-27-2025 19:31-0400 SaO2% (BldA) [Mass fraction] 98 % Dheeraj Ferrer DO Work Phone: [facility] 03-27-2025 19:31-0400 Systolic blood pressure 147 mm[Hg] Dheeraj Ferrer DO Work Phone: [facility] 03-27-2025 17:33-0400 Body temperature 96.49 [degF] Dheeraj Ferrer DO Work Phone: [facility] 03-27-2025 17:01-0400 Body height 154.9 cm Dheeraj Ferrer DO Work Phone: [facility] 03-27-2025 17:01-0400 Body mass index (BMI) [Ratio] 44.4 kg/m2 Dheeraj Ferrer DO Work Phone: [facility] 03-27-2025 17:01-0400 Body weight 106.59 kg Dheeraj Ferrer DO Work Phone: [facility] 01-08-2025 11:27-0500 Body height 154.9 cm Abril Shawman [employer]-AUTOMOTIVE ACCESSORY INSTALLER Work Phone: [facility] 01-08-2025 11:27-0500 Body mass index (BMI) [Ratio] 43.8 kg/m2 Abril Shawman [employer]ARDEN-AUTOMOTIVE ACCESSORY INSTALLER Work Phone: [facility] 01-08-2025 11:27-0500 Body weight 105.14 kg Abril Shawman [employer] WARDEN-AUTOMOTIVE ACCESSORY INSTALLER Work Phone: [facility] 01-08-2025 11:27-0500 Diastolic blood pressure 88 mm[Hg] Abril Shawman [employer]ARDEN-AUTOMOTIVE ACCESSORY INSTALLER Work Phone: [facility] 01-08-2025 11:27-0500 Heart rate 105 /min Abril Mosley [employer]ARDEN-AUTOMOTIVE ACCESSORY INSTALLER Work Phone: [facility] 01-08-2025 11:27-0500 Systolic blood pressure 124 mm[Hg] Abril Shawman [employer]ARDEN-AUTOMOTIVE ACCESSORY INSTALLER Work Phone: [facility] 12-24-2024 14:42-0500 Body weight 106.59 kg Ruben Hancock MD Work Phone: [facility] 12-24-2024 14:42-0500 Diastolic blood pressure 89 mm[Hg] Ruben Hancock MD Work Phone: [facility] 12-24-2024 14:42-0500 Heart rate 102 /min Ruben Hancock MD Work Phone: [facility] 12-24-2024 14:42-0500 Respiratory rate 18 /min Ruben Hancock MD Work Phone: [facility] 12-24-2024 14:42-0500 SaO2% (BldA) [Mass fraction] 97 % Ruben Hancock MD Work Phone: [facility] 12-24-2024 14:42-0500 Systolic blood pressure 135 mm[Hg] Ruben Hancock MD Work Phone: [facility] 11-23-2024 09:37-0500 Body height 154.9 cm Abrilmark Mosley [employer]EN-AUTOMOTIVE ACCESSORY INSTALLER Work Phone: [facility] 11-23-2024 09:37-0500 Body mass index (BMI) [Ratio] 43.85 kg/m2 Abril Mosley [employer]-AUTOMOTIVE ACCESSORY INSTALLER Work Phone: [facility] 11-23-2024 09:37-0500 Body weight 105.28 kg Abril Mosley [employer] WARDEN-AUTOMOTIVE ACCESSORY INSTALLER Work Phone: [facility] 11-23-2024 09:37-0500 Diastolic blood pressure 78 mm[Hg] Abrilmark Mosley [employer]ARDEN-AUTOMOTIVE ACCESSORY INSTALLER Work Phone: [facility] 11-23-2024 09:37-0500 Heart rate 68 /min Abril Mosley [employer]EN-AUTOMOTIVE ACCESSORY INSTALLER Work Phone: [facility] 11-23-2024 09:37-0500 Systolic blood pressure 115 mm[Hg] Abril Mosley [employer] WARDEN-AUTOMOTIVE ACCESSORY INSTALLER Work Phone: [facility] 03-23-2024 20:31-0400 Diastolic blood pressure 70 mm[Hg] Kimberlyn [place] [employer]EN-AUTOMOTIVE ACCESSORY INSTALLER Work Phone: [facility] 03-23-2024 20:31-0400 Heart rate 89 /min Kimberlyn Ramirez [employer]EN-AUTOMOTIVE ACCESSORY INSTALLER Work Phone: [facility] 03-23-2024 20:31-0400 Respiratory rate 18 /min Kimberlyn Ramirez [employer]-AUTOMOTIVE ACCESSORY INSTALLER Work Phone: [facility] 03-23-2024 20:31-0400 SaO2% (BldA) [Mass fraction] 98 % Kimberlyn Ramirez [employer]-AUTOMOTIVE ACCESSORY INSTALLER Work Phone: [facility] 03-23-2024 20:31-0400 Systolic blood pressure 122 mm[Hg] Kimberlyn Ramirez [employer]EN-AUTOMOTIVE ACCESSORY INSTALLER Work Phone: [facility] 03-23-2024 18:38-0400 Body height 154.9 cm Kimberlyn Ramirez [employer] WARDEN-AUTOMOTIVE ACCESSORY INSTALLER Work Phone: [facility] 03-23-2024 18:38-0400 Body mass index (BMI) [Ratio] 44.97 kg/m2 Kimberlyn Ramirez [employer]-AUTOMOTIVE ACCESSORY INSTALLER Work Phone: [facility] 03-23-2024 18:38-0400 Body weight 107.96 kg Kimberlyn Ramirez [employer] WARDEN-AUTOMOTIVE ACCESSORY INSTALLER Work Phone: [facility] 03-23-2024 18:28-0400 Body temperature 98.29 [degF] Kimberlyn Solerter [employer]-AUTOMOTIVE ACCESSORY INSTALLER Work Phone: [facility] 03-23-2024 17:07-0400 Body temperature 98.01 [degF] Samira Santanata [employer]-AUTOMOTIVE ACCESSORY INSTALLER Work Phone: [facility] 03-23-2024 17:07-0400 Diastolic blood pressure 81 mm[Hg] Samira Reginaldo [employer]EN-AUTOMOTIVE ACCESSORY INSTALLER Work Phone: [facility] 03-23-2024 17:07-0400 Heart rate 94 /min Samira Reginaldo [employer]EN-AUTOMOTIVE ACCESSORY INSTALLER Work Phone: [facility] 03-23-2024 17:07-0400 Respiratory rate 12 /min Samira Reginaldo [employer]-AUTOMOTIVE ACCESSORY INSTALLER Work Phone: [facility] 03-23-2024 17:07-0400 SaO2% (BldA) [Mass fraction] 98 % Samira Reginaldo [employer]-AUTOMOTIVE ACCESSORY INSTALLER Work Phone: [facility] 03-23-2024 17:07-0400 Systolic blood pressure 125 mm[Hg] Samira Reginaldo [employer]-AUTOMOTIVE ACCESSORY INSTALLER Work Phone: [facility] 01-13-2024 08:49-0500 Body height 154.94 cm PROCESS STRIPPER-C Kimberlyn [place] PROCESS STRIPPER Work Phone: [facility] 01-13-2024 08:49-0500 Body mass index (BMI) [Ratio] 45.6 kg/m2 PROCESS STRIPPER-C Kimberlyn [place] PROCESS STRIPPER Work Phone: [facility] 01-13-2024 08:49-0500 Body weight 109.48 kg PROCESS STRIPPER-C Kimberlyn [place] PROCESS STRIPPER Work Phone: [facility] 01-13-2024 08:49-0500 Diastolic blood pressure 85 mm[Hg] PROCESS STRIPPER-C Kimberlyn [place] PROCESS STRIPPER Work Phone: [facility] 01-13-2024 08:49-0500 Systolic blood pressure 130 mm[Hg] PROCESS STRIPPER-C Kimberlyn [place] PROCESS STRIPPER Work Phone: [facility] 09-08-2022 19:18-0400 Body height 155 cm Destini Zarrabi Other Phone: [facility] 09-08-2022 19:18-0400 Body temperature 97.88 [degF] Destini Zarrabi Other Phone: [facility] 09-08-2022 19:18-0400 Diastolic blood pressure 98 mm[Hg] Destini Zarrabi Other Phone: [facility] 09-08-2022 19:18-0400 Heart rate 71 /min Destini Zarrabi Other Phone: [facility] 09-08-2022 19:18-0400 Respiratory rate 14 /min Destini Zarrabi Other Phone: [facility] 09-08-2022 19:18-0400 SaO2% (BldA) [Mass fraction] 98 % Destini Zarrabi Other Phone: [facility] 09-08-2022 19:18-0400 Systolic blood pressure 149 mm[Hg] Destini Aguilar Other Phone: [facility] 04-20-2021 14:11-0400 Body height 154.94 cm Kimberlyn Ramirez Work Phone: [facility] [employer] [facility] Work Phone: 04-20-2021 14:11-0400 Body mass index (BMI) [Ratio] 42.68 kg/m2 Kimberlyn Ramirez Work Phone: [facility] Work Phone: 04-20-2021 14:11-0400 Body surface area Derived from formula 1.99 m2 Kimberlyn Ramirez Work Phone: [facility] Work Phone: 04-20-2021 14:11-0400 Body temperature 97.1 [degF] Kimberlyn Ramirez Work Phone: [facility] [facility] Work Phone: 04-20-2021 14:11-0400 Body weight 102.47 kg Kimberlyn Ramirez Work Phone: [facility] Work Phone: 04-20-2021 14:11-0400 Diastolic blood pressure 76 mm[Hg] Kimberlyn Ramirez Work Phone: [facility] Work Phone: 04-20-2021 14:11-0400 Heart rate 94 /min Kimberlyn Ramirez Work Phone: [facility] [facility] Work Phone: 04-20-2021 14:11-0400 Systolic blood pressure 118 mm[Hg] Kimberlyn Solerter Work Phone: [facility] [facility] Work Phone: Encounters Encounter Date Encounter Type Care Provider Facility Start: 05-15-2025 End: 05-15-2025 ambulatory [facility] Start: 05-09-2025 End: 05-09-2025 ambulatory [facility] [place] Start: 05-07-2025 End: 05-07-2025 ambulatory No Primary Care Physician -Ultrasound [facility] Start: 05-07-2025 End: 05-07-2025 Patient encounter procedure Ruben Hancock MD Work Phone: [facility] Comment on above: Paresthesias (Primar y Dx) Start: 05-07-2025 End: 05-07-2025 ambulatory RUBEN HANCOCK [facility] Start: 05-06-2025 End: 05-07-2025 ambulatory [facility] [place] Start: 05-03-2025 End: 05-03-2025 ambulatory [facility] [place] Start: 05-02-2025 End: 05-02-2025 ambulatory No Primary Care Physician -Laboratory Specimen Start: 05-02-2025 End: 05-02-2025 Patient encounter procedure Leslie Roblero PROCESS STRIPPER-C -Laboratory Specimen Work Phone: Start: 05-02-2025 End: 05-02-2025 Patient encounter procedure Leslie Roblero PROCESS STRIPPER-C -[facility] Work Phone: Start: 05-02-2025 End: 05-02-2025 ambulatory No Primary Care Physician [facility] Work Phone: Start: 05-01-2025 End: 05-02-2025 ambulatory [facility] [place] Start: 04-30-2025 End: 04-30-2025 Subsequent hospital visit by physician Miguel Da Silva [address] [place] [address] Comment on above: Dyspnea on exertion; Atypical chest pain Palpitations Start: 04-30-2025 End: 04-30-2025 ambulatory SERJIO CARTER [facility] Start: 04-25-2025 End: 04-25-2025 ambulatory [facility] [place] Start: 04-22-2025 End: 04-22-2025 ambulatory [facility] [place] Start: 04-18-2025 End: 04-18-2025 Office outpatient visit 40 minutes Ruben Hancock MD Work Phone: [facility] Comment on above: Chronic neck pain (P rimary Dx); Radicular pain in left arm Start: 04-18-2025 End: 04-18-2025 ambulatory RUBEN HANCOCK [facility] Start: 04-15-2025 End: 04-15-2025 ambulatory ABRIL Edel [facility] Start: 04-10-2025 End: 04-10-2025 Office outpatient new 45 minutes Doris Becerra DO Work Phone: [facility] Comment on above: Acute midline low ba ck pain without sciatica (Primary Dx) Start: 04-10-2025 End: 04-10-2025 Transcribe Orders Lizzeth Camp RN [facility] Comment on above: Acute midline low ba ck pain without sciatica (Primary Dx) Start: 04-03-2025 End: 04-03-2025 ambulatory [facility] [place] Start: 04-01-2025 End: 04-01-2025 Office outpatient new 60 minutes Serjio Carter [employer]-AUTOMOTIVE ACCESSORY INSTALLER, DNP Work Phone: [facility] Comment on above: Hypertension, unspec ified type (Primary Dx); Chest pain, unspecified type; Palpitations; Dyspnea on exertion Start: 04-01-2025 End: 04-01-2025 ambulatory SERJIO CARTER [facility] Amb[facility] Start: 03-27-2025 End: 03-28-2025 Emergency department patient visit DHEERAJ FERRER [facility] Start: 03-27-2025 End: 03-27-2025 Subsequent hospital visit by physician Miguel Dengv1 [facility] Start: 03-27-2025 End: 03-27-2025 Emergency department patient visit Dheeraj Ferrer DO Work Phone: [facility] Comment on above: Chest pain, unspecif ied type (Primary Dx); Paresthesia of left arm Start: 03-26-2025 End: 03-26-2025 Transcribe Orders Abril Mosley AUTOMOTIVE ACCESSORY INSTALLER Work Phone: [facility] Comment on above: Other complications of spinal and epidural anesthesia during labor and delivery (Primary Dx); Chronic midline low back pain without sciatica Start: 02-04-2025 End: 02-04-2025 Patient encounter procedure Ruben Hancock MD Work Phone: [facility] Comment on above: Numbness and tinglin g of both legs Start: 02-04-2025 End: 02-04-2025 ambulatory RUBEN HANCOCK [facility] Start: 01-17-2025 End: 01-17-2025 ambulatory [facility] Start: 01-10-2025 End: 01-10-2025 Patient encounter procedure Abril Mosley [employer]-AUTOMOTIVE ACCESSORY INSTALLER Work Phone: [facility] Comment on above: Rash Start: 01-10-2025 End: 01-10-2025 ambulatory [facility] Start: 01-08-2025 End: 01-08-2025 Office outpatient visit 15 minutes Abril Mosley [employer]-AUTOMOTIVE ACCESSORY INSTALLER Work Phone: [facility] Comment on above: Hot flashes (Primary Dx); Chronic migraine with aura without status migrainosus, not intractable; Rash Start: 01-08-2025 End: 01-08-2025 ambulatory [facility] Start: 12-27-2024 End: 12-28-2024 ambulatory [facility] Start: 12-24-2024 End: 12-24-2024 Office outpatient new 60 minutes Ruben Hancock MD Work Phone: [facility] Comment on above: headache (Primary Dx); Numbness and tingling of both legs Start: 12-24-2024 End: 12-24-2024 ambulatory [facility] Start: 12-20-2024 End: 12-20-2024 ambulatory PROVIDER NOT IN SYSTEM [facility] Start: 12-12-2024 ambulatory BRIANA PARTIDA [facility] Start: 12-03-2024 End: 12-03-2024 Subsequent hospital visit by physician Miguel Mri [facility] Comment on above: Intractable chronic migraine with aura and without status migrainosus; Other complications of spinal and epidural anesthesia during labor and delivery ([facility]) Start: 12-03-2024 End: 12-03-2024 ambulatory ABRIL Hollingsworth [facility] Start: 11-29-2024 End: 11-29-2024 Transcribe Orders Abril Mosley AUTOMOTIVE ACCESSORY INSTALLER Work Phone: [facility] Comment on above: Other complications of spinal and epidural anesthesia during labor and delivery (Primary Dx) Start: 11-23-2024 End: 11-23-2024 Subsequent hospital visit by physician Miguel Gray 1 [facility] Comment on above: Other complications of spinal and epidural anesthesia during labor and delivery ([facility]) Start: 11-23-2024 End: 11-23-2024 [facility] Start: 11-23-2024 End: 11-23-2024 Office outpatient visit 15 minutes Abril Mosley [employer]-AUTOMOTIVE ACCESSORY INSTALLER Work Phone: [facility] Comment on above: History of postpartu m pre-eclampsia (Primary Dx); Persistent adjustment disorder with anxiety; Intractable chronic migraine with aura and without status migrainosus Start: 11-23-2024 End: 11-23-2024 [facility] Start: 11-05-2024 End: 11-05-2024 ambulatory Leslie Roblero Facility:[facility] Start: 09-24-2024 End: 09-24-2024 ambulatory Layne Boles Facility:[facility] Start: 09-24-2024 End: 09-24-2024 ambulatory Layne Boles Facility:[facility] Start: 08-31-2024 End: 08-31-2024 ambulatory Janette Medina Facility:[facility] Start: 08-31-2024 End: 08-31-2024 ambulatory Janette Marcanthony Facility:[facility] Start: 08-21-2024 End: 08-22-2024 Evaluation and management of inpatient Janettedaniel Dixonbelleony Facility:[facility] Start: 08-21-2024 ambulatory Janettedaniel Dixonbellebecky Hartmandany lity:[facility] Start: 08-21-2024 ambulatory Ade Johny Cerda Fa cility:[facility] Start: 08-17-2024 ambulatory Ade Chairez Fa cility:[facility] Start: 08-13-2024 End: 08-15-2024 Evaluation and management of inpatient Layne Boles Facility:[facility] Start: 08-13-2024 ambulatory Layne Boles Facility :[facility] Start: 08-09-2024 End: 08-09-2024 ambulatory Layne Ramana Facility:[facility] Start: 08-09-2024 End: 08-09-2024 ambulatory Janette Dixonbelleony Facility:[facility] Start: 08-01-2024 End: 08-01-2024 ambulatory Janette Adam Facility:[facility] Start: 08-01-2024 End: 08-01-2024 ambulatory Janettedaniel Dixonsebas Facility:[facility] Start: 07-26-2024 End: 07-26-2024 ambulatory Ade Chairez Facility:[facility] Start: 07-26-2024 End: 07-26-2024 ambulatory Ade Chairez Facility:[facility] Start: 07-17-2024 End: 07-17-2024 ambulatory Ade Chairez Facility:[facility] Start: 07-17-2024 End: 07-17-2024 ambulatory Ade Chairez Facility:[facility] Start: 07-11-2024 End: 07-11-2024 ambulatory Ade Chairez Facility:[facility] Start: 07-10-2024 End: 07-10-2024 ambulatory Janette Medina Facility:[facility] Start: 06-28-2024 End: 06-28-2024 ambulatory Janette Coelhoony Facility:[facility] Start: 06-13-2024 End: 06-13-2024 ambulatory Kimberlyn Ramirez NP Facility:[facility] Start: 06-07-2024 End: 06-07-2024 ambulatory No Primary Care Physician Facility:[facility] Start: 05-28-2024 End: 05-28-2024 ambulatory No Primary Care Physician Facility[facility] Start: 05-23-2024 End: 05-23-2024 ambulatory Janette Medina Facility:[facility] Start: 05-18-2024 End: 05-18-2024 ambulatory Lacie Martinez Facility:[facility] Start: 04-05-2024 End: 04-05-2024 ambulatory RONDA CHANEY [facility] Start: 03-23-2024 End: 03-23-2024 Emergency department patient visit Kimberlyn Ramirez [employer]-AUTOMOTIVE ACCESSORY INSTALLER Work Phone: [facility] Comment on above: Acute lymphangitis o f left upper extremity (Primary Dx) Start: 03-23-2024 End: 03-23-2024 Erroneous Encounter Samira Eleonora Reginaldo [employer]-AUTOMOTIVE ACCESSORY INSTALLER Work Phone: [facility] Comment on above: Arrived Start: 01-26-2024 End: 01-26-2024 ambulatory PROCESS STRIPPER-C Kimberlyn Ramirez PROCESS STRIPPER Work Phone: [facility] Work Phone: Start: 01-26-2024 End: 01-26-2024 Patient encounter procedure PROCESS STRIPPER-C Kimberlyn Ramirez PROCESS STRIPPER Work Phone: [facility] Start: 01-13-2024 End: 01-13-2024 Patient encounter procedure PROCESS STRIPPER-C Kimberlyn Ramirez PROCESS STRIPPER Work Phone: [facility], Specimen Work Phone: Start: 01-13-2024 End: 01-13-2024 Patient encounter procedure PROCESS STRIPPER-C Kimberlyn Ramirez PROCESS STRIPPER Work Phone: [facility] Work Phone: Start: 05-27-2023 End: 05-27-2023 ambulatory [facility] Work Phone: Start: 05-27-2023 End: 05-27-2023 Patient encounter procedure [facility] Spec[facility] Work Phone: Start: 2023 ambulatory Ms. Kimberlyn Valenzuelapster Facility:[id number] Start: 2023 End: 2023 Emergency department patient visit [facility] Start: 09-08-2022 End: 09-08-2022 Emergency department patient visit [facility] Start: 12-30-2021 Office outpatient vi sit 15 minutes Kimberlyn Ramirez Work Phone: [facility] 205 DO Work Phone: Start: 12-09-2021 Patient encounter procedure Kimberlyn Ramirez Work Phone: [facility] 205 DO Work Phone: Start: 12-08-2021 Office outpatient vi sit 15 minutes Kimberlyn Ramirez Work Phone: [facility] 205 DO Work Phone: Start: 07-30-2021 Chart Update Kimberlyn Mayberry maricel Work Phone: [facility] Work Phone: Start: 04-20-2021 Periodic preventive med est patient 18-39 yrs Kimberlyn Valenzuelapster Work Phone: [facility] Work Phone: Start: 06-19-2020 Office outpatient vi sit 15 minutes Kimberlyn Ramirez Work Phone: [facility] Work Phone: Procedures Date Procedure Procedure Detail Performing Clinician Start: 05-07-2025 Pelvic echography No Primary Care Physician Start: 05-02-2025 Urine culture No Primary Care Physician Start: 04-01-2025 Ecg routine ecg w/least 12 lds w/i&r Serjio Carter [employer]-AUTOMOTIVE ACCESSORY INSTALLER, DNP Work Phone: Start: 03-27-2025 Radiologic exam chest single view Dheeraj Ferrer DO Work Phone: Start: 03-27-2025 End: 03-27-2025 Comprehensive metabolic panel Dheeraj Ferrer DO Work Phone: Start: 03-27-2025 Troponin I.cardiac panel - Serum or Plasma by High sensitivity method Dheeraj Ferrer DO Work Phone: Start: 03-27-2025 Ecg routine ecg w/least 12 lds trcg only w/o i&r Dheeraj Ferrer DO Work Phone: Start: 12-03-2024 MRI Ruben Hancock MD Work Phone: Start: 12-03-2024 Mri spinal canal lumbar w/o contrast material Abril Mosley [employer]-AUTOMOTIVE ACCESSORY INSTALLER Work Phone: Start: 03-23-2024 End: 03-23-2024 Comprehensive metabolic panel Ronda Canchola [employer]EN-AUTOMOTIVE ACCESSORY INSTALLER Work Phone: Start: 01-13-2024 Urine culture PROCESS STRIPPER-C Kimberlyn joy PROCESS STRIPPER Work Phone: Start: 01-08-2020 Microscopic observation [Identifier] in Cervix by Cyto stain Abril Mosley [employer]-AUTOMOTIVE ACCESSORY INSTALLER Work Phone: Start: 06-16-2012 Microscopic observation [Identifier] in Cervix by Cyto stain Ruben Hancock MD Work Phone: Laser assisted in si tu keratomileusis Kimberlyn Ramirez Work Phone: Strabismus surgery Kimberlyn Ramirez Work Phone: Tonsillectomy Kimberlyn connelly Work Phone: Vaccine refused by patient COVID -19 vaccination declined Kimberlyn Ramirez Work Phone: Plan of Treatment Date Care Activity Detail Author Start: 01-23-2063 RSV High Risk: (Elde rly (60+) or Population) (1 - 1-dose 75+ series) RSV High Risk: (Elderly (60+) or Population) (1 - 1-dose 75+ series) [facility] Start: 01-23-2038 Zoster Vaccines (1 of 2) Zoste r Vaccines (1 of 2) [facility] Start: 02-16-2026 Depression Remission Assessment (PHQ9) Depression Remission Assessment (PHQ9) [facility] Start: 12-27-2025 Diabetes mellitus screening Diabetes Screening [facility] Start: 12-24-2025 Depression screening using PHQ-9 (Patient Health Questionnaire 9) score Depression Screening/Follow-Up (PHQ-2/9) [facility] Start: 07-15-2025 Influenza vaccination Influenz a Vaccine (Season Ended) [facility] Start: 05-29-2025 End: 05-29-2025 Patient encounter procedure 05/29/2025 9:00 AM EDT Office Visit [facility] Physician [facility] [address] [place] [address] Doris Becerra DO [address] [place] [address] Sreekanth Cruz DO [address] [place] [address] [facility] Physician [facility] Start: 05-15-2025 End: 05-15-2025 Patient encounter procedure 05/15/2025 7:15 PM EDT Appointment [facility] [address] [place] [id number] Ruben Hancock MD [address] [address] [facility] Start: 05-10-2025 End: 05-10-2025 Patient encounter procedure 05/10/2025 1:00 PM EDT Office Visit [facility] [address] [place] [address] 2nd [place] [address] Carter, Serjio R, [employer]EN-AUTOMOTIVE ACCESSORY INSTALLER, DNP [address], [address] [place] [address] [facility] Start: 05-09-2025 End: 05-09-2025 ambulatory 05/09/2025 9:15 AM EDT Treatment [facility] [address] [place] [phone] Bradley Nash, PT [address] [facility] [place] [address] [facility] Start: 05-07-2025 End: 05-07-2025 Patient encounter procedure 05/07/2025 10:00 AM EDT Procedure visit [facility] [address] [facility], 2nd [place] [address] Ruben Hancock MD [address] [place] [address] 2[address] [place] [address] [facility] Start: 05-06-2025 End: 05-06-2025 ambulatory 05/06/2025 2:00 PM EDT Treatment [address] [phone] Arielle Hernandes PTA [address] [facility] [place] [address] [facility] Start: 05-03-2025 End: 05-03-2025 ambulatory 05/03/2025 9:15 AM EDT Treatment [address] [phone] Johanna Fisher, MEDIA SALES REPRESENTATIVE [address] [facility] [place] [address] [facility] Start: 05-01-2025 End: 05-01-2025 ambulatory 05/01/2025 9:15 AM EDT Treatment [facility] [address] [place] [phone] Johanna iFsher M, MEDIA SALES REPRESENTATIVE [address] [facility] [place] [address] [facility] Start: 04-03-2025 End: 04-03-2025 ambulatory 04/03/2025 10:45 AM EDT Evaluation [facility] [address] [place] [phone] Bradley Nash, PT [address] [facility] [place] [address] [facility] Start: 04-01-2025 End: 04-01-2026 Holter monitor study Holter Or Event [facility] Routine Palpitations Expected: 04/01/2025 (Approximate), Expires: 04/01/2026 [facility] Service Area Work Phone: Comment on above: Expected: 04/01/2025 (Approximate), Expires: 04/01/2026 Start: 04-01-2025 End: 04-01-2025 Patient encounter procedure 04/01/2025 1:00 PM EDT Office Visit [facility] [address] [place] [address] Serjio Carter, [employer]-AUTOMOTIVE ACCESSORY INSTALLER, DNP [address], [facility] [address] [place] [address] [facility] Start: 02-21-2025 End: 02-21-2025 Patient encounter procedure [facility] Start: 02-04-2025 End: 02-04-2025 Patient encounter procedure 02/04/2025 3:15 PM EDT Procedure visit [facility] [address] [facility] Medical Office Building, 2nd [place] [phone] Ruben Hancock MD [address] [place] [id number] [facility] Start: 01-08-2025 End: 01-08-2026 C reactive protein [Mass/volume] in Serum or Plasma C-Reactive Protein Lab Routine Hot flashes Expected: 01/08/2025 (Approximate), Expires: 01/08/2026 [facility] Service Area Work Phone: Comment on above: Expected: 01/08/2025 (Approximate), Expires: 01/08/2026 Start: 01-08-2025 End: 01-08-2026 CBC W Auto Differential panel - Blood CBC and Auto Differential Lab Routine Rash Expected: 01/08/2025 (Approximate), Expires: 01/08/2026 [facility] Work Phone: Comment on above: Expected: 01/08/2025 (Approximate), Expires: 01/08/2026 Start: 01-08-2025 End: 01-08-2026 Erythrocyte sedimentation rate Sedimentation Rate Lab Routine Hot flashes Expected: 01/08/2025 (Approximate), Expires: 01/08/2026 [facility] Work Phone: Comment on above: Expected: 01/08/2025 (Approximate), Expires: 01/08/2026 Start: 01-08-2025 End: 01-08-2026 Estrogen [Mass/volume] in Serum or Plasma Estrogens, Total Lab Routine Hot flashes Expected: 01/08/2025 (Approximate), Expires: 01/08/2026 [facility] Work Phone: Comment on above: Expected: 01/08/2025 (Approximate), Expires: 01/08/2026 Start: 01-08-2025 End: 01-08-2026 Follitropin and Lutropin panel [Units/volume] - Serum or Plasma FSH & LH Lab Routine Hot flashes Expected: 01/08/2025 (Approximate), Expires: 01/08/2026 [facility] Work Phone: Comment on above: Expected: 01/08/2025 (Approximate), Expires: 01/08/2026 Start: 01-08-2025 End: 01-08-2026 Progesterone [Mass/volume] in Serum or Plasma Progesterone Lab Routine Hot flashes Expected: 01/08/2025 (Approximate), Expires: 01/08/2026 [facility] Work Phone: Comment on above: Expected: 01/08/2025 (Approximate), Expires: 01/08/2026 Start: 01-08-2025 End: 01-08-2026 Rheumatoid factor [Units/volume] in Serum by Nephelometry Rheumatoid factor Lab Routine Hot flashes Chronic migraine with aura without status migrainosus, not intractable Rash Expected: 01/08/2025 (Approximate), Expires: 01/08/2026 [facility] Work Phone: Comment on above: Expected: 01/08/2025 (Approximate), Expires: 01/08/2026 Start: 01-08-2025 End: 01-08-2026 Testosterone, total and free Testosterone, total and free Lab Routine Hot flashes Expected: 01/08/2025 (Approximate), Expires: 01/08/2026 [facility] Work Phone: Comment on above: Expected: 01/08/2025 (Approximate), Expires: 01/08/2026 Start: 07-15-2024 COVID-19 Vaccine ( season) COVID-19 Vaccine () [facility] Start: 07-15-2024 Influenza vaccination [facility] Start: 07-15-2023 COVID-19 Vaccine ( season) COVID-19 Vaccine () [facility] Start: 01-08-2023 Screening for malign ant neoplasm of cervix [facility] Start: 09-08-2022 End: 09-09-2023 cefTRIAXone Injectable 1000 mg IntraMuscular Once ; (ROCEPHIN)DOSE = 1,000 mg IntraMuscular OnceClinician Notes: Reconstitute with 3.6 mL of Dextrose 5%, NaCL 0.9%, or Sterile Water for Injection Start: 08-Sep-2022 End: 08-Sep-2023 Ordered: 08-Sep-2022 Hardeep Haddad Intent Comments: Reconstitute with 3.6 mL of Dextrose 5%, NaCL 0.9%, or Sterile Water for Injection [facility] Comment on above: Reconstitute with 3. 6 mL of Dextrose 5%, NaCL 0.9%, or Sterile Water for Injection Start: 04-20-2022 History and physical examination, annual for health maintenance Wellness Visit [facility] Start: 04-28-2021 Diabetes mellitus screening Diabetes Screening [facility] Start: 01-23-2018 Screening for malign ant neoplasm of cervix [facility] Start: 06-16-2015 Screening for malign ant neoplasm of cervix Pap Smear [facility] Start: 01-23-2010 DTaP/Tdap/Td Vaccine s (1 - Tdap) DTaP/Tdap/Td Vaccines (1 - Tdap) [facility] Start: 01-23-2009 Screening for malign ant neoplasm of cervix [facility] Start: 01-23-2007 Hepatitis B Vaccines (1 of 3 - 19+ 3-dose series) Hepatitis B Vaccines (1 of 3 - 19+ 3-dose series) [facility] Start: 01-23-2006 Hepatitis C screening Hepatitis C Sc reening [facility] Start: 01-23-2001 Varicella vaccination Varicell a Vaccines (1 of 2 - 13+ 2-dose series) [facility] Start: 2000 Depression screening using PHQ-9 (Patient Health Questionnaire 9) score Depression Screening/Follow-Up (PHQ-2/9) [facility] Start: 01-23-1991 History and physical examination, annual for health maintenance Wellness Visit [facility] Start: 01-23-1989 MMR Vaccines (1 of 1 - Standard series) MMR Vaccines (1 of 1 - Standard series) [facility] Start: 1988 HIV screening HIV Screening [facility] Start: 1988 Lipid panel Lipid Panel [facility] Start: 1988 Tetanus vaccination Tetanus: Every 1 0yrs [facility] Start: 1988 Yearly Adult Physical Yearly Adult P hysical [facility] End: 12-24-2025 ALISHA measurement ALISHA Lab Routine Numbness and tingling of both legs 1 Occurrences starting 12/24/2024 until 12/24/2025 [facility] Comment on above: 1 Occurrences starti ng 12/24/2024 until 12/24/2025 End: 04-10-2026 Anti-cyclic citrullinated peptide antibody level CCP Antibody Lab Routine Acute midline low back pain without sciatica 1 Occurrences starting 04/10/2025 until 04/10/2026 [facility] Comment on above: 1 Occurrences starti ng 04/10/2025 until 04/10/2026 End: 12-24-2025 B12/Folate B12/Folate Lab Routine Numbness and tingling of both legs 1 Occurrences starting 12/24/2024 until 12/24/2025 [facility] Comment on above: 1 Occurrences starti ng 12/24/2024 until 12/24/2025 End: 03-23-2024 Bacteria identified in Blood by Culture [facility] Work Phone: Comment on above: Once (Lab) for 1 Occ urrences starting 03/23/2024 until 03/23/2024 STAT (Lab) for 1 Occ urrences starting 03/23/2024 until 03/23/2024 End: 04-10-2026 C reactive protein [Mass/volume] in Serum or Plasma CRP, Inflammation Lab Routine Acute midline low back pain without sciatica 1 Occurrences starting 04/10/2025 until 04/10/2026 [facility] Comment on above: 1 Occurrences starti ng 04/10/2025 until 04/10/2026 End: 03-27-2025 ECG 12 Lead ECG 12 Lead ECG STAT Once for 1 Occurrences starting 03/27/2025 until 03/27/2025 [facility] Work Phone: Comment on above: Once for 1 Occurrenc es starting 03/27/2025 until 03/27/2025 End: 12-25-2025 Electromyography EMG: Neurology Routine Numbness and tingling of both legs 1 Occurrences starting 12/24/2024 until 12/25/2025 [facility] Work Phone: Comment on above: 1 Occurrences starti ng 12/24/2024 until 12/25/2025 End: 04-18-2026 Electromyography EMG: Neurology Routine Chronic neck pain Radicular pain in left arm 1 Occurrences starting 04/18/2025 until 04/18/2026 [facility] Work Phone: Comment on above: 1 Occurrences starti ng 04/18/2025 until 04/18/2026 End: 04-10-2026 Erythrocyte sedimentation rate Sedimentation Rate Lab Routine Acute midline low back pain without sciatica 1 Occurrences starting 04/10/2025 until 04/10/2026 [facility] Work Phone: Comment on above: 1 Occurrences starti ng 04/10/2025 until 04/10/2026 End: 03-23-2024 Extra Urine Man Tube Extra Urine Man Tube Lab Timed Once for 1 Occurrences starting 03/23/2024 until 03/23/2024 [facility] Work Phone: Comment on above: Once for 1 Occurrenc es starting 03/23/2024 until 03/23/2024 End: 12-24-2025 Hemoglobin A1c/Hemoglobin.total in Blood Hemoglobin A1c Lab Routine Numbness and tingling of both legs 1 Occurrences starting 12/24/2024 until 12/24/2025 [facility] Comment on above: 1 Occurrences starti ng 12/24/2024 until 12/24/2025 End: 04-30-2025 Holter monitor study [facility] Work Phone: Comment on above: Once for 1 Occurrenc es starting 04/30/2025 until 04/30/2025 End: 12-25-2025 MR Brain WO and W contrast IV MR Brain With And Without Contrast Imaging Routine headache 1 Occurrences starting 12/24/2024 until 12/25/2025 [facility] Comment on above: 1 Occurrences starti ng 12/24/2024 until 12/25/2025 End: 04-18-2026 MR Cervical spine WO contrast MR Cervical Spine Without Contrast Imaging Routine Chronic neck pain Radicular pain in left arm 1 Occurrences starting 04/18/2025 until 04/18/2026 [facility] Comment on above: 1 Occurrences starti ng 04/18/2025 until 04/18/2026 Path report.final Dx Spec Wo [facility] End: 03-23-2024 Pulse oximetry, continuous Pulse oximetry, continuous Respiratory Care STAT Continuous until discontinued starting 03/23/2024 [facility] Work Phone: Comment on above: Continuous until dis continued starting 03/23/2024 End: 04-10-2026 Rheumatoid factor, quantitative Rheumatoid factor Lab Routine Acute midline low back pain without sciatica 1 Occurrences starting 04/10/2025 until 04/10/2026 [facility] Comment on above: 1 Occurrences starti ng 04/10/2025 until 04/10/2026 End: 12-24-2025 Serum immunofixation Immunofixation, Serum Lab Routine Numbness and tingling of both legs 1 Occurrences starting 12/24/2024 until 12/24/2025 [facility] Comment on above: 1 Occurrences starti ng 12/24/2024 until 12/24/2025 End: 04-30-2025 Stress cardiac echo study report [facility] Work Phone: Comment on above: Once for 1 Occurrenc es starting 04/30/2025 until 04/30/2025 Surgical pathology study Surgica l Pathology Exam Pathology and Cytology Routine Rash Ordered: 01/10/2025 [facility] Work Phone: Comment on above: Ordered: 01/10/2025 Testosterone Free [Mass/volume] in Serum or Plasma [facility] Testosterone measurement [facility] End: 12-24-2025 Thyrotropin [Units/volume] in Serum or Plasma TSH with Reflex Free T4 Lab Routine Numbness and tingling of both legs 1 Occurrences starting 12/24/2024 until 12/24/2025 [facility] Comment on above: 1 Occurrences starti ng 12/24/2024 until 12/24/2025 End: 03-23-2024 Urinalysis complete W Reflex Culture panel - Urine [facility] Work Phone: Comment on above: Once (Lab) for 1 Occ urrences starting 03/23/2024 until 03/23/2024 Once for 1 Occurrenc es starting 03/23/2024 until 03/23/2024 US Pelvis [facility] End: 11-23-2024 XR Lumbar spine 2 or 3 Views [facility] Work Phone: Comment on above: Once for 1 Occurrenc es starting 11/23/2024 until 11/23/2024 [facility] Payers Date Payer Category Payer Managed Care POS (unspecified) [id number] 2024 Self-pay [id number] 2022 Managed Care (Private) [facility] [id number] 2022 Private Health Insurance [facility] [id number] 2022-Present [address] [place] [address] [id number] 2022 Private Health Insurance [id number] 1990 Unknown [id number] 2.16.840.1.482758.3.57 9.2.1068 1988 Unknown [id number] 2.16.840.1.750390.3.57 9.2.1068 1988 Unknown [id number] 2.16840.1.596120.3.57 9.2.1068 1988 Unknown [id number] 2.16.840.1.447548.3.57 9.2.479 1988 Unknown [id number] 2.16.840.1.262780.3.57 9.2.900 1988 Unknown [id number] 2.16.840.1.902109.3.57 9.2.900 1988 Unknown [id number] 2.16.840.1.764313.3.57 9.2.1244 1988 Unknown [id number] 2.16.840.1.673049.3.57 9.2.1244 1988 Unknown [id number] 2.16.840.1.697334.3.57 9.2.1244 1988 Unknown [id number] 2.16.840.1.729979.3.57 9.2.1244 1988 Unknown [id number] 2.16.840.1.769069.3.57 9.2.903 1988 Unknown [id number] 2.16.840.1.175293.3.57 9.2.903 1988 Unknown [id number] 2.16.840.1.395028.3.57 9.2.903 1988 Unknown [id number] 2.16.840.1.189398.3.57 9.2.903 1988 Unknown [id number] 2.16.840.1.307780.3.57 9.2.903 1988 Unknown [id number] 2.16.840.1.877191.3.57 9.2.903 1988 Unknown [id number] 2.16.840.1.824020.3.57 9.2.1243 1988 Unknown [id number] 2.16.840.1.555074.3.57 9.2.1243 1988 Unknown [id number] 2.16.840.1.902098.3.57 9.2.1243 1988 Unknown [id number] 2.16.840.1.455897.3.57 9.2.1242 1988 Unknown [id number] 2.16.840.1.743829.3.57 9.2.1242 1988 Unknown [id number] 2.16.840.1.729470.3.57 9.2.1242 1988 Unknown [id number] 2.16840.1.766920.3.57 9.2.1242 1988 Unknown [id number] 2.16840.1.048953.3.57 9.2.1242 1988 Unknown [id number] 2.840.1.116234.3.57 9.2 1988 Unknown [id number] 2.16840.1.736475.3.57 9.2 1988 Unknown [id number] 2.840.1.767844.3.57 9.2.1242 1988 Unknown [id number] 2.16840.1.591631.3.57 9.2 1988 Unknown [id number] 2.16840.1.803627.3.57 9.2.1242 1988 Unknown [id number] 2.16840.1.826640.3.57 9.2.1242 1988 Unknown [id number] 2.16840.1.823704.3.57 9.2 1988 Unknown [id number] 2.16840.1.435209.3.57 9.2 1988 Unknown [id number] 2.16840.1.911575.3.57 9.2.90 Unknown Unknown ANTHEM [id number] Unknown [id number] 2.16840.1.382129.3.57 9.2.462 Unknown [id number] 2.16.840.1.016020.3.57 9.2.462 Unknown [id number] 2.16840.1.717797.3.57 9.2.462 Unknown [id number] 2.16.840.1.021939.3.57 9.2.462 Unknown [id number] 2.16840.1.533704.3.57 9.2.462 Unknown [id number] 2.16840.1.604770.3.57 9.2.462 Unknown [id number] 2.16840.1.520622.3.57 9.2.462 Unknown [id number] 2.16840.1.084836.3.57 9.2.462 Unknown [id number] 2.16840.1.202286.3.57 9.2.462 Unknown [id number] 2.840.1.937457.3.57 9.2.462 Unknown [id number] 2.16840.1.857522.3.57 9.2.462 Unknown [id number] 2.16840.1.155455.3.57 9.2.462 Unknown [id number] 2.16840.1.644390.3.57 9.2.462 Unknown [id number] 2.16840.1.461658.3.57 9.2.462 Unknown [id number] 2.16840.1.422649.3.57 9.2.462 Unknown [id number] 2.16840.1.234189.3.57 9.2.462 Unknown [id number] 2.16840.1.531412.3.57 9.2.462 Unknown [id number] 2.16840.1.108516.3.57 9.2.462 Unknown [id number] 2.16840.1.974750.3.57 9.2.462 Unknown [id number] 2.16.840.1.667452.3.57 9.2.462 Unknown [id number] 2.16.840.1.451060.3.57 9.2.462 Unknown [id number] 2.16.840.1.808636.3.57 9.2.462 Unknown [id number] 2.16.840.1.136722.3.57 9.2.462 Unknown [id number] 2.16.840.1.628802.3.57 9.2.462 Unknown [id number] 2.16.840.1.681778.3.57 9.2.462 Unknown [id number] 2.16.840.1.845669.3.57 9.2.462 Unknown [id number] 2.16.840.1.312313.3.57 9.2.462 Unknown [id number] 2.16.840.1.442971.3.57 9.2.462 Unknown [id number] 2.16.840.1.508882.3.57 9.2.462 Unknown [id number] 2.16.840.1.616541.3.57 9.2.462 Unknown [id number] 2.16.840.1.482624.3.57 9.2.462 Unknown [id number] 2.16.840.1.410397.3.57 9.2.462 Unknown [id number] 2.16.840.1.021602.3.57 9.2.462 Social History Date Type Detail Facility Start: 03-23-2024 End: 04-18-2025 Occasional alcohol use Occasional alcohol use [facility] Work Phone: Start: 03-19-2021 End: 01-13-2024 Tobacco smoking consumption unknown [facility] Start: 1990 Sex Assigned At Female [facility] Start: 03-23-2024 End: 08-13-2024 Tobacco smoking status NJIS Never smoked tobacco [facility] Work Phone: Start: 03-23-2024 End: 12-24-2024 Tobacco use and exposure Smokeless tobacco non-user [facility] Work Phone: Start: 1990 [facility] Start: 03-23-2024 End: 04-18-2025 Gender identity Not on file [facility] Work Phone: Start: 03-13-2024 End: 04-01-2025 Exposure to SARS-CoV-2 (event) Not sure [facility] Start: 03-23-2024 End: 04-18-2025 Alcoholic beverage intake Ex-drinker (finding) [facility] Work Phone: Start: 11-23-2024 End: 03-27-2025 Alcoholic beverage intake Current drinker of alcohol (finding) [facility] Work Phone: Start: 11-23-2024 Alcohol Comment occasional [facility] Work Phone: Adult Depression Screening Assessment 0 [facility] Functional Status Date Assessment Result Facility 03-27-2025 [facility] suicide s everity rating scale screener - recent [C-SSRS] [facility] Work Phone: Clinical Notes 12-06-2021 to 05-07-2025 Ruben Hancock MD - 05/07/2025 10:40 AM EDT Note Date & Type Note Facility 05-07-2025 Radiology Diagnostic study note [facility] Imaging Services [address] [place] [address] Pelvic w/ Transvaginal MR#: [id number] Acct: [id number] Name: JAYLYN STOKES Rep #: [id number] : 1990 F 35 From: Yenni Rubio MD PCP: EMILEE Garnica Status: REG CLI Study:Pelvic w/ Transvaginal Date of Exam: 05/07/25 Exam# [id number] Ordering Dr: Leslie Roblero PROCEDURE: PELVIC W/ TRANSVAGINAL 05/07/2025 REASON FOR EXAM: PELVIC PAIN TECHNIQUE: PELVIC W/ TRANSVAGINAL COMPARISON: None. FINDINGS: Measurements: Uterus: 10.6 x 6.0 x 7.3 cm for volume of 241.3 mL Endometrial Thickness: 1.0 cm Right Ovary: 3.5 x 1.8 x 2.4 cm for a volume of 7.8 mL. Left Ovary: 4.7 x 2.7 x 2.8 cm for volume of 18.7 mL . Uterus: Anteverted. There is a heterogeneous hypoechoic lesion in the right anterior aspect of the uterus measuring 1.8 x 1.6 x 1.6 cm.. Nabothian cysts at the cervix. Endometrium: Normal echotexture. Right ovary: Normal size and echotexture. Left ovary: There are least 10 follicles in the left ovary on a single image. Other adnexal findings: None. Cul-de-sac: No free intraperitoneal fluid identified. Color Doppler: Normal color flow doppler signal at both ovaries. US/Pelvic w/ Transvaginal IMPRESSION: 1. Polycystic morphology of the ovaries, correlate for clinical evidence of PCOS. 2. Uterine leiomyoma measuring 1.8 cm. Reading Location: [id number] CC: EMILEE Roblero; EMILEE Mosley ~ Lead Military Analyst: Signed [facility] 05-07-2025 Note [facility] Nerve Conduction & EMG Report Full Name: Maureen Stokes Date of : 1990 Visit Date: 05/07/2025 10:14 AM Age: 35 Years Examining MD: Ruben Hancock MD Temperature: 34 Anti Coag: No Height: 5 feet 1 inch Referred for: EMG: BUE Paresthesias and intermittent weakness in bilateral arms. +Neck pain with radiation into bilateral arms. Impression: This is a normal study. There is no electrodiagnostic evidence of compressive mononeuropathies, cervical radiculopathy or brachial plexopathy in upper extremities. EMG Summary: Bilateral median and ulnar motor NCSs showed normal distal latencies, CMAP amplitudes, and conduction velocities. Bilateral median, ulnar, and radial sensory NCSs showed normal SNAP amplitudes and conduction velocities. Bilateral median to ulnar transcarpal comparison study showed <0.4 ms difference in distal latencies. Needle EMG showed no abnormal spontaneous activity with normal appearing motor units and recruitment pattern. Ruben Hancock MD [facility], [place], [place] Motor NCS Nerve / Sites Muscle Latency Amplitude Distance Velocity ms mV cm m/s R Median - APB Wrist APB 2.67 12.6 7 Elbow APB 5.79 12.5 18 57.6 L Median - APB Wrist APB 3.02 6.5 7 Elbow APB 6.00 6.2 17 57.1 R Ulnar - ADM Wrist ADM 2.13 12.6 6.5 B.Elbow ADM 5.10 11.6 18 60.4 A.Elbow ADM 6.85 11.5 10 57.1 L Ulnar - ADM Wrist ADM 2.21 13.0 6.5 B.Elbow ADM 5.25 12.0 19 62.5 A.Elbow ADM 6.88 12.0 10 61.5 Sensory NCS Nerve / Sites Peak Amp Amp.2-3 Distance Velocity d Lat.2 ms V V cm m/s ms R Median - Digit II Wrist 2.92 43.3 74.5 13 62 L Median - Digit II Wrist 2.73 54.9 93.2 13 63 R Ulnar - Digit V Wrist 2.75 35.4 79.8 11 54 L Ulnar - Digit V Wrist 2.35 28.9 59.0 11 64 R Radial - Snuff Forearm 2.00 42.5 8.8 10 70 L Radial - Snuff Forearm 2.25 35.4 2.3 10 68 R Median, Ulnar - Transcarpal comparison Median Palm 1.69 57.4 96.4 8 60 Ulnar Palm 1.83 19.8 18.8 8 85 Median Palm - Ulnar Palm -0.15 L Median, Ulnar - Transcarpal comparison Median Palm 1.69 72.1 101.4 8 62 Ulnar Palm 1.94 33.7 4.6 8 66 Median Palm - Ulnar Palm -0.25 EMG Summary Table Spontaneous Activity Amplitude Duration Recruitment Polyphasia Activation Comment Muscle Ins Act Fib PSW Fasc - - - - - - L. Deltoid Normal 0 0 0 Normal Normal Normal Normal Normal Normal L. Triceps brachii Normal 0 0 0 Normal Normal Normal Normal Normal Normal L. Biceps brachii Normal 0 0 0 Normal Normal Normal Normal Normal Normal L. Extensor digitorum communis Normal 0 0 0 Normal Normal Normal Normal Normal Normal L. First dorsal interosseous Normal 0 0 0 Normal Normal Normal Normal Normal Normal R. Deltoid Normal 0 0 0 Normal Normal Normal Normal Normal Normal R. Triceps brachii Normal 0 0 0 Normal Normal Normal Normal Normal Normal R. Biceps brachii Normal 0 0 0 Normal Normal Normal Normal Normal Normal R. Extensor digitorum communis Normal 0 0 0 Normal Normal Normal Normal Normal Normal R. First dorsal interosseous Normal 0 0 0 Normal Normal Normal Normal Normal Normal AUTHENTICATED BY RUBEN HANCOCK, ON 05/07/2025 10:43:30 [facility] 05-07-2025 History of Present illness Narrative Images from the original note were not included. [facility] Nerve Conduction & EMG Report Full Name: Maureen Stokes Date of : 1990 Visit Date: 05/07/2025 10:14 AM Age: 35 Years Examining MD: Ruben Hancock MD Temperature: 34 Anti Coag: No Height: 5 feet 1 inch Referred for: EMG: BUE Paresthesias and intermittent weakness in bilateral arms. +Neck pain with radiation into bilateral arms. Impression: This is a normal study. There is no electrodiagnostic evidence of compressive mononeuropathies, cervical radiculopathy or brachial plexopathy in upper extremities. EMG Summary: Bilateral median and ulnar motor NCSs showed normal distal latencies, CMAP amplitudes, and conduction velocities. Bilateral median, ulnar, and radial sensory NCSs showed normal SNAP amplitudes and conduction velocities. Bilateral median to ulnar transcarpal comparison study showed <0.4 ms difference in distal latencies. Needle EMG showed no abnormal spontaneous activity with normal appearing motor units and recruitment pattern. Ruben Hancock MD [facility], [place], [place] Motor NCS Nerve / Sites Muscle Latency Amplitude Distance Velocity ms mV cm m/s R Median - APB Wrist APB 2.67 12.6 7 Elbow APB 5.79 12.5 18 57.6 L Median - APB Wrist APB 3.02 6.5 7 Elbow APB 6.00 6.2 17 57.1 R Ulnar - ADM Wrist ADM 2.13 12.6 6.5 B.Elbow ADM 5.10 11.6 18 60.4 A.Elbow ADM 6.85 11.5 10 57.1 L Ulnar - ADM Wrist ADM 2.21 13.0 6.5 B.Elbow ADM 5.25 12.0 19 62.5 A.Elbow ADM 6.88 12.0 10 61.5 Sensory NCS Nerve / Sites Peak Amp Amp.2-3 Distance Velocity d Lat.2 ms V V cm m/s ms R Median - Digit II Wrist 2.92 43.3 74.5 13 62 L Median - Digit II Wrist 2.73 54.9 93.2 13 63 R Ulnar - Digit V Wrist 2.75 35.4 79.8 11 54 L Ulnar - Digit V Wrist 2.35 28.9 59.0 11 64 R Radial - Snuff Forearm 2.00 42.5 8.8 10 70 L Radial - Snuff Forearm 2.25 35.4 2.3 10 68 R Median, Ulnar - Transcarpal comparison Median Palm 1.69 57.4 96.4 8 60 Ulnar Palm 1.83 19.8 18.8 8 85 Median Palm - Ulnar Palm -0.15 L Median, Ulnar - Transcarpal comparison Median Palm 1.69 72.1 101.4 8 62 Ulnar Palm 1.94 33.7 4.6 8 66 Median Palm - Ulnar Palm -0.25 EMG Summary Table Spontaneous Activity Amplitude Duration Recruitment Polyphasia Activation Comment Muscle Ins Act Fib PSW Fasc - - - - - - L. Deltoid Normal 0 0 0 Normal Normal Normal Normal Normal Normal L. Triceps brachii Normal 0 0 0 Normal Normal Normal Normal Normal Normal L. Biceps brachii Normal 0 0 0 Normal Normal Normal Normal Normal Normal L. Extensor digitorum communis Normal 0 0 0 Normal Normal Normal Normal Normal Normal L. First dorsal interosseous Normal 0 0 0 Normal Normal Normal Normal Normal Normal R. Deltoid Normal 0 0 0 Normal Normal Normal Normal Normal Normal R. Triceps brachii Normal 0 0 0 Normal Normal Normal Normal Normal Normal R. Biceps brachii Normal 0 0 0 Normal Normal Normal Normal Normal Normal R. Extensor digitorum communis Normal 0 0 0 Normal Normal Normal Normal Normal Normal R. First dorsal interosseous Normal 0 0 0 Normal Normal Normal Normal Normal Normal documented in this encounter [facility] 05-02-2025 Evaluation note Diagnosis Onset Date Resolution Anxiety acute May 02 10:02am Depression acute May 02 10:02am Dysuria acute May 02 10:02am Pelvic pain acute May 02 10:02am [facility] Work Phone: 1(548) 802-545606-05-2025 NoteNew Patient Note Jaylyn Stokes is a 35 y.o., right-handed female who was evaluated at the Neurology Clinic today for evaluation of headaches and numbness. She was referred by No ref. provider found. History of Present Illness Jaylyn Stokes is a 34-year-old woman that presents for evaluation of headaches which reportedly started in post period. was complicated with pre-eclampsia. She is currently being weaned off her blood pressure medications. Patient has a prior history of migraines, but her headaches have worsened significantly since her delivery. She endorses throbbing pain in her whole head and base of occiput, 5/10 in intensity, and can build up to 10/10 as day progresses, lasting for 24 hours, about 4-5 times/week, associated with photophobia, phonophobia, and occasional nausea. Patient endorses dysarthria and numbness in bilateral hands during one of her severe migraines, but this resolved spontaneously when the headache improved. Patient endorses worsening of headaches on standing up. She has floaters in her right eye and has baseline blurry vision, but this is reportedly chronic. Her headaches worsen when she coughs and sneezes. She denies any transient visual obscurations or pulsatile tinnitus. She has a prior history of migraines and was on Imitrex in the past. She was recently started on Elavil 25 mg nightly and Rizatriptan. Patient did not notice any benefit with Rizatriptan. She is currently on 25 mg Elavil and has not noticed any benefit thus far. She reportedly tried gabapentin and Fioricet for her migraines in the past 10 years. Patient also complains of back pain and numbness in legs within a week which started within a week of her delivery. Her back pain can occasionally radiate down her right leg. Patient endorses intermittent numbness and tingling in bilateral legs, provoked on laying flat. She denies any numbness in arms or perineal area anesthesia. Her right leg has given out a few times. She had epidural anesthesia during her labor. She denies any bladder or bowel incontinence. Interval History: Patient endorses improvement in her headaches. Patient reports that she gets 1-2 migraines/month. She has failed Topamax and Elavil, and is currently on monthly Ajovy injections. Patient endorses neck pain since February, which can radiate down her neck, and into left shoulder. She went to ER as the pain was radiating to her left arm, and her cardiac workup was unremarkable. She was started on Cardizem for high BP, and has a stress test and rehabilitation therapy technician cardiac monitoring coming up. She also endorses weakness in bilateral arms, and intermittent tingling in bilateral hands involving all five digits. She struggles with buttoning clothes, typing, and changing diapers. She went to see neurosurgery, and was started on Gabapentin 300 mg TID and Volteran. She also endorses worsening depression since February. 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 Previous Workup: LABS CBC and BMP- WNL B12- 512 B9- 11.8 TSH- 1.97 HbA1c- 5 ALISHA- Negative ESR and CRP- Normal SPEP/TANNER-No monoclonal protein RF<10 CCP<16 IMAGING MRI L-spine w/o contrast 11/2024- Mild degenerative changes of the lumbar spine without spinal canal stenosis. Mild neural foraminal narrowing at L2-L3 through L4-L5 MRI brain w/ and w/o contrast (01/2025)- 1. No acute intracranial abnormality. 2. Incidental air-fluid levels noted at the left maxillary and right sphenoid sinuses. Findings could reflect underlying acute sinusitis in the appropriate clinical setting. 3. Nonspecific foci of left frontal lobe white matter T2/FLAIR hyperintensity. Differential considerations may include sequelae of migraine headache, early chronic white matter microvascular ischemic changes, and remote inflammation/infection. EMG BLE (01/2025)- This is a normal study. There is no electrodiagnostic evidence of a large fiber polyneuropathy, lumbosacral radiculopathy or plexopathy in bilateral lower extremities Review of Systems: Weight Loss/gain Diarrhea/Constipation Skin changes Vision loss Nausea Muscle ache/pain Double vision Walking problems Muscle twitches Hearing loss Falls Loss of muscle mass Shortness of breath Difficulty chewing/swallowing Depressed mood Cannot lie flat Choking Behavior changes Cannot exercise Bladder/bowel incontinence Memory/thinking problems Fainting Cannot empty bladder + Sleep problems Voice changes + Sensation changes Sexual function problems Headaches Heart palpitations + Back pain positive if marked, remainder of 14 point ROS negative. Medical History Past Medical History: Past Medical History: Diagnosis Date Hypertension 08/21/24 Post preeclampsia Migraine 1999 Migraines since adolescence Past Surgical History: has no past surgical history on file. Medications: Current Out (more content not included)...[facility]06-05-2025 History of Present illness Narrative* Ruben Hancock MD - 04/18/2025 11:17 AM EDT New Patient Note Jaylyn Stokes is a 35 y.o., right-handed female who was evaluated at the [facility] today forevaluation of headaches and numbness. She was referred by No ref. provider found. History of Present Illness Jaylyn Stokes is a 34-year-old woman that presents for evaluation of headaches which reportedly started in post period. was complicated with pre-eclampsia. She is currently being weaned off her blood pressure medications. Patient has a prior history of migraines, but her headaches have worsened significantly since her delivery. She endorses throbbing pain in her whole head and base of occiput, 5/10 in intensity, and can build up to 10/10 as day progresses, lasting for 24 hours, about 4-5 times/week, associated with p hotophobia, phonophobia, and occasional nausea. Patient endorses dysarthria and numbness in bilateral hands during one of her severe migraines, but this resolved spontaneously when the headache improved. Patient endorses worsening of headaches on standing up. She has floaters in her right eye and has baseline blurry vision, but this is reportedly chronic. Her headaches worsen when she coughs and sneezes. She denies any transient visual obscurations or pulsatile tinnitus. She has a prior history of migraines and was on Imitrex in the past. She was recently started on Elavil 25 mg nightly and Rizatriptan. Patient did not notice any benefit with Rizatriptan. She is currently on 25 mg Elavil and has not noticed any benefit thus far. She reportedly tried gabapentin and Fioricet for her migraines in the past 10 years. Patient also complains of back pain and numbness in legs within a week which started within a week of her delivery. Her back pain can occasionally radiate down her right leg. Patient endorses intermittent numbness and tingling in bilateral legs, provoked on laying flat. She denies any numbness in arms or perineal area anesthesia. Her right leg has given out a few times. She had epidural anesthesia during her labor. She denies any bladder or bowel incontinence. Interval History: Patient endorses improvement in her headaches. Patient reports that she gets 1-2 migraines/month. She has failed Topamax and Elavil, and is currently on monthly Ajovy injections. Patient endorses neck pain since February, which can radiate down her neck, and into left shoulder. She went to ER as the pain was radiating to her left arm, and her cardiac workup was unremarkable. She was started on Cardizem for high BP, and has a stress test and alf cardiac monitoring coming up. She also endorses weakness in bilateral arms, and intermittent tingling in bilateral hands involving all five digits. She struggles with buttoning clothes, typing, and changing diapers. She went to see neurosurgery, and was started on Gabapentin 300 mg TID and Volteran. She also endorses worsening depression since February. 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 Previous Workup: LABS CBC and BMP- WNL B12- 512 B9- 11.8 TSH- 1.97 HbA1c- 5 ALISHA- Negative ESR and CRP- Normal SPEP/TANNER-No monoclonal protein RF<10 CCP<16 IMAGING MRI L-spine w/o contrast 11/2024- Mild degenerative changes of the lumbar spine without spinal canal stenosis. Mild neural foraminal narrowing at L2-L3 through L4-L5 MRI brain w/ and w/o contrast (01/2025)- 1. No acute intracranial abnormality. 2. Incidental air-fluid levels noted at the left maxillary and right sphenoid sinuses. Findings could reflect underlying acute sinusitis in the appropriate clinical setting. 3. Nonspecific foci of left frontal lobe white matter T2/FLAIR hyperintensity. Differential considerations may include sequelae of migraine headache, early chronic white matter microvascular ischemicchanges, and remote inflammation/infection. EMG BLE (01/2025)- This is a normal study. There is no electrodiagnostic evidence of a large fiber polyneuropathy, lumbosacral radiculopathy or plexopathy in bilateral lower extremities Review of Systems: Weight Loss/gain Diarrhea/Constipation Skin changes Vision loss Nausea Muscle ache/pain Double vision Walking problems Muscle twitches Hearing loss Falls Loss of muscle mass Shortness of breath Difficulty chewing/swallowing Depressed mood Cannot lie flat Choking Behavior changes Cannot exercise Bladder/bowel incontinence Memory/thinking problems Fainting Cannot empty bladder + Sleep problems Voice changes + Sensation changes Sexual function problems Headaches Heart palpitations + Back pain positive if marked, remainder of 14 point ROS negative. Medical History Past Medical History: Past Medical History: Diagnosis Date Hypertension 08/21/24 Post preeclampsia Migraine 1999 Migraines since adolescence Past Surgical History: has no past surgical history on file. Medications: Current Outpatient Medications on File Prior to Visit Medication Sig Dispense Refill diclofenac sodium (VOLTAREN) 75 MG EC tablet Take 1 (one) tablet (75 mg total) by mouth 2 (two) times a day as needed for pain . 60 tablet 0 diltiazem (CARDIZEM CD) 120 MG 24 hr capsule Take 1 (one) capsule (120 mg total) by mouth daily . fremanezumab-vfrm ([employer] Autoinjector) 225 mg/1.5 mL AtIn Inject 1.5 mL (225 mg total) under the skin every 28 days . 4.5 mL 5 gabapentin (NEURONTIN) 300 MG capsule Take 1 (one) capsule (300 mg total) by mouth every 8 (eight) hours Start with 1 tab at night x 3 days, then increase to 1 bid x 3 days, then 1 tab tid (if tolerating side effects), x 30 days, 2 refills . 90 capsule 2 Rimegepant (NURTEC) 75 mg ODT Dissolve 1 (one) tablet (75 mg total) on top of tongue daily as needed . 15 tablet 1 valACYclovir (VALTREX) 500 MG tablet As needed . magnesium oxide 400 mg magnesium Tab Take 1 (one) tablet (400 mg total) by mouth daily . NIFEdipine (ADALAT CC) 30 MG 24 hr tablet Take 1 (one) tablet (30 mg total) by mouth daily . rizatriptan (MAXALT) 10 MG tablet Take 1 (one) tablet (10 mg total) by mouth once as needed . (Patient not taking: Reported on 04/18/2025 .) sertraline (ZOLOFT) 50 MG tablet Take 1 (one) tablet (50 mg total) by mouth daily . (Patient not taking: Reported on 04/18/2025 .) topiramate (Topamax) 25 MG tablet Start 1 tab by mouth each day week #1; two tablets daily in second week, three tablets daily in third week, and four tablets daily from fourth week onwards. . (Patient not taking: Reported on 04/18/2025 .) 120 tablet 6 No current facility-administered medications on file prior to visit. Allergies: Allergies Allergen Reactions Hydrocodone Itching Oxycodone Other (See Comments) Psychological problems Social History: reports that she has never smoked. She has never used smokeless tobacco. She reports that she does not currently use alcohol. She reports that she does not use drugs. Family History: family history includes Cancer in her paternal grandmother; Heart disease in her maternal grandfather; Hypertension in her maternal aunt and sister; Kidney disease in her mother; Memory loss in her mother; Migraines in her mother and sister; Stroke in her maternal grandfather; Transient ischemic attack in her maternal grandfather and paternal grandmother. Examination Pulse 88 Resp 16 SpO2 95% General: Well-developed, well-nourished, in no acute distress. HEENT: normocephalic, atraumatic, no oral lesions or tongue lacerations, mucous membranes are moist Ext: No edema, nontender, no ulcer. Warm, well-perfused. Skin: No significant rashes. MENTAL STATUS Patient is awake, alert, and appropriately oriented. Attentive to examiner, cooperative with exam. Language is fluent. Patient is able to give details of her own history. CRANIAL NERVES II: Visual hough are full. Pupils are equal, round and reactive to light. III, IV and : extraocular movements are full. There is no nystagmus. V: Facial sensation is intact and symmetric. VII: The face is strong and symmetric. VIII: Hearing is grossly intact. IX and X: Soft palate elevates symmetrically in the midline. No dysarthria XI: Shoulder shrug and sternocleidomastoids are strong. XII: Tongue is midline, normal movement, no atrophy or fasciculations. MOTOR Bulk and tone are normal. There is no pronator drift. Neck flexion and extension are 5/5 (Pain limited for neck flexion) SA EE EF WE WF FF FE ThAb Arianne Left 5 5 5 5 5 5 5 5 5 Right 5 5 5 5 5 5 5 5 5 HF KE KF DF PF Left 5 5 5 5 5 Right 5 5 5 5 5 (Examination performed in the sitting position unless indicated) REFLEXES Reflexes Right Left Biceps 2 2 Triceps 2 2 Brachioradialis 2 2 Patella 2 2 Achilles 2 2 Plantar Response Down going Down going SENSORY Light touch: Intact bilaterally Pinprick: Decreased sensation in right digit I-II and left digit I COORDINATION Finger to nose is intact without dysmetria or tremors. GAIT Gait is narrow-based and steady, with normal arm swing. Impression: Chronic neck pain and left radicular pain Intermittent paresthesias in hands Post- headaches w/ migrainous features Hx of migraines Jaylyn Stokes is a 35 y.o. female with migraines presents for a follow-up visit. Patient endorses improvement in headaches since her last visit, and is currently on Ajovy and Nurtec PRN. Patient endorses worsening neck pain and radicular symptoms in left arm since February,. Will order MRI C-spine and EMG of BUE to evaluate for radiculopathy and compressive mononeuropathies. She was requested to talk to her PCP about post depression symptoms. Plan: Medications: * Ajovy monthly injections * Nurtec 75 mg PRN prescribed for acute migraine therapy. Imaging: MRI C-spine w/o contrast ordered to evaluate neck pain and neural foraminal stenosis Procedures: EMG/NCS of BUE to evaluate for compressive mononeuropathies and radiculopathy. Follow-up: Pending EMG results The total face time today was 42 minutes, over half of which was spent in counseling and coordination of care. Ruben Hancock MD [employer] Neurologist, [facility]. documented in this [id number] NoteNew Patient Office Visit [facility] Date: 04/10/25 Reason for Consult: Back pain MEDICAL DECISION MAKING: Patient symptomology is not explained by her imaging findings. It is fairly diffuse, and appears more musculoskeletal/myofascial. I will refer her to rheumatology for autoimmune workup, given the neurology workup has been negative. I will also refer her to physiatry for analgesic measures, including trigger point injections. Gabapentin and diclofenac was prescribed. I would otherwise be happy to see her again at any time should any new issues or findings arise. Please do not hesitate to contact me anytime should you have any questions. Thank you for the curtesy of the referral. Warm regards, Doris Becerra D.O., F.A.C.O.S. Board-Certified Neurosurgeon, Brain and Spine Office: [phone] HISTORY OF PRESENT ILLNESS: Jaylyn Stokes is a pleasant 35 y.o. y/o female who presents to our clinic for exacerbating predominantly mechanical back pain, as well as neck pain and headaches, with paresthesias in the hands and feet. Symptoms started after an epidural in 2023. It is generally aggravated by activity and movement, later in the day. She started physical therapy, and follows with neurology for workup which so far has been negative. She denies any other neurologic symptoms. Past Medical History: Diagnosis Date Hypertension 08/21/24 Post preeclampsia Migraine 1999 Migraines since adolescence History reviewed. No pertinent surgical history. family history includes Cancer in her paternal grandmother; Heart disease in her maternal grandfather; Hypertension in her maternal aunt and sister; Kidney disease in her mother; Memory loss in her mother; Migraines in her mother and sister; Stroke in her maternal grandfather; Transient ischemic attack in her maternal grandfather and paternal grandmother. reports that she has never smoked. She has never used smokeless tobacco. She reports that she does not currently use alcohol. She reports that she does not use drugs. Current Medications[1] Allergies: Hydrocodone and Oxycodone 14 systems were reviewed and are negative except what's listed in the HPI PHYSICAL EXAM: VITALS: PACU Vitals 04/10/25 1305 Resp: 16 PainSc: 7 GENERAL: Alert and well appearing. HEAD: Normocephalic and atraumatic COGNITIVE: Awake, alert, and oriented. Language is fluent RESPIRATORY: Chest rise is symmetric. No accessory muscle usage for distress. NEUROLOGIC: Cranial nerves II-XII are grossly intact, motor strength is 5/5 in the upper and lower extremities proximal and distal symmetrically, sensation is intact to light touch, deep tendon reflexes are 2+ throughout, there is no Garcia or clonus. MUSCULOSKELETAL: Upright posture alignment. Full flexion and extension of the cervical and lumbar spine. No significant tenderness to palpation throughout the spine or SI joints. Hips have full range of motions without tenderness or discomfort. Negative straight leg raise. Negative Spurling test. Ambulation and gait are normal. PSYCHIATRIC: Mood and affect are appropriate SKIN: Warm and dry DIAGNOSTIC STUDIES: My independent interpretation of the MRI lumbar spine is fairly unremarkable without stenosis. MRI brain demonstrates nonspecific T2 white matter changes, otherwise unremarkable Most recent labs were reviewed No results found for: CBC, INR, PTT Prior recent external notes from physician/advanced practitioner in different specialty were reviewed. I personally reviewed and interpreted all pertinent radiographic, laboratory, and electrodiagnostic findings. Return precautions were provided for any new or worsening symptoms. More than 50% of my time was devoted to discussing the patient's symptoms, examination findings, education and counseling about treatment approach, diagnostic plan, and prognosis. DORIS BECERRA DO [1] Current Outpatient Medications Medication Sig Dispense Refill diltiazem (CARDIZEM CD) 120 MG 24 hr capsule Take 1 (one) capsule (120 mg total) by mouth daily . fremanezumab-vfrm (Ajovy Autoinjector) 225 mg/1.5 mL AtIn Inject 1.5 mL (225 mg total) under the skin every 28 days . 4.5 mL 5 Rimegepant (NURTEC) 75 mg ODT Dissolve 1 (one) tablet (75 mg total) on top of tongue daily as needed . 15 tablet 1 valACYclovir (VALTREX) 500 MG tablet As needed . NIFEdipine (ADALAT CC) 30 MG 24 hr tablet Take 1 (one) tablet (30 mg total) by mouth daily . rizatriptan (MAXALT) 10 MG tablet Take 1 (one) tablet (10 mg total) by mouth once as needed . sertraline (ZOLOFT) 50 MG tablet Take 1 (one) tablet (50 mg total) by mouth daily . topiramate (Topamax) 25 MG tablet Start 1 tab by mouth each day week #1; two tablets daily in second week, three tablets daily in third week, and four tablets daily from fourth week onwards. . 120 tablet 6 No current facility-administered medications for this (more content not included)...[facility] [id number] History of Present illness Narrative* Doris Becerra, - 04/10/2025 1:27 PM EDT New Patient Office Visit [facility] NEUROSURGERY Date: 04/10/25 Reason for Consult: Back pain MEDICAL DECISION MAKING: Patient symptomology is not explained by her imaging findings. It is fairly diffuse, and appears more musculoskeletal/myofascial. I will refer her to rheumatology for autoimmune workup, given the neurology workup has been negative. I will also refer her to physiatry for analgesic measures, including trigger point injections. Gabapentin and diclofenac was prescribed. I would otherwise be happy to see her again at any time should any new issues or findings arise. Please do not hesitate to contact me anytime should you have any questions. Thank you for the curtesy of the referral. Warm regards, Doris Becerra D.O., F.A.C.O.S. Board-Certified Neurosurgeon, Brain and Spine Office: [phone] HISTORY OF PRESENT ILLNESS: Jaylyn Stokes is a pleasant 35 y.o. y/o female who presents to our clinic for exacerbating predominantly mechanical back pain, as well as neck pain and headaches, with paresthesias in the hands and feet. Symptoms started after an epidural in 2023. It is generally aggravated by activity and movement, later in the day. She started physical therapy, and follows with neurology for workup which so far has been negative. She denies any other neurologic symptoms. Past Medical History: Diagnosis Date Hypertension 08/21/24 Post preeclampsia Migraine 1999 Migraines since adolescence History reviewed. No pertinent surgical history. family history includes Cancer in her paternal grandmother; Heart disease in her maternal grandfather; Hypertension in her maternal aunt and sister; Kidney disease in her mother; Memory loss in her mother; Migraines in her mother and sister; Stroke in her maternal grandfather; Transient ischemic attack in her maternal grandfather and paternal grandmother. reports that she has never smoked. She has never used smokeless tobacco. She reports that she does not currently use alcohol. She reports that she does not use drugs. Current Medications[1] Allergies: Hydrocodone and Oxycodone 14 systems were reviewed and are negative except what's listed in the HPI PHYSICAL EXAM: VITALS: PACU Vitals 04/10/25 1305 Resp: 16 PainSc: 7 GENERAL: Alert and well appearing. HEAD: Normocephalic and atraumatic COGNITIVE: Awake, alert, and oriented. Language is fluent RESPIRATORY: Chest rise is symmetric. No accessory muscle usage for distress. NEUROLOGIC: Cranial nerves II-XII are grossly intact, motor strength is 5/5 in the upper and lower extremities proximal and distal symmetrically, sensation is intact to light touch, deep tendon reflexes are 2+ throughout, there is no Garcia or clonus. MUSCULOSKELETAL: Upright posture alignment. Full flexion and extension of the cervical and lumbar spine. No significant tenderness to palpation throughout the spine or SI joints. Hips have full rangeof motions without tenderness or discomfort. Negative straight leg raise. Negative Spurling test. Ambulation and gait are normal. PSYCHIATRIC: Mood and affect are appropriate SKIN: Warm and dry DIAGNOSTIC STUDIES: My independent interpretation of the MRI lumbar spine is fairly unremarkable without stenosis. MRI brain demonstrates nonspecific T2 white matter changes, otherwise unremarkable Most recent labs were reviewed No results found for: CBC, INR, PTT Prior recent external notes from physician/advanced practitioner in different specialty were reviewed. I personally reviewed and interpreted all pertinent radiographic, laboratory, and electrodiagnosticfindings. Return precautions were provided for any new or worsening symptoms. More than 50% of my time was devoted to discussing the patient's symptoms, examination findings, education and counseling about treatment approach, diagnostic plan, and prognosis. DORIS BECERRA DO [1] Current Outpatient Medications Medication Sig Dispense Refill diltiazem (CARDIZEM CD) 120 MG 24 hr capsule Take 1 (one) capsule (120 mg total) by mouth daily . fremanezumab-vfrm (Ajovy Autoinjector) 225 mg/1.5 mL AtIn Inject 1.5 mL (225 mg total) under the skin every 28 days . 4.5 mL 5 Rimegepant (NURTEC) 75 mg ODT Dissolve 1 (one) tablet (75 mg total) on top of tongue daily as needed . 15 tablet 1 valACYclovir (VALTREX) 500 MG tablet As needed . NIFEdipine (ADALAT CC) 30 MG 24 hr tablet Take 1 (one) tablet (30 mg total) by mouth daily . rizatriptan (MAXALT) 10 MG tablet Take 1 (one) tablet (10 mg total) by mouth once as needed . sertraline (ZOLOFT) 50 MG tablet Take 1 (one) tablet (50 mg total) by mouth daily . topiramate (Topamax) 25 MG tablet Start 1 tab by mouth each day week #1; two tablets daily in second week, three tablets daily in third week, and four tablets daily from fourth week onwards. . 120 tablet 6 No current facility-administered medications for this visit. documented in this [id number] History of Present illness Narrative* Serjio Carter, [employer]ORY INSTALLER, DNP - 04/01/2025 1:00 PM EDT Images from the original note were not included. CHIEF COMPLAINT Referred by ER for chest pain HISTORY OF PRESENT ILLNESS Jaylyn Stokes is a 35-year-old female with a history of anxiety [facility]. Patient presented to [facility] ED on 03/27/25 in the setting of mid sternal chest pain with onsetbeginning earlier that day while changing bedding. Associated symptoms include dyspnea, fluttering,and high BP. Symptoms radiated to left shoulder/neck. Work up in the ED was grossly negative. EKG was nonischemic. Patient was treated with prednisone for left-sided cervical radiculopathy with recommendation to follow up with Cardiology and PCP. Currently, pain reports no chest pain today with last episode on Tuesday. She reports a tingling/heaviness/shock-like discomfort to the left side of chest with radiation to the left shoulder and behind the left ear. Associated symptoms include dyspnea and palpitations. She also reports blood pressures over the last week have been 160s/100s. She does have a hx of preeclampsia needed to be on medications (atenolol and nifedipine). Eventually, she was able to come off the medications due to normalization of BP but also reports hives and a rash and assumes it was from the atenolol. Past Medical, Surgical, and Family History reviewed and updated in chart. Reviewed all medications by prescribing practitioner or clinical pharmacist (such as prescriptions,OTCs, herbal therapies and supplements) and documented in the medical record. Past Medical History Medical History[1] Social History Social History[2] Family History Family History[3] Allergies: RX Allergies[4] Outpatient Medications: Current Outpatient Medications Medication Instructions Ajovy Autoinjector 225 mg, Every 28 days dilTIAZem (CARDIZEM) 90 mg, oral, 4 times daily diphenhydrAMINE (BENADRYL ALLERGY) 50 mg, oral, Daily, Take 1 tablet the night before the exam (1 hour before you take metoprolol) Take 1 tablet the morning of the exam (`1 hour before you take metoprolol) magnesium oxide (MAG-OX) 400 mg, Daily metoprolol tartrate (LOPRESSOR) 100 mg, oral, Daily, Take 1 tablet the night before the exam Take 1 tablet the morning of the exam predniSONE (Deltasone) 50 mg tablet Take 1st tab 13 hours before procedure (or CT scan). Take 2nd tab 7 hours before procedure (or CT scan). Take 3rd tab 1 hour before procedure (or CT scan). rimegepant (NURTEC ODT) 75 mg, As needed valACYclovir (Valtrex) 500 mg tablet Take 1 tablet (500 mg) by mouth 2 times a day as needed. Labs: CMP: Recent Labs 03/27/25 17203/23/24 192 NA 138 137 K 4.1 3.6 CL 106 107 CO2 24 21 ANIONGAP 12 13 BUN 11 8 CREATININE 0.58 0.48* EGFR >90 >90 Recent Labs 03/27/25172303/23/24 192 ALBUMIN 4.5 3.9 ALKPHOS 70 52 ALT 22 9 AST 13 9 BILITOT 0.3 0.2 CBC: Recent Labs 03/27/254 01/08/25 1238 03/23/24 1921 WBC 10.1 9.8 9.4 HGB 13.5 14.2 12.1 HCT 41.1 44.1 36.9 PLT 235 274 203 MCV 82 84.5 84 COAG: Recent Labs 03/27/251815 DDIMERVTE <215 ABO: No results for input(s): ABO in the last 06476 hours. HEME/ENDO: Recent Labs 04/28/20 1511 TSH 2.56 CARDIAC: Recent Labs 03/27/256 03/27/25 1724 TROPHS 3 3 BNP -- 13 No results for input(s): CHOL, LDLF, HDL, TRIG in the last 23528 hours. MICRO: Recent Labs 01/08/25 1238 CRP 5.1 No results found for the last 90 days. Notable Studies: imaging personally reviewed EKG: Encounter Date: 03/27/25 ECG 12 Lead Result Value Ventricular Rate 84 Atrial Rate 84 NV Interval 164 QRS Duration 78 QT Interval 346 QTC Calculation(Bazett) 408 P [place] 75 R [place] 72 T [place] 44 QRS Count 13 Q Onset 217 P Onset 135 P Offset 184 T Offset 390 QTC [place] 386 Narrative Normal sinus rhythm Normal ECG No previous ECGs available See ED provider note for full interpretation and clinical correlation Confirmed by Ronda Canchola ([id number]) on 03/28/2025 12:29:44 PM Echocardiogram: No results found for this or any previous visit from the past 1825 days. Stress Testing: No results found for this or any previous visit from the past 1825 days. Cardiac Catheterization: No results found for this or any previous visit from the past 1825 days. No results found for this or any previous visit from the past 3650 days. REVIEW OF SYSTEMS A 10-point system review was completed and was negative except as noted in the HPI. VITALS Vitals: 04/01/25 1304 BP: 124/84 Pulse: 94 SpO2: 99% PHYSICAL EXAM General: awake, alert and oriented. No acute distress. HEENT: normocephalic, atraumatic; conjunctivae are clear without exudates or hemorrhage. Sclera is non-icteric. Eyelids are normal in appearance without swelling or lesions. Hearing intact. Nares arepatent bilaterally. Moist mucous membranes. Cardiovascular: heart rate and rhythm are normal. No murmurs, gallops, or rubs are auscultated. S1 and S2 are heard and are of normal intensity. Respiratory: bilateral lung sounds clear to auscultations without rales, rhonchi, or wheezes. No accessory muscle use or stridor Musculoskeletal: ROM intact, no deformities Extremities: no swelling Neurological: no focal deficits; gait steady Psychiatric: appropriate mood and affect; good judgment and insight ASSESSMENT AND PLAN Assessment/Plan Diagnoses and all orders for this visit: Hypertension, unspecified type Chest pain, unspecified type Palpitations Dyspnea on exertion -Will order an echo stress to further evaluate for obstructive disease as well as for any underlying structural abnormalities -Will order a 7 day lunchroom monitor to rule out any underlying arrhythmias, pauses, or blocks -Her home blood pressures are not at goal which could be contributing to her current symptoms; patient would benefit from initiation of anti-hypertensive medication. Will start diltiazem ER 90mg daily to help with BP and palpitations. I hope to not need the medication in the rehabilitation therapy technician but for now, it is appropriate until we can achieve better BP control -IOEKG showing NSR RTC: follow up after testing Thank you for allowing me to participate in the care of this patient. Please reach me out if you have any questions or if you need any clarifications regarding the patient's care. Serjio Carter DNP, MANUEL, COLLEGE AND CAREER COUNSELOR-C Division of Cardiovascular Medicine [facility] [1] Past Medical History: Diagnosis Date Depression, unspecified Acute depression Hypertension 08/13/2024 Immunization not carried out because of patient refusal COVID-19 vaccination declined Other conditions influencing health status History of vaginal delivery [2] Social History Tobacco Use Smoking status: Never Smokeless tobacco: Never Vaping Use Vaping status: Never Used Substance Use Topics Alcohol use: Not Currently Comment: occasional Drug use: Never [3] Family History Problem Relation Name Age of Onset Kidney disease Mother Candy Hypothyroidism Mother Candy Depression Mother Candy Thyroid disease Mother Candy Heart attack Father Marlon 60 Sudden Father Marlon Hypertension Sister Nadira Sleep apnea Sister Nadira Heart attack Maternal Grandmother Marizol Stroke Maternal Grandfather Wesley Heart disease Maternal Grandfather Wesley Hypertension Maternal Grandfather Wesley Uterine cancer Paternal Grandmother Renetta Cancer Paternal Grandmother Renetta [4] Allergies Allergen Reactions Labetalol Hives Joint swelling, rash, hives Oxycodone-Acetaminophen Itching Hydrocodone Itching [facility] Work Phone: [phone]) 312-283505-19-2025 Instructions* Patient Instructions* BEATRIZ Sanchez DNP - 04/01/2025 1:00 PM EDT Will order a coronary CT to rule out blockage in your coronary arteries. Take metoprolol 100mg the night before the test and 100mg the morning of the exam. Please obtain a urine test prior to the test. We will premedicate you with prednisone and benadryl prior to the test (please follow instructions on the bottle) I will order an echo I will order a 7 day holter monitor to evaluate your rhythm documented in this [facility] Work Phone: [phone]) 326-951105-14-2025 Physician Emergency department Note* Dheeraj Ferrer, - 03/27/2025 5:33 PM EDT HPI 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 Patient presents with Chest Pain Patient reports mid sternal chest pressure that started earlier today while changing her bedsheets that goes to L shoulder/neck. Patient also had noted her b/p being elevated, she was on b/p meds post and stopped them in January. Patient also states that she felt SOB and feeling fluttering. Denies recent surgery/travel. 35-year-old female presents for evaluation of chest pain. Intermittent midsternal chest pain described as pressure in nature. She states the pain has waxed and waned since 12:30 PM. The pain started when she was changing a pillowcase. The pain radiates down her left arm to the left side of her neck. She has also had some episodes of pain radiating down her right arm. The episodes of chest pain last seconds. Her blood pressure is high as well. She had been on antihypertensives and stopped them in January of this year. She feels short of breath and feels that her heart is fluttering. No hemoptysis. No unilateral leg swelling. No recent travel. No bedrest. No exogenous estrogen. History provided by: Patient and medical records Patient History Medical History[1] Surgical History[2] Family History[3] Social History[4] Physical Exam ED Triage Vitals [03/27/25 1701] Temp Heart Rate Respirations BP -- 90 20 (!) 151/111 Pulse Ox Temp src Heart Rate Source Patient Position 98 % -- -- -- BP Location FiO2 (%) -- -- Physical Exam Vitals and nursing note reviewed. Constitutional: Appearance: Normal appearance. HENT: Head: Normocephalic and atraumatic. Nose: Nose normal. Mouth/Throat: Mouth: Mucous membranes are moist. Eyes: Extraocular Movements: Extraocular movements intact. Pupils: Pupils are equal, round, and reactive to light. Cardiovascular: Rate and Rhythm: Normal rate and regular rhythm. Pulmonary: Effort: Pulmonary effort is normal. Breath sounds: Normal breath sounds. Abdominal: Palpations: Abdomen is soft. Tenderness: There is no abdominal tenderness. Musculoskeletal: General: No deformity. Cervical back: Normal range of motion. No rigidity. Skin: General: Skin is warm and dry. Neurological: General: No focal deficit present. Mental Status: She is alert and oriented to person, place, and time. Cranial Nerves: No cranial nerve deficit. Motor: No weakness. Psychiatric: Mood and Affect: Mood normal. ED Course & MDM ED Course as of 03/27/251841March 27, 2025 1718 ECG 12 lead EKG interpreted by me shows sinus rhythm with rate 84. Normal axis. Normal intervals. No acute injury pattern. [BT] 173 35-year-old female with chest pain. EKG shows sinus rhythm. No acute injury pattern. [facility]. D-dimer. Will reevaluate after initial workup. [BT] 1840 Troponin I, High Sensitivity: 3 First troponin 3 [BT] 1840 XR chest 1 view Chest x-ray with no acute cardiopulmonary process [BT] 184 Care turned over to Dr. Carrion at shift change [BT] ED Course User Index [BT] Dheeraj Ferrer DO Diagnoses as of 03/27/251841 Chest pain, unspecified type Paresthesia of left arm XR chest 1 view Final Result 1. No evidence of acute cardiopulmonary process. MACRO: None Signed by: Lito Marie 03/27/2025 5:50 PM Dictation workstation: [id number] No data recorded Annamaria Coma Scale Score: 15 (03/27/251736 : Isabella Massey RN) HEART Score: 0 (03/27/251840 : Dheeraj Ferrer DO) Medical Decision Making Procedure Procedures [1] Past Medical History: Diagnosis Date Depression, unspecified Acute depression Immunization not carried out because of patient refusal COVID-19 vaccination declined Other conditions influencing health status History of vaginal delivery [2] Past Surgical History: Procedure Laterality Date OTHER SURGICAL HISTORY 04/28/2020 Strabismus surgery OTHER SURGICAL HISTORY 04/28/2020 Tonsillectomy OTHER SURGICAL HISTORY 04/28/2020 Corneal lasik [3] Family History Problem Relation Name Age of Onset Kidney disease Mother Hypothyroidism Mother Heart attack Father 60 Hypertension Sister Sleep apnea Sister Heart attack Maternal Grandmother Stroke Maternal Grandfather Uterine cancer Paternal Grandmother [4] Social History Tobacco Use Smoking status: Never Smokeless tobacco: Never Vaping Use Vaping status: Never Used Substance Use Topics Alcohol use: Yes Comment: occasional Drug use: Not Currently Dheeraj Ferrer DO 03/27/25 184 [facility] Work Phone: 1(511) 645-377505-14-2025 Emergency department Note* Dheeraj Ferrer DO - 03/27/2025 5:33 PM EDT HPI 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 Patient presents with Chest Pain Patient reports mid sternal chest pressure that started earlier today while changing her bedsheets that goes to L shoulder/neck. Patient also had noted her b/p being elevated, she was on b/p meds post and stopped them in January. Patient also states that she felt SOB and feeling fluttering. Denies recent surgery/travel. 35-year-old female presents for evaluation of chest pain. Intermittent midsternal chest pain described as pressure in nature. She states the pain has waxed and waned since 12:30 PM. The pain started when she was changing a pillowcase. The pain radiates down her left arm to the left side of her neck. She has also had some episodes of pain radiating down her right arm. The episodes of chest pain last seconds. Her blood pressure is high as well. She had been on antihypertensives and stopped them in January of this year. She feels short of breath and feels that her heart is fluttering. No hemoptysis. No unilateral leg swelling. No recent travel. No bedrest. No exogenous estrogen. History provided by: Patient and medical records Patient History Medical History[1] Surgical History[2] Family History[3] Social History[4] Physical Exam ED Triage Vitals [03/27/25 1701] Temp Heart Rate Respirations BP -- 90 20 (!) 151/111 Pulse Ox Temp src Heart Rate Source Patient Position 98 % -- -- -- BP Location FiO2 (%) -- -- Physical Exam Vitals and nursing note reviewed. Constitutional: Appearance: Normal appearance. HENT: Head: Normocephalic and atraumatic. Nose: Nose normal. Mouth/Throat: Mouth: Mucous membranes are moist. Eyes: Extraocular Movements: Extraocular movements intact. Pupils: Pupils are equal, round, and reactive to light. Cardiovascular: Rate and Rhythm: Normal rate and regular rhythm. Pulmonary: Effort: Pulmonary effort is normal. Breath sounds: Normal breath sounds. Abdominal: Palpations: Abdomen is soft. Tenderness: There is no abdominal tenderness. Musculoskeletal: General: No deformity. Cervical back: Normal range of motion. No rigidity. Skin: General: Skin is warm and dry. Neurological: General: No focal deficit present. Mental Status: She is alert and oriented to person, place, and time. Cranial Nerves: No cranial nerve deficit. Motor: No weakness. Psychiatric: Mood and Affect: Mood normal. ED Course & MDM ED Course as of 03/27/251841March 27, 2025 1718 ECG 12 lead EKG interpreted by me shows sinus rhythm with rate 84. Normal axis. Normal intervals. No acute injury pattern. [BT] 1736 35-year-old female with chest pain. EKG shows sinus rhythm. No acute injury pattern. Placed [facility]. D-dimer. Will reevaluate after initial workup. [BT] 184 Troponin I, High Sensitivity: 3 First troponin 3 [BT] 1840 XR chest 1 view Chest x-ray with no acute cardiopulmonary process [BT] 184 Care turned over to Dr. Carrion at shift change [BT] ED Course User Index [BT] Dheeraj Ferrer DO Diagnoses as of 03/27/251841 Chest pain, unspecified type Paresthesia of left arm XR chest 1 view Final Result 1. No evidence of acute cardiopulmonary process. MACRO: None Signed by: Lito Marie 03/27/2025 5:50 PM Dictation workstation: [id number] No data recorded Annamaria Coma Scale Score: 15 (03/27/25 1737 : Isabella Massey RN) HEART Score: 0 (03/27/25 184 : Dheeraj Ferrer DO) Medical Decision Making Procedure Procedures [1] Past Medical History: Diagnosis Date Depression, unspecified Acute depression Immunization not carried out because of patient refusal COVID-19 vaccination declined Other conditions influencing health status History of vaginal delivery [2] Past Surgical History: Procedure Laterality Date OTHER SURGICAL HISTORY 04/28/2020 Strabismus surgery OTHER SURGICAL HISTORY 04/28/2020 Tonsillectomy OTHER SURGICAL HISTORY 04/28/2020 Corneal lasik [3] Family History Problem Relation Name Age of Onset Kidney disease Mother Hypothyroidism Mother Heart attack Father 60 Hypertension Sister Sleep apnea Sister Heart attack Maternal Grandmother Stroke Maternal Grandfather Uterine cancer Paternal Grandmother [4] Social History Tobacco Use Smoking status: Never Smokeless tobacco: Never Vaping Use Vaping status: Never Used Substance Use Topics Alcohol use: Yes Comment: occasional Drug use: Not Currently Dheeraj Ferrer DO 03/27/251841 documented in this [facility] Work Phone: 1(491) [phone] [facility] [address] [facility] 2nd [place] [id number] Nerve Conduction & EMG Report Patient: Jaylyn Stokes Sex: Female Date of : 1990 Visit Date: 02/04/2025 3:15 PM Age: 35 Years Examining MD: Ruben Hancock MD Referred by: Ruben Hancock MD Temperature: 34 Current Height: 5 feet 1 inch Referred for: EMG: BLE- 35-year-old woman presents for electrodiagnostic evaluation of intermittent numbness in bilateral feet. She endorses back pain with radiation into right leg. Impression: This is a normal study. There is no electrodiagnostic evidence of a large fiber polyneuropathy, lumbosacral radiculopathy or plexopathy in bilateral lower extremities. EMG Summary: Bilateral peroneal and tibial motor NCSs showed normal distal latencies, CMAP amplitudes, and conduction velocities. Bilateral sural sensory NCSs showed normal SNAP amplitudes and conduction velocities. Needle EMG showed no abnormal spontaneous activity with normal appearing motor units and recruitment pattern. Ruben Hancock MD [facility], [place], [place] Motor NCS Nerve / Sites Muscle Latency Amplitude Distance Velocity ms mV cm m/s L Deep peroneal (Fibular) - EDB Ankle EDB 4.90 5.4 8.5 Fib Head EDB 9.83 5.3 26.5 53.7 Knee EDB 11.35 4.3 8 52.6 R Deep peroneal (Fibular) - EDB Ankle EDB 4.08 3.7 8.5 Fib Head EDB 9.58 3.3 28.5 51.8 Knee EDB 11.35 2.8 8 45.2 L Tibial - AH Ankle AH 3.63 10.6 8 Knee AH 11.83 9.2 37.5 45.7 R Tibial - AH Ankle AH 3.92 9.5 8 Knee AH 11.73 7.1 37 47.4 Sensory NCS Nerve / Sites Peak Amp Amp.2-3 Distance Velocity ms V V cm m/s L Sural - Lat Mall Calf 3.65 16.2 11.3 14 52 R Sural - Lat Mall Calf 3.27 28.7 14.0 14 53 EMG Summary Table Spontaneous Activity Amplitude Duration Recruitment Polyphasia Comment Muscle Ins Act Fib PSW Fasc - - - - - R. Tibialis anterior Normal 0 0 0 Normal Normal Normal Normal Normal R. Gastrocnemius (Medial head) Normal 0 0 0 Normal Normal Normal Normal Normal R. Vastus lateralis Normal 0 0 0 Normal Normal Normal Normal Normal L. Tibialis anterior Normal 0 0 0 Normal Normal Normal Normal Normal L. Gastrocnemius (Medial head) Normal 0 0 0 Normal Normal Normal Normal Normal L. Vastus medialis Normal 0 0 0 Normal Normal Normal Normal Normal R. Extensor digitorum brevis Normal 0 0 0 Normal Normal Normal Normal Normal L. Extensor digitorum brevis Normal 0 0 0 Normal Normal Normal Normal Normal L. Tensor fasciae latae Normal 0 0 0 Normal Normal Normal Normal Normal R. Tensor fasciae latae Normal 0 0 0 Normal Normal Normal Normal Normal AUTHENTICATED BY RUBEN HANCOCK, ON 02/04/2025 15:48:26[facility] 02-04-2025 History of Present illness Narrative* Ruben Hancock MD - 02/04/2025 3:46 PM EDT Images from the original note were not included. [facility]rology [address], [facility] [address] [place] [address] Nerve Conduction & EMG Report Patient: Jaylyn Stokes Sex: Female Date of : 1990 Visit Date: 02/04/2025 3:15 PM Age: 35 Years Examining MD: Ruben Hancock MD Referred by: Ruben Hancock MD Temperature: 34 Current Height: 5 feet 1 inch Referred for: EMG: BLE- 35-year-old woman presents for electrodiagnostic evaluation of intermittentnumbness in bilateral feet. She endorses back pain with radiation into right leg. Impression: This is a normal study. There is no electrodiagnostic evidence of a large fiber polyneuropathy, lumbosacral radiculopathy or plexopathy in bilateral lower extremities. EMG Summary: Bilateral peroneal and tibial motor NCSs showed normal distal latencies, CMAP amplitudes, and conduction velocities. Bilateral sural sensory NCSs showed normal SNAP amplitudes and conduction velocities. Needle EMG showed no abnormal spontaneous activity with normal appearing motor units and recruitment pattern. Ruben Hancock MD [facility], [place], [place] Motor NCS Nerve / Sites Muscle Latency Amplitude Distance Velocity ms mV cm m/s L Deep peroneal (Fibular) - EDB Ankle EDB 4.90 5.4 8.5 Fib Head EDB 9.83 5.3 26.5 53.7 Knee EDB 11.35 4.3 8 52.6 R Deep peroneal (Fibular) - EDB Ankle EDB 4.08 3.7 8.5 Fib Head EDB 9.58 3.3 28.5 51.8 Knee EDB 11.35 2.8 8 45.2 L Tibial - AH Ankle AH 3.63 10.6 8 Knee AH 11.83 9.2 37.5 45.7 R Tibial - AH Ankle AH 3.92 9.5 8 Knee AH 11.73 7.1 37 47.4 Sensory NCS Nerve / Sites Peak Amp Amp.2-3 Distance Velocity ms V V cm m/s L Sural - Lat Mall Calf 3.65 16.2 11.3 14 52 R Sural - Lat Mall Calf 3.27 28.7 14.0 14 53 EMG Summary Table Spontaneous Activity Amplitude Duration Recruitment Polyphasia Comment Muscle Ins Act Fib PSW Fasc - - - - - R. Tibialis anterior Normal 0 0 0 Normal Normal Normal Normal Normal R. Gastrocnemius (Medial head) Normal 0 0 0 Normal Normal Normal Normal Normal R. Vastus lateralis Normal 0 0 0 Normal Normal Normal Normal Normal L. Tibialis anterior Normal 0 0 0 Normal Normal Normal Normal Normal L. Gastrocnemius (Medial head) Normal 0 0 0 Normal Normal Normal Normal Normal L. Vastus medialis Normal 0 0 0 Normal Normal Normal Normal Normal R. Extensor digitorum brevis Normal 0 0 0 Normal Normal Normal Normal Normal L. Extensor digitorum brevis Normal 0 0 0 Normal Normal Normal Normal Normal L. Tensor fasciae latae Normal 0 0 0 Normal Normal Normal Normal Normal R. Tensor fasciae latae Normal 0 0 0 Normal Normal Normal Normal Normal documented in this [id number] History of Present illness Narrative* Abril Mosley, MANUEL-AUTOMOTIVE ACCESSORY INSTALLER - 01/08/2025 11:30 AM EST Subjective Patient ID: Jaylyn Stokes is a 34 y.o. female who presents for Rash, skin flush, and Migraine. HPI Here today for rash, skin flush and migraine for 2 weeks. She thought it was related to her Augmentin prescription, however, since she stopped taking that medication she feels worse. She will get flushed and warm to the touch. She has gone tyhrough medication changes with neurology. She started topamax 25 mg Daily 01/03. The very first rash was 12/29/24. She had a workup with neurology where lab work was done. [facility] Review of Systems Respiratory: Negative for cough and shortness of breath. Cardiovascular: Negative for chest pain, palpitations and leg swelling. Skin: Positive for rash. Neurological: Positive for headaches. Negative for light-headedness. Objective BP 124/88 (Patient Position: Sitting) Pulse 105 Ht 1.549 m (5' 1) Wt 105 kg (231 lb 12.8 oz) BMI 43.80 kg/m Physical Exam Cardiovascular: Rate and Rhythm: Normal rate and regular rhythm. Neurological: Mental Status: She is alert and oriented to person, place, and time. Assessment/Plan Problem List Items Addressed This Visit None Visit Diagnoses Codes Hot flashes - Primary R23.2 Relevant Orders C-Reactive Protein Sedimentation Rate Rheumatoid factor Estrogens, Total Testosterone, total and free FSH & LH Progesterone Chronic migraine with aura without status migrainosus, not intractable G43.E09 Relevant Orders Rheumatoid factor Rash R21 Relevant Orders Rheumatoid factor CBC and Auto Differential Rash/flushing -Keep track of when rash is occurring -Punch biopsy in office if the rash returns -Lab work ordered -Encouraged her to also reach out to neurology HTN -BP is WNL -1/2 tablet of nifedipine daily for 2 weeks -Check BP if WNL can dc medication [facility] Work Phone: 1([phone]) 297-304402-10-2025 Instructions* Patient Instructions* Ruben Hancock MD - 12/24/2024 3:32 PM EST - I prescribed a higher dose of Elavil to help with your headaches and poor sleep. Please take one tablet of 50 mg Elavil nightly, and let me know how you are doing on this does in 3 weeks. - I sent in a prescription for Nurtec to help with acute management of migraines. Please take one tablet when you feel the migraine come on. You can only take one tablet for every 24 hours - MRI brain with and without contrast to evaluate for secondary causes of headache. - EMG of legs- This is an electrodiagnostic study to assess nerve and muscle function - Blood test today documented in this [id number] History of Present illness Narrative* Ruben Hancock MD - 12/24/2024 2:45 PM EST New Patient Note Jaylyn Stokes is a 34 y.o., right-handed female who was evaluated at the Neurology Clinic today forevaluation of headaches and numbness. She was referred by Abril Mosley CNP. History of Present Illness Jaylyn Stokes is a 34-year-old woman that presents for evaluation of headaches which reportedly started in post period. was complicated with pre-eclampsia. She is currently being weaned off her blood pressure medications. Patient has a prior history of migraines, but her headaches have worsened significantly since her delivery. She endorses throbbing pain in her whole head and base of occiput, 5/10 in intensity, and can build up to 10/10 as day progresses, lasting for 24 hours, about 4-5 times/week, associated with p hotophobia, phonophobia, and occasional nausea. Patient endorses dysarthria and numbness in bilateral hands during one of her severe migraines, but this resolved spontaneously when the headache improved. Patient endorses worsening of headaches on standing up. She has floaters in her right eye and has baseline blurry vision, but this is reportedly chronic. Her headaches worsen when she coughs and sneezes. She denies any transient visual obscurations or pulsatile tinnitus. She has a prior history of migraines and was on Imitrex in the past. She was recently started on Elavil 25 mg nightly and Rizatriptan. Patient did not notice any benefit with Rizatriptan. She is currently on 25 mg Elavil and has not noticed any benefit thus far. She reportedly tried gabapentin and Fioricet for her migraines in the past 10 years. Patient also complains of back pain and numbness in legs within a week which started within a week of her delivery. Her back pain can occasionally radiate down her right leg. Patient endorses intermittent numbness and tingling in bilateral legs, provoked on laying flat. She denies any numbness in arms or perineal area anesthesia. Her right leg has given out a few times. She had epidural anesthesia during her labor. She denies any bladder or bowel incontinence. Previous Workup: LABS CBC and BMP- WNL IMAGING MRI L-spine w/o contrast 11/2024- Mild degenerative changes of the lumbar spine without spinal canal stenosis. Mild neural foraminal narrowing at L2-L3 through L4-L5 Review of Systems: Weight Loss/gain Diarrhea/Constipation Skin changes Vision loss Nausea Muscle ache/pain Double vision Walking problems Muscle twitches Hearing loss Falls Loss of muscle mass Shortness of breath Difficulty chewing/swallowing Depressed mood Cannot lie flat Choking Behavior changes Cannot exercise Bladder/bowel incontinence Memory/thinking problems Fainting Cannot empty bladder + Sleep problems Voice changes + Sensation changes Sexual function problems Headaches Heart palpitations + Back pain positive if marked, remainder of 14 point ROS negative. Medical History Past Medical History: Past Medical History: Diagnosis Date Hypertension 08/21/24 Post preeclampsia Migraine 1999 Migraines since adolescence Past Surgical History: has no past surgical history on file. Medications: Current Outpatient Medications on File Prior to Visit Medication Sig Dispense Refill rizatriptan (MAXALT) 10 MG tablet Take 1 (one) tablet (10 mg total) by mouth once as needed . valACYclovir (VALTREX) 500 MG tablet As needed . NIFEdipine (ADALAT CC) 30 MG 24 hr tablet Take 1 (one) tablet (30 mg total) by mouth daily . sertraline (ZOLOFT) 50 MG tablet Take 1 (one) tablet (50 mg total) by mouth daily . [DISCONTINUED] amitriptyline (ELAVIL) 25 MG tablet Take 2 (two) tablets (50 mg total) by mouth nightly . No current facility-administered medications on file prior to visit. Allergies: Allergies Allergen Reactions Hydrocodone Itching Oxycodone Other (See Comments) Psychological problems Social History: reports that she has never smoked. She has never used smokeless tobacco. She reports that she does not currently use alcohol. She reports that she does not use drugs. Family History: family history includes Cancer in her paternal grandmother; Heart disease in her maternal grandfather; Hypertension in her maternal aunt and sister; Kidney disease in her mother; Memory loss in her mother; Migraines in her mother and sister; Stroke in her maternal grandfather; Transient ischemic attack in her maternal grandfather and paternal grandmother. Examination BP 135/89 (BP Location: Left arm, Patient Position: Sitting, BP Cuff Size: X- large Adult) Pulse (!) 102 Resp 18 Wt 106.6 kg (235 lb) SpO2 97% General: Well-developed, well-nourished, in no acute distress. HEENT: normocephalic, atraumatic, no oral lesions or tongue lacerations, mucous membranes are moist Ext: No edema, nontender, no ulcer. Warm, well-perfused. Skin: No significant rashes. MENTAL STATUS Patient is awake, alert, and appropriately oriented. Attentive to examiner, cooperative with exam. Language is fluent. Patient is able to give details of her own history. CRANIAL NERVES II: Visual hough are full. Pupils are equal, round and reactive to light. III, IV and : extraocular movements are full. There is no nystagmus. V: Facial sensation is intact and symmetric. VII: The face is strong and symmetric. VIII: Hearing is grossly intact. IX and X: Soft palate elevates symmetrically in the midline. No dysarthria XI: Shoulder shrug and sternocleidomastoids are strong. XII: Tongue is midline, normal movement, no atrophy or fasciculations. MOTOR Bulk and tone are normal. There is no pronator drift. Neck flexion and extension are 5/5. SA EE EF WE WF FF FE ThAb Arianne Left 5 5 5 5 5 5 5 5 5 Right 5 5 5 5 5 5 5 5 5 HF KE KF DF PF Inv Ev HAb HAd Left 5 5 5 5 5 5 5 5 5 Right 5 5 5 5 5 5 5 5 5 (Examination performed in the sitting position unless indicated) REFLEXES Reflexes Right Left Biceps 2 2 Triceps 2 2 Brachioradialis 2 2 Patella 2 2 Achilles 2 2 Plantar Response Down going Down going SENSORY Light touch: Intact bilaterally Pinprick: Gradient sensory loss up to ankles. Proprioception: Intact at great toes Vibration: toe ankle knee finger Left 20 Right 22 COORDINATION Finger to nose is intact without dysmetria or tremors. GAIT Gait is narrow-based and steady, with normal arm swing. Impression: Post- headaches w/ migrainous features Numbness and tingling in bilateral legs Hx of migraines Jaylyn Stokes is a 34 y.o. female that presents for evaluation of post- headaches and paresthesias in bilateral legs (provoked on lying flat). She endorses holocephalic throbbing headaches, associated with photophobia, phonophobia, and nausea, lasting for 24 hrs, occurring 4-5 times/week. Shehas not noticed any benefit with 25 mg Elavil, will increase it to 50 mg daily. She did not see anybenefit with Maxalt, and will plan to try Nurtec for acute migraine therapy. Will also obtain MRI brain to rule out secondary causes of headache as she endorses positional changes and variation of headache with Valsalva maneuver. She endorses numbness and tingling in bilateral legs since epidural anesthesia. She has a gradient sensory loss to pin-prick and temperature up to ankles, intact 5/5 strength, and symmetric reflexes.Her exam is concerning for small fiber neuropathy and we discussed the low yield of EMG/NCS, but patient would like it to ensure there is no nerve damage. Plan: Labs: B12, folate, SPEP/TANNER, ALISHA, HbA1C. Medications: * Elavil increased to 50 mg daily. She will let me know how she is doing on this dose in 3 weeks * Nurtec 75 mg PRN prescribed for acute migraine therapy. Did not find any benefit from Imitrex or Maxalt in the past. Imaging: MRI brain w/ and w/o contrast to rule out secondary causes of headache. Procedures: EMG/NCS to evaluate for large fiber neuropathy and rule out radiculopathy in legs. Follow-up: 3 months The total face time today was 60 minutes, over half of which was spent in counseling and coordination of care. Ruben Hancock MD [employer], [facility]. documented in this [id number] NoteNew Patient Note Jaylyn Stokes is a 34 y.o., right-handed female who was evaluated at the Neurology Clinic today for evaluation of headaches and numbness. She was referred by Abril Mosley CNP. History of Present Illness Jaylyn Stokes is a 34-year-old woman that presents for evaluation of headaches which reportedly started in post period. was complicated with pre-eclampsia. She is currently being weaned off her blood pressure medications. Patient has a prior history of migraines, but her headaches have worsened significantly since her delivery. She endorses throbbing pain in her whole head and base of occiput, 5/10 in intensity, and can build up to 10/10 as day progresses, lasting for 24 hours, about 4-5 times/week, associated with photophobia, phonophobia, and occasional nausea. Patient endorses dysarthria and numbness in bilateral hands during one of her severe migraines, but this resolved spontaneously when the headache improved. Patient endorses worsening of headaches on standing up. She has floaters in her right eye and has baseline blurry vision, but this is reportedly chronic. Her headaches worsen when she coughs and sneezes. She denies any transient visual obscurations or pulsatile tinnitus. She has a prior history of migraines and was on Imitrex in the past. She was recently started on Elavil 25 mg nightly and Rizatriptan. Patient did not notice any benefit with Rizatriptan. She is currently on 25 mg Elavil and has not noticed any benefit thus far. She reportedly tried gabapentin and Fioricet for her migraines in the past 10 years. Patient also complains of back pain and numbness in legs within a week which started within a week of her delivery. Her back pain can occasionally radiate down her right leg. Patient endorses intermittent numbness and tingling in bilateral legs, provoked on laying flat. She denies any numbness in arms or perineal area anesthesia. Her right leg has given out a few times. She had epidural anesthesia during her labor. She denies any bladder or bowel incontinence. Previous Workup: LABS CBC and BMP- WNL IMAGING MRI L-spine w/o contrast 11/2024- Mild degenerative changes of the lumbar spine without spinal canal stenosis. Mild neural foraminal narrowing at L2-L3 through L4-L5 Review of Systems: Weight Loss/gain Diarrhea/Constipation Skin changes Vision loss Nausea Muscle ache/pain Double vision Walking problems Muscle twitches Hearing loss Falls Loss of muscle mass Shortness of breath Difficulty chewing/swallowing Depressed mood Cannot lie flat Choking Behavior changes Cannot exercise Bladder/bowel incontinence Memory/thinking problems Fainting Cannot empty bladder + Sleep problems Voice changes + Sensation changes Sexual function problems Headaches Heart palpitations + Back pain positive if marked, remainder of 14 point ROS negative. Medical History Past Medical History: Past Medical History: Diagnosis Date Hypertension 08/21/24 Post preeclampsia Migraine 1999 Migraines since adolescence Past Surgical History: has no past surgical history on file. Medications: Current Outpatient Medications on File Prior to Visit Medication Sig Dispense Refill rizatriptan (MAXALT) 10 MG tablet Take 1 (one) tablet (10 mg total) by mouth once as needed . valACYclovir (VALTREX) 500 MG tablet As needed . NIFEdipine (ADALAT CC) 30 MG 24 hr tablet Take 1 (one) tablet (30 mg total) by mouth daily . sertraline (ZOLOFT) 50 MG tablet Take 1 (one) tablet (50 mg total) by mouth daily . [DISCONTINUED] amitriptyline (ELAVIL) 25 MG tablet Take 2 (two) tablets (50 mg total) by mouth nightly . No current facility-administered medications on file prior to visit. Allergies: Allergies Allergen Reactions Hydrocodone Itching Oxycodone Other (See Comments) Psychological problems Social History: reports that she has never smoked. She has never used smokeless tobacco. She reports that she does not currently use alcohol. She reports that she does not use drugs. Family History: family history includes Cancer in her paternal grandmother; Heart disease in her maternal grandfather; Hypertension in her maternal aunt and sister; Kidney disease in her mother; Memory loss in her mother; Migraines in her mother and sister; Stroke in her maternal grandfather; Transient ischemic attack in her maternal grandfather and paternal grandmother. Examination BP 135/89 (BP Location: Left arm, Patient Position: Sitting, BP Cuff Size: X-large Adult) Pulse (!) 102 Resp 18 Wt 106.6 kg (235 lb) SpO2 97% General: Well-developed, well-nourished, in no acute distress. HEENT: normocephalic, atraumatic, no oral lesions or tongue lacerations, mucous membranes are moist Ext: No edema, nontender, no ulcer. Warm, well-perfused. Skin: No significant rashes. MENTAL STATUS Patient is awake, alert, and appropriately oriented. Attentive (more content not included)...[facility]01-10-2025 History of Present illness Narrative* Abril Mosley APRN-VLADIMIR - 11/23/2024 9:30 AM EST Subjective Patient ID: Jaylyn Stokes is a 34 y.o. female who presents for Establish Care (Est as new. Discuss getting off blood pressure meds. C/o back pain at epidural site with limited rom, tucker, legs tingling while lying down and scalp tingles with touch). HPI Here today for concerns with weaning off BP medications, she was only on the medication for post- hypertension. OB recommended we titrate her off. We will first titrate off her labetalol, she will check BP at home. Other complications with epidural site pain, numbness in her scalp, headaches that are bilateral and it is a throbbing pain, also reports the headache can be at the base of her neck. In the past she has tried Imitrex for migraines, gabapentin and Fioricet without any success. Review of Systems Constitutional: Negative for chills, fatigue and fever. Respiratory: Negative for cough and shortness of breath. Cardiovascular: Negative for chest pain, palpitations and leg swelling. Gastrointestinal: Negative for constipation, diarrhea, nausea and vomiting. Genitourinary: Negative for dysuria. Neurological: Positive for light-headedness, numbness and headaches. Objective BP 115/78 Pulse 68 Ht 1.549 m (5' 1) Wt 105 kg (232 lb 1.6 oz) BMI 43.85 kg/m Physical Exam Cardiovascular: Rate and Rhythm: Normal rate and regular rhythm. Skin: Capillary Refill: Capillary refill takes less than 2 seconds. Neurological: General: No focal deficit present. Mental Status: She is alert and oriented to person, place, and time. Assessment/Plan Problem List Items Addressed This Visit ICD-10-CM Persistent adjustment disorder with anxiety F43.22 Relevant Medications sertraline (Zoloft) 50 mg tablet Other Visit Diagnoses Codes History of pre-eclampsia - Primary Z86.79, Z87.59 Relevant Medications labetalol (Normodyne) 100 mg tablet NIFEdipine ER (NIFEdipine XL) 30 mg 24 hr tablet Intractable chronic migraine with aura and without status migrainosus G43.E19 Relevant Medications rizatriptan (Maxalt) 10 mg tablet amitriptyline (Elavil) 25 mg tablet Migraines -Has failed imitrex, gabapentin, and Fioricet -Will try amitriptyline for prevention nightly -Will order Maxalt Hypertension -Will decrease labetalol first decreasing by once a day for 2 weeks, then half a tablet for one week -Check BP regularly -Continue nifedipine 30mg Epidural complications -Will follow up with neurology likely Post depression -Continue Zoloft daily documented in this [facility] Work Phone: 1(111) 673-319005-10-2024 Emergency department Note* Ronda Delon Canchola, BEATRIZ - 03/23/2024 6:26 PM EDT 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 Patient presents with Rash Herpetic kristine per patient Patient History Past Medical History: Diagnosis Date Depression, unspecified Acute depression Immunization not carried out because of patient refusal COVID-19 vaccination declined Other conditions influencing health status History of vaginal delivery Past Surgical History: Procedure Laterality Date OTHER SURGICAL HISTORY 04/28/2020 Strabismus surgery OTHER SURGICAL HISTORY 04/28/2020 Tonsillectomy OTHER SURGICAL HISTORY 04/28/2020 Corneal lasik No family history on file. Social History Social History Narrative Not on file Allergies Allergen Reactions Roxicet [Oxycodone-Acetaminophen] Itching PMH: Reviewed PSH: Reviewed Social History: Reviewed. Allergies reviewed. HPI: Jaylyn Stokes is a 34 y.o. female who presents to the ED today unaccompanied with complaints of infection of her left arm. She states she has a history of herpetic kristine, gets it about 2 timesevery year. States that she normally gets lymphangitis when she has this and she requires antibiotics. States that she noticed the lesions starting 2 days ago, states she started the Valtrex right away. Today she noticed streaking on her left hand and upper left arm. She went to urgent care and wasadvised to come to the ED for evaluation. She is 18 weeks currently. REVIEW OF SYSTEMS: All other systems reviewed and negative except as listed in HPI. PHYSICAL EXAM: GENERAL: Vitals noted, no distress. Alert and oriented x 3. Non-toxic. EENT: TMs clear. Posterior oropharynx unremarkable. EOMI, no nystagmus noted. NECK: Supple. No masses. No midline tenderness. No meningeal signs. CARDIAC: Regular rate, rhythm. No murmurs rubs or gallops. No JVD. PULMONARY: Lungs clear and equal bilaterally. No wheezes rales or rhonchi. No respiratory distress. ABDOMEN: Soft, nondistended, and nontender. EXTREMITIES: No peripheral edema. SKIN: No rash. Warm, dry, and intact. Two small lesions noted in between left 3rd and 4th fingers with lymphangitis noted on the dorsum of the left hand and extending midway on the left forearm. NEURO: No focal neurologic deficits. Labs Reviewed COMPREHENSIVE METABOLIC PANEL - Abnormal Result Value Glucose 118 (*) Sodium 137 Potassium 3.6 Chloride 107 Bicarbonate 21 Anion Gap 13 Urea Nitrogen 8 Creatinine 0.48 (*) eGFR >90 Calcium 9.0 Albumin 3.9 Alkaline Phosphatase 52 Total Protein 6.5 AST 9 Bilirubin, Total 0.2 ALT 9 LACTATE - Normal Lactate 1.5 Narrative: Venipuncture immediately after or during the administration of Metamizole may lead to falsely low results. Testing should be performed immediately prior to Metamizole dosing. BLOOD CULTURE BLOOD CULTURE CBC WITH AUTO DIFFERENTIAL WBC 9.4 nRBC 0.0 RBC 4.39 Hemoglobin 12.1 Hematocrit 36.9 MCV 84 MCH 27.6 MCHC 32.8 RDW 13.2 Platelets 203 Neutrophils % 70.8 Immature Granulocytes %, Automated 0.5 Lymphocytes % 22.0 Monocytes % 5.7 Eosinophils % 0.8 Basophils % 0.2 Neutrophils Absolute 6.66 Immature Granulocytes Absolute, Automated 0.05 Lymphocytes Absolute 2.07 Monocytes Absolute 0.54 Eosinophils Absolute 0.08 Basophils Absolute 0.02 URINALYSIS WITH REFLEX CULTURE AND MICROSCOPIC Narrative: The following orders were created for panel order Urinalysis with Reflex Culture and Microscopic. Procedure Abnormality Status --------- ------ Urinalysis with Reflex C...[[id number]] Extra Urine Man Tube[[id number]] Please view results for these tests on the individual orders. URINALYSIS WITH REFLEX CULTURE AND MICROSCOPIC EXTRA URINE MAN TUBE No orders to display Medical Decision Making ED COURSE: This patient was seen and examined by myself independently. IV established. Labs drawn and noted above. Lactate normal, WBC normal. Not septic. BP much improved from triage, 122/70. Will give PO keflex and have her followup closely with PCP. She is discharged home in a stable condition with computer instructions given and is encouraged to return to the ER for any new or worsening symptoms. Differential Diagnoses Considered: lymphangitis, cellulitis, sepsis Chronic Medical Conditions Significantly Affecting Care: see above External Records Reviewed: I reviewed recent and relevant outside records including: PCP notes, prior discharge summary, previous radiologic studies Diagnostic testing considered: blood, urine, cultures Escalation of Care: Appropriate for outpatient management Prescription Drug Consideration: Antibiotics DIAGNOSTIC IMPRESSION: #1 left arm lymphangitis BEATRIZ Joseph 03/23/242031 BEATRIZ Joseph 03/23/242031 documented in this [facility] Work Phone: 1([phone]) 603-826905-10-2024 Physician Emergency department Note* BEATRIZ Joseph - 03/23/2024 6:26 PM EDT 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 Patient presents with Rash Herpetic kristine per patient Patient History Past Medical History: Diagnosis Date Depression, unspecified Acute depression Immunization not carried out because of patient refusal COVID-19 vaccination declined Other conditions influencing health status History of vaginal delivery Past Surgical History: Procedure Laterality Date OTHER SURGICAL HISTORY 04/28/2020 Strabismus surgery OTHER SURGICAL HISTORY 04/28/2020 Tonsillectomy OTHER SURGICAL HISTORY 04/28/2020 Corneal lasik No family history on file. Social History Social History Narrative Not on file Allergies Allergen Reactions Roxicet [Oxycodone-Acetaminophen] Itching PMH: Reviewed PSH: Reviewed Social History: Reviewed. Allergies reviewed. HPI: Jaylyn Stokes is a 34 y.o. female who presents to the ED today unaccompanied with complaints of infection of her left arm. She states she has a history of herpetic kristine, gets it about 2 timesevery year. States that she normally gets lymphangitis when she has this and she requires antibiotics. States that she noticed the lesions starting 2 days ago, states she started the Valtrex right away. Today she noticed streaking on her left hand and upper left arm. She went to urgent care and wasadvised to come to the ED for evaluation. She is 18 weeks currently. REVIEW OF SYSTEMS: All other systems reviewed and negative except as listed in HPI. PHYSICAL EXAM: GENERAL: Vitals noted, no distress. Alert and oriented x 3. Non-toxic. EENT: TMs clear. Posterior oropharynx unremarkable. EOMI, no nystagmus noted. NECK: Supple. No masses. No midline tenderness. No meningeal signs. CARDIAC: Regular rate, rhythm. No murmurs rubs or gallops. No JVD. PULMONARY: Lungs clear and equal bilaterally. No wheezes rales or rhonchi. No respiratory distress. ABDOMEN: Soft, nondistended, and nontender. EXTREMITIES: No peripheral edema. SKIN: No rash. Warm, dry, and intact. Two small lesions noted in between left 3rd and 4th fingers with lymphangitis noted on the dorsum of the left hand and extending midway on the left forearm. NEURO: No focal neurologic deficits. Labs Reviewed COMPREHENSIVE METABOLIC PANEL - Abnormal Result Value Glucose 118 (*) Sodium 137 Potassium 3.6 Chloride 107 Bicarbonate 21 Anion Gap 13 Urea Nitrogen 8 Creatinine 0.48 (*) eGFR >90 Calcium 9.0 Albumin 3.9 Alkaline Phosphatase 52 Total Protein 6.5 AST 9 Bilirubin, Total 0.2 ALT 9 LACTATE - Normal Lactate 1.5 Narrative: Venipuncture immediately after or during the administration of Metamizole may lead to falsely low results. Testing should be performed immediately prior to Metamizole dosing. BLOOD CULTURE BLOOD CULTURE CBC WITH AUTO DIFFERENTIAL WBC 9.4 nRBC 0.0 RBC 4.39 Hemoglobin 12.1 Hematocrit 36.9 MCV 84 MCH 27.6 MCHC 32.8 RDW 13.2 Platelets 203 Neutrophils % 70.8 Immature Granulocytes %, Automated 0.5 Lymphocytes % 22.0 Monocytes % 5.7 Eosinophils % 0.8 Basophils % 0.2 Neutrophils Absolute 6.66 Immature Granulocytes Absolute, Automated 0.05 Lymphocytes Absolute 2.07 Monocytes Absolute 0.54 Eosinophils Absolute 0.08 Basophils Absolute 0.02 URINALYSIS WITH REFLEX CULTURE AND MICROSCOPIC Narrative: The following orders were created for panel order Urinalysis with Reflex Culture and Microscopic. Procedure Abnormality Status --------- ------ Urinalysis with Reflex C...[[id number]] Extra Urine Man Tube[[id number]] Please view results for these tests on the individual orders. URINALYSIS WITH REFLEX CULTURE AND MICROSCOPIC EXTRA URINE MAN TUBE No orders to display Medical Decision Making ED COURSE: This patient was seen and examined by myself independently. IV established. Labs drawn and noted above. Lactate normal, WBC normal. Not septic. BP much improved from triage, 122/70. Will give PO keflex and have her followup closely with PCP. She is discharged home in a stable condition with computer instructions given and is encouraged to return to the ER for any new or worsening symptoms. Differential Diagnoses Considered: lymphangitis, cellulitis, sepsis Chronic Medical Conditions Significantly Affecting Care: see above External Records Reviewed: I reviewed recent and relevant outside records including: PCP notes, prior discharge summary, previous radiologic studies Diagnostic testing considered: blood, urine, cultures Escalation of Care: Appropriate for outpatient management Prescription Drug Consideration: Antibiotics DIAGNOSTIC IMPRESSION: #1 left arm lymphangitis BEATRIZ Joseph 03/23/242031 BEATRIZ Joseph 03/23/242031 [facility] Work Phone: 1(261) 667-484805-10-2024 History of Present illness Narrative* BEATRIZ Gomez - 03/23/2024 5:00 PM EDT Patient presented to Urgent Care for evaluation of red streaks and warmth going up her L hand nearly to her elbow. Has current Herpetic Kristine between two of her fingers, and reports has history of similar streaking when she had this in the past - was treated with IV antibiotics. Currently taking Valacyclovir. Is currently 18 weeks . In light of symptoms, recommended she seek care at theER for further evaluation. Patient receptive and agrees to go straight there. Non-billable - deferring all evaluation to the ER. [facility] Work [facility]: [phone]) 721-530503-14-2022 History of Present illness Narrative* She is here for follow up of anxiety. She has been feeling a little better with the fluoxetine. Less frequent anxiety attacks. She is having trouble staying asleep. She was taking it in the morning but it made her feel like she had a buzz. She has had a decreased appetite. * she went to urgent care for a rash on her finger. It has happened in the past. she gets blisters onher finger and then red streaks up her arm. She started valtrex when it first started and then theyput her on augmentin. [facility] Work Phone: [phone]) 192-174402-13-2022 History of Present illness NarrativePatient presents today via virtual visit with chief complaint of sinus pressure. States that this episode started 2-3 days ago with associated maxillary dental pain, nasal congestion, rhinorrhea, scratchy throat, bl ear fullness. Denies CP, SOB, TUCKER, LH, dizziness, abd pain, n/v/d, cough, fever, chills. Denies sick contacts. Has tried Nyquil, Dayquil, Sudafed, Mucinex with no improvement in symptoms. Did have covid-19 a few weeks ago and returned to baseline prior to onset of current symptoms.[facility] [address] DO Work Phone: 1([phone]) [phone] Chief complaint Narrative - Reported* An interactive audio and video telecommunication system which permits real time communications between the patient (at the originating site) and provider (at the distant site) was utilized to [facility] telehealth service. * Verbal consent was requested and obtained from JAYLYN STOKES on this date, 12/08/2021 01:00 PM , for a telehealth visit. * body aches, chills started Tuesday. Fever, dizziness, nausea, throat scratchy throat, fatigued. Carmel had covid just out of quarantine. [facility] 205 DO Work Phone: [phone] 699-344401-23-2022 History of Present illness NarrativeThiskyla is a 31yo female without significant pmhx who presents today via virtual visit with chief complaint of myalgias. States that this episodes started 2 days ago with associated chills, tmax (100.8F), dizziness, TUCKER, nasal congestion, rhinorrhea, nausea, PND, cough (which she attributes to PND), minimal SOB. Denies CP, abd pain, v/d, decreased taste/smell, sinus pressure, ear pain. Tried taking ibuprofen, which helped with her fever. Has been afebrile x24hrs. Is also taking otc vitamin C supplement. Patient's carmel (who lives with her) was diagnosed with covid 2 weeks ago. He tried to stay in his room but came out of his room while patient was at work, so she does have possible exposure. Has not been to work yet this week.[facility] 205 DO Work Phone: Chief complaint Narrative - Reported* An interactive audio and video telecommunication system which permits real time communications between the patient (at the originating site) and provider (at the distant site) was utilized to providethis telehealth service. * Virtual visit Possible sinus infection, head congestion, face hurts jaw and teeth hurt scratchy throat, ears plugged Had Covid in [place] [facility] 205 DO Work Phone: Evaluation noteNo assessment information available [facility] Work Phone: Evaluation note* Diagnosis Acute lymphangitis of left upper extremity- Primary documented in this encounter [facility] Work Phone: Evaluation note* Diagnosis History of pre-eclampsia- Primary Persistent adjustment disorder with anxiety Intractable chronic migraine with aura and without status migrainosus documented in this encounter [facility] Work Phone: Evaluation note* Diagnosis Other complications of spinal and epidural anesthesia during labor and delivery ([facility]) documented in this encounter [facility] Work Phone: Evaluation note* Diagnosis Other complications of spinal and epidural anesthesia during labor and delivery- [facility] Diagnosis Intractable chronic migraine with aura and without status migrainosus Other complications of spinal and epidural anesthesia during labor and delivery ([facility]) documented in this encounter [facility] Work Phone: Evaluation note* Diagnosis headache- Primary Numbness and tingling of both legs Disturbance of skin sensation [facility] Diagnosis Hot flashes- Primary Chronic migraine with aura without status migrainosus, not intractable Rash Rash and other nonspecific skin eruption documented in this encounter [facility] Work Phone: Evaluation note* Diagnosis Rash Rash and other nonspecific skin eruption documented in this encounter [facility] Work Phone: Evaluation note* Diagnosis Numbness and tingling of both legs Disturbance of skin sensation [facility] Diagnosis Other complications of spinal and epidural anesthesia during labor and delivery- Primary Chronic midline low back pain without sciatica [facility] Diagnosis Chest pain, unspecified type- Primary Paresthesia of left arm Disturbance of skin sensation documented in this encounter [facility] Work Phone: Evaluation note* Diagnosis Hypertension, unspecified type- Primary Chest pain, unspecified type Palpitations Dyspnea on exertion Other dyspnea and respiratory abnormality documented in this encounter [facility] Work Phone: Evaluation note* Diagnosis Acute midline low back pain without sciatica- Primary [facility] Diagnosis Acute midline low back pain without sciatica- Primary [facility] Diagnosis Acute midline low back pain without sciatica- Primary [facility] Diagnosis Acute midline low back pain without sciatica- Primary [facility]* Diagnosis Chronic neck pain- Primary Cervicalgia Radicular pain in left arm Unspecified neuralgia, neuritis, and radiculitis [facility] Diagnosis Dyspnea on exertion Other dyspnea and respiratory abnormality Atypical chest pain Other chest pain Decreased functional mobility- Primary Decreased functional mobility- Primary Decreased functional mobility- Primary Decreased functional mobility- Primary documented in this encounter [facility] Work Phone: Evaluation note* Diagnosis Palpitations Decreased functional mobility- Primary Decreased functional mobility- Primary Decreased functional mobility- Primary Decreased functional mobility- Primary documented in this encounter [facility] Work Phone: Evaluation note* Diagnosis Paresthesias- Primary Disturbance of skin sensation [facility] Narrative* there are no concerns today. The patient's health since the last visit is described as good. There are no interval changes in the patient's PMH, PSH, and current medications. There are no interval changes in the patient's social and family history. She has regular dental visits. She denies vision problems. She denies hearing loss. Immunizations status: not up to date . TDaP. * Lifestyle: She consumes a diverse and healthy diet. She does not have any weight concerns. She exercises regularly. She does not use tobacco. She denies alcohol use. * History: 1 . 5/07/04 Vaginal delivery-pumping and formula. * Metabolic screening: lipid profile performed within the past five years. * Additional History:. Triglycerides were elevated on work labs. Discussed dietary recommendations. * She has been having some right-sided nasopharynx discomfort since she delivered. She denies any allergy symptoms or acid reflux. -[facility] Work Phone: History of Present illness Narrative* Abril Mosley APRN-AUTOMOTIVE ACCESSORY INSTALLER - 01/10/2025 9:50 AM EST Subjective Patient ID: Jaylyn Stokes is a 34 y.o. female who presents for No chief complaint on file.. HPI Presents today for punch biopsy as she is currently having a rash after starting with a headache. Punch Biopsy Procedure Note Pre-operative Diagnosis: Dermatitis rash Post-operative Diagnosis: normal Locations:right upper extremity Indications: Dermatitis Anesthesia: not required none Procedure Details History of allergy to iodine: no Patient informed of the risks (including bleeding and infection) and benefits of the procedure and Verbal informed consent obtained. The lesion and surrounding area was given a sterile prep using alcohol and draped in the usual sterile fashion. The skin was then stretched perpendicular to the skin tension lines and the lesion removed using the 4mm punch. The resulting ellipse was then closed. The wound was closed with Steri-strips . Antibiotic ointment and a sterile dressing applied. The specimen was sent for pathologic examination. The patient tolerated the procedure well. Findings: Sent for testing Condition: Stable Complications: none. Plan: 1. Instructed to keep the wound dry and covered for 24-48h and clean thereafter. 2. Warning signs of infection were reviewed. 3. Recommended that the patient use NSAID as needed for pain. 4. Return for suture removal in no sutures Review of Systems Skin: Positive for rash. Neurological: Positive for headaches. Objective There were no vitals taken for this visit. Physical Exam Assessment/Plan Problem List Items Addressed This Visit None Visit Diagnoses Codes Rash R21 Relevant Medications mupirocin (Bactroban) 2 % ointment Other Relevant Orders Surgical Pathology Exam Punch biopsy -Rash present on bilateral arms, headache usually starts around 845 am, rash then began at 9am. -MRI scheduled [facility]* Attachments The following attachments cannot be sent through Care Everywhere. * Cellulitis (Skin Infection), Adult ED (Turk[place]) [facility] Discharge instructions* Attachments The following attachments cannot be sent through Care Everywhere. * Chest Pain Discharge Instructions ([place]) [facility]: Reikpx for referral (narrative)No reason for referral information [facility] Work [facility]: Reason for visit Narrative* Imaging (Routine) - Authorized Specialty Diagnoses / Procedures Referred By Contac t Referred To Contact Radiology Diagnoses Other complications of spinal and epidural anesthesia during labor and delivery ([facility]) Procedures XR lumbar spine 2-3 views Abril Mosley APRN-CNP [address] [place] [address] Phone: tel: fax: Referral ID Status Reason Start Date Expiration Date Visits Requested Visits Authorized [id number] Authorized Perform Procedure 11/23/2024 11/23/2025 1 1 [facility] Work Phone: Rerzzj for visit Narrative* Imaging (Routine) - Authorized Specialty Diagnoses / Procedures Referred By Contac t Referred To Contact Radiology Diagnoses Intractable chronic migraine with aura and without status migrainosus Other complications of spinal and epidural anesthesia during labor and delivery ([facility]) Procedures MR lumbar spine wo IV contrast Abril Mosley APRN-CNP [address] [place] [address] Phone: tel: fax: Referral ID Status Reason Start Date Expiration Date Visits Requested Visits Authorized [id number] Authorized Perform Procedure 11/23/2024 11/23/2025 1 1 [facility] Work Phone: Reason for visit Narrative* (Routine) - Pending Review Specialty Diagnoses / Procedures Referred By Contac t Referred To Contact Neurology Diagnoses Numbness and tingling of both legs Procedures EMG: Ruben Hancock MD [address] [place] [id number] Phone: tel: fax: Referral ID Status Reason Start Date Expiration Date V isits Requested Visits Authorized [id number] Pending Review 12/24/2024 12/24/2025 1 1 [facility] for visit Narrative* CV Imaging (Routine) - Authorized Specialty Diagnoses / Procedures Referred By Contac t Referred To Contact Cardiology Diagnoses Dyspnea on exertion Atypical chest pain Procedures Echocardiogram Stress Test NV ECHO TTHRC R-T 2D W/WO M-MODE COMPLETE REST&ST Serjio Carter APRN-CNP, VANESSA [address] [facility], [address] [place] [address] Phone: tel: fax: Referral ID Status Reason Start Date Expiration Date Visits Requested Visits Authorized [id number] Authorized Perform Procedure 04/02/2025 04/02/2026 1 1 [facility] Work Phone: Reason for visit Narrative* Cardiovascular (Routine) - Authorized Specialty Diagnoses / Procedures Referred By Contac t Referred To Contact Cardiology Diagnoses Palpitations Procedures Holter Or Event Welt Butter Hand Serjio Carter APRN-CNP, VANESSA [address] [facility], [address] [place] [address] Phone: tel: fax: Referral ID Status Reason Start Date Expiration Date V isits Requested Visits Authorized [id number] Authorized 04/01/2025 04/01/2026 1 1 [facility] Work Phone: Summary Purpose Family History No [...] history of hypertensi on: Sister(V17.49, Z82.49) Status:Active Relationship Condition Age at Onset Recorded Date/T royer grandmother Malignant neoplasm 60 father Myocardial infarction Unknown mother Kidney disorder Unknown Disorder of thyroid Unknown sister Disorder of thyroid Unknown aunt Disorder of thyroid Unknown Advance Directives No Advanced Directives Records Found Advance Directive Response Recorded Date/ Time Living Will No March 19, 2021 8: 23pm Power of Mechanical Car Checker No March 19, 2021 8:23pm 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 Pt presents to this office for physicalPt presents for medication f/u; Fluoxetine; c/o more complicated sleeping issues since starting medication; loss of appetite. 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 and Reason for Visit 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 New OB, LMP 11/13/20 23, WILLIAM 08/19/24 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 Admit Date 6 M MED CHECK May 02, 2025 10:0 2am 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 Admit Date 6 M MED CHECK May 02, 2025 10:0 2am PELVIC PAIN May 07, 2025 4:15 pm Reason for Visit Admit Date Anxiety May 02, 2025 10:0 2am Depression May 02, 2025 10:0 2am Dysuria May 02, 2025 10:0 2am Pelvic pain May 02, 2025 10:0 2am Additional Source Comments INFORMATION SOURCE (unrecogn ized section and content) DATE CREATED AUTHOR 07/18/2019 [facility] DATE CREATED AUTHOR AUTHOR'S ORGANIZ ATION 12/31/2021 [employer] DATE CREATED AUTHOR AUTHOR'S ORGANIZ ATION 03/05/2023 [facility] DATE CREATED AUTHOR AUTHOR'S ORGANIZ ATION 04/07/2024 [facility] DATE CREATED AUTHOR AUTHOR'S ORGANIZ ATION 12/28/2024 [facility] DATE CREATED AUTHOR AUTHOR'S ORGANIZ ATION 01/26/2025 [facility] DATE CREATED AUTHOR AUTHOR'S ORGANIZ ATION 03/29/2025 [facility] DATE CREATED AUTHOR AUTHOR'S ORGANIZ ATION 04/11/2025 [facility] DATE CREATED AUTHOR AUTHOR'S ORGANIZ ATION 05/08/2025 [facility] DATE CREATED AUTHOR AUTHOR'S ORGANIZ ATION 05/14/2025 [facility] DATE CREATED AUTHOR AUTHOR'S ORGANIZ ATION 05/15/[address] [facility] DATE CREATED AUTHOR AUTHOR'S ORGANIZ ATION 05/24/2025 [facility] <item><item> Privacy Markings (unrecogniz ed section [...] you with the consent of such client. Care Teams (unrecognized sec tion and content) Team Status: Active Member Role Status Dates Kimberlyn Ramirez PROCESS STRIPPER, PROCESS STRIPPER-C Primary Care Provider Active Team Status: Inactive Member Role Status Dates Kimberlyn Ramirez PROCESS STRIPPER, PROCESS STRIPPER-C Primary Care Provider Active Dr. Reji Adler MD Attending Provider, Referring Pr ovider Active Team Status: Inactive Member Role Status Dates Kimberlyn Ramirez PROCESS STRIPPER, PROCESS STRIPPER-C Primary Care Provider, Refer ring Provider Active Layne Boles CNM Attending Provider Active Team Status: Inactive Member Role Status Dates Kimberlyn Ramirez PROCESS STRIPPER, PROCESS STRIPPER-C Primary Care Provider Active Layne Boles CNM Attending Provider, Referring Pro vider Active Hall Coordinator Relationship Specialty Start Date End Date Kimberlyn Ramirez APRN-CNP [address] [place] [address] PCP - General 04/28/20 Hall Coordinator Relationship Specialty Start Date End Date Kimberlyn Ramirez APRN-CNP [address] [place] [address] PCP - General 04/28/20 Hall Coordinator Relationship Specialty Start Date End Date Kimberlyn Ramirez APRN-CNP [address] [place] [address] PCP - General 04/28/20 Hall Coordinator Relationship Specialty Start Date End Date Kimberlyn Ramirez, FISH AND GAME WARDEN-AUTOMOTIVE ACCESSORY INSTALLER [address] [place] [address] PCP - General 04/28/20 Hall Coordinator Relationship Specialty Start Date End Date Abril Mosley FISH AND GAME WARDEN-AUTOMOTIVE ACCESSORY INSTALLER [address] [place] [address] PCP - General Family Medicine 11/29/24 Hall Coordinator Relationship Specialty Start Date End Date Abril Mosley CNP [address] [place] [address] PCP - General 12/24/24 Hall Coordinator Relationship Specialty Start Date End Date Abril Mosley FISH AND GAME WARDEN-AUTOMOTIVE ACCESSORY INSTALLER [address] [place] [address] PCP - General Family Medicine 11/29/24 Hall Coordinator Relationship Specialty Start Date End Date Abril Mosley FISH AND GAME WARDEN-AUTOMOTIVE ACCESSORY INSTALLER [address] [place] [address] PCP - General Family Medicine 11/29/24 Hall Coordinator Relationship Specialty Start Date End Date Abril Mosley CNP [address] [place] [address] PCP - General 12/24/24 Hall Coordinator Relationship Specialty Start Date End Date Abril Mosley CNP [address] [place] [address] PCP - General 12/24/24 Hall Coordinator Relationship Specialty Start Date End Date Abril Mosley, FISH AND GAME WARDEN-AUTOMOTIVE ACCESSORY INSTALLER [address] [facility] [address] [place] [address] PCP - General Family Medicine 11/29/24 Hall Coordinator Relationship Specialty Start Date End Date Abril Mosley, FISH AND GAME WARDEN-AUTOMOTIVE ACCESSORY INSTALLER [address] [facility] [address] [place] [address] PCP - General Family Medicine 11/29/24 Hall Coordinator Relationship Specialty Start Date End Date Abril Mosley CNP [address] [place] [id number] PCP - General 12/24/24 Hall Coordinator Relationship Specialty Start Date End Date Abril Mosley CNP [address] [place] [id number] PCP - General 12/24/24 Hall Coordinator Relationship Specialty Start Date End Date Abril Mosley CNP [address] [place] [id number] PCP - General 12/24/24 Hall Coordinator Relationship Specialty Start Date End Date Abril Mosley CNP [address] [place] [id number] PCP - General 12/24/24 Hall Coordinator Relationship Specialty Start Date End Date Abril Mosley CNP [address] [place] [id number] PCP - General 12/24/24 Hall Coordinator Relationship Specialty Start Date End Date Abril Mosley, FISH AND GAME WARDEN-AUTOMOTIVE ACCESSORY INSTALLER [address] [facility], [address] [place] [address] PCP - General Family Medicine 11/29/24 Hall Coordinator Relationship Specialty Start Date End Date Abril Mosley, FISH AND GAME WARDEN-AUTOMOTIVE ACCESSORY INSTALLER [address] [facility], [address] [place] [address] PCP - General Family Medicine 11/29/24 Team Status: Active Member Role Status Dates No Primary Care Physician Primary Care Provider Active Team Status: Inactive Member Role Status Dates No Primary Care Physician Primary Care Provider Active Start: May 02, 2025 End: May 02, 2025 No Primary Care Physician Referring Provider Active Start: May 02, 2025 End: May 02, 2025 EMILEE Johns Attending Provider Active Start: May 02, 2025 End: May 02, 2025 Team Status: Active Member Role/Relationship Status Dates EMILEE Garnica Primary Care Provider Active Team Status: Inactive Member Role/Relationship Status Dates No Primary Care Physician Primary Care Provider Active Start: May 02, 2025 End: May 02, 2025 No Primary Care Physician Referring Provider Active Start: May 02, 2025 End: May 02, 2025 EMILEE Johns Attending Provider Active Start: May 02, 2025 End: May 02, 2025 Team Status: Inactive Member Role/Relationship Status Dates EMILEE Garnica Primary Care Provider Active Start: May 02, 2025 End: May 02, 2025 EMILEE Johns Attending Provider Active Start: May 02, 2025 End: May 02, 2025 EMILEE Johns Referring Provider Active Start: May 02, 2025 End: May 02, 2025 Team Status: Active Member Role/Relationship Status Dates EMILEE Johns Attending Provider Active Start: May 07, 2025 EMILEE Johns Referring Provider Active Start: May 07, 2025 EMILEE Garnica Primary Care Provider Active Start: May 07, 2025 Team Status: Inactive Member Role/Relationship Status Dates EMILEE Johns Attending Provider Active Start: May 07, 2025 End: May 07, 2025 EMILEE Johns Referring Provider Active Start: May 07, 2025 End: May 07, 2025 EMILEE Garnica Primary Care Provider Active Start: May 07, 2025 End: May 07, 2025 Goals (unrecognized section and content) Goals may be documented in a n alternate sectionGoals may be documented in an alternate sectionGoals may be documented in an alternate sectionGoals may be documented in an alternate sectionGoals may be documented in an alternate section Reason for Visit (unrecogniz ed section and content) Reason Comments Error (VOID this visit) Reason Comments Rash Herpetic kristine per patient Reason Comments Establish Care Est as new. Discuss getting off blood pressure meds. C/o back pain at epidural site with limited rom, tucker, legs tingling while lying down and scalp tingles with touch Reason Comments Numbness Numbness to b/l legs when laying down. Low back pain. Scalp tingling on left side of head - only when touched. Worsening headaches. Pt reports getting 3-4 headaches weekly. Sensitivity to light/sound/smell. Occasional nausea. Whole head headache/migraine. Pt describes as throbbing sensation. Pt trying to stay hydrated. Pt does report increased blood pressure and facial flushing. Specialty Diagnoses / Procedures Referred By Lexie shields Referred To Contact Neurology Diagnoses Other complications of spinal and epidural anesthesia during labor and delivery Abril Mosley, AUTOMOTIVE ACCESSORY INSTALLER [address] [place] [address] Phone: tel: fax: [facility] [place] Referral ID Status Reason Start Date Expiration Date Visits Re quested Visits Authorized [id number] Closed 11/29/2024 11/29/2025 1 1 Reason Comments Rash skin flush Migraine Reason Comments Chest Pain Patient reports mid sternal chest pressure that started earlier today while changing her bedsheets that goes to L shoulder/neck. Patient also had noted her b/p being elevated, she was on b/p meds post and stopped them in January. Patient also states that she felt SOB and feeling fluttering. Denies recent surgery/travel. Reason Comments Establish Care Feels like blood is pumping hard on left side, tingling on all limbs, heaviness all over, shortness of breath, feels like heart skips a beat at night. Feels like there is a flutter sometimes. Blood pressures have been high. 176/111 when she went to the er, history of pre-eclampsyia after of child (08/07). January bp was stablized. Some vision changes and headaches. Specialty Diagnoses / Procedures Referred By Lexie shields Referred To Contact Diagnoses Hypertension, unspecified type Procedures ECG 12 lead (Clinic Performed) Serjio Carter, FISH AND GAME WARDEN-AUTOMOTIVE ACCESSORY INSTALLER, DNP [address] [facility], [facility] [address] [place] [address] Phone: tel: fax: Referral ID Status Reason Start Date Expiration Date V isits Requested Visits Authorized [id number] Authorized 04/01/2025 04/01/2026 1 1 Reason Comments Back Pain Referred by Abril izquierdo CNP for CHRONIC MIDLINE LOW BACK PAIN W/O SCIATICA Specialty Diagnoses / Procedures Referred By Lexie shields Referred To Contact Neurosurgery Diagnoses Other complications of spinal and epidural anesthesia during labor and delivery Chronic midline low back pain without sciatica Abril Mosley CNP [address] [place] [address] Phone: tel: fax: Uday Yo MD [facility] [address] [address] Phone: tel: fax: Referral ID Status Reason Start Date Expiration Date Visits Re quested Visits Authorized [id number] Closed 03/26/2025 03/26/2026 1 1 Reason Onset Date Comments Medication Refill 04/10/2025 Reason Comments Headache Pt reports headaches are not as often medications helping Neck Pain Pt reports increased neck pain at the base of her neck with a burning sensation radiating down to her hands causing a numbness sensation in her hands ( left with worsening symptoms) Extremity Weakness Pt reports left side weakness and states she is struggling with motor skills, buttoning cloths, changing diapers she feels like she's delayed. Scheduled Active and Recently Administ ered Medications (unrecognized section and content) Medication Order 03/21/2024 03/22/2024 03/23/2024 cephalexin (Keflex) capsule 1,000 mg (COMPLETED) 1,000 mg, oral, Once, On Tue03/23/24 at 2035, For 1 dose, Suspected Indication (Select all that apply): Cellulitis, Skin and Soft Tissue 2036 (Given - Provid er: Carol Bai RN) sodium chloride 0.9 % bolus 500 mL (COMPLETED) 500 mL, intravenous, at 500 mL/hr, Administer over 1 Hours, Once, On Tue03/23/24 at 1900, For 1 dose 1925 (New Bag - Prov ider: Alexandrea Waggoner RN)2025 (Stopped - Provider: Carol Bai RN) FOR RECORDS PERTAINING TO PATIENTS WHO ARE [...] BE BASED ON THE PRIMARY CLINICAL RECORDS. [employer] provides no warranty or guarantee of the accuracy or completeness of information in this document.
== END | disposition home or self-care (01) ==
LOC: MTLAB 14:35
PROVIDERS: Referring Provider Internal Medicine Rheumatology; Visit Provider Internal Medicine Rheumatology
DX: M06.4 Inflammatory polyarthropathy (principal); M79.7 Fibromyalgia; G43.909 Migraine, unspecified, not intractable, without status migrainosus; Z79.899 Other long term (current) drug therapy
CPT/HCPCS: 36415; 80053; 82306; 85025; 86200; 86431; 86706; 86803; 87340

== ENCOUNTER → 2025-09-04 | Outpatient (CLI) | payer OTHER, SELFPAY ==
[2025-09-07 16:09] LABS: Red Blood Cell Count Test/G6PD 5.05 x10E6/uL (3.77-5.28)
== END | disposition home or self-care (01) ==
LOC: MTLAB 15:47
PROVIDERS: Referring Provider Internal Medicine Rheumatology; Visit Provider Internal Medicine Rheumatology
DX: M06.4 Inflammatory polyarthropathy (principal); M79.7 Fibromyalgia; Z79.899 Other long term (current) drug therapy
CPT/HCPCS: 36415; 82955